=== PATIENT | female | born 1945 | race Caucasian/White ===

== ENCOUNTER 2017-08-20 12:06 | Emergency (ER) | payer OTHER ==
--- NOTE | 2017-08-20 14:10 | RAD REPORT ---
EXAM DESCRIPTION: CT - C Spine Wo Con - 08/20/2017 1:45 pm CLINICAL HISTORY: Right neck pain x3 days. Radiculopathy COMPARISON: None. TECHNIQUE: Computed axial tomography of the cervical spine were obtained with sagittal and coronal r econstruction images generated and reviewed. All CT scans are performed using dose optimization technique as appropriate and may include automated exposure control or mA/KV adjustment according to patient size. FINDINGS: A cervical fracture is not seen. No dislocation is noted. 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 Small central disc herniation is suspected at C4-5 IMPRESSION: A cervical fracture is not seen. Small disc central disc herniation is suspected C4-5 If the patient continues have symptoms to suggest spinal cord/spinal canal pathology then MRI would b e recommended.
[2017-08-20] MEDS ORDERED: DIAZEPAM 10 MG/2 ML INJ SYRINGE ONE ×2 (14:39→17:58)
--- NOTE | 2017-08-20 17:27 | EDPHYS ---
Physician Documentation [facility] Name: Naz Garcia Age: 71 yrs Sex: Female : 1945 Arrival Date: 08/20/2017 Time: 12:08 Bed 14 Private MD: ED Physician Valentine Haskins HPI: 08/20 17:19 This 71 yrs old Female presents to ER via Ambulatory with complaints of Neck ma2 Problem. 17:22 The patient or guardian complains of decreased range of motion. ma2 17:22 The symptoms are located right neck . Onset: The symptoms/episode began/occurred ma2 gradually, 2 day(s) ago. Context: no trauma . Associated signs and symptoms: Pertinent positives: This patient does not have any pertinent positive signs or symptoms associated with neck pain. Pertinent negatives: chills, constipation, fever, headache, bladder incontinence, bowel incontinence, nausea, numbness, tingling, vomiting, weakness. The pain does not radiate. Severity of symptoms: At their worst the symptoms were moderate. - Immunization history:: Adult Immunizations up to date. - Social history:: Smoking status: Patient/guardian denies using tobacco. ROS: 17:22 Constitutional: Negative for fever, chills, and weight loss, Eyes: Negative for injury, ma2 pain, redness, and discharge, ENT: Negative for injury, pain, and discharge, Cardiovascular: Negative for chest pain, palpitations, and edema, Respiratory: Negative for shortness of breath, cough, wheezing, and pleuritic chest pain, Abdomen/GI: Negative for abdominal pain, nausea, diarrhea, and constipation, Back: Negative for injury and pain, MS/Extremity: Negative for injury and deformity, Skin: Negative for injury, rash, and discoloration, Neuro: Negative for headache, weakness, numbness, tingling, and seizure, Allergy/Immunology: Negative for hives, rash, and allergies, Hematologic/Lymphatic: Negative for swollen nodes, abnormal bleeding, and unusual bruising. Exam: 17:22 Constitutional: This is a well developed, well nourished patient who is awake, alert, ma2 and in no acute distress. ENT: Nares patent. No nasal discharge, no septal abnormalities noted. Tympanic membranes are normal and external auditory canals are clear. Oropharynx with no redness, swelling, or masses, exudates, or evidence of obstruction, uvula midline. Mucous membranes moist. Chest/axilla: Normal chest wall appearance and motion. Nontender with no deformity. No lesions are appreciated. Cardiovascular: Regular rate and rhythm with a normal S1 and S2. No gallops, murmurs, or rubs. Normal PMI, no JVD. No pulse deficits. MS/ Extremity: Pulses equal, no cyanosis. Neurovascular intact. Full, normal range of motion. Neuro: Awake and alert, GCS 15, oriented to person, place, time, and situation. Cranial nerves II-XII grossly intact. Motor strength 5/5 in all extremities. Sensory grossly intact. Cerebellar exam normal. Normal gait. Psych: Awake, alert, with orientation to person, place and time. Behavior, mood, and affect are within normal limits. 17:22 Neck: ROM/movement: pain, that is moderate, limited range of motion, that is moderate, when rotating to the right, Meningeal signs: are not present, nuchal rigidity, is not appreciated, tense SCM muscle and trapezius . Vital Signs: 12:15 BP 149 / 66; Pulse 74; Resp 16; Temp 98.0; Pulse Ox 99% on R/A; Weight 70.31 kg; Height ss 5 ft. 2 in. (157.48 cm); Pain 10/10; 14:33 BP 138 / 64; Pulse 78; Resp 20; Pulse Ox 100% on R/A; Pain 10/10; jtb 15:30 BP 139 / 61; Pulse 76; Resp 18; Pulse Ox 100% ; mh5 16:48 BP 149 / 61; Pulse 85; Resp 18; Pulse Ox 100% on R/A; mh5 12:15 Body Mass Index 28.35 (70.31 kg, 157.48 cm) ss MDM: 13:11 Patient medically screened. ma2 17:22 Differential diagnosis: arthritis, C-Spine Fracture cervical strain, Muscle sprain. ma2 Data reviewed: vital signs, nurses notes, radiologic studies. Test interpretation: by ED physician or midlevel provider: ECG, plain radiologic studies. Counseling: I had a detailed discussion with the patient and/or guardian regarding: the historical points, exam findings, and any diagnostic results supporting the discharge/admit diagnosis, the presence of at least one elevated blood pressure reading (>120/80) during this emergency department visit, the need for outpatient follow up. Response to treatment: the patient's symptoms have markedly improved after treatment. ED course: CTspine wnl . 08/20 13:23 Order name: CT C Spine ma2 08/20 14:11 Order name: CT; Complete Time: 16:50 EDMS Administered Medications: 14:29 Drug: Valium 10 mg Route: IM; Site: left gluteus; jl7 16:30 Follow up: Response: No adverse reaction; No change in condition jl7 17:55 Drug: Valium 10 mg Route: IM; Site: left gluteus; jl7 18:06 Follow up: Response: Medication administered at discharge. jl7 17:55 Drug: soft colar 1 application {Note: Soft collar applied to pt's neck.} Route: jl7 Topical; Site: chin; 18:06 Follow up: Response: Medication administered at discharge. 7 Disposition: 08/20/17 17:26 Discharged to Home. Impression: Muscle spasm. - Condition is Stable. - Prescriptions for Valium 10 mg Oral Tablet - take 1 tablet by ORAL route every 8 hours As needed; 20 tablet. Cyclobenzaprine 10 mg Oral Tablet - take 1 tablet by ORAL route every 8 hours As needed; 30 tablet. - Medication Reconciliation Form, Thank You Letter, Antibiotic Education, Prescription Opioid Use form. - Follow up: Private Physician; When: Tomorrow; Reason: Continuance of care. - Problem is new. - Symptoms have improved. Signatures: Dispatcher [employer] EDMS America Vaughan RN RN ss Leal, Jahala, RN RN jl7 Valentine Haskins MD MD ma2
--- NOTE | 2017-08-20 17:27 | ER ---
Nurse's Notes [facility] Name: Naz Garcia Age: 71 yrs Sex: Female : 1945 Arrival Date: 08/20/2017 Time: 12:08 Bed 14 Private MD: Diagnosis: Muscle spasm Presentation: 08/20 12:15 Presenting complaint: Patient states: R sided neck pain x 3 days. Worse when moving ss head. Denies injury. Transition of care: patient was not received from another setting of care. Onset of symptoms was August 17, 2017. Care prior to arrival: None. 12:15 Method Of Arrival: Ambulatory ss 12:15 Acuity: ELIUD 3 ss - Immunization history:: Adult Immunizations up to date. - Social history:: Smoking status: Patient/guardian denies using tobacco. Screenin:33 Abuse screen: Denies threats or abuse. Denies injuries from another. Nutritional jtb screening: No deficits noted. Tuberculosis screening: No symptoms or risk factors identified. Fall Risk None identified. Assessment: 13:30 General: Appears in no apparent distress. uncomfortable, Behavior is calm, cooperative, jtb appropriate for age. Pain: Complains of pain in Back of the neck. Pain does not radiate. Pain currently is 10 out of 10 on a pain scale. at worst was 10 out of 10 on a pain scale. Quality of pain is described as aching, stabbing, throbbing, Pain began 1 day ago. Is continuous. Neuro: Level of Consciousness is awake, alert, obeys commands, Oriented to person, place, time, situation. Cardiovascular: Patient's skin is warm and dry. Respiratory: Airway is patent Respiratory effort is even, unlabored, Respiratory pattern is regular, symmetrical. GI: No signs and/or symptoms were reported involving the gastrointestinal system. : No signs and/or symptoms were reported regarding the genitourinary system. EENT: No signs and/or symptoms were reported regarding the EENT system. Derm: Skin is intact, Skin is pink, warm \T\ dry. Musculoskeletal: No signs and/or symptoms reported regarding the musculoskeletal system. 14:30 Reassessment: Patient appears in no apparent distress at this time. No changes from jtb previously documented assessment. Patient and/or family updated on plan of care and expected duration. Pain level reassessed. Patient is alert, oriented x 3, equal unlabored respirations, skin warm/dry/pink. Family at the bedside, Medications administered. 15:40 Reassessment: Patient appears in no apparent distress at this time. No changes from jtb previously documented assessment. Patient and/or family updated on plan of care and expected duration. Pain level reassessed. Patient is alert, oriented x 3, equal unlabored respirations, skin warm/dry/pink. Family at the bedside. Reports that the Valium did not help with the pain. 16:49 Reassessment: Patient appears in no apparent distress at this time. No changes from jtb previously documented assessment. Patient and/or family updated on plan of care and expected duration. Pain level reassessed. Patient is alert, oriented x 3, equal unlabored respirations, skin warm/dry/pink. 17:30 Reassessment: Pt c/o continued discomfort at the neck, see [facility] for orders. jl7 Vital Signs: 12:15 BP 149 / 66; Pulse 74; Resp 16; Temp 98.0; Pulse Ox 99% on R/A; Weight 70.31 kg; Height ss 5 ft. 2 in. (157.48 cm); Pain 10/10; 14:33 BP 138 / 64; Pulse 78; Resp 20; Pulse Ox 100% on R/A; Pain 10/10; jtb 15:30 BP 139 / 61; Pulse 76; Resp 18; Pulse Ox 100% ; mh5 16:48 BP 149 / 61; Pulse 85; Resp 18; Pulse Ox 100% on R/A; mh5 12:15 Body Mass Index 28.35 (70.31 kg, 157.48 cm) ED Course: 12:08 Patient arrived in ED. mr 12:15 Arm band placed on right wrist. ss 12:16 Triage completed. ss 13:08 Alfredo Olsen, TOM is Primary Nurse. jl7 13:11 Valentine Haskins MD is Attending Physician. ma2 13:45 CT completed. Patient tolerated procedure well. Patient moved back from CT. bq 14:33 Patient has correct armband on for positive identification. Bed in low position. Call jtb light in reach. Side rails up X 1. Pulse ox on. NIBP on. 18:08 No provider procedures requiring assistance completed. Patient did not have IV access jl7 during this emergency room visit. Administered Medications: 14:29 Drug: Valium 10 mg Route: IM; Site: left gluteus; jl7 16:30 Follow up: Response: No adverse reaction; No change in condition jl7 17:55 Drug: Valium 10 mg Route: IM; Site: left gluteus; jl7 18:06 Follow up: Response: Medication administered at discharge. jl7 17:55 Drug: soft colar 1 application {Note: Soft collar applied to pt's neck.} Route: jl7 Topical; Site: chin; 18:06 Follow up: Response: Medication administered at discharge. jl7 Outcome: 17:26 Discharge ordered by . rock 18:08 Attestation : I agree with everything documented by Nima Johnson, Student Nurse. 7 18:08 Discharged to home ambulatory, with family. 18:08 Condition: stable 18:08 Discharge instructions given to patient, family, Instructed on discharge instructions, follow up and referral plans. medication usage, Demonstrated understanding of instructions, follow-up care, medications, Prescriptions given X 2. 18:09 Patient left the ED. [facility] Signatures: Fide Vargas mr ElidabarryMacey Shelby, TOM RN Fide Clark Alfredo Verma RN RN jl7 Valentine Haskins MD MD ma2 Bryson, James j Corrections: (The following items were deleted from the chart) 12:19 12:15 Acuity: ELIUD 4 ss ss 14:32 14:29 General: Appears in no apparent distress. uncomfortable, Behavior is calm, jtb cooperative, appropriate for age, jtb 14:32 14:29 Pain: Complains of pain in Back of the neck. Pain does not radiate. Pain jtb currently is 10 out of 10 on a pain scale. at worst was 10 out of 10 on a pain scale. Quality of pain is described as aching, stabbing, throbbing, Pain began 1 day ago. Is continuous, jtb 14:32 14:29 Neuro: Level of Consciousness is awake, alert, obeys commands, Oriented to jtb person, place, time, situation, jtb 14:32 14:29 Cardiovascular: Patient's skin is warm and dry. jtb jtb 14:32 14:29 Respiratory: Airway is patent Respiratory effort is even, unlabored, Respiratory jtb pattern is regular, symmetrical, jtb 14: GI: No signs and/or symptoms were reported involving the gastrointestinal system. jtb jtb : : No signs and/or symptoms were reported regarding the genitourinary system. jtbjtb 14: EENT: No signs and/or symptoms were reported regarding the EENT system. jtb jtb 14: Derm: Skin is intact, Skin is pink, warm \T\ dry. jtb jtb 14: Musculoskeletal: No signs and/or symptoms reported regarding the musculoskeletal jtb system. jtb
== END 2017-08-20 18:09 | disposition home or self-care (01) ==
LOC: ER 12:06
DX: M62.838 Other muscle spasm (principal)
CPT/HCPCS: 72125; 96372; 99284; J3360 ×2

== ENCOUNTER 2022-03-20 13:04 | Emergency (ER) | payer OTHER ==
--- OUTSIDE RECORDS SUMMARY | 2022-03-20 13:08 | XMS REPORT | Continuity of Care Document ---
:1945 Author Organization [facility] t Address [address] [place] [address] Care Team Providers Name Role Phone Sarah Mcclain MD Primary Care Physician Noam Perez Attending Clinician Unavailable GC_TNC_Lovitt_S Attending Clinician Unavailable Sarah Mcclain MD Attending Clinician Mario LANDIN, Jeanine Jones Attending Clinician [phone] Miguel LANDIN, Alex Butcher Attending Clinician [phone] Gulshan LANDIN, Luciana Schmidt Attending Clinician MD JULIAN PAREDES Attending Clinician Unavailable JULIAN PAREDES Attending Clinician Unavailable LEVI ALVAREZ Attending Clinician Unavailable Sarah Mcclain Attending Clinician Unavailable Noam Perez Admitting Clinician Unavailable GC_TNC_Lovitt_S Admitting Clinician Unavailable SARAH MCCLAIN Admitting Clinician Unavailable MD JULIAN PAREDES Admitting Clinician Unavailable Sarah Mcclain Admitting Clinician Unavailable Payers Payer Name Policy Type Policy Number Effective Date Expiration Date S jama MEDICARE [place]: [id number] 2011 [facility] Com 00:00:00 [employer] [id number] INSURANCE COMPANY (MEDICARE SUPPLEMENT) Problems Condition Condition Condition Status Onset Resolution Last Treating Co mments Source Name Details Category Date Date Treatment Clinician Date 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 rivia neuralgia Neuralgia 0-11 Medi ilsa 00:00: 00 Chest Chest Disease Active Methodi pain, pain, 6-11 st unspecifie unspecifie 00:00: Ho spita d type d type 00 l Chest pain Chest pain Disease Active M ethodi 6-10 st 00:00: Hospita 00 l Essential Essential Disease Active Met hodi hypertensi hypertensi 09-03 st on on 00:00: Hospita 00 l Hyperthyro Hyperthyro Disease Active M ethodi idism idism 09-03 st 00:00: Hospita 00 l Mixed Mixed Disease Active Methodi hyperlipid hyperlipid 09-03 st emia emia 00:00: Hospita 00 l Pain of Pain of Disease Active Methodi upper upper 09-03 st abdomen abdomen 00:00: Hospita 00 l Allergies, Adverse Reactions, Alerts Allergy Allergy Status Severity Reaction(s) Onset Inactive Treating Comm ents Source Name Type Date Date Clinician Colchici Propensi Active Hives Method i ne ty to 6-10 st adverse 00:00: Hospita reaction 00 l s to drug Tramadol Propensi Active Hallucinatio Methodi ty to ns 6-10 st adverse 00:00: Hospita reaction 00 l s to drug Iodine Propensi Active Other (See Tremors-w M ethodi And ty to Comments) 3-[address] Iodide adverse 00:00: observed Hospita Containi reaction 00 but l ng s to resolved Products drug without treatment oxybutyn DA Active [place] 2019- [facility] [place] 00:00: Orthope 00 dic Hospita l oxybutyn DA Active UT NAUSEA 2019- [facility] 007 [place] 00:00: Orthope 00 dic Hospita l Sulfa DA Active SV [facility] (Sulfona 02-25 Clear mide 00:00: Luo Antibiot 00 [facility] allopuri DA Active SV HCA nol 02-25 Clear 00:00: Luo 00 [facility] colchici DA Active SV [facility] ne 02-25 Clear 00:00: Luo 00 [facility] amoxicil DA Active MO 2020-0 [facility] emilie 9- Clear 00:00: Luo 00 [facility] meloxica DA Active SV 2019-0 H[facility] m 9-22 Clear 00:00: Luo 00 [facility] meloxica DA Active SV DIARRHEA, 2019-0 HCA m NAUSEA, 02-25 Clear WEAK, SHAKY, 00:00: Luo SOB 00 [facility] Sulfa DA Active SV NAUSEA, SOB, 0 HCA (Sulfona DIARRHEA, 02-25 Clear mide WEAK, SHAKY 00:00: Luo Antibiot 00 [facility] allopuri DA Active SV NAUSEA, 0 HCA nol DIARRHEA, 02-25 Clear WEAK, SHAKY, 00:00: Luo SOB [facility] colchici DA Active SV NAUSEA, 0 HCA ne DIARRHEA, 02-25 Clear SHAKY, WEAK, 00:00: Luo SOB [facility] amoxicil DA Active MO DIARRHEA, 0 HCA emilie NAUSEA, 02-25 Clear WEAK, SHAKY, 00:00: Luo SOB [facility] Fexofena Propensi Active Other (See 2018-06 Per Ia thodi dine ty to Comments) 06-10 patient - st adverse 00:00: "nausea/v Hospit a reaction 00 omiting, l s to hypervent drug ilation, weakness, shakiness " Allopuri Propensi Active Other (See 2018-06 Per Ia thodi nol ty to Comments) 06-10 patient - st adverse 00:00: "nausea/v Hospit a reaction 00 omiting, l s to hypervent drug ilation, weakness, shakiness " Amoxicil Propensi Active Other (See 2018-06 Per Ia thodi emilie-Pot ty to Comments) 06-10 patient - st Clavulan adverse 00:00: "nausea/v Hosp handy ate reaction 00 omiting, l s to hypervent drug ilation, weakness, shakiness " Moxiflox Propensi Active Other (See 2018-06 Per Ia thodi acin ty to Comments) 06-10 patient - st adverse 00:00: "nausea/v Hospit a reaction 00 omiting, l s to hypervent drug ilation, weakness, shakiness " Sulfamet Propensi Active Other (See 2018-06 Per Ia thodi hoxazole ty to Comments) 06-10 patient - st -Trimeth adverse 00:00: "nausea/v Hosp handy oprim reaction 00 omiting, l s to hypervent drug ilation, weakness, shakiness " Clindamy Propensi Active Unknown 2018-06 Per Metho di shailesh ty to Reaction 06-10 patient - st adverse 00:00: "nausea/v Hospit a reaction 00 omiting, l s to hypervent drug ilation, weakness, shakiness " Dexlanso Propensi Active Other (See 2018-06 Per Ia renay prazole ty to Comments) 06-10 patient - st adverse 00:00: "nausea/v Hospit a reaction 00 omiting, l s to hypervent drug ilation, weakness, shakiness " Meloxica Propensi Active Other (See 2018-06 Per Ia renay m ty to Comments) 06-10 patient - st adverse 00:00: "nausea/v Hospit a reaction 00 omiting, l s to hypervent drug ilation, weakness, shakiness " Sulfa Propensi Active Other (See 2018-06 Per Meth amanda (Sulfona ty to Comments) 06-10 patient - st mide adverse 00:00: "nausea/v Hospit a Antibiot reaction 00 omiting, l ics) s to hypervent drug ilation, weakness, shakiness " Tetracyc Propensi Active GI 2018-06 Per Method i lines ty to Intolerance 06-10 patient - st adverse 00:00: "nausea/v Hospit a reaction 00 omiting, l s to hypervent drug ilation, weakness, shakiness " Zolpidem Propensi Active GI 2018-06 Per Method i ty to Intolerance 06-10 patient - st adverse 00:00: "nausea/v Hospit a reaction 00 omiting, l s to hypervent drug ilation, weakness, shakiness " Tetracyc DA Active SV 2016-0 [facility] lines 2-21 Clear 00:00: Luo 00 [facility] clindamy DA Active SV [facility]CA shailesh 2-21 Clear 00:00: Luo 00 [facility] sulfamet DA Active SV HCA hoxazole 2-21 Clear 00:00: Luo 00 [facility] trimetho DA Active SV HCA prim 2-21 Clear 00:00: Luo [facility] zolpidem DA Active SV HCA 2- Clear 00:00: Luo [facility] fexofena DA Active SV HCA dine 07-27 Clear 00:00: Luo [facility] moxiflox DA Active SV HCA acin 07-27 Clear 00:00: Luo [facility] dexlanso DA Active SV HCA prazole 07-27 Clear 00:00: Luo [facility] zolpidem DA Active SV NAUSEAATED HCA 2 Clear 00:00: Luo [facility] fexofena DA Active SV NAUSEATED,SH HC A dine AKEY,DIARRHE 07-27 Dulce r A,SOB 00:00: Luo [facility] moxiflox DA Active SV NAUSEA,SHAKE HC A acin Y,SOB 07-27 Clear 00:00: Luo [facility] dexlanso DA Active SV NAUSEATED,SH HC A prazole AKEY,SOB,JENNIFER 07-27 Fidel ar RRHEA 00:00: Luo [facility] Tetracyc DA Active SV NAUSEATED,SH HC A lines AKEY,SOB,ESME 07-27 Dulce r RRHEA 00:00: Luo [facility] clindamy DA Active SV NAUSEATED HCA shailesh 07-27 Clear 00:00: Luo [facility] sulfamet DA Active SV NAUSEATED,DI HC A hoxazole ARRHEA,SHAKE 07-27 Cl ear Y,SOB 00:00: Luo [facility] trimetho DA Active SV NAUSEATED,DI HC A prim [facility] Dulce r Y,SOB 00:00: Luo [facility] NARCOTIC DA Active UT SENSITIVE TO HC A S PAIN 7- Clear MEDICATION 00:00: Luo [facility] Benzonat Allergy Active [facility] ate to Medical substanc e Clindamy Allergy Active [facility] shailesh to Medical substanc e Codeine Allergy Active [facility] to Medical substanc e Colchici Allergy Active [facility] ne to Medical substanc e DARVOCET Allergy Active [facility] -N to Medical substanc e Duloxeti Allergy Active [facility] ne to Medical substanc e Iodine Allergy Active [facility] to Medical substanc e KAPIDEX Allergy Active [facility] to Medical substanc e Meloxica Allergy Active [facility] m to Medical substanc e Morphine Allergy Active [facility] to Medical substanc e Oxybutyn Allergy Active [facility] in to Medical substanc e STATINS- Allergy Active [facility] to Medical REDUCTAS substanc E e INHIBITO RS TETRACYC Allergy Active [facility] LINES to Medical substanc e Tramadol Allergy Active [facility] to Medical substanc e Vicodin Allergy Active [facility] to Medical substanc e Radha Allergy Active [facility] to Medical substanc e Allopuri Allergy Active [facility] nol to Medical substanc e Ambien Allergy Active [facility] to Medical substanc e Avelox Allergy Active [facility] to Medical substanc e Bactrim Allergy Active [facility] to Medical substanc e Social History Social Habit Start Date Stop Date Quantity Comments Source History [facility] Drinks History [facility] Alcohol intake 2021-11-19 2021-11-19 Lifetime [facility] 00:00:00 00:00:00 non-drinker Hospital (finding) Tobacco use and 2020-09-02 2020-09-02 Smokeless tobacco Me [facility]odist exposure 00:00:00 00:00:00 non-user Hospital History [facility] 2020-09-02 2020-09-02 1 [facility] Frequency 00:00:00 00:00:00 Hospita l Sex Ass[birth year] At [birth year] F [facility] 00:[facility] 00:[facility]:00 Hospital Smoking Status Start Date Stop Date Source Never smoked tobacco [facility] Medications Ordered Filled Start Stop Current Ordering Indication Dosage Frequency Signature Comments Components Source Medication Medication Date Date Medication? Clinician (SIG) Name Name calcium Yes 1{tbl} QD Chew 1 Method i carbonate 6-[address] 400 mg 13:09: daily. Hospita calcium 04 l (1,000 mg) tablet,chew able MAGNESIUM Yes 1{tbl} QD Take 1 Meth amanda ORAL 6-[address] 13:09: mouth Hospita 04 daily. l multivitami Yes 1{tbl} QD Take 1 Me thodi n tablet 6-[address] 13:09: mouth Hospita 04 daily. l zinc 2021- No 1{tbl} QD Take 1 Methodi sulfate 15 -[address] (ZINC-15 13:09: 00:00 mouth Hospita ORAL) 04 :00 daily. l evolocumab 2021- No 140mg Q14D Metho di (REPATHA) 11-17 10-04 st injection 15:45: 13:59 Hospita 140 mg 00 :00 l triamterene 2021- No 1{capsu QD Take 1 Methodi -hydrochlor 11-17-14 le} capsule by s t othiazid 13:09: 00:00 mouth Hospita (DYAZIDE) 45 :00 daily. l 37.5-25 mg per capsule cholecalcif Yes 1000U Take 1,000 Methodi kaya, 6-[address] vitamin D3, 13:09: mouth. Hosp handy (VITAMIN 42 l D3) 1,000 unit capsule evolocumab Yes 140mg Q14D Inject 1 Me thodi (Repatha 6-14 mL ([address] Sure[facility]) 00:00: total) Hospi ta 140 mg/mL 00 under the l pen skin every injector 14 injection (fourteen) days. aspirin No 81mg QD Take 1 Methodi (ECOTRIN) 11-1715 tablet (81 st 81 MG 00:00: 04:59 mg total) Hospit a enteric 00 :00 by mouth l coated daily for tablet 30 days. simvastatin No 20mg QD Take 20 mg Methodi (ZOCOR) 20 6- 06-[address] mg tablet 18:07: 00:00 nightly. Hos ramiro 22 :00 l pantoprozol 2021- No 8mg/h Infuse 8 Methodi e 6-10 06-10 mg/hr into st (PROTONIX) 18:07: 00:00 a venous Ho spita infusion 19 :00 catheter l continuous ly. aspirin-ilsa 2021- No Take by Me thodi cium 6-10 06-[address] carbonate 18:05: 00:00 Hospita 81 mg-300 42 :00 l mg calcium(777 mg) tablet azelaic 2021- No Apply Methodi acid 11-[address] (FINACEA) 18:05: 00:00 Hospita 15 % foam 42 :00 l predniSONE 2021- No 5mg QD Take 5 mg M ethodi (DELTASONE) 11-[address] 5 mg tablet 18:05: 00:00 daily. Hos ramiro 33 :00 l ascorbic 2021- No Vitamin C Met hodi acid, 11-13 1,[address] vitamin C, 18:05: 00:00 tablet Hosp handy (VITAMIN C) 27 :00 l 1000 MG tablet levothyroxi 2018-06 Yes 75ug QD Take 75 Met hodi ne 0-[address] (SYNTHROID) 00:00: mouth Hospi ta 75 mcg 00 daily. l tablet metoprolol Yes 50mg QD Take 50 mg M ethodi tartrate 8-[address] (LOPRESSOR) 00:00: daily. Hosp handy 50 mg 00 l tablet cefdinir cefdinir No cefdinir Tri via 300 mg 300 mg 300 mg Medical capsule capsule capsule TAKE 1 TAKE 1 TAKE 1 CAPSULE BY CAPSULE BY CAPSULE BY MOUTH TWICE MOUTH TWICE MOUTH DAILY DAILY TWICE DAILY duloxetine duloxetine No duloxetine [facility] 30 mg 30 mg 30 mg Medical capsule,del capsule,del capsule,de ayed ayed layed release release release TAKE 1 TAKE 1 TAKE 1 CAPSULE BY CAPSULE BY CAPSULE BY MOUTH ONCE MOUTH ONCE MOUTH ONCE DAILY DAILY DAILY Euthyrox 75 Euthyrox 75 No Euthyrox [facility] mcg tablet mcg tablet 75 mcg M edical TAKE 1 TAKE 1 tablet TABLET BY TABLET BY TAKE 1 MOUTH ONCE MOUTH ONCE TABLET BY DAILY DAILY MOUTH ONCE DAILY metoprolol metoprolol No metoprolol [facility] tartrate 50 tartrate 50 tartrate Medical mg tablet mg tablet 50 mg TAKE 1 TAKE 1 tablet TABLET BY TABLET BY TAKE 1 MOUTH ONCE MOUTH ONCE TABLET BY DAILY DAILY MOUTH ONCE DAILY ondansetron ondansetron No ondansetro [facility] 8 mg 8 mg n 8 mg Medical disintegrat disintegrat disintegra ing tablet ing tablet ting tablet prednisone prednisone No prednisone [facility] 20 mg 20 mg 20 mg Medical tablet TAKE tablet TAKE tablet 2 TABLETS 2 TABLETS TAKE 2 BY MOUTH BY MOUTH TABLETS BY ONCE DAILY ONCE DAILY MOUTH ONCE FOR 3 DAYS FOR 3 DAYS DAILY FOR , THEN TAKE , THEN TAKE 3 DAYS , 1 TABLET 1 TABLET THEN TAKE ONCE A DAY ONCE A DAY 1 TABLET FOR 3 DAYS FOR 3 DAYS ONCE A DAY FOR 3 DAYS Repatha Repatha No Repatha [facility] 140 mg/mL 140 mg/mL 140 mg/mL subcutaneou subcutaneou subcutaneo s pen s pen us pen injector injector injector triamterene triamterene No triamteren [facility] 37.5 37.5 e 37.5 Medical mg-hydrochl mg-hydrochl mg-hydroch orothiazide orothiazide lorothiazi 25 mg 25 mg de 25 mg capsule capsule capsule TAKE 1 TAKE 1 TAKE 1 CAPSULE BY CAPSULE BY CAPSULE BY MOUTH ONCE MOUTH ONCE MOUTH ONCE DAILY DAILY DAILY Vital Signs Vital Name Observation Time Observation Value Comments Source Height 2022-03-16 00:00:00 61 [in_i] [facility] edical BMI (Body Mass 2022-03-16 00:00:00 33.1 kg/m2 [facility] Medical Index) Body Weight 2022-03-16 00:00:00 2800 [oz_av] [facility] edical Systolic blood 2022-01-28 13:31:00 182 mm[Hg] [facility] pressure Diastolic blood 2022-01-28 13:31:00 75 mm[Hg] [facility] pressure Heart rate 2022-01-28 13:31:00 68 /min [facility] Respiratory rate 2022-01-28 13:31:00 17 /min [facility] Oxygen saturation in 2022-01-28 13:31:00 100 /min [facility] Arterial blood by Pulse oximetry Body weight 2022-01-28 12:34:00 77.565 kg [facility] BMI 2022-01-28 12:34:00 32.31 kg/m2 [facility] Body temperature 2021-11-17 16:53:49 36.56 Marina [facility] Body height 2021-11-13 16:58:00 154.9 cm [facility] Procedures Procedure Date / Time Performing Clinician Source Performed MRI BRAIN WO CONTRAST 2022-03-04 15:05:00 V[facility], [facility] CV MRA CHEST (THORACIC 2022-01-28 13:48:03 [facility] AORTA OR PULMONARY ARTERY) ESTIMATED GFR 2022-01-28 13:23:00 [facility] POC PANEL 2022-01-28 13:23:00 [facility] ESTIMATED GFR 2022-01-15 20:12:00 [facility] POC PANEL 2022-01-15 20:12:00 [facility] US BREAST COMPLETE 2022-01-15 16:50:07 [facility] BILATERAL MAMMO BREAST DIAGNOSTIC 2022-01-15 16:21:32 [facility] TOMOSYNTHESIS BILATERAL CT CHEST WO CONTRAST 2022-01-01 16:55:25 [facility] CV LEFT HEART CATH LV 2021-11-16 23:17:02 Kate Morrison [facility] GRAM WITH CORS MAGNESIUM LEVEL 2021-11-16 14:07:00 [facility] COMPREHENSIVE METABOLIC 2021-11-16 14:07:00 [facility] PANEL ESTIMATED GFR 2021-11-16 14:07:00 [facility] HC COMPLETE BLD COUNT 2021-11-16 14:07:00 [facility] W/AUTO DIFF COVID-19 ANTI-SPIKE IGG 2021-11-15 09:25:00 Kyle Islas [facility] ANTIBODY TITER Rob COVID-19 SEROLOGY PATIENT 2021-11-15 09:25:00 Kyle Islas [facility] SURVEILLANCE Rob CV SPECT CA SC TECH ONLY 2021-11-14 19:25:13 [facility] ORDER CV STRESS TEST NUCLEAR 2021-11-14 16:18:10 [facility] CARDIO NM MYOCARDIAL PERFUSION 2021-11-14 16:18:10 [facility] STRESS REST 1 DAY ECG 12-LEAD 2021-11-14 12:46:53 [facility], WO 2021-11-14 11:26:00 [facility], W DOPPLER ([id number]) BASIC METABOLIC PANEL 2021-11-14 09:59:00 [facility] ESTIMATED GFR 2021-11-14 09:59:00 [facility] LIPID PANEL 2021-11-14 09:59:00 [facility] TROPONIN T 2021-11-14 02:44:00 [facility] TROPONIN T 2021-11-13 22:34:00 Gregory[facility] ECG ED PRELIMINARY 2021-11-13 21:32:41 [facility] INTERPRETATION Alex Butcher COVID-19 QUALITATIVE 2021-11-13 19:31:00 [facility] RT-PCR Alex Butcher XR CHEST 1 VW PORTABLE 2021-11-13 18:11:17 [facility] Alex R. HC COMPLETE BLD COUNT 2021-11-13 17:50:00 Adal Gregory [facility] W/AUTO DIFF COMPREHENSIVE METABOLIC 2021-11-13 17:50:00 Adal Gregory [facility] PANEL TROPONIN T 2021-11-13 17:50:00 [facility] B NATRIURETIC PEPTIDE 2021-11-13 17:50:00 Adal Gregory [facility] ESTIMATED GFR 2021-11-13 17:50:00 Gregory, [facility] ECG 12-LEAD 2021-11-13 17:08:44 [facility] XR CHEST 2 VW 2021-10-05 18:03:00 [facility] [id number] 2020-03-12 00:00:00 STOGR [facility] Cataract Surgery [facility] Medical Ankle Arthroscopy/surgery [facility] Medical Total Knee Replacement [facility] dical Hysterectomy [facility] Plan of Care Planned Activity Planned Date Details Comments Source Future Scheduled 2022-03-11 HEPATITIS B VACCINES Met [facility] Test 10:45:45 (1 of 3 - 3-dose series) [code = HEPATITIS B VACCINES (1 of 3 - 3-dose series)] Future Scheduled 2022-03-11 Hepatitis C screening [facility] Test 10:45:45 (procedure) [code = 729357390] Future Scheduled 2022-03-11 COLONOSCOPY SCREENING [facility] Test 10:45:45 [code = COLONOSCOPY SCREENING] Future Scheduled 2022-03-11 SHINGLES VACCINES (1 Met [facility] Test 10:45:45 of 2) [code = SHINGLES VACCINES (1 of 2)] Future Scheduled 2022-03-11 COVID-19 VACCINE (2 - [facility] Test 10:45:45 Moderna series) [code = COVID-19 VACCINE (2 - Moderna series)] Future Scheduled 2022-03-11 INFLUENZA VACCINE Method [facility] Test 10:45:45 [code = INFLUENZA VACCINE] Future Scheduled 2022-03-11 [facility] 10:45:45 SCREENING [code = BREAST CANCER SCREENING] Encounters Start End Encounter Admission Attending Care Care Encounter Source Date/Time Date/Time Type Type Clinicians Facility Department ID 2020-03-12 Inpatient LEANNA Perez, [facility] [id number] [facility] 15:15:[address] Orthope dic Hospita l 2022-03-16 2022-03-16 Outpatient GC_TNC_Lovi PRIV PRIV [id number] [facility] 00:00:00 00:00:00 tt_S [id number] Medica l 2022-03-16 2022-03-[address] [facility] 011 [facility] 00:00:00 00:00:00 Sandrine Anand - Anirudh noble MD: [id number] GC_TNC_Kendra [facility], Office* [address], [place] [address] , Ph. 2022-03-15 2022-03-15 Outpatient GC_TNC_Lovi PRIV PRIV [id number] [facility] 00:00:00 00:00:00 tt_S [id number] Medica l 2022-03-08 2022-03-08 Outpatient GC_TNC_Lovi PRIV PRIV [id number] [facility] 00:00:00 00:00:00 tt_S [id number] Medica l 2022-03-04 2022-03-04 [facility], 1.2.840.1 [id number] Methodi 09:26:50 23:59:00 Encounter Sarah G. [id number] 3.430.2.7 Hospit a .3.954658 l .8 2022-03-04 2022-03-04 Travel 1.2.840.1 1.2.779.166 [id number] [facility] 00:00:00 00:00:[address] 3.430.2.7 0.2.7.3.698 Ho spita .3.480343 084.8 l .8 2022-03-04 2022-03-04 Outpatient [facility] [id number] 00:00:00 00:00:00 SARAH [address] 2022-02-22 2022-02-22 [facility], 1.2.840.1 [id number] Methodi 00:00:00 00:00:00 Only Sarah G. 88452.1.1 181 s t 3.430.2.7 Hospit a .3.723947 l .8 2022-01-28 2022-01-28 [facility], 1.2.840.1 [id number] Methodi 07:07:23 23:59:00 Encounter Sarah G. 51646.1.[address] 3.430.2.7 Hospit a .3.584464 l .8 2022-01-28 2022-01-28 Travel 1.2.840.1 1.2.867.633 [id number] [facility]i 00:00:00 00:00:[address] 3.430.2.7 0.2.7.3.698 Ho spita .3.083139 084.8 l .8 2022-01-28 2022-01-28 Outpatient SARAHI [facility] [id number] 00:00:00 00:00:00 SARAH [address] 2022-01-15 2022-01-15 [facility], 1.2.840.1 [id number] Methodi 13:24:40 23:59:00 Encounter Sarah G. 85880.1.[address] 3.430.2.7 Hospit a .3.287504 l .8 2022-01-15 2022-01-15 [facility], 1.2.840.1 [id number] Methodi 11:00:00 13:23:00 Encounter Sarah G. 62346.1.[address] 3.430.2.7 Hospit a .3.384462 l .8 2022-01-15 2022-01-15 [facility], 1.2.840.1 [id number] Methodi 10:14:16 10:59:00 Encounter Sarah G. 95757.1.[address] 3.430.2.7 Hospit a .3.461049 l .8 2022-01-15 2022-01-15 Travel 1.2.840.1 1.2.342.815 [id number] [facility]i 00:00:00 00:00:[address] 3.430.2.7 0.2.7.3.698 Ho spita .3.176833 084.8 l .8 2022-01-15 2022-01-15 [facility], 1.2.840.1 [id number] Methodi 00:00:00 00:00:00 Only Sarah G. 30392.1.1 797 s t 3.430.2.7 Hospit a .3.938063 l .8 2022-01-15 2022-01-15 Outpatient SARAHI [facility] [id number] 00:00:00 00:00:00 SARAH [address] 2022-01-15 2022-01-15 Outpatient SARAHI, [facility] [id number] 00:00:00 00:00:00 SARAH [address] 2022-01-15 2022-01-15 Outpatient SARAHI [facility] [id number] [place] 00:00:00 00:00:00 SARAH [address] 2022-01-01 2022-01-01 [facility], 1.2.840.1 [id number] Methodi 10:42:51 23:59:00 Encounter Sarah G. 80539.1.[address] 3.430.2.7 Hospit a .3.340212 l .8 2022-01-01 2022-01-01 Travel 1.2.840.1 1.2.438.794 [id number] Methodi 00:00:00 00:00:[address] 3.430.2.7 0.2.7.3.698 Ho spita .3.661380 084.8 l .8 2022-01-01 2022-01-01 [facility] [id number] [place] 00:00:00 00:00:00 SARAH [address] 2021-12-30 2021-12-30 Transcribe Chiu-Arrast 1.2.840.1 [id number] [facility]i 00:00:00 00:00:00 Orders ia, 24669.1.[address] [place]zano 3.430.2.7 Hos ramiro Robert .3.868679 l .8 2021-12-30 2021-12-30 [facility] 1.2.840.1 [id number] Methodi 00:00:00 00:00:00 Orders Sarah G. 28116.1.1 620 s t 3.430.2.7 Hospit a .3.052582 l .8 2021-12-30 2021-12-30 Orders Vicroy, 1.2.840.1 [id number] [facility] 00:00:00 00:00:00 Only Sarah G. 21824.1.1 657 s t 3.430.2.7 Hospit a .3.936270 l .8 2021-12-29 2021-12-29 Travel 1.2.840.1 1.2.393.766 6807 [id number] Methodi 00:00:00 00:00:[address] 3.430.2.7 0.2.7.3.698 Ho spita .3.494192 084.8 l .8 2021-12-29 2021-12-29 [facility], 1.2.840.1 [id number] Methodi 00:00:00 00:00:00 Only Sarah RaisaCrystal 71656.1.1 337 s t 3.430.2.7 Hospit a .3.522779 l .8 2021-11-13 2021-11-17 [facility] Alex Rivera 1.2.84 0.1 [id number] Methodi 12:02:00 13:09:00 Encounter Jacquesflorencio Sarah RaisaCrystal [address]65.1.[address] 3.430.2.7 Hospit a .3.866977 l .8 2021-11-13 2021-11-17 [facility] [id number] 70 [place] 00:00:00 00:00:00 SARAH [address] 2021-11-16 2021-11-16 Surgery Gulshan, 1.2.840.1 [id number] 2108 Methodi 15:25:00 16:20:00 Luciana Schmidt 08513.1.[address] 3.430.2.7 Hospit a .3.493572 l .8 2021-11-14 2021-11-14 [facility] Sarahi, 1.2.840.1 [id number] Methodi 11:17:30 23:59:00 Encounter Sarah KlineCrystal [address]40.1.[address] 3.430.2.7 Hospit a .3.427843 l .8 2021-11-14 2021-11-14 [facility] [id number] [place] 00:00:00 00:00:00 SARAH [address] 2021-11-13 2021-11-13 Travel 1.2.840.1 1.2.588.266 6238 [id number] Methodi 00:00:00 00:00:[address] 3.430.2.7 0.2.7.3.698 Ho spita .3.645865 084.8 l .8 2021-10-20 2021-10-20 Transcribe [facility], 1.2.840.1 [id number] Methodi 00:00:00 00:00:00 Orders Sarah G. 25084.1.1 124 s t 3.430.2.7 Hospit a .3.663413 l .8 2021-10-05 2021-10-05 [facility], 1.2.840.1 [id number] Methodi 12:45:00 23:59:00 Encounter Sarah G. 33324.1.[address] 3.430.2.7 Hospit a .3.689084 l .8 2021-10-05 2021-10-05 Travel 1.2.840.1 1.2.758.302 4121 [id number] Methodi 00:00:00 00:00:[address] 3.430.2.7 0.2.7.3.698 Ho spita .3.460243 084.8 l .8 2021-10-05 2021-10-05 Orders [facility], 1.2.840.1 [id number] 3897 Methodi 00:00:00 00:00:00 Only Sarah G. 45419.1.1 167 s t 3.430.2.7 Hospit a .3.667350 l .8 2021-10-05 2021-10-05 [facility] [id number] 267 [place] 00:00:00 00:00:00 SARAH [address] 2020-10-27 2020-10-27 [facility] [id number] 906 [place] 00:00:00 00:00:00 SARAH [address] 2020-10-27 2020-10-27 Outpatient SARAHI, [facility] [id number] 906 [place] 00:00:00 00:00:00 SARAH [address] 2020-09-04 2020-09-04 Outpatient REGGIE, [facility] [id number] [place] 00:00:00 00:00:00 PETER [address] 2020-09-02 2020-09-02 Outpatient ANTONIO, LEVI [facility] [id number] [place] 00:00:00 00:00:[address] 2020-08-14 2020-08-14 Outpatient SARAHI, [facility] [id number] 800 [place] 00:00:00 00:00:00 SARAH [address] 2020-03-07 2020-03-07 Outpatient Chris, HCATO RADI [id number] [facility] 10:30:00 10:30:00 Noam [facility] 2020-02-26 2020-02-26 Outpatient Chris, HCACL LABO [id number] [facility] 18:01:00 18:01:00 Noam 24 [facility] 2020-02-26 2020-02-26 [id number] [facility] 00:00:00 00:00:00 Sarah [facility] 2019-10-26 2019-10-26 Outpatient SARAHI [facility] [id number] 829 [place] 00:00:00 00:00:00 SARAH [address] 2019-10-26 2019-10-26 Outpatient SARAHI [facility] [id number] 829 [place] 00:00:00 00:00:00 SARAH [address] 2019-07-30 2019-07-30 Outpatient SARAHI [facility] [id number] [place] 00:00:00 00:00:00 SARAH [address] 2019-07-30 2019-07-30 Outpatient SARAHI [facility] [id number] 980 [place] 00:00:00 00:00:00 SARAH [address] 2019-05-08 2019-05-08 Outpatient ASRAHI [facility] [id number] 796 [place] 00:00:00 00:00:00 SARAH [address] 2019-05-08 2019-05-08 Outpatient SARAHI [facility] [id number] 796 [place] 00:00:00 00:00:00 SARAH [address] 2019-05-08 2019-05-08 Outpatient SARAHI [facility] [id number] 796 [place] 00:00:00 00:00:00 SARAH [address] 2019-03-22 2019-03-22 Outpatient SARAHI [facility] [id number] 855 [place] 00:00:00 00:00:00 SARAH [address] Results Test Description Test Time Test Comments Results Result Comments Source POC panel 2022-01-28 13:26:01 Test Item Value Reference Range Interpretation Comme nts POC creatinine (test code = 1.2 mg/dl 0.5-0.9 H Nuclear Control Room Operator Name: Michael [id number]) Hazelice ID: [id number] POC hematocrit (test code = 40 % 37-47 4544-3) Lab Interpretation (test code = Abnormal 66429-6) [facility] [id number] 13:26:00 Test Item Value Reference Range Interpretation Comments Estimated GFR (test mL/min/1.73 m2 Ryan Michela vale Units code = 26594-9) Interpretati onG1 >=90 Normal or highG 2 60-89 Mildly decrease dG3a 45-59 Mildly to moderately decr troxjS2p 30-44 Moderatel y to severely decrea sedG4 15-29 Severely decreasedG5 <15 Kidney failureThe eGFR was calculated mable g the Chronic Kidney Disease Epidemiology Collaboration ( CKD-EPI) equation. Interpretation is based on recommendati ons of the National Ki dney Foundation-Kidn ey Disease Outcome s Quality Initiat vicky (NKF-KDOQI) pub lished in 2013. Lab Interpretation Abnormal (test code = 62870-6) [facility] stress [id number] 10:15:50 Test Item Value Reference Range Interpretation Comments Resting HR (test code = 5327484292) Resting BP (test code 185&75 = 4624193005) Peak MET Achieved (test code = 6965725788) Protocol Name (test REGADENO code = 4984989319) Time in Exercise 00:01:00 Phase (test code = 1136161520) Max Systolic BP (test code = 2915020627) Max Diastolic BP (test code = 7487989701) Max Heart Rate (test code = 8701676943) Max Predicted Heart Rate (test code = 4643134401) Target HR Formula (220 - Age)*100% (test code = 5997437001) Test Indication (test chest pain code = 4821348434) Arrhy During Ex (test code = 4171632850) ECG Interp Before EX (test code = 7781534003) ECG Interp During Ex (test code = 6363766694) Ex Summary Comment (test code = 5300531024) Overall HR Response to Exercise (test code = 4228907827) Overall BP Response To Exercise (test code = 3641903656) Reason for Protocol Complete Termination (test code = 6453126995) Stress Test Waveform interpreted in Impression (test code report associated with = 8343471004) image study. No interpretation is provided as part of this Stress ECG report.-Electronically Signed By Mackenzie LANDIN, Praful Wallace ([id number]), telegraph editor Jenise Mathur ([id number]) on 11/16/2021 5:15:49 AM [facility] 12 [id number] 00:02:11 Test Item Value Reference Range Interpretation Comments Ventricular rate (test code = 253) Atrial rate (test code = 255) RI interval (test code = 266) QRSD interval (test code = 260) QT interval (test code = 264) QTC interval (test code = 265) P axis 1 (test code = 267) QRS axis 1 (test code = 268) T wave axis (test code = 270) EKG impression (test Normal sinus rhythm code = 273) with sinus arrhythmia-Nonspecific ST and T wave abnormality-Abnormal ECG-In automated comparison with ECG of 13-NOV-2021 12:08,-No significant change was found- [facility]YlwsqjqaXVPX-MrL-7 (COVID-19) RNA [Presence] in Respiratory specimen by JOSIAH with probe [id number] 18:39:02 Test Item Value Reference Range Interpretation Comments SARS-CoV-2 (COVID-19) RNA Not detected [Presence] in Respiratory specimen by JOSIAH with probe detection (test code = 16407-7) Whether patient is employed in a Unknown healthcare setting (test code = 97758-6) Whether the patient has symptoms Unknown related to condition of interest (test code = 36645-1) Whether the patient was Unknown hospitalized for condition of interest (test code = 44766-0) Whether the patient was admitted Unknown to intensive care unit (ICU) for condition of interest (test code = 12233-9) Whether patient resides in a Unknown congregate care setting (test code = 36366-1) status (test code = Unknown 80866-4) Date and time of symptom onset Unknown (test code = 89581-1) SARS-CoV-2 (COVID-19) RNA [Presence] in Respiratory specimen by JOSIAH with probe [id number] 22:43:12 Test Item Value Reference Range Interpretation Comments SARS-CoV-2 (COVID-19) RNA Not detected Not-Detected [Presence] in Respiratory specimen by JOSIAH with probe detection (test code = 96937-9) BASIC METABOLIC [id number] 06:43:00 Test Item Value Reference Range Interpretation Comments SODIUM (test code = 138 mmol/L 136-145 N NA) POTASSIUM (test code = 3.7 mmol/L 3.5-5.1 N K) CHLORIDE (test code = 103.0 mmol/L 98-107 N CL) CARBON DIOXIDE (test 26.7 mmol/L 21-32 N code = CO2) GLUCOSE (test code = 99 mg/dL 70-110 N GLU) BLOOD UREA NITROGEN 23 mg/dL 7-18 H (test code = BUN) GLOMERULAR FILTRATION 56.3 >60 Unit o f measure: RATE (test code = GFR) mL/mi n/1.73 d5Jfldbrddk Range:Healthy Adults >90 mL/min/1.73 m2 For Chronic Kidney Disease: Stage II Mild Decrease i n GFR 60-90 Stage III Moderate Decrea se in GFR 30-59 St age IV Severe Decre ase in GFR 15-29 St age V Kidney Failur e <15 CREATININE (test code 0.97 mg/dL 0.55-1.30 N = CREAT) CALCIUM (test code = 8.6 mg/dL 8.2-10.1 N CA) SPECIMEN COMMENT: POD #1HGB [id number] 05:52:00 Test Item Value Reference Range Interpretation Comments HEMOGLOBIN (test code = HGB) 11.1 g/dL 12-16 L HEMATOCRIT (test code = HCT) 32.2 % 37-47 L SPECIMEN COMMENT: POD #1Novel Coronavirus 2019 [id number] 15:07:00 Test Item Value Reference Range Interpretation Comments Novel Coronavirus Negative Negative Positive r esults are 2019 Inhouse (test indicativ e of the presence code = COVNONPUI) ofSARS-CoV -2 RNA, clinical correlation wit h patient historyand othe r diagnostic info rmation is necessary to determinepatien t infection status. Positiv e results do not rule out bacterial infection or co -infection with other viru ses. Negative result s do not preclude SARS-C oV-2 infection andsh ould not be used as the shi e basis for patient managementdecis ions. Negative result s must be combined with otherclinical observations, p atient history, and epidemiological information . Detection of SARS-CoV-2 RNA may be affe cted bysample collec tion methods, storag e conditions, and /or stageof infection. Ester l RNA mutations, vacc inations, antiviraltherap eutics, antibiotics, chemotherapeuti c orimmunosuppres lexi drugs have not been e valuated for effectson d etection. Results are for the identification of SARS-CoV-2 RNA usingthe [employer] M2000 Sy stem under the FDA Emergen cy UseAuthorizatio n. The testing is perf ormed by personneltraine d in the procedures for the [employer] M2000 molecular diagnostic SARS-CoV-2 assa y in vitro. Novel Coronavirus 2018 [id number] 15:06:00 Test Item Value Reference Range Interpretation Comments Novel Coronavirus Negative Negative Positive r esults are 2019 Inhouse (test indicativ e of the presence code = COVNONPUI) ofSARS-CoV -2 RNA, clinical correlation wit h patient historyand othe r diagnostic info rmation is necessary to determinepatien t infection status. Positiv e results do not rule out bacterial infection or co -infection with other viru ses. Negative result s do not preclude SARS-C oV-2 infection andsh ould not be used as the shi e basis for patient managementdecis ions. Negative result s must be combined with otherclinical observations, p atient history, and epidemiological information . Detection of SARS-CoV-2 RNA may be affe cted bysample collec tion methods, storag e conditions, and /or stageof infection. Ester l RNA mutations, vacc inations, antiviraltherap eutics, antibiotics, chemotherapeuti c orimmunosuppres lexi drugs have not been e valuated for effectson d etection. Results are for the identification of SARS-CoV-2 RNA usingthe [employer] M2000 Sy stem under the FDA Emergen cy UseAuthorizatio n. The testing is perf ormed by compa bell in the procedures for the [employer] M2000 molecular diagnostic SARS-CoV-2 assa y in vitro. - USG NDL PLACEMENT (Bxg/Asp)2020-03-07 12:07:00 Patient Name: POLA EID Unit No: [id number] EXAMS: CPT CODE: [id number] USG NDL PLACEMENT (Bxg/Asp) 65906 INDICATION: Right knee pain. PROCEDURE: Ultrasound guided cryoanalgesia (Iovera) of the right anterior femoral cutaneous nerve, medial femoral cutaneous nerve, and the superior and inferior branches of the infrapatellar branch of the saphenous nerve. [facility] GENERAL MANAGER: Dr. Del Rio. MEDICATIONS: 1 % Lidocaine local anesthesia CONTRAST: None. COMPLICATION: None immediately evident. DESCRIPTION: After the procedure, including indication and potential complications had been discussed with the patient and questions answered, written informed consent was obtained. The patient was then taken to the ultrasound suite and placed on the table in supine position with their treatment leg fully extended. The skin of the right knee was evaluated sonographically. The skin over the anterior femoral cutaneous nerve, medial femoral cutaneous nerve, and the superior and inferior branches of the infrapatellar branch of the saphenous nerve was marked. The skin was then prepped and draped sterilely. A time out was performed. After achieving 1% Lidocaine local anesthesia, the 55mm Smart Tip Iovera cryoanalgesia probe was inserted into the skin at the sites where the nerves had been identified by ultrasound, and the treatment was initiated. The duration of each treatment cycle was 1 minute and 10 seconds. The patent's skin was cleaned and the wound was covered with a band-aid. The patient was instructed to stand and mobilize the knee joint. No immediate complication were observed. The patient tolerated the procedure well and was subsequently discharged in stable condition with instructions for follow up. Preprocedural pain level: 3/ 10 Postprocedural pain level: 6/ 10 IMPRESSION: Cryoanalgesia of the right anterior femoral cutaneous nerve, medial femoral cutaneous nerve, and the superior and inferior branches of the infrapatellar branch of the saphenous nerve as above. at 1207 Reported and signed by: Moi Del Rio MD [facility] NAME: POLA EID [id number] [facility] PHYS: Noam Mar MD : 1945 AGE: 74 SEX: F [place] [address] LOC: Y.RAD PHONE #: [phone] EXAM DATE: 03/07/2020 STATUS: REG CLI FAX #: [phone] RAD #: D/C DT PAGE 1 Signed Report (CONTINUED) Patient Name: POLA EID Unit No: [id number] EXAMS: CPT CODE: [id number] USG NDL PLACEMENT (Bxg/Asp) 57510 (Continued) CC: Noam Perez MD; Sarah Mcclain MD Technologist: JULIUS DOMINGUEZ RDMS, RVT Transcribed D/ (1207) AsterL [facility] NAME: POLA EID [address] [facility] PHYS: Noam Mar MD : 1945 AGE: 74 SEX:F [place] [address] LOC: Y.RAD PHONE #: [phone] EXAM DATE: 03/07/2020 STATUS: REG CLI FAX #: [phone] RAD #: D/C DT PAGE 2 Signed Report Patient Name: POLA EID Unit No: [id number] EXAMS: CPT CODE: [id number] USG NDL PLACEMENT (Bxg/Asp) 70078 (Continued) Orig Print D/T: S: 03/07/2020 (1210) [facility] NAME: POLA EID [address] [facility] PHYS: Noam Mar MD : 1945 AGE: 74 SEX: F [place], [place] [address] LOC: Y.RAD PHONE #: [phone] EXAM DATE: 03/07/2020 STATUS: REG CLI FAX #: [phone] RAD #: D/C DT PAGE 3 Signed ReportVITAMIN D 25-HYDROXY (TOTAL)2020-02-28 07:28:00 Test Item Value Reference Range Interpretation Comments VITAMIN D 45.8 ng/mL 30.0-100.0 Vitamin D defic iency has 25-HYDROXY (TOTAL) been defi jaswinder by the (test code = [place] ofMed icine and VITD25) an Endocrine So [facility] guidel ine as alevel of serum 25-OH vitamin D less than 20 ng/mL (1,2).The Endocrine Society went on to further define vitamin Dinsufficiency as a level between 21 and 29 ng/mL (2).1. IOM (Ins titute of Medicine). 2010 . Dietary reference intak es for calcium and D. [place]: [employer] .2. John MF, Mita NC, Samia russell OCONNELL, et al. Evaluation, treatment, and prevention of vitamin D de ficiency: an Endocrine So [facility] clinical practi ce guideline. JCEM . 2010; 96(7):1911-30.P erformed At: [facility] [address] [place], [place] [id number] Tommy Cherry MD Ph:[phone] COMPREHENSIVE METABOLIC [id number] 18:50:00 Test Item Value Reference Range Interpretation Comments SODIUM (test code = NA) 138 mmol/L 136-145 N POTASSIUM (test code = 3.8 mmol/L 3.5-5.1 N K) CHLORIDE (test code = 99.0 mmol/L 98-107 N CL) CARBON DIOXIDE (test 29.8 mmol/L 21-32 N code = CO2) GLUCOSE (test code = 78 mg/dL 70-110 N GLU) BLOOD UREA NITROGEN 31 mg/dL 7-18 H (test code = BUN) GLOMERULAR FILTRATION 42.0 >60 Unit o f measure: RATE (test code = GFR) mL/mi n/1.73 e1Guuawdflr Range:Healthy Adults >90 mL/min/1.73 m2 For Chronic Kidney Disease: Stage II Mild Decrease i n GFR 60-90 Stag e III Moderate Decrease in GFR 30-59 Stage IV Severe Decrease in GFR 15-29 Stage V Kidney Failure <15 CREATININE (test code = 1.25 mg/dL 0.55-1.30 N CREAT) TOTAL PROTEIN (test 7.9 g/dL 6.4-8.2 N code = PROT) ALBUMIN (test code = 3.9 g/dL 3.4-5.0 N ALB) GLOBULIN (test code = 4.0 g/dL 2.2-4.2 N GLOB) ALBUMIN/GLOBULIN RATIO 1.0 0.7-2.0 N (test code = A/G) CALCIUM (test code = 10.4 mg/dL 8.2-10.1 H CA) BILIRUBIN TOTAL (test 0.50 mg/dL 0.2-1.00 N code = BILT) SGOT/AST (test code = 26.0 U/L 15-37 N AST) SGPT/ALT (test code = 22.0 U/L 12-78 N Please note new ALT) normal range. ALKALINE PHOSPHATASE 68 U/L 46-116 N TOTAL (test code = ALKP) PROTHROMBIN [id number] 18:50:00 Test Item Value Reference Range Interpretation Comments PROTHROMBIN TIME 11.0 secs 10.1-12.5 N PATIENT (test code = PTP) INTERNATIONAL NORMAL 0.98 <2.0 RECOMME NDED THERAPEUTIC RATIO (test code = RANGE FOR ORAL INR) ANTICOAGULANTTR EATMENT: CONDITION INRPr ophylaxis of venous throm bosis in 2.0 - 3.0 high- risk medical or surg ical patientsTreatme nt of venous thrombos is 2.0 - 3.0Prevention o f embolism 2.0 - 3.0Prevention o f recurrent embol ism, or 3.0 - 4.5 patie nts with mechanical pros thetic intravascular v ly IS PATIENT ON ANTICOAGULANTS ? YLIST ANTICOAGULANT/ANTI PLT MEDICATION : AspirinHas Lab been notified if Patient is on Heparin Drip? NOTHROMBOPLASTIN TIME [id number] 18:50:00 Test Item Value Reference Range Interpretation Comments PTT ACTIVATED (test code = APTT) 36.1 secs 24.9-37.0 N IS PATIENT ON ANTICOAGULANTS ? YLIST ANTICOAGULANT/ANTI PLT MEDICATION : AspirinHas Lab been notified if Patient is on Heparin Drip? NOCBC W/AUTO DIFF 2020-02-26 18:49:00 Test Item Value Reference Range Interpretation Comments WHITE BLOOD CELL (test code = WBC) 7.6 K/mm3 5.8-11.0 N RED BLOOD CELL (test code = RBC) 4.58 M/mm3 4.2-5.4 N HEMOGLOBIN (test code = HGB) 13.9 g/dL 12-16 N HEMATOCRIT (test code = HCT) 41.0 % 37-47 N MEAN CELL VOLUME (test code = MCV) 90 fL 80-98 N MEAN CELL HGB (test code = MCH) 30.3 pg 27-34 N MEAN CELL HGB CONCENTRATION (test 33.9 g/dL 30.8-34.1 N code = MCHC) RED CELL DISTRIBUTION WIDTH (test 12.3 % 11-16 N code = RDW) PLT (test code = PLT) 335 K/mm3 130-400 N MEAN PLATELET VOLUME (test code = 10.6 fL 8.9-12.1 N MPV) NEUTROPHIL % (test code = NT%) 57.1 % 45-70 N LYMPHOCYTE % (test code = LY%) 30.3 % 20-40 N MONOCYTE % (test code = MO%) 9.0 % 3-10 N EOSINOPHIL % (test code = EO%) 2.5 % 1-5 N BASOPHIL % (test code = BA%) 0.8 % 0.0-1.1 N NEUTROPHIL # (test code = NT#) 4.32 K/mm3 2.00-7.50 N LYMPHOCYTE # (test code = LY#) 2.29 K/mm3 1.50-4.00 N MONOCYTE # (test code = MO#) 0.68 K/mm3 0.2-0.8 N EOSINOPHIL # (test code = EO#) 0.19 K/mm3 0.04-0.4 N BASOPHIL # (test code = BA#) 0.06 K/mm3 0.02-0.10 N MANUAL DIFF REQUIRED (test code = NO MANUAL DIFF MDIFF) NUCLEATED RED BLOOD CELL (test 0 % 0-0 N code = NRBC)
--- NOTE | 2022-03-20 14:45 | ER ---
Nurse's Notes [facility] Name: Naz Garcia Age: 76 yrs Sex: Female : 1945 Arrival Date: 03/20/2022 Time: 13:15 Bed IW10 Private MD: Diagnosis: Presentation: 03/20 13:20 Chief complaint: Left sided facial pain x 1 month. Seen by PCP 2 weeks ago, started on hb Epitol and pregabalin for trigeminal neuralgia, not able to take medication due to side effects. Coronavirus screen: At this time, the client does not indicate any symptoms associated with coronavirus-19. Ebola Screen: No symptoms or risks identified at this time. Initial Sepsis Screen: Does the patient meet any 2 criteria? No. Patient's initial sepsis screen is negative. Does the patient have a suspected source of infection? No. Patient's initial sepsis screen is negative. Risk Assessment: Do you want to hurt yourself or someone else? Patient reports no desire to harm self or others. Onset of symptoms was February 2022. 13:20 Method Of Arrival: Ambulatory hb 13:20 Acuity: ELIUD 3 hb Historical: - Allergies: 13:23 Clindamycin; hb 13:23 Avelox; hb 13:23 "all pain medications"; hb 13:23 darell; hb 13:23 Bactrim; hb 13:23 TETRACYCLINES; hb Vital Signs: 13:20 BP 158 / 93; Pulse 70; Resp 16; Temp 97.8; Pulse Ox 100% on R/A; Weight 75.3 kg; Height hb 5 ft. 1 in. (154.94 cm); Pain 10/10; 13:20 Body Mass Index 31.37 (75.30 kg, 154.94 cm) hb ED Course: 13:15 Patient arrived in ED. am2 13:23 Triage completed. hb 13:25 Arm band placed on. hb 14:04 Marvin Ruby MD is Attending Physician. kdr Administered Medications: No medications were administered Outcome: 14:45 Patient left the ED. eb Signatures: Marvin Ruby MD MD kdr Baxter, Heather RN RN Fernanda Lin am2 Jacqueline Sparrow Corrections: (The following items were deleted from the chart) 13:25 13:23 Allergies: kapixex; hb hb
[2022-03-20 15:07] VITALS: BP 158/93; TEMP 97.8; O2SAT 100
== END 2022-03-20 14:45 | disposition left against medical advice (07) ==
LOC: ER 13:04
DX: R51.9 Headache, unspecified (principal); Z88.2 Allergy status to sulfonamides; Z53.21 Procedure and treatment not carried out due to patient leaving prior to being seen by health care provider
CPT/HCPCS: 99281

== ENCOUNTER 2023-02-10 13:31 | Inpatient (IN) | payer OTHER ==
--- OUTSIDE RECORDS SUMMARY | 2023-02-10 13:41 | XMS REPORT | Continuity of Care Document ---
:1945 Author Organization [facility] t Address [address] [facility] [address] [place] [address] Care Team Providers Name Role Phone Sarah Mcclain MD Primary Care Physician Nuvia Perez Attending Clinician Unavailable Sarah Mcclain MD Attending Clinician Jeanfarb_D Attending Clinician Unavailable [email or web address]_S Attending Clinician Unavailable Adal Gregory DO Attending Clinician Reggie LANDIN, Julian Coon Attending Clinician Pipe Baron DO Attending Clinician [phone] Jeanine Martin MD Attending Clinician [phone] Miguel LANDIN, Alex Butcher Attending Clinician [phone] Luciana Gaffney MD Attending Clinician MD JULIAN LIPSCOMB Attending Clinician Unavailable LEVI ALVAREZ Attending Clinician Unavailable Sarah Mcclain Attending Clinician Unavailable Nuvia Perez Admitting Clinician Unavailable Goldfarb_D Admitting Clinician Unavailable [email or web address]_Lovitt_S Admitting Clinician Unavailable SARAH MCCLAIN Admitting Clinician Unavailable MD JULIAN LIPSCOMB Admitting Clinician Unavailable Sarah Mcclain Admitting Clinician Unavailable Payers Payer Name Policy Type Policy Number Effective Date Expiration Date Jerica yun MEDICARE B-[place]: [id number] 2011 [employer] 00:00:00 [facility] [employer] [id number] [employer] (MEDICARE SUPPLEMENT) Problems Condition Condition Condition Status Onset Resolution Last Treating Co mments Source Name Details Category Date Date Treatment Clinician Date Nausea, Nausea, Disease Active 2021-06 [facility] vomiting, vomiting, 0-17 st and and 00:00: Hospita diarrhea diarrhea 00 l 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 rivia neuralgia Neuralgia 011 Medi ilsa 00:00: 00 Chest Chest Disease Active [facility] pain, pain, 6 st unspecifie unspecifie 00:00: Ho spita d type d type 00 l Chest pain Chest pain Disease Active M ethodi 6 st 00:00: Hospita 00 l Essential Essential [...] Active Hives Method i ne ty to [address] [facility] adverse 00:00: Hospita reaction 00 l s to drug Tramadol Propensi Active Hallucinatio Methodi ty to ns 6-10 st adverse 00:00: Hospita reaction 00 l s to drug Iodine Propensi Active Other (See Tremors-w M ethodi And ty to Comments) [address] Iodide adverse 00:00: observed Hospita Containi reaction 00 but l ng s to resolved Products drug without treatment oxy[place]yn DA Active [place] 2019-06 [facility] in 0-07 [place] 00:00: Orthope 00 dic Hospita l oxy[place]yn [place] Active [place] NAUSEA 2019-06 [facility]-07 [place] 00:00: [facility] meloxica DA Active SV 2020-0 [facility] m 02-25 Clear 00:00: Luo 00 [facility] meloxica DA Active SV DIARRHEA, 2020-0 [facility] m NAUSEA, 02-25 Clear WEAK, SHAKY, 00:00: Luo SOB 00 [facility] Sulfa DA Active SV NAUSEA, SOB, 2020-0 [facility] (Sulfona DIARRHEA, 02-25 Clear mide WEAK, SHAKY 00:00: Luo Antibiot 00 [facility]) [facility] allopuri DA Active SV NAUSEA, 2020-0 [facility] nol DIARRHEA, 02-25 Clear WEAK, SHAKY, 00:00: Luo SOB 00 [facility] colchici DA Active SV NAUSEA, 2020-0 [facility] ne DIARRHEA, 02-25 Clear SHAKY, WEAK, 00:00: Luo SOB 00 [facility] amoxicil DA Active [place] DIARRHEA, 2020-0 [facility] emilie NAUSEA, 02-25 Clear WEAK, SHAKY, 00:00: Luo SOB 00 [facility] Sulfa DA Active SV 2020-0 [facility] (Sulfona 02-25 Clear mide 00:00: Luo Antibiot 00 [facility] ics) [facility] allopuri DA Active SV 2020-0 [facility] nol 02-25 Clear 00:00: Luo 00 [facility] colchici DA Active SV 2020-0 [facility] ne 02-25 Clear 00:00: Luo 00 [facility] amoxicil DA Active [place] 2020-0 [facility] emilie 02-25 Clear 00:00: Luo 00 [facility] Fexofena Propensi Active Other (See 2018-06 Per Md thamanda dine ty to Comments) 06-10 patient - st adverse 00:00: "nausea/v Hospit a reaction 00 omiting, l s to hypervent drug ilation, weakness, shakiness " Allopuri Propensi Active Other (See 2018-06 Per Me thodi nol ty to Comments) 06-10 patient - st adverse 00:00: "nausea/v Hospit a reaction 00 omiting, l s to hypervent drug ilation, weakness, shakiness " Amoxicil Propensi Active Other (See 2018-06 Per Md thodi emilie-Pot ty to Comments) 06-10 patient - st Clavulan adverse 00:00: "nausea/v Hosp handy ate reaction 00 omiting, l s to hypervent drug ilation, weakness, shakiness " Moxiflox Propensi Active Other (See 2018-06 Per Md thodi acin ty to Comments) 06-10 patient - st adverse 00:00: "nausea/v Hospit a reaction 00 omiting, l s to hypervent drug ilation, weakness, shakiness " Sulfamet Propensi Active Other (See 2018-06 Per Md thodi hoxazole ty to Comments) 06-10 patient [...] Dexlanso Propensi Active Other (See 2018-06 Per Md thodi prazole ty to Comments) 06-10 patient - st adverse 00:00: "nausea/v Hospit a reaction 00 omiting, l s to hypervent drug ilation, weakness, shakiness " Meloxica Propensi Active Other (See 2018-06 Per Md thodi m ty to Comments) 06-10 patient - [...] weakness, shakiness " Tetracyc DA Active SV [facility] lines 2-21 Clear 00:00: Luo 00 [facility] clindamy DA Active SV [facility] shailesh 2- Clear 00:00: Luo 00 [facility] sulfamet DA Active SV [facility] hoxazole 2- Clear 00:00: Luo [facility] trimetho DA Active SV [facility] prim 2- Clear 00:00: Luo [facility] zolpidem DA Active SV [facility] 2- Clear 00:00: Luo [facility] fexofena DA Active SV [facility] dine - Clear 00:00: Luo [facility] moxiflox DA Active SV [facility] acin 2- Clear 00:00: Luo [facility] dexlanso DA Active SV [facility] prazole - Clear 00:00: Luo [facility] zolpidem DA Active SV NAUSEAATED HCA 2- Clear 00:00: Luo [facility] fexofena DA Active SV NAUSEATED,SH 2017 HC A dine AKEY,DIARRHE 07-27 Dulce r A,SOB 00:00: Luo [facility] moxiflox DA Active SV NAUSEA,SHAKE HC A acin Y,SOB 07-27 Clear 00:00: Luo 00 [facility] dexlanso DA Active SV NAUSEATED,SH 2017 HC A prazole AKEY,SOB,JENNIFER 07-27 Fidel ar RRHEA 00:00: Luo 00 [facility] Tetracyc DA Active SV NAUSEATED,SH 2017- HC A lines AKEY,SOB,ESME 07-27 Dulce r RRHEA 00:00: Luo 00 [facility] clindamy DA Active SV NAUSEATED [facility] shailesh 2- Clear 00:00: Luo 00 [facility] sulfamet DA Active SV NAUSEATED,DI 2017 HC A hoxazole ARRHEA,SHAKE 07-27 Cl ear Y,SOB 00:00: Luo 00 [facility] trimetho DA Active SV NAUSEATED,DI 2017-0 HC A prim ARRHEA,SHAKE 2-21 Dulce r Y,SOB 00:00: Luo 00 [facility] NARCOTIC DA Active [place] SENSITIVE TO HC A S PAIN 7- Clear MEDICATION 00:00: Luo 00 [facility] Allopuri Allergy Active [facility] to Medical substanc e Ambien Allergy Active [facility] to Medical substanc e Avelox Allergy Active [facility] to Medical substanc e Bactrim Allergy Active [facility] to Medical substanc e Benzonat Allergy Active [facility] ate to Medical [...] Allergy Active [facility] to Medical substanc e VICODIN Allergy Active [facility] to Medical substanc e Radha Allergy Active [facility] to Medical substanc e Social History Social Habit Start Date Stop Date Quantity Comments Source Gender identity 2020-10-25 Identifies as Method ist 10:14:22 female gender Hospital (finding) History [facility] Alcohol Std Drinks Hospit al History [facility] Binge Hospital Sexual orientation [facility] Hospital History of Social 2022-03-26 2022-03-[address] function 00:00:00 00:00:00 Hospital Alcohol intake 2022-03-25 2022-03-25 Lifetime Anabaptism 00:00:00 00:00:00 non-drinker Hospital (finding) Tobacco use and 2020-09-02 2020-09-02 Smokeless tobacco [facility] exposure 00:00:00 00:00:00 non-user Hospital History SDOH 2020-09-02 2020-09-02 1 [facility] Alcohol Frequency 00:00:00 00:00:00 Hospita l Sex Assigned At [birth year] F [facility] 00:00:00 00:00:00 Hospital Smoking Status Start Date Stop Date Source Never smoked tobacco [facility] Medications Ordered Filled Start Stop Current Ordering Indication Dosage Frequency Signature Comments Components Source Medication Medication Date Date Medication? Clinician (SIG) Name Name cholecalcif 2021-06 No 1000U Take 1,000 [facility] kaya, 0-21 10-21 Units by vitamin D3, 09:34: 00:00 mouth. Hos ramiro (VITAMIN 56 :00 l D3) 1,000 unit capsule calcium 2021-06 No 1{tbl} QD Chew 1 Metho di carbonate 0-21 10-[address] 400 mg 09:34: 00:00 daily. Hospita calcium 56 :00 l (1,000 mg) tablet,chew able MAGNESIUM 2021-06 No 1{tbl} QD Take 1 Met hodi ORAL 0-21 10-[address] 09:34: 00:00 mouth Hospita 56 :00 daily. l multivitami 2021-06 No 1{tbl} QD Take 1 M ethodi n tablet 0-21 10-[address] 09:34: 00:00 mouth Hospita 56 :00 daily. l cholecalcif 2021-06 1000U Take 1,000 Methodi kaya, 0-21 10-21 Units by vitamin D3, 09:34: 00:00 mouth. Hos ramiro (VITAMIN 56 :00 l D3) 1,000 unit capsule calcium 2021-06 No 1{tbl} QD Chew 1 Metho di carbonate 0-21 10-[address] 400 mg 09:34: 00:00 daily. Hospita calcium 56 :00 l (1,000 mg) tablet,chew able MAGNESIUM 2021-06 No 1{tbl} QD Take 1 Met hodi ORAL 0-21 10-[address] 09:34: 00:00 mouth Hospita 56 :00 daily. l multivitami 2021-06 No 1{tbl} QD Take 1 M ethodi n tablet 0-21 10-[address] 09:34: 00:00 mouth Hospita 56 :00 daily. l topiramate 2022-1 2022- No 25mg Q.5D Take 1 Meth amanda (TOPAMAX) 0-21 11-21 tablet (25 st 25 MG 00:00: 05:59 mg total) Hospit a tablet 00 :00 by mouth 2 l (two) times a day for 30 days. metoclopram 2021-06- No 5mg Q.25D Take 1 Me thodi mauri 0-21 11-21 tablet (5 st (Reglan) 5 00:00: 05:59 mg total) H ospita MG tablet 00 :00 by mouth 4 l (four) times a day as needed (nausea) for up to 30 days. pantoprazol 2021-06- No 40mg Q.5D Take 1 Met hodi e 0-21 11-21 tablet (40 st (Protonix) 00:00: 05:59 mg total) H ospita 40 MG EC 00 :00 by mouth 2 l tablet (two) times a day for 30 days. topiramate 2021-06- No 25mg Q.5D Take 1 Meth amanda (TOPAMAX) 0-21 11-21 tablet (25 st 25 MG 00:00: 05:59 mg total) Hospit a tablet 00 :00 by mouth 2 l (two) times a day for 30 days. metoclopram 2021-06- No 5mg Q.25D Take 1 Me thodi mauri 0-21 11-21 tablet (5 st (Reglan) 5 00:00: 05:59 mg total) H ospita MG tablet 00 :00 by mouth 4 l (four) times a day as needed (nausea) for up to 30 days. pantoprazol 2021-06- No 40mg Q.5D Take 1 Met hodi e 0-21 11-21 tablet (40 st (Protonix) 00:00: 05:59 mg total) H ospita 40 MG EC 00 :00 by mouth 2 l tablet (two) times a day for 30 days. topiramate 2021-06- No 25mg Q.5D Take 1 Meth amanda (TOPAMAX) 0-21 10-21 tablet (25 st 25 MG 00:00: 00:00 mg total) Hospit a tablet 00 :00 by mouth 2 l (two) times a day for 30 days. pantoprazol 2021-06- No 40mg Q.5D Take 1 Met hodi e 0-21 10-21 tablet (40 st (Protonix) 00:00: 00:00 mg total) H ospita 40 MG EC 00 :00 by mouth 2 l tablet (two) times a day. metoclopram 2021-06- No 5mg Q.25D Take 1 Me thodi mauri 0-21 10-21 tablet (5 st (Reglan) 5 00:00: 00:00 mg total) H ospita MG tablet 00 :00 by mouth 4 l (four) times a day as needed (nausea). topiramate 2021-06- No 25mg Q.5D Take 1 Meth amanda (TOPAMAX) 0-21 10-21 tablet (25 st 25 MG 00:00: 00:00 mg total) Hospit a tablet 00 :00 by mouth 2 l (two) times a day for 30 days. pantoprazol 2021-06 No 40mg Q.5D Take 1 Met hodi e 0-21 10-21 tablet (40 st (Protonix) 00:00: 00:00 mg total) H ospita 40 MG EC 00 :00 by mouth 2 l tablet (two) times a day. metoclopram 2021-06 No 5mg Q.25D Take 1 Me thodi mauri 0-21 10-21 tablet (5 st (Reglan) 5 00:00: 00:00 mg total) H ospita MG tablet 00 :00 by mouth 4 l (four) times a day as needed (nausea). calcium Yes 1{tbl} QD Chew 1 Method i carbonate 6-[address] 400 mg 13:09: daily. Hospita calcium 04 l (1,000 mg) tablet,chew able MAGNESIUM Yes 1{tbl} QD Take 1 Meth amanda ORAL 6-[address] 13:09: mouth Hospita 04 daily. l multivitami 2021-0 Yes 1{tbl} QD Take 1 Me thodi n tablet 6-[address] 13:09: mouth Hospita 04 daily. l zinc 2021-2021- No 1{tbl} QD Take 1 Methodi sulfate 6-15 06-[address] (ZINC-15 13:09: 00:00 mouth Hospita ORAL) 04 :00 daily. l evolocumab 0 2021- No 140mg Q14D Metho di (REPATHA) 11-17 st injection 15:45: 13:59 Hospita 140 mg 00 :00 l evolocumab 2021-0 2021- No 140mg Q14D Metho di (REPATHA) 11-17 st injection 15:45: 13:59 Hospita 140 mg 00 :00 l evolocumab 0 2021- No 140mg Q14D Metho di (REPATHA) 11-17 st injection 15:45: 13:59 Hospita 140 mg 00 :00 l triamterene 2021- No 1{capsu QD Take 1 Methodi -hydrochlor 11-1714 le} capsule by s t othiazid 13:09: 00:00 mouth Hospita (DYAZIDE) 45 :00 daily. l 37.5-25 mg per capsule cholecalcif Yes 1000U Take 1,000 Methodi kaya, 6-14 Units by vitamin D3, 13:09: mouth. Hosp handy (VITAMIN 42 l D3) 1,000 unit capsule evolocumab Yes 140mg Q14D Inject 1 Me thodi (Repatha 6-14 mL ([address] SureClick) 00:00: total) Hospi ta 140 mg/mL 00 under the l pen skin every injector 14 injection (fourteen) days. evolocumab 0 Yes 140mg Q14D Inject 1 Me thodi (Repatha 6-14 mL ([address] SureClick) 00:00: total) Hospi ta 140 mg/mL 00 under the l pen skin every injector 14 injection (fourteen) days. evolocumab 0 Yes 140mg Q14D Inject 1 Me thodi [...] coated daily for tablet 30 days. simvastatin 2021- No 20mg QD Take 20 mg Methodi (ZOCOR) 20 11-[address] mg tablet 18:07: 00:00 nightly. Hos ramiro 22 :00 l pantoprozol 2021- No 8mg/h Infuse 8 Methodi e 6 06-10 mg/hr into st (PROTONIX) 18:07: 00:00 a venous Ho spita infusion 19 :00 catheter l continuous ly. aspirin-ilsa 2021- No Take by Me thodi cium 11-[address] carbonate 18:05: 00:00 Hospita 81 [...] ta 75 mcg 00 daily. l tablet levothyroxi 2018-06 Yes 75ug QD Take 75 Met hodi ne 0-[address] (SYNTHROID) 00:00: mouth Hospi ta 75 mcg 00 daily. l tablet levothyroxi 2018-06 Yes 75ug QD Take 75 Met hodi ne 0-[address] (SYNTHROID) 00:00: mouth Hospi ta 75 mcg 00 daily. l tablet metoprolol Yes 50mg QD Take 50 mg M ethodi tartrate [address] (LOPRESSOR) 00:00: daily. Hosp handy 50 mg 00 l tablet metoprolol Yes 50mg QD Take 50 mg M ethodi tartrate 01-[address] (LOPRESSOR) 00:00: daily. Hosp handy 50 mg 00 l tablet metoprolol 0 Yes 50mg QD Take 50 mg M ethodi tartrate 01-[address] (LOPRESSOR) 00:00: daily. Hosp handy 50 mg 00 l tablet Euthyrox 75 Euthyrox 75 No Euthyrox [facility] mcg tablet mcg tablet 75 mcg M edical TAKE 1 TAKE 1 tablet TABLET BY TABLET BY TAKE 1 MOUTH ONCE MOUTH ONCE TABLET BY DAILY DAILY MOUTH ONCE DAILY metoclopram metoclopram No metoclopra [facility] mauri 5 mg mauri 5 mg mide 5 mg Me dical tablet TAKE tablet TAKE tablet 1 TABLET BY 1 TABLET BY TAKE 1 MOUTH 4 MOUTH 4 TABLET BY TIMES DAILY TIMES DAILY MOUTH 4 NEEDED NEEDED TIMES FOR NAUSEA FOR NAUSEA DAILY FOR UP TO FOR UP TO NEEDED FOR 30 DAYS 30 DAYS NAUSEA FOR UP TO 30 DAYS metoprolol metoprolol No metoprolol [facility] tartrate 50 tartrate 50 tartrate Medical mg tablet mg tablet 50 mg TAKE 1 TAKE 1 tablet TABLET BY TABLET BY TAKE 1 MOUTH ONCE MOUTH ONCE TABLET BY DAILY DAILY MOUTH ONCE DAILY ondansetron ondansetron No ondansetro [facility] 8 mg 8 mg n 8 mg Medical disintegrat disintegrat disintegra ing tablet ing tablet ting tablet pantoprazol pantoprazol No pantoprazo [facility] e 40 mg e 40 mg le 40 mg Medic al tablet,дмитрий tablet,дмитрий tablet,del yed release yed release ayed TAKE 1 TAKE 1 release TABLET BY TABLET BY TAKE 1 MOUTH TWICE MOUTH TWICE TABLET BY DAILY DAILY MOUTH TWICE DAILY prednisone prednisone No prednisone [facility] 20 mg [...] s pen us pen injector injector injector Topamax 25 Topamax 25 No 2 TID Topamax 25 [facility] mg tablet mg tablet mg tablet Medical Take 2 Take 2 Take 2 tablets 3 tablets 3 tablets 3 times a day times a day times a by oral by oral day by route. route. oral route. triamterene triamterene No triamteren [facility] 37.5 37.5 e 37.5 Medical mg-hydrochl mg-hydrochl mg-hydroch orothiazide orothiazide lorothiazi 25 mg 25 mg de 25 mg capsule capsule capsule TAKE 1 TAKE 1 TAKE 1 CAPSULE BY CAPSULE BY CAPSULE BY MOUTH ONCE MOUTH ONCE MOUTH ONCE DAILY DAILY DAILY albuterol albuterol No albuterol [facility] sulfate HFA sulfate HFA sulfate Medical 90 90 HFA 90 mcg/actuati mcg/actuati mcg/actuat on aerosol on aerosol ion inhaler inhaler aerosol inhaler carbamazepi carbamazepi No 1 Q12H carbamazep [facility] ne 100 mg ne 100 mg ine 100 mg Medical chewable chewable chewable tablet Chew tablet Chew tablet 1 tablet 1 tablet Chew 1 every 12 every 12 tablet hours by hours by every 12 oral route. oral route. hours by oral route. carbamazepi carbamazepi No 1 Q12H carbamazep [facility] ne 200 mg ne 200 mg ine 200 mg Medical tablet Take tablet Take tablet 1 tablet 1 tablet Take 1 every 12 every 12 tablet hours by hours by every 12 oral route. oral route. hours by oral route. carbamazepi carbamazepi No carbamazep [facility] ne ER 100 ne ER 100 ine ER 100 Medical mg mg mg capsule,ext capsule,ext capsule,ex ended ended tended release release release [id number] TAKE 1 TAKE 1 TAKE 1 CAPSULE BY CAPSULE BY CAPSULE BY MOUTH EVERY MOUTH EVERY MOUTH 12 HOURS 12 HOURS EVERY 12 HOURS cefdinir cefdinir No cefdinir Tri via 300 mg 300 mg 300 mg Medical capsule capsule capsule TAKE ONE TAKE ONE TAKE ONE CAPSULE BY CAPSULE BY CAPSULE BY MOUTH [...] TABLET BY DAILY DAILY MOUTH ONCE DAILY metoclopram metoclopram No metoclopra [facility] mauri 5 mg mauri 5 mg mide 5 mg Me dical tablet TAKE tablet TAKE tablet 1 TABLET BY 1 TABLET BY TAKE 1 MOUTH 4 MOUTH 4 TABLET BY TIMES DAILY TIMES DAILY MOUTH 4 NEEDED NEEDED TIMES FOR NAUSEA FOR NAUSEA DAILY FOR UP TO FOR UP TO NEEDED FOR 30 DAYS 30 DAYS NAUSEA FOR UP TO 30 DAYS metoprolol metoprolol No metoprolol [facility] tartrate 50 tartrate 50 tartrate Medical mg tablet mg tablet 50 mg TAKE 1 TAKE 1 tablet TABLET BY TABLET BY TAKE 1 MOUTH ONCE MOUTH ONCE TABLET BY DAILY DAILY MOUTH ONCE DAILY ondansetron ondansetron No ondansetro [facility] 8 mg 8 mg n 8 mg Medical disintegrat disintegrat disintegra ing tablet ing tablet ting tablet pantoprazol pantoprazol No pantoprazo [facility] e 40 mg e 40 mg le 40 mg Medic al tablet,дмитрий tablet,дмитрий tablet,del yed release yed release ayed TAKE 1 TAKE 1 release TABLET BY TABLET BY TAKE 1 MOUTH TWICE MOUTH TWICE TABLET BY DAILY DAILY MOUTH TWICE DAILY prednisone prednisone No prednisone [facility] 20 mg [...] s pen us pen injector injector injector Topamax 25 Topamax 25 No 2 TID Topamax 25 [facility] mg tablet mg tablet mg tablet Medical Take 2 Take 2 Take 2 tablets 3 tablets 3 tablets 3 times a day times a day times a by oral by oral day by route. route. oral route. triamterene triamterene No triamteren [facility] 37.5 37.5 e 37.5 Medical mg-hydrochl mg-hydrochl mg-hydroch orothiazide orothiazide lorothiazi 25 mg 25 mg de 25 mg capsule capsule capsule TAKE 1 TAKE 1 TAKE 1 CAPSULE BY CAPSULE BY CAPSULE BY MOUTH ONCE MOUTH ONCE MOUTH ONCE DAILY DAILY DAILY albuterol albuterol No albuterol [facility] sulfate HFA sulfate HFA sulfate Medical 90 90 HFA 90 mcg/actuati mcg/actuati mcg/actuat on aerosol on aerosol ion inhaler inhaler aerosol inhaler azithromyci azithromyci No azithromyc [facility] n 250 mg n 250 mg in 250 mg Me dical tablet TAKE tablet TAKE tablet 2 TABLETS 2 TABLETS TAKE 2 BY MOUTH ON BY MOUTH ON TABLETS BY DAY 1, AND DAY 1, AND MOUTH ON THEN TAKE 1 THEN TAKE 1 DAY 1, AND TABLET BY TABLET BY THEN TAKE MOUTH ONCE MOUTH ONCE 1 TABLET A DAY ON A DAY ON BY MOUTH DAY 2 DAY 2 ONCE A DAY THROUGH DAY THROUGH DAY ON DAY 2 5 (TAKE 5 (TAKE THROUGH DIRECTED DIRECTED DAY 5 TILL GONE) TILL GONE) (TAKE DIRECTED TILL GONE) carbamazepi carbamazepi No carbamazep [facility] ne 200 mg ne 200 mg ine 200 mg Medical tablet 1 tablet 1 tablet 1 tab in the tab in the tab in the morning, morning, morning, 1/2 tab 1/2 tab 1/2 tab midday and midday and midday and 1 tablet in 1 tablet in 1 tablet the evening the evening in the evening cefdinir cefdinir No cefdinir Tri via 300 mg 300 mg 300 mg Medical capsule capsule capsule TAKE ONE TAKE ONE TAKE ONE CAPSULE BY CAPSULE BY CAPSULE BY MOUTH [...] TABLET BY DAILY DAILY MOUTH ONCE DAILY metoclopram metoclopram No metoclopra [facility] mauri 5 mg mauri 5 mg mide 5 mg Me dical tablet TAKE tablet TAKE tablet 1 TABLET BY 1 TABLET BY TAKE 1 MOUTH 4 MOUTH 4 TABLET BY TIMES DAILY TIMES DAILY MOUTH 4 NEEDED NEEDED TIMES FOR NAUSEA FOR NAUSEA DAILY FOR UP TO FOR UP TO NEEDED FOR 30 DAYS 30 DAYS NAUSEA FOR UP TO 30 DAYS metoprolol metoprolol No metoprolol [facility] tartrate 50 tartrate 50 tartrate Medical mg tablet mg tablet 50 mg TAKE 1 TAKE 1 tablet TABLET BY TABLET BY TAKE 1 MOUTH ONCE MOUTH ONCE TABLET BY DAILY DAILY MOUTH ONCE DAILY ondansetron ondansetron No ondansetro [facility] 8 mg 8 mg n 8 mg Medical disintegrat disintegrat disintegra ing tablet ing tablet ting tablet pantoprazol pantoprazol No pantoprazo [facility] e 40 mg e 40 mg le 40 mg Medic al tablet,дмитрий tablet,дмитрий tablet,del yed release yed release ayed TAKE 1 TAKE 1 release TABLET BY TABLET BY TAKE 1 MOUTH TWICE MOUTH TWICE TABLET BY DAILY DAILY MOUTH TWICE DAILY prednisone prednisone No prednisone [facility] 20 mg [...] s pen us pen injector injector injector Topamax 25 Topamax 25 No 2 TID Topamax 25 [facility] mg tablet mg tablet mg tablet Medical Take 2 Take 2 Take 2 tablets 3 tablets 3 tablets 3 times a day times a day times a by oral by oral day by route. route. oral route. triamterene triamterene No triamteren [facility] 37.5 37.5 e 37.5 Medical mg-hydrochl mg-hydrochl mg-hydroch orothiazide orothiazide lorothiazi 25 mg 25 mg de 25 mg capsule capsule capsule TAKE 1 TAKE 1 TAKE 1 CAPSULE BY CAPSULE BY CAPSULE BY MOUTH ONCE MOUTH ONCE MOUTH ONCE DAILY DAILY DAILY Zofran 4 mg Zofran 4 mg No Zofran 4 [facility] tablet one tablet one mg tablet Medical tab. by tab. by one tab. mouth twice mouth twice by mouth a day as a day as twice a necessary necessary day as nausea nausea necessary nausea albuterol albuterol No albuterol [facility] sulfate HFA sulfate HFA sulfate Medical 90 90 HFA 90 mcg/actuati mcg/actuati mcg/actuat on aerosol on aerosol ion inhaler inhaler aerosol inhaler azithromyci azithromyci No azithromyc [facility] n 250 mg n 250 mg in 250 mg Me dical tablet TAKE tablet TAKE tablet 2 TABLETS 2 TABLETS TAKE 2 BY MOUTH ON BY MOUTH ON TABLETS BY DAY 1, AND DAY 1, AND MOUTH ON THEN TAKE 1 THEN TAKE 1 DAY 1, AND TABLET BY TABLET BY THEN TAKE MOUTH ONCE MOUTH ONCE 1 TABLET A DAY ON A DAY ON BY MOUTH DAY 2 DAY 2 ONCE A DAY THROUGH DAY THROUGH DAY ON DAY 2 5 (TAKE 5 (TAKE THROUGH DIRECTED DIRECTED DAY 5 TILL GONE) TILL GONE) (TAKE DIRECTED TILL GONE) carbamazepi carbamazepi No carbamazep [facility] ne 200 mg ne 200 mg ine 200 mg Medical tablet 1 tablet 1 tablet 1 tab in the tab in the tab in the morning, morning, morning, 1/2 tab 1/2 tab 1/2 tab midday and midday and midday and 1 tablet in 1 tablet in 1 tablet the evening the evening in the evening cefdinir cefdinir No cefdinir Tri via 300 mg 300 mg 300 mg Medical capsule capsule capsule TAKE ONE TAKE ONE TAKE ONE CAPSULE BY CAPSULE BY CAPSULE BY MOUTH [...] TABLET BY DAILY DAILY MOUTH ONCE DAILY metoclopram metoclopram No metoclopra [facility] mauri 5 mg mauri 5 mg mide 5 mg Me dical tablet TAKE tablet TAKE tablet 1 TABLET BY 1 TABLET BY TAKE 1 MOUTH 4 MOUTH 4 TABLET BY TIMES DAILY TIMES DAILY MOUTH 4 NEEDED NEEDED TIMES FOR NAUSEA FOR NAUSEA DAILY FOR UP TO FOR UP TO NEEDED FOR 30 DAYS 30 DAYS NAUSEA FOR UP TO 30 DAYS metoprolol metoprolol No metoprolol [facility] tartrate 50 tartrate 50 tartrate Medical mg tablet mg tablet 50 mg TAKE 1 TAKE 1 tablet TABLET BY TABLET BY TAKE 1 MOUTH ONCE MOUTH ONCE TABLET BY DAILY DAILY MOUTH ONCE DAILY ondansetron ondansetron No ondansetro [facility] 8 mg 8 mg n 8 mg Medical disintegrat disintegrat disintegra ing tablet ing tablet ting tablet pantoprazol pantoprazol No pantoprazo [facility] e 40 mg e 40 mg le 40 mg Medic al tablet,дмитрий tablet,дмитрий tablet,del yed release yed release ayed TAKE 1 TAKE 1 release TABLET BY TABLET BY TAKE 1 MOUTH TWICE MOUTH TWICE TABLET BY DAILY DAILY MOUTH TWICE DAILY prednisone prednisone No prednisone [facility] 20 mg [...] s pen us pen injector injector injector Topamax 25 Topamax 25 No 2 TID Topamax 25 [facility] mg tablet mg tablet mg tablet Medical Take 2 Take 2 Take 2 tablets 3 tablets 3 tablets 3 times a day times a day times a by oral by oral day by route. route. oral route. triamterene triamterene No triamteren [facility] 37.5 37.5 e 37.5 Medical mg-hydrochl mg-hydrochl mg-hydroch orothiazide orothiazide lorothiazi 25 mg 25 mg de 25 mg capsule capsule capsule TAKE 1 TAKE 1 TAKE 1 CAPSULE BY CAPSULE BY CAPSULE BY MOUTH ONCE MOUTH ONCE MOUTH ONCE DAILY DAILY DAILY Zofran 4 mg Zofran 4 mg No Zofran 4 [facility] tablet one tablet one mg tablet Medical tab. by tab. by one tab. mouth twice mouth twice by mouth a day as a day as twice a necessary necessary day as nausea nausea necessary nausea cefdinir cefdinir No cefdinir Tri via 300 [...] MOUTH ONCE MOUTH ONCE DAILY DAILY DAILY cefdinir cefdinir No cefdinir Tri via 300 [...] TABLET BY DAILY DAILY MOUTH ONCE DAILY metoclopram metoclopram No metoclopra [facility] mauri 5 mg mauri 5 mg mide 5 mg Me dical tablet TAKE tablet TAKE tablet 1 TABLET BY 1 TABLET BY TAKE 1 MOUTH 4 MOUTH 4 TABLET BY TIMES DAILY TIMES DAILY MOUTH 4 NEEDED NEEDED TIMES FOR NAUSEA FOR NAUSEA DAILY FOR UP TO FOR UP TO NEEDED FOR 30 DAYS 30 DAYS NAUSEA FOR UP TO 30 DAYS metoprolol metoprolol No metoprolol [facility] tartrate 50 tartrate 50 tartrate Medical mg tablet mg tablet 50 mg TAKE 1 TAKE 1 tablet TABLET BY TABLET BY TAKE 1 MOUTH ONCE MOUTH ONCE TABLET BY DAILY DAILY MOUTH ONCE DAILY ondansetron ondansetron No ondansetro [facility] 8 mg 8 mg n 8 mg Medical disintegrat disintegrat disintegra ing tablet ing tablet ting tablet pantoprazol pantoprazol No pantoprazo [facility] e 40 mg e 40 mg le 40 mg Medic al tablet,дмитрий tablet,дмитрий tablet,del yed release yed release ayed TAKE 1 TAKE 1 release TABLET BY TABLET BY TAKE 1 MOUTH TWICE MOUTH TWICE TABLET BY DAILY DAILY MOUTH TWICE DAILY prednisone prednisone No prednisone [facility] 20 mg [...] s pen us pen injector injector injector Topamax 25 Topamax 25 No 2 TID Topamax 25 [facility] mg tablet mg tablet mg tablet Medical Take 2 Take 2 Take 2 tablets 3 tablets 3 tablets 3 times a day times a day times a by oral by oral day by route. route. oral route. triamterene triamterene No triamteren [facility] 37.5 37.5 e 37.5 Medical mg-hydrochl mg-hydrochl mg-hydroch orothiazide orothiazide lorothiazi 25 mg 25 mg de 25 mg capsule capsule capsule TAKE 1 TAKE 1 TAKE 1 CAPSULE BY CAPSULE BY CAPSULE BY MOUTH ONCE MOUTH ONCE MOUTH ONCE DAILY DAILY DAILY carbamazepi carbamazepi No 1capsul Q12H carbamazep [facility] ne ER 100 ne ER 100 e(s) ine ER 100 Medical mg mg mg capsule,ext capsule,ext capsule,ex ended ended tended release release release [id number] Take 1 Take 1 Take 1 capsule capsule capsule every 12 every 12 every 12 hours by hours by hours by oral route. oral route. oral route. cefdinir cefdinir No cefdinir Tri via 300 [...] TABLET BY DAILY DAILY MOUTH ONCE DAILY metoclopram metoclopram No metoclopra [facility] mauri 5 mg mauri 5 mg mide 5 mg Me dical tablet TAKE tablet TAKE tablet 1 TABLET BY 1 TABLET BY TAKE 1 MOUTH 4 MOUTH 4 TABLET BY TIMES DAILY TIMES DAILY MOUTH 4 NEEDED NEEDED TIMES FOR NAUSEA FOR NAUSEA DAILY FOR UP TO FOR UP TO NEEDED FOR 30 DAYS 30 DAYS NAUSEA FOR UP TO 30 DAYS metoprolol metoprolol No metoprolol [facility] tartrate 50 tartrate 50 tartrate Medical mg tablet mg tablet 50 mg TAKE 1 TAKE 1 tablet TABLET BY TABLET BY TAKE 1 MOUTH ONCE MOUTH ONCE TABLET BY DAILY DAILY MOUTH ONCE DAILY ondansetron ondansetron No ondansetro [facility] 8 mg 8 mg n 8 mg Medical disintegrat disintegrat disintegra ing tablet ing tablet ting tablet pantoprazol pantoprazol No pantoprazo [facility] e 40 mg e 40 mg le 40 mg Medic al tablet,дмитрий tablet,дмитрий tablet,del yed release yed release ayed TAKE 1 TAKE 1 release TABLET BY TABLET BY TAKE 1 MOUTH TWICE MOUTH TWICE TABLET BY DAILY DAILY MOUTH TWICE DAILY prednisone prednisone No prednisone [facility] 20 mg [...] s pen us pen injector injector injector Topamax 25 Topamax 25 No 2 TID Topamax 25 [facility] mg tablet mg tablet mg tablet Medical Take 2 Take 2 Take 2 tablets 3 tablets 3 tablets 3 times a day times a day times a by oral by oral day by route. route. oral route. triamterene triamterene No triamteren [facility] 37.5 37.5 e 37.5 Medical mg-hydrochl mg-hydrochl mg-hydroch orothiazide orothiazide lorothiazi 25 mg 25 mg de 25 mg capsule capsule capsule TAKE 1 TAKE 1 TAKE 1 CAPSULE BY CAPSULE BY CAPSULE BY MOUTH ONCE MOUTH ONCE MOUTH ONCE DAILY DAILY DAILY carbamazepi carbamazepi No 1 Q12H carbamazep [facility] ne 100 mg ne 100 mg ine 100 mg Medical chewable chewable chewable tablet Chew tablet Chew tablet 1 tablet 1 tablet Chew 1 every 12 every 12 tablet hours by hours by every 12 oral route. oral route. hours by oral route. cefdinir cefdinir No cefdinir Tri via 300 [...] Observation Time Observation Value Comments Source Height 2022-08-19 00:00:00 61 [in_i] Nafisa Jimenez edical BMI (Body Mass 2022-08-19 00:00:00 26.3 kg/m2 [facility] Index) Body Weight 2022-08-19 00:00:00 2224 [oz_av] [facility] Height 2022-08-05 00:00:00 61 [in_i] [facility] M ed[facility] BMI (Body Mass 2022-08-05 00:00:00 26.5 kg/m2 [facility] Index) Body Weight 2022-08-05 00:00:00 2240 [oz_av] Nafisa Jimenez edical Height 2022-06-14 00:00:00 61 [in_i] [facility] Height 2022-06-08 00:00:00 61 [in_i] [facility] BMI (Body Mass 2022-06-08 00:00:00 27.4 kg/m2 [facility] Index) Body Weight 2022-06-08 00:00:00 2320 [oz_av] Nafisa Jimenez edical Height 2022-03-16 00:00:00 61 [in_i] [facility] BMI (Body Mass 2022-03-16 00:00:00 33.1 [facility] Weight 2022-03-16 00:00:00 2800 [oz_av] Nafisa Jimenez edical Systolic blood 2022-03-26 12:40:09 134 mm[Hg] Method t Hospital pressure Diastolic blood 2022-03-26 12:40:09 60 mm[Hg] [facility] pressure Heart rate 2022-03-26 12:40:09 68 /min [facility] Body temperature 2022-03-26 12:40:09 36.11 [facility] Respiratory rate 2022-03-26 12:40:09 18 /min [facility] Oxygen saturation in 2022-03-26 12:40:09 98 /min [facility] Arterial blood by Pulse oximetry Body weight 2022-03-25 10:06:36 75.524 kg [facility] BMI 2022-03-25 10:06:36 31.46 kg/m2 [facility] Systolic blood 2022-01-28 13:31:00 182 mm[Hg] Method [facility] pressure Diastolic blood 2022-01-28 13:31:00 75 mm[Hg] [facility] pressure Heart rate 2022-01-28 13:31:00 68 /min [facility] Respiratory rate 2022-01-28 13:31:00 17 /min [facility] Oxygen saturation in 2022-01-28 13:31:00 100 /min [facility] Arterial blood by Pulse oximetry Body weight 2022-01-28 12:34:00 77.565 kg [facility] BMI 2022-01-28 12:34:00 32.31 kg/m2 [facility] Body temperature 2021-11-17 16:53:49 36.56 [facility] Body height 2021-11-13 16:58:00 154.9 cm [facility] Procedures Procedure Date / Time Performing Source Performed Clinician XR CHEST 2 VW 2023-01-12 Sarah Mcclain 16:56:[address] G[facility] CT HEAD WO CONTRAST 2022-08-11 Sarah Mcclain 17:08:43 [facility] BASIC METABOLIC PANEL 2022-03-24 Sarah Mcclain 11:16:00 G. Hospital ESTIMATED GFR 2022-03-24 Sarah Mcclain 11:16:00 G. Hospital ESOPHAGOGASTRODUODENOSCOPY (EGD) 2022-03-23 Julian Lipscomb 20:22:00 Hospital MRI BRAIN WO CONTRAST 2022-03-23 Sarah Mcclain 16:01:00 G. Hospital SURGICAL PATHOLOGY REQUEST 2022-03-23 Sarah Mcclain dist 13:48:00 G. Hospital ECG 12-LEAD 2022-03-23 Sarah Mcclain 13:40:26 [facility]. [facility] TROPONIN T 2022-03-23 Keturah Johnson 01:19:00 [facility] TROPONIN T 2022-03-22 Keturah Johnson 22:02:00 [facility] AMYLASE LEVEL 2022-03-22 Sarah Mcclain 22:02:00 G. Hospital LIPASE LEVEL 2022-03-22 Sarah Mcclain 22:02:00 G. Hospital SEDIMENTATION RATE 2022-03-22 Sarah Mcclain 22:02:00 G. Hospital C-REACTIVE PROTEIN 2022-03-22 Sarah Mcclain 22:02:00 G. Hospital URINE CULTURE 2022-03-22 Keturah Johnson 18:34:[address] [facility] [address] ABDOMEN PELVIS WO CONTRAST 2022-03-22 Keturah Johnson thodist 17:53:37 [facility] ECG ED PRELIMINARY INTERPRETATION 2022-03-22 Mayito Johnson i 17:25:40 [facility] ECG 12-LEAD 2022-03-22 Keturah Johnson 17:20:19 [facility] URINALYSIS SCREEN AND MICROSCOPY, 2022-03-22 Mayito Johnson i WITH REFLEX TO CULTURE 17:09:00 [facility] COVID-19 QUALITATIVE RT-PCR 2022-03-22 Keturah Johnson Meth odist 16:58:00 [facility] CBC WITH PLATELET AND DIFFERENTIAL 2022-03-22 George Johnson 16:58:00 [facility] COMPREHENSIVE METABOLIC PANEL 2022-03-22 Keturah Johnson thodist 16:58:00 [facility] MAGNESIUM LEVEL 2022-03-22 Keturah Johnson 16:58:00 [facility] PHOSPHORUS LEVEL 2022-03-22 Keturah Johnson 16:58:00 [facility] B NATRIURETIC PEPTIDE 2022-03-22 Keturah Johnson 16:58:00 [facility] ESTIMATED GFR 2022-03-22 Keturah Johnson 16:58:00 [facility] TROPONIN T 2022-03-22 Keturah Johnson 16:58:00 [facility] XR CHEST 1 VW PORTABLE 2022-03-22 Keturah Johnson 16:34:21 [facility] MRI BRAIN WO CONTRAST 2022-03-04 Sarah Mcclain 15:05:00 . Hospital CV MRA CHEST (THORACIC AORTA OR 2022-01-28 Sarah Mcclain PULMONARY ARTERY) 13:48:03 G. Hospital ESTIMATED GFR 2022-01-28 Sarah Mcclain 13:23:00 G. Hospital POC PANEL 2022-01-28 Sarah Mcclain 13:23:00 G. Hospital ESTIMATED GFR 2022-01-15 Sarah Mcclain 20:12:00 G. Hospital POC PANEL 2022-01-15 Sarah Mcclain 20:12:00 G. Hospital US BREAST COMPLETE BILATERAL 2022-01-15 Sarah Mcclain Met hodist 16:50:07 G. Hospital MAMMO BREAST DIAGNOSTIC 2022-01-15 Sarah Mcclain TOMOSYNTHESIS BILATERAL 16:21:[address] CHEST WO CONTRAST 2022-01-01 Sarah Mcclain [facility] 16:55:25 G. Hospital CV LEFT HEART CATH LV GRAM WITH 2021-11-16 Luigi Morirson CORS 23:17:02 [facility] MAGNESIUM LEVEL 2021-11-16 Trina Platt 14:07:00 Hospital COMPREHENSIVE METABOLIC PANEL 2021-11-16 Trina Platt 14:07:00 Hospital ESTIMATED GFR 2021-11-16 Trina Platt 14:07:00 [facility] HC COMPLETE BLD COUNT W/AUTO DIFF 2021-11-16 Trina Platt 14:07:00 [facility] COVID-19 ANTI-SPIKE IGG ANTIBODY 2021-11-15 Kyle Islas TITER 09:25:00 [facility] COVID-19 SEROLOGY PATIENT 2021-11-15 Kyle Islas ist SURVEILLANCE 09:25:00 [facility] CV SPECT CA SC TECH ONLY ORDER 2021-11-14 Sarah Mcclain ethodist 19:25:13 G. Hospital CV STRESS TEST NUCLEAR CARDIO 2021-11-14 Sarah Mcclain Me thodist 16:18:10 G. Hospital NM MYOCARDIAL PERFUSION STRESS 2021-11-14 Sarah Mcclain ethodist REST 1 DAY 16:18:10 G. Hospital ECG 12-LEAD 2021-11-14 Sarah Mcclain 12:46:53 G. Hospital TTE COMPLETE, WO CONTRAST, W 2021-11-14 Sarah Mcclain Met hodist DOPPLER ([id number]) 11:26:00 G. Hospital BASIC METABOLIC PANEL 2021-11-14 Sarah Mcclain 09:59:00 G. Hospital ESTIMATED GFR 2021-11-14 Sarah Mcclain 09:59:00 G. Hospital LIPID PANEL 2021-11-14 Sarah Mcclain 09:59:00 G. Hospital TROPONIN T 2021-11-14 Adal Gregory 02:44:00 B. Hospital TROPONIN T 2021-11-13 Adal Gregory 22:34:00 B. Hospital ECG ED PRELIMINARY INTERPRETATION 2021-11-13 Luigi Rivera 21:32:41 [facility] COVID-19 QUALITATIVE RT-PCR 2021-11-13 Cher Rivera 19:31:00 [facility] XR CHEST 1 VW PORTABLE 2021-11-13 Luigi Rivera 18:11:17 [facility] HC COMPLETE BLD COUNT W/AUTO DIFF 2021-11-13 Torrey Gregory 17:50:00 B. [facility] COMPREHENSIVE METABOLIC PANEL 2021-11-13 Adal Gregory odist 17:50:00 B. Hospital TROPONIN T 2021-11-13 Adal Gregory 17:50:00 B. Hospital B NATRIURETIC PEPTIDE 2021-11-13 Adal Gregory 17:50:00 B. Hospital ESTIMATED GFR 2021-11-13 Adal Gregory 17:50:00 B. Hospital ECG 12-LEAD 2021-11-13 Adal Gregory 17:08:44 B. Hospital XR CHEST 2 VW 2021-10-05 Sarah Mcclain 18:03:00 [facility] [id number] 2020-03-12 [facility] Ankle Arthroscopy/surgery [facility] Total Knee Replacement [facility] dical Hysterectomy [facility] Plan of Care Planned Activity Planned Date Details Comments Source Future Scheduled 2023-02-06 Hepatitis C screening [facility] Test 05:17:08 (procedure) [code = 203914179] Future Scheduled 2023-02-06 SHINGLES VACCINES (1 Met [facility] Test 05:17:08 of 2) [code = SHINGLES VACCINES (1 of 2)] Future Scheduled 2023-02-06 COVID-19 VACCINE (2 - [facility] Test 05:17:08 Moderna series) [code = COVID-19 VACCINE (2 - Moderna series)] Future Scheduled 2023-02-06 INFLUENZA VACCINE [facility] Test 05:17:08 (#1) [code = INFLUENZA VACCINE (#1)] Future Scheduled 2023-02-02 Hepatitis C screening [facility] Test 09:39:13 (procedure) [code = 393921304] Future Scheduled 2023-02-02 SHINGLES VACCINES (1 Met [facility] Test 09:39:13 of 2) [code = SHINGLES VACCINES (1 of 2)] Future Scheduled 2023-02-02 COVID-19 VACCINE (2 - [facility] Test 09:39:13 Moderna series) [code = COVID-19 VACCINE (2 - Moderna series)] Future Scheduled 2023-02-02 INFLUENZA VACCINE Method [facility] Test 09:39:13 (#1) [code = INFLUENZA VACCINE (#1)] Diagnostic Test 2022-08-05 carbamazepine, free, [facility] Pending 00:00:00 serum [code = carbamazepine, free, serum] Diagnostic Test 2022-08-05 carbamazepine, serum [facility] Pending 00:00:00 or plasma [code = carbamazepine, serum or plasma] Diagnostic Test 2022-08-05 CMP, serum or plasma [facility] Pending 00:00:00 [code = CMP, serum or plasma] Diagnostic Test 2022-08-05 CBC [code = CBC] [facility] Pending 00:00:00 Future Scheduled 2022-03-11 HEPATITIS B VACCINES Met [facility] Test 10:45:45 (1 of 3 - 3-dose series) [code = HEPATITIS B VACCINES (1 of 3 - 3-dose series)] Future Scheduled 2022-03-11 Hepatitis C screening [facility] Test 10:45:45 (procedure) [code = 672054758] Future Scheduled 2022-03-11 COLONOSCOPY SCREENING [facility] Test 10:45:45 [code = COLONOSCOPY SCREENING] Future Scheduled 2022-03-11 SHINGLES VACCINES (1 Met [facility] Test 10:45:45 of 2) [code = SHINGLES VACCINES (1 of 2)] Future Scheduled 2022-03-11 COVID-19 VACCINE (2 - [facility] Test 10:45:45 Moderna series) [code = COVID-19 VACCINE (2 - Moderna series)] Future Scheduled 2022-03-11 INFLUENZA VACCINE [facility] Test 10:45:45 [code = INFLUENZA VACCINE] Future Scheduled 2022-03-11 BREAST CANCER [facility] Test 10:45:45 SCREENING [code = BREAST CANCER SCREENING] Encounters Start End Encounter Admission Attending Care Care Encounter Source Date/Time Date/Time Type Type Clinicians Facility Department ID 2020-03-12 Inpatient LEANNA Perez [facility] [id number] [facility] 15:15:[address] 2023-01-12 2023[facility]01-12 [facility] 1.2.840[facility]1 [id number] Methodi 11:44:59 23:59:00 Encounter Sarah G. 15661.1.[address] 3.430.2.7 Hospit a .3.424300 l .8 2023-01-12 2023[facility]01-12 [facility]1 [id number] Methodi 11:44:59 23:59:00 Encounter Sarah G. [address]6526.1.[address] 3.430.2.7 Hospit a .3.210313 l .8 2023-01-12 2023-01-12 Orders Jfy, 1.2.840.1 [id number] Methodi 00:00:00 00:00:00 Only Sarah G. 94612.1.1 460 s t 3.430.2.7 Hospit a .3.493285 l .8 2023-01-12 2023-01-12 Orders Sarahi, 1.2.840.1 [id number] Methodi 00:00:00 00:00:00 Only Sarah G. 22544.1.1 460 s t 3.430.2.7 Hospit a .3.206683 l .8 2023-01-04 2023-01-04 Transcribe Sarahi, 1.2.840.1 [id number] [facility] 00:00:00 00:00:00 Orders Sarah G. 14372.1.1 822 s t 3.430.2.7 Hospit a .3.124514 l .8 2023-01-04 2023-01-04 Transcribe Sarahi, 1.2.840.1 [id number] Method[facility] 00:00:00 00:00:00 Orders Sarah G. 19996.1.1 822 s t 3.430.2.7 Hospit a .3.942726 l .8 2022-10-27 2022-10-27 Outpatient Goldfarb_D [facility] [id number] [place] 00:00:00 00:00:00 [id number] [facility] 2022-10-26 2022-10-26 Outpatient GC_TNC_Lovi PRIV PRIV 700 [id number] [facility] 00:00:00 00:00:00 tt_S [id number] Medica l 2022-08-19 2022-08-19 Outpatient GC_TNC_Lovi PRIV PRIV 700 [id number] [facility] 00:00:00 00:00:00 tt_S [id number] Medica l 2022-08-19 2022-08-19 Tiffany PRIV [place] [facility] [id number] [facility] 00:00:00 00:00:00 Juan [facility] Medic ca CASINO HOST: 6655 [facility], Office* [address], [place] [address] , Ph. 2022-08-17 2022-08-17 Outpatient GC_TNC_Lovi PRIV PRIV 700 [id number] [facility] 00:00:00 00:00:00 tt_S [id number] Medica l 2022-08-15 2022-08-15 Outpatient GC_TNC_Lovi PRIV PRIV 700 [id number] [facility] 00:00:00 00:00:00 tt_S [id number] Medica l 2022-08-11 2022-08-11 Outpatient JFMary, [facility] [id number] [place] 00:00:00 00:00:00 SARAH [address] 2022-08-10 2022-08-10 Orders Sarahi, 1.2.840.1 [id number] Methodi 00:00:00 00:00:00 Only Sarah G. 81049.1.1 126 s t 3.430.2.7 Hospit a .3.211882 l .8 2022-08-10 2022-08-10 Carolina Mcclain, 1.2.840.1 [id number] Methodi 00:00:00 00:00:00 Only Sarah Red 48208.1.1 126 s t 3.430.2.7 Hospit a .3.926394 l .8 2022-08-05 2022-08-05 Outpatient GC_TNC_Lovi PRIV PRIV 700 [id number] [facility] 00:00:00 00:00:00 tt_S [id number] Medica l 2022-08-05 2022-08-05 Tiffany [facility] [id number] [facility] 00:00:00 00:00:00 Juan [facility] - Medic al CASINO HOST: [id number] [facility], Office* [address] [place], [place] [address] , Ph. 2022-08-04 2022-08-04 Outpatient GC_TNC_Lovi PRIV PRIV 700 [id number] [facility] 00:00:00 00:00:00 tt_S [id number] Medica l 2022-07-20 2022-07-20 Outpatient Goldfarb_D [facility] [id number] [place] 00:00:00 00:00:00 [id number] [facility] 2022-07-16 2022-07-16 Outpatient GC_TNC_Lovi PRIV PRIV 700 [id number] [facility] 00:00:00 00:00:00 tt_S [id number] Medica l 2022-07-16 2022-07-16 Avelino M [facility] [id number] [facility] 00:00:00 00:00:00 [facility] ica MD: [address] [facility], Office[facility] [address], [place] [address] , Ph. 2022-07-13 2022-07-13 Outpatient GC_TNC_Lovi PRIV PRIV 700 [id number] [facility] 00:00:00 00:00:00 tt_S [id number] Medica l 2022-06-14 2022-06-14 Outpatient GC_TNC_Lovi PRIV PRIV 700 [id number] [facility] 00:00:00 00:00:00 tt_S [id number] Medica l 2022-06-14 2022-06-14 Tiffany [facility] 109 [facility] 00:00:00 00:00:00 Juan [facility] Medic al CASINO HOST: 6655 [facility], Office* [address] [place] [address] , Ph. 2022-06-08 2022-06-08 Outpatient GC_TNC_Lovi PRIV PRIV 700 [id number] [facility] 00:00:00 00:00:00 tt_S [id number] Medica l 2022-06-08 2022-06-08 Tiffany [facility] 103 [facility] 00:00:00 00:00:00 Enon [facility] Medic ca CASINO HOST: 6655 [facility] Office* [address] [place] [address] , Ph. 2022-05-26 2022-05-26 Outpatient GC_TNC_Lovi PRIV PRIV 700 [id number] [facility] 00:00:00 00:00:00 tt_S [id number] Medica l 2022-05-26 2022-05-26 Outpatient GC_TNC_Lovi PRIV PRIV 700 [id number] [facility] 00:00:00 00:00:00 tt_S [id number] Medica l 2022-05-26 2022-05-26 Avelino Tony [facility] [id number] [facility] 00:00:00 00:00:00 [facility] MD: 6655 [facility] Office* [address] [place] [address] , Ph. 2022-05-19 2022-05-19 Outpatient GC_TNC_Lovi PRIV PRIV 700 [id number] [facility] 00:00:00 00:00:00 tt_S [id number] Medica l 2022-05-11 2022-05-11 Outpatient GC_TNC_Lovi PRIV PRIV 700 [id number] [facility] 00:00:00 00:00:00 tt_S [id number] Medica l 2022-03-22 2022-03-26 [facility] 1.2.840.1 [id number] Methodi 10:53:00 09:34:00 Encounter Sarah McclainCrystal 85062.1.[address] 3.430.2.7 Hospit a .3.625750 l .8 2022-03-22 2022-03-26 [facility] 1.2.840.1 0 [id number] Methodi 10:53:00 09:34:00 Encounter Sarahi Sarah Red 46064.1.[address] 3.430.2.7 Hospit a .3.894840 l .8 2022-03-23 2022-03-23 Surgery Reggie, 1.2.840.1 [id number] [facility] 15:32:00 16:02:00 Julian Coon 78732.1.[address] 3.430.2.7 Hospit a .3.885026 l .8 2022-03-23 2022-03-23 Surgery Reggie, 1.2.840.1 [id number] [facility] 15:32:00 16:02:00 Julian Coon 56630.1.[address] 3.430.2.7 Hospit a .3.517961 l .8 2022-03-23 2022-03-23 Anesthesia Tod 1.2.840.1 [id number] Method[facility] 15:21:00 15:44:00 Event , [place] [address] 3.430.2.7 Hospit a .3.541863 l .8 2022-03-23 2022-03-23 Anesthesia Tod 1.2.840.1 [id number] Method[facility] 15:21:00 15:44:00 Event , [place] [address] 3.430.2.7 Hospit a .3.474654 l .8 2022-03-16 2022-03-16 Outpatient GC_TNC_Lovi PRIV PRIV 700 [id number] [facility] 00:00:00 00:00:00 tt_S [id number] Medica l 2022-03-16 2022-03-16 Lane Jimenez [facility] - [facility] 011 [facility] 00:00:00 00:00:00 Sandrine Anand MD: [address]655 [facility], Office* [address], [place] [address] , Ph. 2022-03-15 2022-03-15 Outpatient GC_TNC_Lovi PRIV PRIV 700 [id number] [facility] 00:00:00 00:00:00 tt_S [id number] Medica l 2022-03-08 2022-03-08 Outpatient GC_TNC_Lovi PRIV PRIV 700 [id number] [facility] 00:00:00 00:00:00 tt_S [id number] Medica l 2022-03-04 2022-03-04 [facility], 1.2.840.1 [id number] Methodi 09:26:50 23:59:00 Encounter Sarah G. 56101.1.[address] 3.430.2.7 Hospit a .3.420380 l .8 2022-03-04 2022-03-04 [facility] 1.2.840.1 [id number] Methodi 09:26:50 23:59:00 Encounter Sarah G. 98917.1.[address] 3.430.2.7 Hospit a .3.742762 l .8 2022-03-04 2022-03-04 Travel 1.2.840.1 1.2.051.117 [id number] Methodi 00:00:00 00:00:[address] 3.430.2.7 0.2.7.3.698 Ho spita .3.309503 084.8 l .8 2022-03-04 2022-03-04 Travel 1.2.840.1 1.2.803.703 [id number] Methodi 00:00:00 00:00:[address] 3.430.2.7 0.2.7.3.698 Ho spita .3.666142 084.8 l .8 2022-02-22 2022-02-22 Orders [facility], 1.2.840.1 [id number] Methodi 00:00:00 00:00:00 Only Sarah G. 72568.1.1 181 s t 3.430.2.7 Hospit a .3.004607 l .8 2022-02-22 2022-02-22 [facility]1 [id number] 9769 Methodi 00:00:00 00:00:00 Only Sarah G. 99698.1.1 181 s t 3.430.2.7 Hospit a .3.164225 l .8 2022-01-28 2022-01-28 [facility], 1.2.840.1 [id number] 77225 98836 [place] 00:00:00 00:00:00 Encounter SARAH 48906.1.1 [address] .3.616557 .8 2022-01-28 2022-01-28 Travel 1.2.840.1 1.2.077.909 9723 710379 Methodi 00:00:00 00:00:[address] 3.430.2.7 0.2.7.3.698 Ho spita .3.813552 084.8 l .8 2022-01-15 2022-01-15 [facility], 1.2.840.1 [id number] Methodi 13:24:40 23:59:00 Encounter Sarah G. 98554.1.[address] 3.430.2.7 Hospit a .3.969098 l .8 2022-01-15 2022-01-15 [facility], 1.2.840.1 [id number] 11909 41666 Methodi 11:00:00 13:23:00 Encounter Sarah G. [address]373.1.[address] 3.430.2.7 Hospit a .3.662416 l .8 2022-01-15 2022-01-15 [facility], 1.2.840.1 [id number] 72721 36671 Methodi 10:14:16 10:59:00 Encounter Sarah G. 62376.1.[address] 3.430.2.7 Hospit a .3.704589 l .8 2022-01-15 2022-01-15 Travel 1.2.840.1 1.2.760.793 6435 [id number] Methodi 00:00:00 00:00:[address] 3.430.2.7 0.2.7.3.698 Ho spita .3.472834 084.8 l .8 2022-01-15 2022-01-15 Orders [facility], 1.2.840.1 [id number] 9839 Methodi 00:00:00 00:00:00 Only Sarah G. 97009.1.1 797 s t 3.430.2.7 Hospit a .3.464857 l .8 2022-01-01 2022-01-01 [facility], 1.2.840.1 [id number] 79594 Methodi 10:42:51 23:59:00 Encounter Sarah G. 99590.1.[address] 3.430.2.7 Hospit a .3.398594 l .8 2022-01-01 2022-01-01 Travel 1.2.840.1 1.2.671.530 6326 [id number] Methodi 00:00:00 00:00:[address] 3.430.2.7 0.2.7.3.698 Ho spita .3.568270 084.8 l .8 2021-12-30 2021-12-30 Transcribe Chiu-Arrast 1.2.840.1 [id number] Methodi 00:00:00 00:00:00 Orders ia, 81684.1.[address] [place] 3.430.2.7 Hos ramiro Jones .3.500486 l .8 2021-12-30 2021-12-30 Community Sarahi, 1.2.840.1 [id number] [id number] Methodi 00:00:00 00:00:00 Orders Sarah G. 79327.1.1 620 s t 3.430.2.7 Hospit a .3.549532 l .8 2021-12-30 2021-12-30 Orders Sarahi, 1.2.840.1 [id number] 8956 Methodi 00:00:00 00:00:00 Only Sarah G. 74082.1.1 657 s t 3.430.2.7 Hospit a .3.233920 l .8 2021-12-29 2021-12-29 Travel 1.2.840.1 1.2.564.816 6904 130003 Methodi 00:00:00 00:00:[address] 3.430.2.7 0.2.7.3.698 Ho spita .3.408613 084.8 l .8 2021-12-29 2021-12-29 Orders Sarahi, 1.2.840.1 [id number] 5404 Methodi 00:00:00 00:00:00 Only Sarah G. 33228.1.1 337 s t 3.430.2.7 Hospit a .3.585764 l .8 2021-11-13 2021-11-17 [facility] Alex Rivera 1.2.84 0.1 [id number] Methodi 12:02:00 13:09:00 Adelfo Mcclain Sarah G. 76717.1.[address] 3.430.2.7 Hospit a .3.567662 l .8 2021-11-16 2021-11-16 [facility], 1.2.840.1 [id number] 3249 Methodi 15:25:00 16:20:00 Luciana Schmidt 34434.1.[address] 3.430.2.7 Hospit a .3.821878 l .8 2021-11-14 2021-11-14 [facility], 1.2.840.1 [id number] Methodi 11:17:30 23:59:00 Encounter Sarah G. 03371.1.[address] 3.430.2.7 Hospit a .3.698851 l .8 2021-11-13 2021-11-13 Travel 1.2.840.1 1.2.733.833 4394 079195 Methodi 00:00:00 00:00:[address] 3.430.2.7 0.2.7.3.698 Ho spita .3.843654 084.8 l .8 2021-10-20 2021-10-20 Transcribe [facility], 1.2.840.1 [id number] [id number] Methodi 00:00:00 00:00:00 Orders Sarah G. 94113.1.1 124 s t 3.430.2.7 Hospit a .3.977167 l .8 2021-10-05 2021-10-05 [facility], 1.2.840.1 [id number] 06649 Methodi 12:45:00 23:59:00 Encounter Sarah G. 47392.1.[address] 3.430.2.7 Hospit a .3.565102 l .8 2021-10-05 2021-10-05 Travel 1.2.840.1 1.2.529.038 9306 [id number] Methodi 00:00:00 00:00:[address] 3.430.2.7 0.2.7.3.698 Ho spita .3.748834 084.8 l .8 2021-10-05 2021-10-05 Orders [facility], 1.2.840.1 [id number] 9994 Methodi 00:00:00 00:00:00 Only Sarah G. 41705.1.1 167 s t 3.430.2.7 Hospit a .3.339111 l .8 2020-10-27 2020-10-27 Outpatient SARAHI, [facility] [id number] [address] [place] 00:00:00 00:00:00 SARAH [address] 2020-10-27 2020-10-27 Outpatient SARAHI, [facility] [id number] 906 [place] 00:00:00 00:00:00 SARAH [address] 2020-09-04 2020-09-04 Outpatient REGGIE, [facility] [id number] [place] 00:00:00 00:00:00 PETER [address] 2020-09-02 2020-09-02 Outpatient ANTONIO, LEVI [facility] [id number] [place] 00:00:00 00:00:[address] 2020-08-14 2020-08-14 Outpatient SARAHI, [facility] [id number] [place] 00:00:00 00:00:00 SARAH [address] 2020-03-07 2020-03-07 Outpatient Chris, HCATO RADI [id number] [facility] 10:30:00 10:30:00 Nuvia [facility] 2020-02-26 2020-02-26 Outpatient Chris, HCACL LABO [id number] [facility] 18:01:00 18:01:00 Nuvia 24 [facility] 2020-02-26 2020-02-26 Outpatient LEANNA Mcclain, HCATO 3DAY [id number] [facility] 00:00:00 00:00:00 Sarah [facility] 2019-10-26 2019-10-26 Outpatient SARAHI, [facility] [id number] 829 [place] 00:00:00 00:00:00 SRAAH [address] 2019-10-26 2019-10-26 Outpatient SARAHI, [facility] [id number] 829 [place] 00:00:00 00:00:00 SARAH [address] 2019-07-30 2019-07-30 Outpatient SARAHI, [facility] [id number] 983 [place] 00:00:00 00:00:00 SARAH [address] 2019-07-30 2019-07-30 Outpatient SARAHI, [facility] [id number] 980 [place] 00:00:00 00:00:00 SARAH [address] 2019-05-08 2019-05-08 Outpatient SARAHI [facility] [id number] 796 [place] 00:00:00 00:00:00 SARAH [address] 2019-05-08 2019-05-08 Outpatient SARAHI [facility] [id number] 796 [place] 00:00:00 00:00:00 SARAH [address] 2019-05-08 2019-05-08 Outpatient SARAHI [facility] [id number] 796 [place] 00:00:00 00:00:00 SARAH [address] 2019-03-22 2019-03-22 Outpatient SARAHI [facility] [id number] 855 [place] 00:00:00 00:00:00 SARAH [address] Results Test Description Test Time Test Comments Results Result Comments Source Comprehensive metabolic 2000 panel - Serum or Plasma 2022-08 00:00:00 Test Item Value Reference Range Interpretation Comme nts Glucose [Mass/volume] in Serum 88 mg/dL 65-139 or Plasma (test code = 2345-7) Urea nitrogen [Mass/volume] in 15 mg/dL 7-25 Serum or Plasma (test code = 3094-0) Creatinine [Mass/volume] in 1.07 mg/dL 0.60-1.00 H Serum or Plasma (test code = 2160-0) Glomerular filtration 54 mL/min/1.73m2 See_Comment L [ Automated message] The rate/1.73 sq M.predicted sys tem which generated [Volume Rate/Area] in Serum, this result transmitted Plasma or Blood by reference range: > or = Creatinine-based formula 60. The reference range (CKD-EPI 2020) (test code = was not used to 76366-7) interpret this result as normal/abnormal . Urea nitrogen/Creatinine [Mass 14 (calc) 6-22 Ratio] in Serum or Plasma (test code = 3097-3) Sodium [Moles/volume] in Serum 137 mmol/L 135-146 or Plasma (test code = 2951-2) Potassium [Moles/volume] in 4.5 mmol/L 3.5-5.3 Serum or Plasma (test code = 2823-3) Chloride [Moles/volume] in 102 mmol/L 98-110 Serum or Plasma (test code = 2074-0) Carbon dioxide, total 28 mmol/L 20-32 [Moles/volume] in Serum or Plasma (test code = 2027-) Calcium [Mass/volume] in Serum 9.5 mg/dL 8.6-10.4 or Plasma (test code = 89056-3) Protein [Mass/volume] in Serum 6.9 g/dL 6.1-8.1 or Plasma (test code = 2885-2) Albumin [Mass/volume] in Serum 3.9 g/dL 3.6-5.1 or Plasma (test code = 175-7) Globulin [Mass/volume] in 3.0 g/dL (calc) 1.9-3.7 Serum by calculation (test code = 58408-5) Albumin/Globulin [Mass Ratio] 1.3 (calc) 1.0-2.5 in Serum or Plasma (test code = 1759-0) Bilirubin.total [Mass/volume] 0.4 mg/dL 0.2-1.2 in Serum or Plasma (test code = 1974-07) Alkaline phosphatase 58 U/L 37-153 [Enzymatic activity/volume] in Serum or Plasma (test code = 6768-6) Aspartate aminotransferase 21 U/L 10-35 [Enzymatic activity/volume] in Serum or Plasma (test code = 1920-8) Alanine aminotransferase 11 U/L 6-29 [Enzymatic activity/volume] in Serum or Plasma (test code = 1742-6) [facility] MedicalcarBAMazepine free [Mass/volume] in Serum or [id number] 00:00:00 Test Item Value Reference Range Interpretation Comments carBAMazepine free [Mass/volume] 1.4 mcg/mL 1.0-3.0 in Serum or Plasma (test code = 3433-0) [facility] MedicalC panel - Blood by Automated [id number] 00:00:00 Test Item Value Reference Range Interpretation Comments Leukocytes [#/volume] in 5.2 thousand/uL 3.8-10.8 Blood by Automated count (test code = 6690-2) Erythrocytes [#/volume] in 3.82 million/uL 3.80-5.10 Blood by Automated count (test code = 789-8) Hemoglobin [Mass/volume] in 12.1 g/dL 11.7-15.5 Blood (test code = 718-7) Hematocrit [Volume Fraction] 36.4 % 35.0-45.0 of Blood by Automated count (test code = 4544-3) Erythrocyte mean corpuscular 95.3 fL 80.0-100.0 volume [Entitic volume] by Automated count (test code = 787-2) Erythrocyte mean corpuscular 31.7 pg 27.0-33.0 hemoglobin [Entitic mass] by Automated count (test code = 785-6) Erythrocyte mean corpuscular 33.2 g/dL 32.0-36.0 hemoglobin concentration [Mass/volume] by Automated count (test code = 786-4) Erythrocyte distribution 13.1 % 11.0-15.0 width [Ratio] by Automated count (test code = 788-0) Platelets [#/volume] in Blood 288 thousand/uL 140-400 by Automated count (test code = 777-3) Platelet mean volume [Entitic 10.3 fL 7.5-12.5 volume] in Blood by Luiz-Paramjit (test code = 776-5) [facility]BAM[facility]epine [Mass/volume] in Serum or [id number] 00:00:00 Test Item Value Reference Range Interpretation Comments carBAMazepine [Mass/volume] in 10.8 mg/L 4.0-12.0 Serum or Plasma (test code = 3432-2) [facility] Medical[facility]urgical pathology [id number] 20:46:01 Test Item Value Reference Range Interpretation Comments Case number (test [id number] code = 1380401) Surgical pathology See link below for PDF report (test code = Lab Report 2255) Result status (test This is Supplemental code = 1692740) Report [facility] [id number] [facility] [id number] 20:46:01 Test Item Value Reference Range Interpretation Comments Case number (test [id number] code = 2507951) Surgical pathology See link below for PDF report (test code = Lab Report 2255) Result status (test This is Supplemental code = 1667178) Report for [id number] [facility] [id number] 19:12:00 Test Item Value Reference Interpretation Comments Range Urine culture Streptococcus group A Specime n isolate (test B10-4 InformationSpe [facility] code = 26989-5) cfu/ml~identificati Sourc e: UrineSpecimen on to followThe Site: Clean catch performance characteristics of this assay on this isolatewere validated by the Microbiology Laboratory at [facility]. This source has not been approved by the U.S. Food and Drug Administration. The results are not intended to be used as the sole means for clinical diagnosis or patient management. The Microbiology Laboratory is authorized under the clinical Laboratory Improvement Amendments of 1988 (CLIA-88) to perform high complexity testing. Lab Abnormal Interpretation (test code = 82251-1) [facility] [id number] 19:12:00 Test Item Value Reference Interpretation Comments Range Urine culture Streptococcus group A Specime n isolate (test B10-4 InformationSpe [facility] code = 40878-2) cfu/ml~identificati Sourc e: UrineSpecimen on to followThe Site: Clean catch performance characteristics of this assay on this isolatewere validated by the Microbiology Laboratory at [facility]. This source has not been approved by the U.S. Food and Drug Administration. The results are not intended to be used as the sole means for clinical diagnosis or patient management. The Microbiology Laboratory is authorized under the clinical Laboratory Improvement Amendments of 1988 (CLIA-88) to perform high complexity testing. Lab Abnormal Interpretation (test code = 30645-2) [place] [address] [id number] 19:46:46 Test Item Value Reference Range Interpretation Comments Ventricular rate (test 63 code = 253) Atrial rate (test code 63 = 255) CT interval (test code 152 = 266) QRSD interval (test 72 code = 260) QT interval (test code 402 = 264) QTC interval (test code 411 = 265) P axis 1 (test code = 63 267) QRS axis 1 (test code = 9 268) T wave axis (test code 35 = 270) EKG impression (test Normal sinus code = 273) rhythm-Low voltage QRS-Nonspecific ST and T wave abnormality-Abnormal ECG-In automated comparison with ECG of 22-MAR-2022 12:20,-No significant change was found- [facility] 12 [id number] 19:46:46 Test Item Value Reference Range Interpretation Comments Ventricular rate (test 63 code = 253) Atrial rate (test code 63 = 255) CT interval (test code 152 = 266) QRSD interval (test 72 code = 260) QT interval (test code 402 = 264) QTC interval (test code 411 = 265) P axis 1 (test code = 63 267) QRS axis 1 (test code = 9 268) T wave axis (test code 35 = 270) EKG impression (test Normal sinus code = 273) rhythm-Low voltage QRS-Nonspecific ST and T wave abnormality-Abnormal ECG-In automated comparison with ECG of 22-MAR-2022 12:20,-No significant change was found- [facility] ED Preliminary Interpretation - Not an [id number] 17:25:40 Test Item Value Reference Range Interpretation Comments CARROL (test code = CARROL) Adal Gregory DO 03/22/2022 6:22 [facility] Preliminary Interpretation - Not an OrderPerformed by: Keturah Johnson NPAuthorized by: Adal Gregory DO ECG reviewed by ED Physician in the absence of a barrel header: yes Previous ECG: Previous ECG: UnavailableInterpretat ion: Interpretation: abnormal Rate: ECG rate: 79 ECG rate assessment: normal Rhythm: Rhythm: sinus rhythm Ectopy: Ectopy: none QRS: QRS axis: NormalConduction: Conduction: normal ST segments: ST segments: Non-specificT waves: T waves: normal Lab Interpretation Abnormal (test code = 91254-1) [facility] ED Preliminary Interpretation - Not an [id number] 17:25:40 Test Item Value Reference Range Interpretation Comments CARROL (test code = CARROL) Adal Gregory DO 03/22/2022 6:22 [facility] Preliminary Interpretation - Not an OrderPerformed by: Keturah Johnson NPAuthorized by: Adal Gregory DO ECG reviewed by ED Physician in the absence of a barrel header: yes Previous ECG: Previous ECG: UnavailableInterpretat ion: Interpretation: abnormal Rate: ECG rate: 79 ECG rate assessment: normal Rhythm: Rhythm: sinus rhythm Ectopy: Ectopy: none QRS: QRS axis: NormalConduction: Conduction: normal ST segments: ST segments: Non-specificT waves: T waves: normal Lab Interpretation Abnormal (test code = 33969-6) [facility] RNA [Presence] in Respiratory specimen by JOSIAH with probe [id number] 16:00:11 Test Item Value Reference Range Interpretation Comments SARS-CoV-2 (COVID-19) RNA Not detected [Presence] in Respiratory specimen by JOSIAH with probe detection (test code = 65561-8) Whether patient is employed in a Unknown healthcare setting (test code = 74540-2) Whether the patient has symptoms Unknown related to condition of interest (test code = 78132-5) Whether the patient was Unknown hospitalized for condition of interest (test code = 23187-8) Whether the patient was admitted Unknown to intensive care unit (ICU) for condition of interest (test code = 90107-9) Whether patient resides in a Unknown congregate care setting (test code = 79786-7) status (test code = Unknown 40553-5) Date and time of symptom onset Unknown (test code = 13712-5) [facility] [id number] 13:26:01 Test Item Value Reference Range Interpretation Comments POC creatinine (test 1.2 mg/dl 0.5-0.9 H Operato r Name: code = 82350-2) Michael Thornton ID: [id number] POC hematocrit (test 40 % 37-47 code = 4544-3) Lab Interpretation (test Abnormal code = 62444-5) [facility] Center[facility] [id number] 13:26:00 Test Item Value Reference Range Interpretation Comments Estimated GFR (test mL/min/1.73 m2 [facility] Units code = 96257-4) Interpretati onG1 >=90 Normal or highG 2 60-89 Mildly decrease dG3a 45-59 Mildly to moderately decr vkvbfN5l 30-44 Moderatel y to severely decrea sedG4 15-29 Severely decreasedG5 <15 Kidney failureThe eGFR was calculated mable patten the Chronic Kidney Disease Epidemiology Collaboration ( CKD-EPI) equation. Interpretation is based on recommendati ons of the National [facility]-Kidn ey Disease Outcome s Quality Initiat vicky (NKF-KDOQI) pub lished in 2013. Lab Interpretation Abnormal (test code = 93005-6) Luigi ChristinaCv stress [id number] 10:15:50 Test Item Value Reference Range Interpretation Comments Resting HR (test code = 2443572983) Resting BP (test code 185&75 = 3201893709) Peak MET Achieved (test code = 5375823873) Protocol Name (test REGADENO code = 6865381265) Time in Exercise 00:01:00 Phase (test code = 1004310342) Max Systolic BP (test code = 0526303215) Max Diastolic BP (test code = 6788832485) Max Heart Rate (test code = 0408985281) Max Predicted Heart Rate (test code = 0279639367) Target HR Formula (220 - Age)*100% (test code = 6932046405) Test Indication (test chest pain code = 6343062692) Arrhy During Ex (test code = 8205335665) ECG Interp Before EX (test code = 2886612631) ECG Interp During Ex (test code = 1808255694) Ex Summary Comment (test code = 2688151334) Overall HR Response to Exercise (test code = 3181643332) Overall BP Response To Exercise (test code = 4131197768) Reason for Protocol Complete Termination (test code = 5179980855) Stress Test Waveform interpreted in Impression (test code report associated with = 1835671077) image study. No interpretation is provided as part of this Stress ECG report.-Electronically Signed By Mackenzie LANDIN, Praful Wallace ([id number]), editor trade journal Jenise Mathur ([id number]) on 11/16/2021 5:15:49 AM [facility] [id number] 00:02:11 Test Item Value Reference Range Interpretation Comments Ventricular rate (test code = 253) Atrial rate (test code = 255) CT interval (test code = 266) QRSD interval [...] of 13-NOV-2021 12:08,-No significant change was found- Luigi Harvey-CoV-2 (COVID-19) RNA [Presence] in Respiratory specimen by JOSIAH with probe [id number] 18:39:02 Test Item Value Reference Range Interpretation Comments SARS-CoV-2 (COVID-19) RNA Not detected [Presence] in Respiratory specimen by JOSIAH with probe detection (test code = 85747-8) Whether patient is employed in a Unknown healthcare setting (test code = 26239-3) Whether the patient has symptoms Unknown related to condition of interest (test code = 82564-3) Whether the patient was Unknown hospitalized for condition of interest (test code = 02525-0) Whether the patient was admitted Unknown to intensive care unit (ICU) for condition of interest (test code = 05369-8) Whether patient resides in a Unknown congregate care setting (test code = 68848-4) status (test code = Unknown 77818-3) Date and time of symptom onset Unknown (test code = 64311-8) MORGAN CARDENASSARS-CoV-2 (COVID-19) RNA [Presence] in Respiratory specimen by JOSIAH with probe [id number] 22:43:12 Test Item Value Reference Range Interpretation Comments SARS-CoV-2 (COVID-19) RNA Not detected Not-Detected [Presence] in Respiratory specimen by JOSIAH with probe detection (test code = 74360-9) [facility] [id number] 06:43:00 Test Item Value Reference Range Interpretation [...] RATE (test code = GFR) mL/mi n/1.73 s6Ibqzakmfe Range:Healthy Adults >90 mL/min/1.73 m2 For Chronic Kidney Disease: Stage II Mild Decrease i n GFR 60-90 Stage III Moderate Decrea se in GFR 30-59 St age IV Severe Decre ase in GFR 15-29 St age V Kidney Failur e <15 CREATININE (test code 0.97 mg/dL 0.55-1.30 N = CREAT) CALCIUM (test code = 8.6 mg/dL 8.2-10.1 N CA) SPECIMEN COMMENT: POD #1HGB [id number] 05:52:00 Test Item Value Reference Range Interpretation Comments HEMOGLOBIN (test code = HGB) 11.1 g/dL 12-16 L HEMATOCRIT (test code = HCT) 32.2 % 37-47 L SPECIMEN COMMENT: POD #1Novel Coronavirus 2019 [id number] 15:07:00 Test Item Value Reference Range Interpretation [...] for the identification of SARS-CoV-2 RNA usingthe Alorum M2000 Sy stem under the FDA Emergen cy UseAuthorizatio n. The testing is perf ormed by personneltraine d in the procedures for the Diane M2000 molecular diagnostic SARS-CoV-2 assa y in vitro. Novel Coronavirus 2018 [id number] 15:06:00 Test Item Value Reference Range Interpretation [...] 12:07:00 Patient Name: POLA EID Unit No: [id number] EXAMS: CPT CODE: [id number] USG NDL PLACEMENT (Bxg/Asp) 77815 INDICATION: Right knee pain. PROCEDURE: Ultrasound guided cryoanalgesia (Iovera) of the right anterior femoral cutaneous nerve, medial femoral cutaneous nerve, and the superior and inferior branches of the infrapatellar branch of the saphenous nerve. MANAGER LAN: Dr. Del Rio. MEDICATIONS: 1 % Lidocaine [...] was then prepped and draped sterilely. A timeout was performed. After achieving 1% Lidocaine local [...] covered with a band-aid. The patient was instructedto stand and mobilize the knee joint. No immediate complication were observed. The patient toleratedthe procedure well and was subsequently discharged in stable condition with instructions for follow up. Preprocedural pain level: 3/ 10 Postprocedural pain level: 6/ 10 IMPRESSION: Cryoanalgesia of the right anterior femoral cutaneous nerve, medial femoral cutaneous nerve, and the superior and inferior branches of the infrapatellar branch of the saphenous nerve as above. at 1207 Reported and signed by: Moi Del Rio MD [facility] NAME: POLA EID [address] [facility] PHYS: Nuvia Mar MDDOB: 1945 AGE: 74 SEX: F [place] [address] LOC: Y.RAD PHONE #: [phone] EXAM DATE: 03/07/2020 STATUS: REG CLI FAX #: [phone] RAD #: D/C DT PAGE 1 Signed Report (CONTINUED) Patient Name: POLA EID Unit No: [id number] EXAMS: CPT CODE: [id number] USGNDL PLACEMENT (Bxg/Asp) 48272 (Continued) CC: Nuvia Perez MD; Sarah Mcclain MD Technologist:JULIUS DOMINGUEZ RDMS, RVT Transcribed D/ (1207) Billy [facility] NAME: POLA EID [address] [facility] PHYS: Nuvia Mar MD : 1945 AGE: 74 SEX: F [place] [address] LOC: Y.RAD PHONE #: [phone] EXAM DATE: 03/07/2020 STATUS: REG CLI FAX #: [phone] RAD #: D/C DT PAGE 2 Signed Report Patient Name: POLA EID Unit No: [id number] EXAMS: CPT CODE: [id number] USG NDL PLACEMENT (Bxg/Asp) 43095 (Continued) Orig Print D/T: S: 03/07/2020 (1210) [facility] NAME: POLA EID [address] [facility] PHYS: Nuvia Mar MD : 1945 AGE: 74 SEX: F [place] [address] LOC: Y.RAD PHONE #: [phone] EXAM DATE: 03/07/2020 STATUS: REG CLI FAX #: RAD #: D/C DT PAGE 3 Signed ReportVITAMIN D 25-HYDROXY (TOTAL) 2020-02-28 07:28:00 Test Item Value Reference Range Interpretation Comments VITAMIN D 45.8 ng/mL 30.0-100.0 Vitamin D defic iency has 25-HYDROXY (TOTAL) been defi jaswinder by the (test code = [place] ofMed icine and VITD25) an Endocrine [facility] practice guidel ine as alevel of serum 25-OH vitamin D less than 20 ng/mL (1,2).The Endocrine Society went on to further define vitamin Dinsufficiency as a level between 21 and 29 ng/mL (2).1. IOM (Ins titute of Medicine). 2010 . Dietary reference intak es for calcium and D. [place]: The Nation al Academies Press .2. John ROSE, Mita CRENSHAW, Samia russell LEMUS, et al. Evaluation, treatment, and prevention of vitamin D de ficiency: an Endocrine [facility] clinical practi ce guideline. JCEM . 2010; 96(7):1911-30.P erformed At: [facility] [address] [place], [place] [id number] Tommy Cherry MD Ph:[phone] COMPREHENSIVE METABOLIC [id number] 18:50:00 Test Item Value Reference Range Interpretation [...] RATE (test code = GFR) mL/mi n/1.73 g7Hbmuxoxbq Range:Healthy Adults >90 mL/min/1.73 m2 For Chronic Kidney Disease: Stage II Mild Decrease i n GFR 60-90 Stage III Moderate Decrea se in GFR 30-59 St age IV Severe Decre ase in GFR 15-29 St age V Kidney Failu re <15 CREATININE (test code = 1.25 mg/dL [...] N TOTAL (test code = ALKP) PROTHROMBIN [id number] 18:50:00 Test Item Value Reference Range Interpretation [...] Patient is on Heparin Drip? NOTHROMBOPLASTIN TIME [id number] 18:50:00 Test Item Value Reference Range Interpretation [...] 0 % 0-0 N code = NRBC) Notes Date/Time Note Provider Source 2020-04-08 07:41:00-00:00 [id number] [place] [address] PATIENT NAME: POLA EID ADMIT MORENITA E: 03/12/20 ACCOUNT NO: [id number] ROOM NO: Y.512 AGE: 74 REPORT TYPE: DISCHARGE SUMMARY REPORT SEX: F ADMITTING PHYSICIAN:Nuvia Perez MD ATTENDING PHYSICIAN:Nuvia Perez MD ADMISSION DATE: 03/12/2020 DISCHARGE DATE: 03/15/2020 ADMITTING DIAGNOSIS: Degenerative joint disease, right knee. DISCHARGE DIAGNOSIS: Status post right total kne e arthroplasty. OPERATIONS AND PROCEDURES: 03/12/2020, right tot al knee arthroplasty by Dr. Nuvia Perez. HOSPITAL COURSE: Above-listed procedure under ge neral anesthesia with 100 mL blood loss, no complications . mobilized with physical therapy, weightbearing as tolerated. Hemoglobin 11.1 on the first postoper ative day. DISCHARGE INSTRUCTIONS: Activity is weightbearin g as tolerated. DISCHARGE MEDICATIONS: Aspirin 81 mg twice daily for 30 days for DVT prophylaxis. DIET: Usual. FOLLOWUP PLANS: With Dr. Nuvia Perez in 10 da ys. CONDITION: Stable. DISPOSITION: Discharged to home. Dictated By: Nuvia Perez MD WT: DS:EUGENIE/ROSALBA/MALISSA Conf#: [id number]#: [id number] Authenticated by Nuvia Perez MD On 09:15:52 AM at 0916 PATIENT NAME: POLA EID 2020-03-15 10:10:00-00:00 [facility] ([facility]) Clinical Note REPORT#:[id number] REPORT STATUS: Signed DATE:03/15/20 TIME: 1010 PATIENT: POLA EID UNIT #: [id number] [facility]GE: 74 SEX: F ATTEND: Keshav Perez MD ADM AUTHOR: Apurva Ritchie * ALL edits or amendments must be made on the iRule/computer document * Clinical Note Note: She is doing well. She did some PT yesterday in the room. Her pain increased with PT but she has only been using tylenol for pain management. Last Documented: Result Date Time Pulse Ox 98 03/15 726 B/P 107/71 03/15 726 B/P Mean 82.7 03/15 726 Temp 98.8 03/15 726 Pulse 73 03/15 726 Resp 12 03/15 726 O2 Delivery Room air 03/14 1530 O2 Flow Rate 3 03/14 0730 FiO2 32 03/14 0502 03/15 0700 03/14 2300 03/14 1500 Intake Total Output Total Balance Number Voids 2 2 1 Physical Exam A/A/O, in no acute distress bandages dry and intact Assessment/Plan s/p Rt TKA, POD 3 continue PT/OT, ambulate in solares today dvt prophylaxis- pt can use 81 ASA bid i nstead of xarelto once discharged, due to cost of med plan for dc to home today if meets criteria with PT Electronically Signed by Apurva Ritchie on 03/15 at 1013 RPT #:[id number] END OF REPORT 2020-03-15 10:10:00-00:00 [facility] ([facility]) Clinical Note REPORT#:[id number] REPORT STATUS: Signed DATE:03/15/20 TIME: 1010 PATIENT: POLA EID UNIT #: [id number] ROOM/BED: Y.512-A : 46 AGE: 74 SEX: F ATTEND: Keshav Perez MD ADM AUTHOR: Apurva Ritchie * ALL edits or amendments must be made on the iRule/computer document * Clinical Note Note: She is doing well. She did some PT yesterday in the room. Her pain increased with PT but she has only been using tylenol for pain management. Last Documented: Result Date Time Pulse Ox 98 03/15 726 B/P 107/71 03/15 726 B/P Mean 82.7 03/15 726 Temp 98.8 03/15 726 Pulse 73 03/15 726 Resp 12 03/15 726 O2 Delivery Room air 03/14 1530 O2 Flow Rate 3 03/14 0730 FiO2 32 03/14 0502 03/15 0700 03/14 2300 03/14 1500 Intake Total Output Total Balance Number Voids 2 2 1 Physical Exam A/A/O, in no acute distress bandages dry and intact Assessment/Plan s/p Rt TKA, POD 3 continue PT/OT, ambulate in solares today dvt prophylaxis- pt can use 81 ASA bid i nstead of xarelto once discharged, due to cost of med plan for dc to home today if meets criteria with PT Electronically Signed by Apurva Ritchie on 03/15 at 1013 at 1542 RPT #:[id number] END OF REPORT 2020-03-14 10:35:00-00:00 [facility] ([facility]) Clinical Note REPORT#:[id number] REPORT STATUS: Signed DATE:03/14/20 TIME: 103 PATIENT: POLA EID UNIT #: [id number] ROOM/BED: Y.315-A : 46 AGE: 74 SEX: F ATTEND: Selena Perez MD ADM AUTHOR: Apurva Ritchie * ALL edits or amendments must be made on the [employer] document * Clinical Note Note: She has made slow progress w ith PT. She has not worked with PT this morning but yesterday she was able to walk more in her room. She has not ambulated in the hallway yet. Her pain has been well controlled w ith tramadol and tylenol. Last Documented: Result Date Time O2 Delivery Nasal cannula 03/14 730 O2 Flow Rate 3 03/14 730 Pulse Ox 98 03/14 722 B/P 121/72 03/14 722 B/P Mean 88.3 03/14 722 Temp 99.0 03/14 722 Pulse 76 03/14 722 Resp 17 03/14 722 FiO2 32 03/14 0502 03/14 0700 03/13 2300 03/13 1500 Intake Total 240.00 90.00 300.00 Output Total 400 400 Balance -160.00 -310.00 300.00 Intake, IV 240.00 90.00 300.00 Number Voids 2 Output, Urine 400 400 Patient 155 lb Weight Physical Exam A/A/O, in no acute distress, dressings dry and intact compartments soft sensation intact Assessment/Plan s/p Rt TKA, POD 2 will benefit with continued PT/OT re-eval tomorrow for possible dc Electronically Signed by Apurva Ritchie on 03/14 at 1037 RPT #:[id number] END OF REPORT 2020-03-14 10:35:00-00:00 [facility] ([facility]) Clinical Note REPORT#:[id number] REPORT STATUS: Signed DATE:03/14/20 TIME: 1035 PATIENT: POLA EID UNIT #: [id number] [facility] AGE: 74 SEX: F ATTEND: Keshav Perez MD ADM AUTHOR: Apurva Ritchie * ALL edits or amendments must be made on the [employer] document * Clinical Note Note: She has made slow progress w ith PT. She has not worked with PT this morning but yesterday she was able to walk more in her room. She has not ambulated in the hallway yet. Her pain has been well controlled w ith tramadol and tylenol. Last Documented: Result Date Time O2 Delivery Nasal cannula 03/14 730 O2 Flow Rate 3 03/14 730 Pulse Ox 98 03/14 722 B/P 121/72 03/14 722 B/P Mean 88.3 03/14 722 Temp 99.0 03/14 722 Pulse 76 03/14 722 Resp 17 03/14 722 FiO2 32 03/14 0502 03/14 2300 03/13 1500 Intake Total 240.00 90.00 300.00 Output Total 400 400 Balance -160.00 -310.00 300.00 Intake, IV 240.00 90.00 300.00 Number Voids 2 Output, Urine 400 400 Patient 155 lb Weight Physical Exam A/A/O, in no acute distress, dressings dry and intact compartments soft sensation intact Assessment/Plan s/p Rt TKA, POD 2 will benefit with continued PT/OT re-eval tomorrow for possible dc Electronically Signed by Apurva Ritchie on 03/14 at 1037 at 1542 RPT #:[id number] END OF REPORT 2020-03-13 12:51:00-00:00 [facility] ([facility]) Clinical Note REPORT#:[id number] REPORT STATUS: Signed DATE:03/13/20 TIME: 1251 PATIENT: POLA EID UNIT #: [id number] ROOM/BED: Y.315-A : 46 AGE: 74 SEX: F ATTEND: Keshav Perez MD ADM AUTHOR: Apurva Ritchie * ALL edits or amendments must be made on the el [employer]/computer document * Clinical Note Note: ambulated around the room on ly. She has had N/V this morning. Lunch is her first meal eaten since surgery. Last Documented: Result Date Time Pulse Ox 98 03/13 1115 B/P 111/66 03/13 1115 B/P Mean 80.6 03/13 1115 Temp 98.1 03/13 1115 Pulse 71 03/13 1115 Resp 12 03/13 1115 O2 Delivery Nasal cannula 03/13 724 O2 Flow Rate 3 03/13 724 FiO2 32 03/13 0533 03/13 0703/12 2300 03/12 1500 Intake Total 500.00 500.00 100.00 Output Total Balance 500.00 500.00 100.00 Intake, IV 250.00 250.00 100.00 Intake, Oral 250 250 Number Voids 2 Patient 156 lb Weight Weight Stated/Reported Measurement Method Laboratory Tests: 03/13 400 Chemistry Sodium (136 - 145 mmol/L) 138 Potassium (3.5 - 5.1 mmol/L) 3.7 Chloride (98 - 107 mmol/L) 103.0 Carbon Dioxide (21 - 32 mmol/L) 26.7 BUN (7 - 18 mg/dL) 23 H Creatinine (0.55 - 1.30 mg/dL) 0.97 Glomerular Filtr Rate (>60) 56.3 Glucose (70 - 110 mg/dL) 99 Calcium (8.2 - 10.1 mg/dL) 8.6 Hematology Hgb (12 - 16 g/dL) 11.1 L Hct (37 - 47 %) 32.2 L Physical Exam A/A/O, in no acute distress, in bed dressings dry and intact Assessment/Plan s/p Rt TKA, POD 1 continue PT/OT efforts, would benefit from more PT due to poor progress will re-eval tomorrow pt will be discharged with HH/PT when appropriat e Electronically Signed by Apurva Ritchie on 03/13 at 1253 RPT #:[id number] END OF REPORT 2020-03-13 12:51:00-00:00 [facility] ([facility]) Clinical Note REPORT#:[id number] REPORT STATUS: Signed DATE:03/13/20 TIME: 1251 PATIENT: POLA EID UNIT #: [id number] ROOM/BED: 315-A : 46 AGE: 74 SEX: F ATTEND: Keshav Perez MD ADM AUTHOR: Apurva Ritchie * ALL edits or amendments must be made on the el [employer]/computer document * Clinical Note Note: ambulated around the room on ly. She has had N/V this morning. Lunch is her first meal eaten since surgery. Last Documented: Result Date Time Pulse Ox 98 03/13 1115 B/P 111/66 03/13 1115 B/P Mean 80.6 03/13 1115 Temp 98.1 03/13 1115 Pulse 71 03/13 1115 Resp 12 03/13 1115 O2 Delivery Nasal cannula 03/13 724 O2 Flow Rate 3 03/13 724 FiO2 32 03/13 0533 03/13 0703/12 2300 03/12 1500 Intake Total 500.00 500.00 100.00 Output Total Balance 500.00 500.00 100.00 Intake, IV 250.00 250.00 100.00 Intake, Oral 250 250 Number Voids 2 Patient 156 lb Weight Weight Stated/Reported Measurement Method Laboratory Tests: 03/13 400 Chemistry Sodium (136 - 145 mmol/L) 138 Potassium (3.5 - 5.1 mmol/L) 3.7 Chloride (98 - 107 mmol/L) 103.0 Carbon Dioxide (21 - 32 mmol/L) 26.7 BUN (7 - 18 mg/dL) 23 H Creatinine (0.55 - 1.30 mg/dL) 0.97 Glomerular Filtr Rate (>60) 56.3 Glucose (70 - 110 mg/dL) 99 Calcium (8.2 - 10.1 mg/dL) 8.6 Hematology Hgb (12 - 16 g/dL) 11.1 L Hct (37 - 47 %) 32.2 L Physical Exam A/A/O, in no acute distress, in bed dressings dry and intact Assessment/Plan s/p Rt TKA, POD 1 continue PT/OT efforts, would benefit from more PT due to poor progress will re-eval tomorrow pt will be discharged with HH/PT when appropriat e Electronically Signed by Apurva Ritchie on 03/13 at 1253 at 1434 RPT #:[id number] END OF REPORT 2020-03-12 17:52:00-00:00 [facility] ([facility]) Clinical Note REPORT#:[id number] REPORT STATUS: Signed DATE:03/12/20 TIME: 1752 PATIENT: POLA EID UNIT #: [id number] ROOM/BED: Y315-A : 46 AGE: 74 SEX: F ATTEND: Keshav Perez MD ADM AUTHOR: Angel Jefferson MD * ALL edits or amendments must be made on the el [employer]/computer document * Clinical Note Note: Consult Note Dictated [id number] Electronically Signed by Angel Jefferson MD o n 03/12/20 at 1755 RPT #:[id number] END OF REPORT 2020-03-12 17:45:00-00:00 [id number] [place] [address] PATIENT NAME: POLA EID ADMIT DATE : 03/12/20 ACCOUNT NO: [id number] ROOM NO: Y512 AGE: 74 REPORT TYPE: CONSULTATION REPORT SEX: F ADMITTING PHYSICIAN:Nuvia Perez MD ATTENDING PHYSICIAN:Nuvia Perez MD CONSULTATION DATE: 03/12/2020 CONSULTING PHYSICIAN: Angel Jefferson MD NEUROLOGY CONSULTATION HISTORY OF PRESENT ILLNESS: The patient is a 74- year-old woman, , right handed, right footed. The patient is being seen po stoperatively at the request of Nuvia Perez MD, for neurological evaluation of pain symptoms and medication management. The patient was admitted to [facility] earlier today, March 12. The patient states that she had been having righ t knee pain for the past 6 years. The pain has been more pronounced in the last 6 months. The patient has had pain in the knee. She has lemus d cramping and spasm in the muscles above the knee, below the knee. She has felt some weakness. She has low back pain. Occasional incontinence to urine. Occasional numbness in the feet. PAST MEDICAL HISTORY: 1. Hypertension. 2. Hypothyroidism. 3. Gastroesophageal reflux disease. 4. History of gout. PAST SURGICAL HISTORY: 1. Tonsillectomy in 1953. 2. Exploratory laparotomy, cyst on ovary, acute appendicitis - 1962. 3. Ankle surgery in 1980. 4. Foot surgery, Thakkar's neuroma in 1986. 5. Hysterectomy in 1984. 6. Cholecystectomy in 1988. 7. in 1976, 1978. 8. Left knee meniscus repair in 2010. 9. Right and left eye keratotomy in 1980. 10. Mohs procedure in December 2011 for basal cell c arcinoma. PATIENT NAME: POLA EID 11. D and C in 1970. REVIEW OF SYSTEMS: EYES: The patient has had radial keratotomy perf ormed as noted above. ENT: The patient does have vertigo and dizziness . PULMONARY: No chest pain, coughing, or hemoptysi s. CARDIOVASCULAR: There is a history of hypertensi on. GASTROINTESTINAL: The patient does have epigastr ic pain. GENITOURINARY: The patient has had a history of prolapsed bladder and urinary incontinence. MUSCULOSKELETAL: As above. NEUROLOGICAL: As above. PSYCHIATRIC: The patient states the pain in the last 2 months has made her energy level be less. Pain does interfere with h er getting sleep and staying asleep. DRUG ALLERGIES: 1. CODEINE - NAUSEA AND VOMITING, SEVERE. NO VALDO H, NO ITCHING. 2. HYDROCODONE - NAUSEA AND VOMITING, SEVERE. NO RASH, NO ITCHING. 3. TETRACYCLINE. 4. SULFA DRUGS. 5. ALLOPURINOL. 6. COLCHICINE. 7. CLINDAMYCIN. 8. BACTRIM DS. 9. AMOXICILLIN. 10. ZOLPIDEM OR AMBIEN. 11. OXYBUTYNIN. 12. FEXOFENADINE OR RADHA. 13. MELOXICAM. 14. DEXLANSOPRAZOLE. SOCIAL HISTORY: The patient does not smoke cigar ettes. The patient does not drink alcohol. No history of street drugs. The patient is . She does live with her in a 1-level [facility]. The patient's , [place], is present dimplesd earline today's exam and history. The patient did have surgery today. The patient diagnosed as having right knee degen erative joint disease. The patient did undergo a right-sided total knee arthroplasty. Postoperatively, the patient had been placed on Robaxin 500 mg q. 6 hours and tramadol 50 mg q. 6 hours. Hydrocodone and Nucynta are available on a p.r.n . basis. PATIENT NAME: POLA EID PHYSICAL EXAMINATION: EYES: Right pupil 2 mm, left pupil 3 mm, reactiv e to light. NEUROLOGIC: Mental Status: The patient is alert. She is oriented to place, to year. The patient could subtract serial 7s x2 to 86. The patient could reverse presidents x2 to Obama . Short-term memory intact to 3/3 objects. The patient can reverse presidents x3 to Sheriff. The patient states the pain in the right knee is a 1 on a scale of 0 to 10. The patient is , she does live with her h [place] jo, in a 1-level house. Cranial nerves: II, III, IV, , as above; V, in tact to light touch; VII, no facial asymmetry; VIII through XII, intact. Motor: Good strength in the arms and legs. Sensory: Intact to light touch. Reflexes: 0 at the biceps; 0 at the wrist. Not tested, right knee; not tested, right ankle. 0, left knee; 0, left ankle. CLINICAL DIAGNOSES: 1. Degenerative joint disease of right knee. 2. Right total knee arthroplasty [facility] today, 03/12/2020. 3. Musculoskeletal spasm of low back, right hip, right leg. 4. Hypertension. 5. Hypothyroidism. 6. Gastroesophageal reflux disease. 7. History of low back pain. 8. History of gout. 9. Multiple drug allergies, but pain medicines h ave more side effects with severe onset of nausea and vomiting as opposed t o rashes and itching. PLAN: We will continue tramadol for pain. We will discontinue hydrocodone and codeine. We will also discontinue Steven axin given the patient's age and she has substitute for baclofen 5 mg q. 6 hours p.r.n. muscle spasm . Dictated By: Angel Jeffesron MD WT: [id number]:[email or web address]/MOL/NTS PATIENT NAME: POLA EID Conf#: [id number]#: [id number] cc: Nuvia Perez MD Authenticated by Angel Jefferson MD On 03/31 02:24:26 PM at 1424 PATIENT NAME: POLA EID 2020-03-12 15:08:00-00:00 [id number] [facility] [address] [place] [address] PATIENT NAME: POLA EID ADMIT DATE : 03/12/20 ACCOUNT NO: [id number] ROOM NO: [facility] AGE: 74 REPORT TYPE: OPERATIVE REPORT SEX: F ADMITTING PHYSICIAN:Nuvia Perez MD ATTENDING PHYSICIAN:Nuvia Perez MD OPERATION DATE: 03/12/2020 PREOPERATIVE DIAGNOSIS: Degenerative joint disea se, right knee. POSTOPERATIVE DIAGNOSIS: Degenerative joint dise ase, right knee. PROCEDURE: Right total knee arthroplasty. SURGEON: Nuvia Perez MD DRY CHAIN WORKER: Apurva Ritchie PA-C ANESTHESIA: General anesthesia. ESTIMATED BLOOD LOSS: 100 mL. DRAINS: None. SPECIMENS: None. COMPLICATIONS: None. IMPLANTS: Zarina all-titanium Persona size right posterior-stabilized femoral component, narrow size D tib ial component, an 11 mm posterior-stabilized tibial polyethylene insert, and 32-mm round patella. Th e implant did not contain any nickel. FINDINGS: Severe arthritis with valgus deformity with eburnated bone in the lateral compartment with small marginal osteophy david. INDICATIONS FOR SURGERY: Right knee pain and art hritis. Treatment options were discussed with the marva ent who voiced understanding of the options and the planned procedure. The patient voiced understand ing of the risk of infection, damage to nerves or blood vessels with l oss of function, mechanical failure or loosening with need for revision surgery, blood clots possibly going to the lungs, possibly resulting in . These issues were discussed with the patient in the office prior to surgery. No warra nty or guarantee as to the outcome of the surgery was made. PROCEDURE IN DETAIL: The patient was identified in the preoperative holding area. All questions were answered. The patient's surgical site was appropriately marked under the patient's directi on and with the patient's PATIENT NAME: POLA EID consent. The patient was taken to the operating room where a timeout was performed prior to induction of anesthesia, ensu ring that the patient was properly identified as the proper patient. After establishment of anesthesia, the right leg was prepped and draped sterilely. A surgical timeout was then initiated by the surgeon and performed under the direction of the circulating nurse. It was confirmed that the marking of the surgical site was visible after prepping and draping of the extremity, that it w as the proper patient, that x-rays with the patients name on it were display ed, that all necessary instruments were available a nd open and all potentially necessary implants were available. It was also confirmed that the instru ments had been properly sterilized. Each member of the surgical team int roduced themselves and described their role in the surgical pro cedure. After the surgical timeout was completed, surgery was begun. With the knee in a flexed position an an terior longitudinal incision extending from approximately 6 cm proximal to the proximal pole of the patella, slightly medial to the midline, was e xtended distally for a length of approximately 15 to 20 cm to the region of the medial aspect of the tibial tubercle. The incision was carried through the skin and subcutaneous ti ssues and hemostasis was then obtained using electrocautery. A sterile tourniq uet was available, but the surgery was initially performed without a tourni quet. The tourniquet was only to be placed if there was excessive bleeding. A mid vastus approach was then performed by dividing the fibers of the vastus m edialis oblique one fingerbreadth proximal to the proximal pole of t he patella for a distance of approximately 6 cm. The incision was then bill d along the medial capsule along the medial border of t he patella leaving an adequate cuff of tissue on the patella for later closure. The incision continued down along the medial border of the patellar tendon along the tibial tubercle . Hemostasis was again obtained. The anterior portion of the medial men iscus was excised using scalpel. The knee was then e xtended and release of the deep MCL of the proximal medial tibia was performed using electrocautery under direct visualization as appropriate based on the patient's deformity. He mostasis was again obtained with the knee in extension. Synovium was then excised from the anterior distal femur to allow referencing of the anterior tibia l cortex for sizing of the femoral implant. The knee was then flexed and re tractors were placed beneath the medial and lateral collateral ligament. A small portion of the fat pad was excised allow ing better exposure of the anterolateral portion of the tibia. The anterior portion of the lateral meniscus was then excised to allow placement of the femoral sizing guide beneath the femur. The femoral canal was then entered at the superomedial border of the intercondylar notch above the PCL. The femoral c anal was then suctioned, removing marrow fat to reduce the risk for fat e mbolization and the intramedullary cutting guide was placed and pinned for a 10-mm resection. With flexion contracture of greater than 10 degrees i n a knee without valgus deformity, an additional 2-mm resection was performed. Distal femur was cut in 3 degrees of valgus. The distal femur was carefu lly cut using an oscillating saw under direct visualization. The femo ral sizing guide was then used to size the distal femur and the appropriate size 4-in-1 cutting block was chosen. After the 4-in-1 cutting block was pinned into p lace, the anterior femoral condyle was removed with careful protection of t he anterior femur and surrounding soft tissues. The anterior chamfer c ut was also made. It was verified that Hohmann retractors were ad equately protecting the MCL and LCL as the posterior femoral condyl es were cut and the posterior chamfer cut was made. PATIENT NAME: POLA EID The 4-in-1 femoral cutting block was the n removed. Marginal osteophytes on the femur were then removed. Attention was turned to the proximal tibia where the remaining portion of the medial meniscus was excised using electrocautery as was the remaining portion of the lateral meniscus. The anterior cruciate liga ment was cut with electrocautery. Hohmann retractors were placed m edial and lateral and the tibial cutting guide was edith franklin to perform a 10-mm resection from the less-worn tibial plateau. The tibial cutting guide was pin jaswinder in place with 2 smooth pins. A third retractor was placed protecting the LCL as the proximal tibia was resected. Care was taken to resect up to , but not through the posterior tibial cortex to protect the posterior neurovascular st ructures. The tibial cutting guide was then removed and the wafer of bone res ected from the proximal tibia was removed using electrocautery and a r ongeur. Any remaining bone was removed using a three quarter-inch osteotome. Posterior femoral osteophytes were also removed using a three quarte r-inch osteotome followed by rongeur. Spacer blocks were then used to confirm th at the flexion and extension gaps were minimum of 8 to 10 mm in thickness and were well balanced. At tention was then turned to preparing the distal femur for the posterior-sta bilized implant. The Mullen retractor was placed protect ing the proximal tibia and the femoral trial without the notch was placed on the distal femur and was centered appropriately in the notch that was marked to allow the notch cutting guide to be appropriately positioned in the medial and lateral width. The cutting guide was then pinned and the notch resection was performed using an t hin saw blade under direct visualization taking care not to undercut the fe moral condyles. The cutting guide was removed as was the block of bar ne that was cut from the intercondylar notch. Attention was then turned to the tibia and the proximal tibia was exposed using 2 Hohmann retractors. The baseplate for the tibia of the appropriate size that obtained the greatest amount of cortical contact without overhang was positioned with appropriate rotational alignment, g enerally aligned with the medial third of the tibial tubercle. Afte r the tibial baseplate guide was pinned into place, the round S-ROM punch was used to remove bone fr om the area where the tibial stem would be implanted and the plug of bone removed from the proximal tibia was immediately impacted into the femoral ca nal to plug the distal femur to reduce intraoperative and postoperative blood loss. The tibia was then prepared for the stem and keel of the tibial implant. The femoral trial was then placed and a trial reduction was performed. It was confirme d that the flexion and extension gaps were well balanced. If th ey were not, the femoral component was downsized or additional bone was removed from the distal femur as appropriate to achieve excellent balance. T he rotational alignment of the tibial component was again confirmed to be appropriate or was adjuste d as needed. The lugs for the pegs on the femoral implant were drilled and the knee was brought into extension for preparation of the patella. The patella was everted and ____ were used to hold the patella in an everted manner. Synovium was then removed from the distal quadriceps tendon ins ertion to the proximal pole of patella to lessen the risk for postoperative patellar clunk syndrome. The appropriate thickness was then resected from the undersurface of the benoit la, ranging from 8 to 11.5 mm based on the diameter of the patellar component. The 3 peg holes were then drilled and a trial patellar implant was placed to ensure satisfactory tracking of the patella and to protec t the patella during cementation of the femoral and tibial implants. PATIENT NAME: POLA EID The knee was then brought into flexion a nd the patella was retracted laterally without eversion. A small step drill was used to drill any sclerotic bone to facilitate cement interdigitation. The distal fe mur and proximal tibia were prepared for cementation using pulsatile lavage to remove blood and fatty tissues to facilitate cement interdigitation. Ulrich ction was placed in the proximal tibia, which was packed with la parotomy sponge while 2 batches of CMW cement were mixed along with 1 gm of vancomycin. When the cement was slightly doughy, the preheated tibial implant was completely dried and cement was placed on the undersurface of the tibia and around the tibial stem and was also finger-packed into the proximal tibia. Care was taken to pack the cement into the trabecular bone of the proximal tibia to min imize lipid extrusion during cementation. The tibial implant was then impacted into place and excess cement was removed. The Mullen retractor was placed to h old the tibial implant flush with the tibia while the femoral implant was rachel ented. The distal femur was again cleaned with a laparotomy sponge and cemen t was placed on the distal surface of the femur and the undersurface of the femoral component and the femoral implant was impacted into place. Excess cement was removed. The trial tibial insert was then placed. The knee was then brought into full extension an d once again it was verified that flexion and extension gaps were well balanc ed. If necessary, additional cement was removed from the margins of t he femoral component and the posterior aspect of the femur. The knee was maintained in extension as the patellar implant was cemented. The kn ee was then taken through a range of motion and the thickness of the final tibia l insert was then chosen and the tibial polyethylene implant was opened. The periarticular injection was then performed using 0.5% ropivacaine with epinephrine. Toradol was added to the injection if the patient's GFR was greater than 60 and if not 10 mg of morphine sulfate was added. As the cement was hardening, the knee was soaked with dilute Betadine for 90 seconds or more. Once the cement had hard ened, the knee was thoroughly irrigated using pulsatile lavage with up to 3 li ters of normal saline. Once again, the posterior aspect of the knee was checked and any cement or debris was removed. The tibial polyethylene insert was then locked into place. The capsule was then repaired using #1 Vicryl and #2 Quill. Subcutaneous tissues were meticulously closed in layers using 0 and 2-0 Vicryl. The skin was closed using 3-0 nylon. A sterile compression bandage w as placed. The patient was awoken by the anesthesia team and taken to the p ost anesthesia care unit in stable condition. POSTOPERATIVE PLAN: Weightbearing and range of m otion as tolerated. The skilled assistance of Amadeo Reed was necessary during this surgical procedure. He assisted with every aspect of the operation including, but not limited to, proper and safe positioning of the p atient, obtaining adequate surgical exposure, manipulation of surgical inst ruments, the delicate task of the continual process of hem ostasis during the procedure. He is responsible for proper and safe manipulation of the surg ical leg to allow visualization for me during surgery. His meticulo us multilayer closure of the surgical wound closure is essential to proper wound healing and the red uction of postoperative infections and drainage. His assistance allowed me to perform the most sensitive and technical port ions of this operation using 2 hands, thus enhancing patient safety. This would not be possible witho ut the help of a skilled business banking sales assistant familiar with the procedure and capabl e of safely performing the aforementioned tasks. Our facility is not a [facility] and as such, no PATIENT NAME: POLA EID EDDA surgical residents or interns were available to assist. Dictated By: Nuvia Perez MD WT: OP:EUGENIE/ROSALBA/MALISSA Conf#: [id number]#: [id number] Authenticated by Nuvia Perez MD On 02:38:36 PM at 1438 PATIENT NAME: ERIC EIDUBALDO BAÑUELOS 2020-03-12 12:12:00-00:00 [facility] ([facility]) Brief Op Note REPORT#:[id number] REPORT STATUS: Signed DATE:03/12/20 TIME: 1212 PATIENT: POLA EID UNIT #: [id number] ROOM/BED: [place] [address] : 46 AGE: 74 SEX: F ATTEND: Keshav Perez MD ADM AUTHOR: Nuvia Perez MD * ALL edits or amendments must be made on the iRule/computer document * Op/Inv Proc Note - Brief Pre-procedure diagnosis: DJD RT KNEE Post-procedure diagnosis: same as pre procedure dx Procedures performed: RT TKA Primary Surgeon: NUVIA PEREZ MD Mill Controller(s): APURVA RITCHIE PA-C Anesthesia: general anesthesia Findings: DJD RT KNEE Complications: none Estimated blood loss in ml's: 100 Specimens removed/altered: none at 1213 RPT #:[id number] END OF REPORT
[2023-02-10 14:23] LABS: Absolute Lymphocytes (CBC) 0.7 K/uL (0.7-4.9); MCV 91.2 fL (80-100); Platelets 230 thou/uL (152-406); RBC Red Blood Cell Count 3.95 M/uL (3.86-4.86)
--- NOTE | 2023-02-10 14:32 | RAD REPORT ---
EXAM DESCRIPTION: RAD - Chest Single View - 02/10/2023 2:25 pm CLINICAL HISTORY: weakness Chest pain. COMPARISON: <Comparisons> FINDINGS: Portable technique limits examination quality. The lungs are grossly clear. The heart is normal in size. No displaced fractures. IMPRESSION: No acute intrathoracic process suspected.
[2023-02-10 14:34] LABS: Protime INR 0.94
--- NOTE | 2023-02-10 14:36 | RAD REPORT ---
EXAM DESCRIPTION: CT - Head Brain Wo Cont - 02/10/2023 2:29 pm CLINICAL HISTORY: CONFUSED Fever, headache, drowsiness COMPARISON: Head Brain Wo Cont dated 02/05/2023 TECHNIQUE: All CT scans are performed using dose optimization technique as appropriate and may inclu de automated exposure control or mA/KV adjustment according to patient size. FINDINGS: No intracranial hemorrhage, hydrocephalus or extra-axial fluid collection.Mild generalized brain atrophy is present with mild periventricular and deep white matter chronic microvascular ische valentin changes.No areas of brain edema or evidence of midline shift. The paranasal sinuses and mastoids are clear. The calvarium is intact. IMPRESSION: No acute intracranial abnormality.
[2023-02-10 14:45] LABS: Bilirubin Total 0.4 mg/dL (0.2-1.0); Potassium 3.8 mEq/L (3.5-5.1)
--- NOTE | 2023-02-10 15:02 | EDPHYS ---
Physician Documentation [facility] Name: Naz Garcia Age: 77 yrs Sex: Female : 1945 Arrival Date: 02/10/2023 Time: 13:31 Bed 8 Private MD: ED Physician Chelsea Nieto HPI: 02/10 14:21 This 77 yrs old Female presents to ER via EMS with complaints of General Weakness, sp3 Altered Mental Status. 14:21 77-year-old female with a history of hypothyroidism, gout, degenerative disc disease sp3 who was recently seen last week for altered mental status and viral syndrome was positive for COVID-19 now returns via EMS for altered mental status and decreased responsiveness and generalized weakness. Vital signs have been normal and stable for EMS. Here patient is nonverbal and sleepy with borderline somnolence. Patient awakes with loud verbal interaction and with pain. Review of systems, history and physical severely limited secondary to current patient mental status and clinical state.. Historical: - Allergies: 13:39 Radha; aa5 13:39 Avelox; aa5 13:39 Bactrim; aa5 13:39 Clindamycin; aa5 13:39 TETRACYCLINES; aa5 13:39 tramadol (hallucinations); aa5 13:39 all pain medications (will vomit 24hrs with single dose); aa5 13:39 Zolpidem; aa5 13:39 Sulfa (Sulfonamide Antibiotics); aa5 13:39 Allopurinol; aa5 13:39 Augmentin; aa5 13:39 meloxicam (avoid due to beginning of renal failure); aa5 13:39 Colchicine; aa5 13:39 iodine IV contrast (dizziness, severe shaking); aa5 - Home Meds: 13:50 metoprolol tartrate 50 mg Oral tablet once [Active]; levothyroxine 37.5 mcg capsule 0.5 aa5 cap once [Active]; topiramate 25 mg oral tablet once [Active]; pantoprazole 40mg tab oral tablet, delayed release (enteric coated) 2 times per day [Active]; tylenol [Active]; Carbamazepine Oral [Active]; - PMHx: 13:39 thyroid problem; Gout; scoliosis; IBS; Degenerative disc disease; dry eye; trigeminal aa5 neuralgia; - PSHx: 13:50 tonsils; ankles; foot; hysterectomy; section; Cholecystectomy; knee; eyes; aa5 D\T\C; Right knee replacement; cataract surgery; - Immunization history:: Adult Immunizations unknown. - Social history:: Smoking status: unknown. ROS: 14:23 Unable to obtain ROS due to baseline dementia, patient's inability to understand sp3 questions, patient being uncooperative. Exam: 14:23 Constitutional: This is a well developed, well nourished patient who is awake, alert, sp3 and in no acute distress. Head/Face: Normocephalic, atraumatic. Eyes: Pupils equal round and reactive to light, extra-ocular motions intact. Lids and lashes normal. Conjunctiva and sclera are non-icteric and not injected. Cornea within normal limits. Periorbital areas with no swelling, redness, or edema. ENT: Nares patent. No nasal discharge, no septal abnormalities noted. External auditory canals are clear. Oropharynx with no redness, swelling, or masses, exudates, or evidence of obstruction, uvula midline. Mucous membranes moist. Neck: Trachea midline, no thyromegaly or masses palpated, and no cervical lymphadenopathy. Supple, full range of motion without nuchal rigidity, or vertebral point tenderness. No Meningismus. Chest/axilla: Normal chest wall appearance and motion. Nontender with no deformity. No lesions are appreciated. Cardiovascular: Regular rate and rhythm with a normal S1 and S2. No gallops, murmurs, or rubs. Normal PMI, no JVD. No pulse deficits. Respiratory: Lungs have equal breath sounds bilaterally, clear to auscultation and percussion. No rales, rhonchi or wheezes noted. No increased work of breathing, no retractions or nasal flaring. Abdomen/GI: Soft, non-tender, with normal bowel sounds. No distension or tympany. No guarding or rebound. No evidence of tenderness throughout. Back: No spinal tenderness. No costovertebral tenderness. Full range of motion. Skin: Warm, dry with normal turgor. Normal color with no rashes, no lesions, and no evidence of cellulitis. MS/ Extremity: Pulses equal, no cyanosis. Neurovascular intact. Full, normal range of motion. 14:23 ECG was reviewed by the Attending Physician. EKG demonstrates normal sinus rhythm 73 bpm normal intervals, normal QRS, normal axis, nonspecific diffuse ST/T-segment without evidence of acute ischemia. EKG is limited by artifact. Vital Signs: 13:39 BP 148 / 77; Pulse 82; Resp 20 S; Temp 99.2(O); Pulse Ox 100% on R/A; Weight 58.97 kg aa5 (M); 14:28 BP 160 / 77; Pulse 65; Resp 17 S; Pulse Ox 99% on R/A; aa5 15:30 BP 170 / 77; Pulse 59; Resp 16 S; Temp 98.4(O); Pulse Ox 98% on R/A; aa5 16:30 BP 150 / 75; Pulse 57; Resp 16 S; Pulse Ox 95% on R/A; aa5 17:30 BP 148 / 63; Pulse 68; Resp 16 S; Pulse Ox 99% on R/A; aa5 18:00 BP 158 / 109; Pulse 64; Resp 18 S; Temp 98.4(A); Pulse Ox 98% on R/A; aa5 MDM: 13:56 Patient medically screened. sp3 14:24 Data reviewed: vital signs, nurses notes, EMS record, old medical records, lab test sp3 result(s), EKG, radiologic studies. ED course: 77-year-old female COVID-positive who is now further altered. We will obtain full sepsis work-up and CT scan of the head. Disposition likely admission pending work-up and patient course.. 14:49 ED course: I reviewed chest x-ray and CT scan and they demonstrate no significant sp3 abnormality on my read. Laboratory values are within normal limits with exception of sodium being critically low at 128 which could represent her mental status changes. We will slowly rehydrate her and admit to inpatient service for further work-up and treatment.. 02/10 13:57 Order name: Blood Culture Adult (2) sp3 02/10 13:57 Order name: CBC with Diff; Complete Time: 14:48 sp3 02/10 13:57 Order name: CMP; Complete Time: 14:48 sp3 02/10 13:57 Order name: Lactate w/ 2H reflex if indic. sp3 02/10 13:57 Order name: Protime (+inr); Complete Time: 14:48 sp3 02/10 13:57 Order name: Ptt, Activated; Complete Time: 14:48 sp3 02/10 13:57 Order name: Urinalysis w/ reflexes sp3 02/10 15:00 Order name: Urine Sodium Random sp3 02/10 15:00 Order name: Osmolality, Serum sp3 02/10 15:00 Order name: Urine Osmolality sp3 02/11 05:13 Order name: CBC with Automated Diff EDMS 02/11 05:25 Order name: Comprehensive Metabolic Panel EDMS 02/11 05:25 Order name: Uric Acid EDMS 02/11 05:25 Order name: Phosphorus EDMS 02/11 05:25 Order name: Magnesium EDMS 02/11 05:45 Order name: Osmolality, Serum EDMS 02/10 13:57 Order name: Chest Single View XRAY; Complete Time: 14:48 sp3 02/10 13:57 Order name: CT Head Brain wo Cont; Complete Time: 14:48 sp3 02/10 13:57 Order name: EKG; Complete Time: 13:58 sp3 02/10 16:24 Order name: CONS Physician Consult EDMS 02/10 13:57 Order name: Cardiac monitoring; Complete Time: 14:23 sp3 02/10 13:57 Order name: EKG - Nurse/Tech; Complete Time: 14:23 sp3 02/10 13:57 Order name: IV Saline Lock - Large Bore; Complete Time: 14:23 sp3 02/10 13:57 Order name: Labs collected and sent; Complete Time: 14:23 sp3 02/10 13:57 Order name: O2 Per Protocol; Complete Time: 14:23 sp3 02/10 13:57 Order name: O2 Sat Monitoring; Complete Time: 14:23 sp3 02/10 13:57 Order name: Vital Signs; Complete Time: 14:23 sp3 Administered Medications: 15:30 Drug: NS 0.9% IV 1000 ml Route: IV; Rate: 50 ml/hr; Site: left upper arm; aa5 Disposition Summary: 02/10/23 15:01 Hospitalization Ordered Hospitalization Status: Inpatient Admission sp3 Provider: Valentine Jacobsen sp3 Condition: Stable sp3 Problem: an acute exacerbation sp3 Symptoms: have worsened sp3 Bed/Room Type: Standard sp3 Location: Telemetry/MedSurg (Inpatient)(02/11/23 06:05) Room Assignment: 229(02/11/23 06:05) mw Diagnosis - Altered mental status, hyponatremia, COVID-19 sp3 Forms: - Medication Reconciliation Form sp3 - SBAR form sp3 - Leadership Thank You Letter sp3 Signatures: Dispatcher [employer] Leticia Perez RN RN mw Nikki Conrad RN RN aa5 Chelsea Nieto MD MD sp3 Jimenze Martinez RN RN rs5 Corrections: (The following items were deleted from the chart) 20:42 15:01 Telemetry/MedSurg (Inpatient) sp3 20:42 15:01 sp3 02/11 06:05 02/10 20:42 [facility] ER HOLD [facility] 02/11 06:05 02/10 20:42 ERHOLD- [facility]
--- NOTE | 2023-02-10 15:02 | ER ---
Nurse's Notes [facility] Name: Naz Garcia Age: 77 yrs Sex: Female : 1945 Arrival Date: 02/10/2023 Time: 13:31 Bed 8 Private MD: Diagnosis: Altered mental status, hyponatremia, COVID-19 Presentation: 02/10 13:39 Chief complaint: EMS states: family reports pt was seen in the ER on Tuesday and aa5 diagnosed with COVID, was admitted to the hospital and d/c'd home on Tuesday, since then pt has been weak,having fever, confused, and not eating much. 13:39 Coronavirus screen: Client reports previous positive COVID test result. Ebola Screen: aa5 Patient denies travel to an Ebola-affected area in the 21 days before illness onset. Initial Sepsis Screen: Does the patient meet any 2 criteria? No. Patient's initial sepsis screen is negative. Does the patient have a suspected source of infection? Yes:. Risk Assessment: Do you want to hurt yourself or someone else? Unable to obtain. Onset of symptoms was February 2023. 13:39 Acuity: ELIUD 2 aa5 13:39 Method Of Arrival: EMS: [facility] aa5 Historical: - Allergies: 13:39 Radha; aa5 13:39 Avelox; aa5 13:39 Bactrim; aa5 13:39 Clindamycin; aa5 13:39 TETRACYCLINES; aa5 13:39 tramadol (hallucinations); aa5 13:39 all pain medications (will vomit 24hrs with single dose); aa5 13:39 Zolpidem; aa5 13:39 Sulfa (Sulfonamide Antibiotics); aa5 13:39 Allopurinol; aa5 13:39 Augmentin; aa5 13:39 meloxicam (avoid due to beginning of renal failure); aa5 13:39 Colchicine; aa5 13:39 iodine IV contrast (dizziness, severe shaking); aa5 - Home Meds: 13:50 metoprolol tartrate 50 mg Oral tablet once [Active]; levothyroxine 37.5 mcg capsule 0.5 aa5 cap once [Active]; topiramate 25 mg oral tablet once [Active]; pantoprazole 40mg tab oral tablet, delayed release (enteric coated) 2 times per day [Active]; tylenol [Active]; Carbamazepine Oral [Active]; - PMHx: 13:39 thyroid problem; Gout; scoliosis; IBS; Degenerative disc disease; dry eye; trigeminal aa5 neuralgia; - PSHx: 13:50 tonsils; ankles; foot; hysterectomy; section; Cholecystectomy; knee; eyes; aa5 D\T\C; Right knee replacement; cataract surgery; - Immunization history:: Adult Immunizations unknown. - Social history:: Smoking status: unknown. Screenin:40 Abuse screen: No signs of abuse noted. aa5 13:40 [facility] ED Fall Risk Assessment (Adult) Confusion or Disorientation Yes (5 pts) aa5 Score/Fall Risk Level 3 or more points = High Risk Oriented to surroundings, Maintained a safe environment, Hourly rounding (assess needs \T\ fall precautionary measures) done. Nutritional screening: decreased appetite. Tuberculosis screening: No symptoms or risk factors identified. Assessment: 13:40 General: Appears comfortable, Behavior is drowsy. Pain: Unable to use pain scale. Does aa5 not appear to understand pain scale. FLACC scale score is 0 out of 10. Neuro: Level of Consciousness is confused, drowsy . Oriented to person, Pt with eyes closed, awakens to tactile stimuli. Pt able to follow some commands.. Mandrel Maker are weak bilaterally . Moves all extremities. Speech is normal. Cardiovascular: Heart tones S1 S2 present Rhythm is regular. Respiratory: Airway is patent Respiratory effort is even, unlabored, Respiratory pattern is regular, symmetrical. GI: Abdomen is non-distended, Bowel sounds present X 4 quads. Abd is soft X 4 quads. : Brief noted. EENT: No signs and/or symptoms were reported regarding the EENT system. Derm: Skin is pink, warm \T\ dry. Musculoskeletal: Range of motion: intact in all extremities. 14:27 Reassessment: X-ray completed. Pt now to CT via stretcher. . aa5 15:00 Reassessment: Pt's family at bedside. . aa5 15:00 Neuro: Level of Consciousness is confused, drowsy. Awakens to verbal and tactile aa5 stimuli . Cardiovascular: Heart tones S1 S2 present Rhythm is regular. Respiratory: Airway is patent Respiratory effort is even, unlabored, Respiratory pattern is regular, symmetrical. Derm: Skin is pink, warm \T\ dry. 15:30 Reassessment: Hospitalist at bedside, pt's family notified of long wait time for room aa5 assignment. . 16:30 Reassessment: Pt with eyes closed, respirations even and unlabored, skin is aa5 pin/warm/dry.. 17:30 Reassessment: Pt with eyes closed, pt opens eyes to tactile stimuli, pt is A\T\O x 0, aa5 equal and unlabored respirations, skin is pink/warm/dry. . 18:00 Reassessment: Pt opens eyes to verbal stimuli. . Neuro: Level of Consciousness is aa5 confused, Oriented to person. Respiratory: Airway is patent Respiratory effort is even, unlabored, Respiratory pattern is regular, symmetrical. Derm: Skin is pink, warm \T\ dry. Vital Signs: 13:39 BP 148 / 77; Pulse 82; Resp 20 S; Temp 99.2(O); Pulse Ox 100% on R/A; Weight 58.97 kg aa5 (M); 14:28 BP 160 / 77; Pulse 65; Resp 17 S; Pulse Ox 99% on R/A; aa5 15:30 BP 170 / 77; Pulse 59; Resp 16 S; Temp 98.4(O); Pulse Ox 98% on R/A; aa5 16:30 BP 150 / 75; Pulse 57; Resp 16 S; Pulse Ox 95% on R/A; aa5 17:30 BP 148 / 63; Pulse 68; Resp 16 S; Pulse Ox 99% on R/A; aa5 18:00 BP 158 / 109; Pulse 64; Resp 18 S; Temp 98.4(A); Pulse Ox 98% on R/A; aa5 ED Course: 13:39 Patient arrived in ED. aa5 13:39 Arm band placed on. aa5 13:39 Patient has correct armband on for positive identification. Bed in low position. Call aa5 light in reach. Side rails up X2. Client placed on continuous cardiac and pulse oximetry monitoring. NIBP monitoring applied. 13:41 Chelsea Nieto MD is Attending Physician. sp3 13:45 Inserted saline lock: 20 gauge in right antecubital area, using aseptic technique. rs5 13:47 Nikki Conrad, RN is Primary Nurse. aa5 13:48 Triage completed. aa5 14:05 First set of blood cultures drawn by me. aa5 14:10 Missed attempt(s): 20 gauge in left forearm. Bleeding controlled, band aid applied, aa5 catheter tip intact. 14:20 Inserted saline lock: 22 gauge in left upper arm, using aseptic technique. aa5 14:22 Second set of blood cultures drawn by me. aa5 14:26 Chest Single View XRAY In Process Unspecified. EDMS 14:31 CT Head Brain wo Cont In Process Unspecified. EDMS 15:00 Valentine Jacobsen MD is Hospitalizing Provider. sp3 15:10 Straight cath inserted, using sterile technique, 16 Fr. Specimen obtained. Returned aa5 clear yellow urine. Patient tolerated well. 18:20 intact, bleeding controlled, No redness/swelling at site. Pressure dressing applied, aa5 20G to R AC dc'd, due to unable to flush. 18:25 Inserted saline lock: 22 gauge in right hand, using aseptic technique. aa5 19:04 Report given to TOM Jaime and TOM Mendieta. aa5 Administered Medications: 15:30 Drug: NS 0.9% IV 1000 ml Route: IV; Rate: 50 ml/hr; Site: left upper arm; aa5 Medication: 15:30 VIS not applicable for this client. aa5 Outcome: 15:01 Decision to Hospitalize by Provider. sp3 02/11 08:30 Patient left the ED. aa5 Signatures: Dispatcher [employer] EDMS Nikki Conrad RN RN aa5 Chelsea Nieto MD MD sp3 Jimenez Martinez RN RN rs5 Corrections: (The following items were deleted from the chart) 02/10 13:49 13:39 Chief complaint: EMS states: family reports pt was seen in the ER on Tuesday and aa5 diagnosed with COVID, was admitted to the hospital and d/c'd home on Tuesday, since then pt has been weak, confused, and not eating much. aa5 18:27 15:50 NS 0.9% IV 1000 ml IV at 50 ml/hr in left antecubital rs5 aa5 18:28 15:50 NS 0.9% IV 1000 ml IV at 50 ml/hr in left upper arm aa5 aa5 02/11 08:57 08:49 Patient left the ED. aa5 aa5
[2023-02-10 15:29] LABS: Specific Gravity 1.013 (1.005-1.030); Urine Bacteria None Seen /HPF (<20); Urine Bilirubin NEGATIVE (Negative); Urine Blood Negative (Negative); Urine Clarity Clear (Clear); Urine Color Light-Yellow (Yellow); Urine Glucose NEGATIVE (Negative); Urine Mucus Slight /HPF (None Seen); Urine Protein TRACE (Negative); Urine RBC <5 /HPF (None Seen); Urine Urobilinogen Normal (Normal)
[2023-02-10] MEDS ORDERED: NA CHLORIDE 0.9% 1,000 ML ONE (15:49)
--- NOTE | 2023-02-10 19:15 | P.HP ---
Certification for Inpatient Patient admitted to: Inpatient With expected LOS: >2 Midnights Practitioner: I am a practitioner with admitting privileges, knowledge of patient current condition, hospital course, and medical plan of care. Services: Services provided to patient in accordance with Admission requirements found in Title 42 Section 412.3 of the Code of Federal Regulations Patient History Date of Service: 02/10/23 Reason for admission: Altered mental status History of Present Illness: 73-year-old woman with a history of trigeminal neuralgia and hypertension, recently hospitalized for altered mental status secondary to COVID-19 infection and subsequently discharged after her mental status improved was brought back to the emergency department due to recurrence of confusion. Family by her bedside reported patient was initially doing well over a couple of days after discharge but then later had poor oral intake, became weak, needed to present to assist with transfers. Family reported patient developed a fever and became very confused. She was then brought to the emergency department for evaluation. Blood work in the ED shows hyponatremia. UA is negative for UTI. Patient is hospitalized for further management. Allergies Iodinated Contrast Media Allergy (Verified 02/05/23 22:32) Itching/Hives/Rash sulfamethoxazole [From Bactrim] Adverse Reaction (Verified 02/05/23 22:56) shaky, hallucinations tramadol Adverse Reaction (Verified 02/05/23 22:56) shaky, hallucinations trimethoprim [From Bactrim] Adverse Reaction (Verified 02/05/23 22:56) shaky, hallucinations Home Medications: Carbamazepine [Tegretol] 100 mg PO 1300 02/07/23 Carbamazepine [Tegretol] 200 mg PO BID 02/07/23 Levothyroxine Sodium [Tirosint] 37.5 mcg PO [id number] 02/07/23 Metoprolol Tartrate 50 mg PO DAILY 02/07/23 Topiramate 2 tab PO BID 02/07/23 Ascorbic Acid [Vitamin C] 1,000 mg PO BID #14 tab 02/08/23 Molnupiravir [Molnupiravir (Eua)] 800 mg PO BID #40 cap 02/08/23 dexAMETHasone [Dexamethasone] 2 mg PO BID #14 tab 02/08/23 - Past Medical/Surgical History Diabetic: No -: Hypertension -: Hyperlipidemia -: Trigeminal neuralgia -: Cholecystectomy -: Hysterectomy -: right knee replacment -: tonsilectomy Psychosocial/ Personal History: Patient lives at home with her - Family History Father -: Cancer Notes: rectal cancer grandmother -: Cancer Notes: uterine cancer - Social History Alcohol use: No CD- Drugs: No Caffeine use: No Review of Systems Other: No reported nausea vomiting or diarrhea. I am unable to obtain full review of systems due to altered mental status. Physical Examination - Physical Exam General: Mild distress, Confused HEENT: PERRLA, Mucous membr. moist/pink, EOMI, Sclerae nonicteric Neck: Supple, JVD not distended Respiratory: Clear to auscultation bilaterally, Normal air movement Cardiovascular: No edema, Regular rate/rhythm, Normal S1 S2, No murmurs Capillary refill: <2 Seconds Gastrointestinal: Normal bowel sounds, Soft and benign, Non-distended, No tenderness Musculoskeletal: No swelling, No tenderness Integumentary: No rashes, No cyanosis Neurological: Other (Confused, no focal motor deficit) Lymphatics: No axilla or inguinal lymphadenopathy - Studies Laboratory Data (last 24 hrs) 02/10/23 02/10/23 02/10/23 14:10 14:10 14:10 WBC 6.50 Hgb 12.5 Hct 36.0 Plt Count 230 PT 10.3 INR 0.94 APTT 26.5 Sodium 128 L Potassium 3.8 BUN 22 H Creatinine 0.79 Glucose 84 Total Bilirubin 0.4 AST 46 H ALT 32 Alkaline Phosphatase 57 Assessment and Plan - Problems (Diagnosis) (1) Acute metabolic encephalopathy Current Visit: Yes Status: Acute (2) Hyponatremia Current Visit: Yes Status: Acute (3) Coronavirus infection Current Visit: No Status: Acute (4) Trigeminal neuralgia Current Visit: Yes Status: Acute - Plan Admit patient to the medical floor. Supportive measures with IV normal saline. Monitor and replete electrolytes. 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 Monitor sodium level to follow hyponatremia Correct hyponatremia with IV normal saline Start IV dexamethasone for COVID encephalopathy Patient completed 4 days of Lagevrio. Hold psychotropic medications for now
[2023-02-10] MEDS: NS KCL 20MEQ 20 MEQ/1,000 ML BAG IV SCH (20:00)
[2023-02-10] MEDS: dexAMETHasone 10 MG/ML VIAL IV SCH (21:00)
[2023-02-10] MEDS ORDERED: NA CHLORIDE 0.9% 1,000 ML IV SCH (22:00)
[2023-02-10] MEDS ORDERED: dexAMETHasone 4 MG/ML VIAL ONE (22:25)
[2023-02-10] MEDS ORDERED: NA CHLORIDE 0.9% 0 ML ONE (22:25)
[2023-02-11] MEDS ORDERED: MELATONIN 5 MG TABLET PO ONE (01:18)
[2023-02-11] MEDS: MELATONIN 5 MG TABLET PO PRN ×2 (01:19→23:40)
[2023-02-11 05:06] LABS: MCV 89.8 fL (80-100); RBC Red Blood Cell Count 3.57 M/uL (3.86-4.86)
[2023-02-11 05:07] LABS: Absolute Lymphocytes (CBC) 0.7 K/uL (0.7-4.9); Lymphocytes % 8.3 % (15.3-44.8); MPV 7.7 fL (7.6-11.3); Platelets 244 thou/uL (152-406)
[2023-02-11 05:25] LABS: Albumin 2.8 g/dL (3.4-5.0); Bilirubin Total 0.4 mg/dL (0.2-1.0); Magnesium 1.5 mg/dL (1.6-2.4); Potassium 3.7 mEq/L (3.5-5.1); Protein, Total 6.3 g/dL (6.4-8.2); Uric Acid 2.7 mg/dL (2.6-6.0)
[2023-02-11] MEDS: NS KCL 20MEQ 20 MEQ/1,000 ML BAG IV SCH ×2 (09:20→20:33)
[2023-02-11] MEDS: dexAMETHasone 10 MG/ML VIAL IV SCH (09:55)
[2023-02-11] MEDS ORDERED: NA CHLORIDE 0.9% 100 ML ONE (09:57)
--- NOTE | 2023-02-11 14:06 | P.CNS ---
Date of Consult: 02/11/23 Reason for Consult: Hyponatremia Requesting Physician: christopher campbell Chief Complaint: Altered mental status History of Present Illness: 73-year-old woman with a history of trigeminal neuralgia and hypertension, recently hospitalized for altered mental status secondary to COVID-19 infection and subsequently discharged after her mental status improved was brought back to the emergency department due to recurrence of confusion. Family by her bedside reported patient was initially doing well over a couple of days after discharge but then later had poor oral intake, became weak, needed to present to assist with transfers. Family reported patient developed a fever and became very confused. She was then brought to the emergency department for evaluation. Blood work in the ED shows hyponatremia. UA is negative for UTI. Patient is hospitalized for further management. 14:21 This 77 yrs old Female presents to ER via EMS with complaints of General Weakness, sp3 Altered Mental Status. 14:21 77-year-old female with a history of hypothyroidism, gout, degenerative disc disease sp3 who was recently seen last week for altered mental status and viral syndrome was positive for COVID-19 now returns via EMS for altered mental status and decreased responsiveness and generalized weakness. Vital signs have been normal and stable for EMS. Here patient is nonverbal and sleepy with borderline somnolence. Patient awakes with loud verbal interaction and with pain. Review of systems, history and physical severely limited secondary to current patient mental status and clinical state. Case reviewed with the and daughter at the bedside. Allergies Iodinated Contrast Media Allergy (Verified 02/05/23 22:32) Itching/Hives/Rash sulfamethoxazole [From Bactrim] Adverse Reaction (Verified 02/05/23 22:56) shaky, hallucinations tramadol Adverse Reaction (Verified 02/05/23 22:56) shaky, hallucinations trimethoprim [From Bactrim] Adverse Reaction (Verified 02/05/23 22:56) shaky, hallucinations Home medications list reviewed: Yes Home Medications: Carbamazepine [Tegretol] 200 mg PO BID 02/07/23 Levothyroxine Sodium [Tirosint] 37.5 mcg PO [id number] 02/07/23 Metoprolol Tartrate 50 mg PO DAILY 02/07/23 Ezetimibe [Zetia*] 1 tab PO DAILY 02/11/23 Pantoprazole [Protonix Tab*] 1 tab PO BID 02/11/23 Topiramate 1 tab PO DAILY 02/11/23 Topiramate 100 mg PO BID 02/11/23 - Past Medical/Surgical History Diabetic: No -: Hypertension -: Hyperlipidemia -: Trigeminal neuralgia -: Cholecystectomy -: Hysterectomy -: right knee replacment -: tonsilectomy Psychosocial/ Personal History: Patient lives at home with her - Family History Father Medical History: Cancer Notes: rectal cancer grandmother Medical History: Cancer Notes: uterine cancer - Social History Smoking Status: Unknown if ever smoked Alcohol use: No CD- Drugs: No Caffeine use: No Review of Systems is unable to be obtained General: Weakness, Malaise Neurological: Confusion Physical Examination Temp Pulse Resp BP Pulse Ox 98.6 F 74 16 159/72 H 99 02/11/23 12:00 02/11/23 12:00 02/11/23 12:00 02/11/23 12:00 02/11/23 12:00 General: In no apparent distress, Delirious HEENT: Atraumatic Neck: Supple Respiratory: Normal air movement Cardiovascular: Regular rate/rhythm Gastrointestinal: Soft and benign, Non-distended, No guarding Musculoskeletal: No clubbing, No contractures Integumentary: No rashes, No cyanosis Neurological: Abnormal speech (Absent) Laboratory Data (last 24 hrs) 02/10/23 02/10/23 02/10/23 14:10 14:10 14:10 WBC 6.50 Hgb 12.5 Hct 36.0 Plt Count 230 PT 10.3 INR 0.94 APTT 26.5 Sodium 128 L Potassium 3.8 BUN 22 H Creatinine 0.79 Glucose 84 Total Bilirubin 0.4 AST 46 H ALT 32 Alkaline Phosphatase 57 Imagings Data: EXAM DESCRIPTION: RAD - Chest Single View - 02/10/2023 2:25 pm CLINICAL HISTORY: weakness Chest pain. COMPARISON: <Comparisons> FINDINGS: Portable technique limits examination quality. The lungs are grossly clear. The heart is normal in size. No displaced fractures. IMPRESSION: No acute intrathoracic process suspected. EXAM DESCRIPTION: CT - Head Brain Wo Cont - 02/10/2023 2:29 pm CLINICAL HISTORY: CONFUSED Fever, headache, drowsiness COMPARISON: Head Brain Wo Cont dated 02/05/2023 TECHNIQUE: All CT scans are performed using dose optimization technique as appropriate and may include automated exposure control or mA/KV adjustment according to patient size. FINDINGS: No intracranial hemorrhage, hydrocephalus or extra-axial fluid collection.Mild generalized brain atrophy is present with mild periventricular and deep white matter chronic microvascular ischemic changes.No areas of brain edema or evidence of midline shift. The paranasal sinuses and mastoids are clear. The calvarium is intact. IMPRESSION: No acute intracranial abnormality. Conclusions/Impression: Hyponatremia my be due to Carbamazepine complicated by poor oral intake -Continue IVF with NS -Encourage nutrition -Consider stopping Carbamazepine -Repeat BMP today -Consider Ure-Na Hypomagenemia -Replete prn Hypophosphatemia -Replete as ordered Anemia in chronic illness -Monitor H&H Trigeminal Neuralgia -Treated with carbamazepine COVID Infection COVID Encephalopathy -Continue Dexamethasone Hospitalist and ER notes reviewed Thank you kindly for the consultation
[2023-02-11] MEDS ORDERED: SODIUM PHOSPHATE 20 MM in NA CHLORIDE 0.9% 250 ML IV ONE (16:00)
--- NOTE | 2023-02-11 16:49 | P.PN ---
Subjective Date of Service: 02/11/23 Chief Complaint: Altered mental status Patient remained confused but seems to be less agitated compared to yesterday. She has been afebrile. Physical Examination - Vital Signs Temperature: 98.6 F Blood Pressure: 159/72 Pulse: 74 Respirations: 16 Pulse Ox (%): 99 - Studies Microbiology Data (last 24 hrs): 02/10/23 14:22 Blood - Blood Anaerobic Blood Culture - Final Assessment And Plan - Current Problems (Diagnosis) (1) Acute metabolic encephalopathy Current Visit: Yes Status: Acute (2) Hyponatremia Current Visit: Yes Status: Acute (3) Coronavirus infection Current Visit: No Status: Acute (4) Trigeminal neuralgia Current Visit: Yes Status: Acute - Plan Physical Exam General: Confused, NAD HEENT: Sclerae nonicteric Neck: Supple, JVD not distended Respiratory: Clear to auscultation bilaterally, Normal air movement Cardiovascular: No edema, Regular rate/rhythm, Normal S1 S2, No murmurs Gastrointestinal: Normal bowel sounds, Soft and benign, Non-distended, No tenderness Musculoskeletal: No swelling, No tenderness Integumentary: No rashes, No cyanosis Neurological: Confused, no focal motor deficit. Lymphatics: No axilla or inguinal lymphadenopathy Plan: Continue supportive measures with IV normal saline. Monitor and replete electrolytes. 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 No change in sodium level with IV normal saline. Fluid restriction. Continue IV dexamethasone for COVID encephalopathy Patient completed 5 days of Lagevrio. Hold psychotropic medications for now. Diet as tolerated. Holding carbamazepine due to possible SIADH.
--- NOTE | 2023-02-11 17:01 | EKG ---
Test Date: 2023-02-10 Test Time: 14:03:13 [employer] K[employer]: MARGA MEASUREMENT RESULTS: Intervals: Rate: 73 OH: 114 QRSD: 70 QT: 402 QTc: 442 Brutus: P: 103 OH: 114 QRS: 37 T: 91 INTERPRETIVE STATEMENTS: Normal sinus rhythm Cannot rule out Anterior infarct, age undetermined Abnormal ECG Electronically Signed On 02-11-23 16:58:33 CDT by Curtis Deng
[2023-02-11] MEDS: HYDRALAZINE HCL 20 MG/ML VIAL IV PRN (17:23)
[2023-02-11 20:03] LABS: Potassium 3.7 mEq/L (3.5-5.1)
[2023-02-11] MEDS: dexAMETHasone 4 MG/ML VIAL IV SCH (20:34)
[2023-02-11] MEDS: ACETAMINOPHEN 500 MG TAB PO PRN (23:40)
[2023-02-12 03:35] LABS: Absolute Lymphocytes (CBC) 0.5 K/uL (0.7-4.9); Hematocrit 32.1 % (36.0-45.0); Lymphocytes % 5.8 % (15.3-44.8); MCV 89.7 fL (80-100); MPV 7.3 fL (7.6-11.3); Platelets 291 thou/uL (152-406); RBC Red Blood Cell Count 3.58 M/uL (3.86-4.86)
[2023-02-12 04:13] LABS: Albumin 2.7 g/dL (3.4-5.0); Bilirubin Total 0.4 mg/dL (0.2-1.0); Potassium 3.7 mEq/L (3.5-5.1); Protein, Total 6.1 g/dL (6.4-8.2); Thyroid Stimulating Hormone 0.996 uIU/mL (0.358-3.740); Uric Acid 2.7 mg/dL (2.6-6.0)
[2023-02-12 05:37] LABS: Magnesium 1.6 mg/dL (1.6-2.4); Phosphorus 2.4 mg/dL (2.5-4.9)
[2023-02-12] MEDS ORDERED: MAGNESIUM SULFATE 1 gm IVPB 1 GM/100 ML BAG IV ONE (05:40)
[2023-02-12] MEDS ORDERED: POTASSIUM PHOS IN 0.9 % NACL 15 MMOL/250 ML BAG IV ONE (09:00)
[2023-02-12] MEDS: dexAMETHasone 4 MG/ML VIAL IV SCH ×2 (10:29→21:17)
[2023-02-12] MEDS: NS KCL 20MEQ 20 MEQ/1,000 ML BAG IV SCH (12:11)
--- NOTE | 2023-02-12 14:49 | P.PN ---
Subjective Date of Service: 02/12/23 Chief Complaint: Altered mental status Patient is more awake and interactive today. She denies any complain. She has been afebrile. Physical Examination - Vital Signs Temperature: 97.2 F Blood Pressure: 146/71 Pulse: 81 Respirations: 18 Pulse Ox (%): 100 - Studies Microbiology Data (last 24 hrs): 02/10/23 14:22 Blood - Blood Anaerobic Blood Culture - Final Assessment And Plan - Current Problems (Diagnosis) (1) Acute metabolic encephalopathy Current Visit: Yes Status: Acute (2) Hyponatremia Current Visit: Yes Status: Acute (3) Coronavirus infection Current Visit: No Status: Acute (4) Trigeminal neuralgia Current Visit: Yes Status: Acute (5) Essential hypertension Current Visit: Yes Status: Acute - Plan Physical Exam General: Oriented x2, NAD HEENT: Sclerae nonicteric Respiratory: Clear to auscultation bilaterally, Normal air movement Cardiovascular: No edema, Regular rate/rhythm, Normal S1 S2, No murmurs Gastrointestinal: Normal bowel sounds, Soft and benign, Non-distended, No tenderness Musculoskeletal: No swelling, No tenderness Integumentary: No rashes, No cyanosis Neurological: no focal motor deficit. Plan: Continue supportive measures with IV normal saline. Serum sodium level has improved. 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 Fluid restriction. Continue IV dexamethasone for COVID encephalopathy Patient completed 5 days of Lagevrio. Hold carbamazepine, continue Topamax Resume antihypertensives. Diet as tolerated. PT evaluation.
[2023-02-12] MEDS: METOPROLOL TAR 50 MG TAB PO SCH (15:08)
[2023-02-12] MEDS: EZETIMIBE 10 MG TAB PO SCH (15:08)
[2023-02-12] MEDS: PANTOPRAZOLE 40MG TABLET PO SCH ×2 (15:08→21:15)
[2023-02-12] MEDS: TOPIRAMATE 25 MG TAB PO SCH (15:30)
[2023-02-12] MEDS: HYDRALAZINE HCL 20 MG/ML VIAL IV PRN (16:48)
--- NOTE | 2023-02-12 20:34 | P.PN ---
Date of Service: 02/12/23 Vital Signs Temp Pulse Resp BP Pulse Ox 98.7 F 74 20 183/76 H 99 02/12/23 16:00 02/12/23 16:00 02/12/23 16:00 02/12/23 16:00 02/12/23 16:00 Medications Acetaminophen (Acetaminophen 500 Mg Tab) 500 mg PO Q6H PRN PRN Reason: TEMP > 100' F Last Admin: 02/11/23 23:40 Dose: 500 mg Dexamethasone (Dexamethasone 4 Mg/Ml Vial) 4 mg IV BID [facility] Last Admin: 02/12/23 10:29 Dose: 4 mg Ezetimibe (Ezetimibe 10 Mg Tab) 10 mg PO DAILY [facility] Last Admin: 02/12/23 15:08 Dose: 10 mg Hydralazine HCl (Hydralazine Hcl 20 Mg/Ml Vial) 10 mg IV Q6HP PRN PRN Reason: Goal to achieve SBP in comment Last Admin: 02/12/23 16:48 Dose: 10 mg Potassium Chloride/Sodium Chloride (Kcl 20meq/Ns 1000 Ml Iv) 20 meq in 1,000 mls @ 75 mls/hr IV .[id number] [facility] Last Admin: 02/12/23 12:11 Dose: 1,000 mls Levothyroxine Sodium (Levothyroxine Sod 0.075 Mg Tab) 0.0375 mg PO [id number] [facility] Melatonin (Melatonin 5 Mg Tablet) 10 mg PO BEDTIME PRN PRN PRN Reason: INSOMNIA Last Admin: 02/11/23 23:40 Dose: 10 mg Metoprolol Tartrate (Metoprolol Tar 50 Mg Tab) 50 mg PO DAILY [facility] Last Admin: 02/12/23 15:08 Dose: 50 mg Pantoprazole Sodium (Pantoprazole 40mg Tablet) 40 mg PO BID [facility]; Protocol Last Admin: 02/12/23 15:08 Dose: 40 mg Sodium Chloride (Flush Normal Saline 10 Ml) 10 ml IV BID [facility] Last Admin: 02/12/23 09:00 Dose: 10 ml Topiramate (Topiramate 25 Mg Tab) 25 mg PO 1400 [facility] Last Admin: 02/12/23 15:30 Dose: Not Given Topiramate (Topiramate 100 Mg Tab) 100 mg PO BID [facility] Microbiology Results 02/10/23 14:22 Blood - Blood Aerobic Blood Culture - Preliminary No growth in 24 hours. 02/10/23 14:22 Blood - Blood Anaerobic Blood Culture - Final 02/10/23 14:05 Blood - Blood Aerobic Blood Culture - Preliminary No growth in 24 hours. 02/10/23 14:05 Blood - Blood Anaerobic Blood Culture - Preliminary No growth in 24 hours. Assessment/ Plan: Nephrology No dyspnea No chest pain Mental status much improved today No acute events overnight Vitals, medications, blood work and imaging reviewed in the chart. General: In no apparent distress, Delirious HEENT: Atraumatic Neck: Supple Respiratory: Normal air movement Cardiovascular: Regular rate/rhythm Gastrointestinal: Soft and benign, Non-distended, No guarding Musculoskeletal: No clubbing, No contractures Integumentary: No rashes, No cyanosis Neurological: Abnormal speech (Absent) Laboratory Data (last 24 hrs) 02/10/23 02/10/23 02/10/23 14:10 14:10 14:10 WBC 6.50 Hgb 12.5 Hct 36.0 Plt Count 230 PT 10.3 INR 0.94 APTT 26.5 Sodium 128 L Potassium 3.8 BUN 22 H Creatinine 0.79 Glucose 84 Total Bilirubin 0.4 AST 46 H ALT 32 Alkaline Phosphatase 57 Imagings Data: EXAM DESCRIPTION: RAD - Chest Single View - 02/10/2023 2:25 pm CLINICAL HISTORY: weakness Chest pain. COMPARISON: <Comparisons> FINDINGS: Portable technique limits examination quality. The lungs are grossly clear. The heart is normal in size. No displaced fractures. IMPRESSION: No acute intrathoracic process suspected. EXAM DESCRIPTION: CT - Head Brain Wo Cont - 02/10/2023 2:29 pm CLINICAL HISTORY: CONFUSED Fever, headache, drowsiness COMPARISON: Head Brain Wo Cont dated 02/05/2023 TECHNIQUE: All CT scans are performed using dose optimization technique as appropriate and may include automated exposure control or mA/KV adjustment according to patient size. FINDINGS: No intracranial hemorrhage, hydrocephalus or extra-axial fluid collection.Mild generalized brain atrophy is present with mild periventricular and deep white matter chronic microvascular ischemic changes.No areas of brain edema or evidence of midline shift. The paranasal sinuses and mastoids are clear. The calvarium is intact. IMPRESSION: No acute intracranial abnormality. Conclusions/Impression: Hyponatremia may be due to Carbamazepine complicated by poor oral intake -Continue IVF with NS -Encourage nutrition -Hold Carbamazepine Hypokalemia -Replete as ordered Hypomagenemia -Replete as ordered Hypophosphatemia -Replete as ordered -Encourage nutrition HTN -Continue Metoprolol Anemia in chronic illness -Monitor H&H Trigeminal Neuralgia -Continue Topiramate COVID Infection COVID Encephalopathy, improved -Continue Dexamethasone Hospitalist note reviewed
[2023-02-12] MEDS ORDERED: HOME MED 1 EA UNK (Topiramate [Topiramate] 50 MG Tablet) PO SCH (21:00)
[2023-02-12] MEDS: MELATONIN 5 MG TABLET PO PRN (21:15)
[2023-02-12] MEDS: TOPIRAMATE 100 MG TAB PO SCH (21:31)
[2023-02-13] MEDS: NS KCL 20MEQ 20 MEQ/1,000 ML BAG IV SCH ×2 (00:22→14:33)
[2023-02-13 03:34] LABS: Magnesium 1.8 mg/dL (1.6-2.4); Phosphorus 2.4 mg/dL (2.5-4.9); Potassium 4.4 mEq/L (3.5-5.1)
[2023-02-13] MEDS ORDERED: HOME MED 1 EA UNK (Levothyroxine Sodium [Tirosint] 37.5 MCG Capsule) PO SCH (06:00)
[2023-02-13] MEDS: LEVOTHYROXINE SOD 0.075 MG TAB PO SCH (06:31)
[2023-02-13 07:53] LABS: Specific Gravity 1.018 (1.005-1.030); Urine Bacteria <20 /HPF (<20); Urine Bilirubin NEGATIVE (Negative); Urine Blood Negative (Negative); Urine Clarity Extremely Turbid (Clear); Urine Color Light-Yellow (Yellow); Urine Glucose NEGATIVE (Negative); Urine Mucus Slight /HPF (None Seen); Urine Protein TRACE (Negative); Urine RBC <5 /HPF (None Seen); Urine Urobilinogen Normal (Normal); Urine pH 7.5 (5.0-7.0)
[2023-02-13] MEDS: METOPROLOL TAR 50 MG TAB PO SCH (08:53)
[2023-02-13] MEDS: dexAMETHasone 4 MG/ML VIAL IV SCH ×2 (08:53→21:22)
[2023-02-13] MEDS: EZETIMIBE 10 MG TAB PO SCH (08:54)
[2023-02-13] MEDS: PANTOPRAZOLE 40MG TABLET PO SCH ×2 (08:54→21:23)
[2023-02-13] MEDS: TOPIRAMATE 100 MG TAB PO SCH ×2 (09:11→21:23)
[2023-02-13] MEDS: TOPIRAMATE 25 MG TAB PO SCH (14:32)
--- NOTE | 2023-02-13 15:20 | P.PN ---
Subjective Date of Service: 02/13/23 Chief Complaint: Altered mental status No major changes from yesterday. Patient complaining of generalized body pains, otherwise she is awake and interactive. She has been afebrile. Physical Examination - Vital Signs Temperature: 97.5 F Blood Pressure: 150/65 Pulse: 73 Respirations: 16 Pulse Ox (%): 95 Assessment And Plan - Current Problems (Diagnosis) (1) Acute metabolic encephalopathy Current Visit: Yes Status: Acute (2) Hyponatremia Current Visit: Yes Status: Acute (3) Coronavirus infection Current Visit: No Status: Acute (4) Trigeminal neuralgia Current Visit: Yes Status: Acute (5) Essential hypertension Current Visit: Yes Status: Acute - Plan Physical Exam General: Oriented x2, NAD HEENT: Sclerae nonicteric Respiratory: Clear to auscultation bilaterally, Normal air movement Cardiovascular: No edema, Regular rate/rhythm, Normal S1 S2, No murmurs Gastrointestinal: Normal bowel sounds, Soft and benign, Non-distended, No tenderness Musculoskeletal: No swelling, No tenderness Integumentary: No rashes, No cyanosis Neurological: no focal motor deficit. Plan: Continue supportive measures with IV normal saline. Serum sodium level has improved. 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 Fluid restriction. Continue IV dexamethasone for COVID encephalopathy Patient completed 5 days of Lagevrio. Hold carbamazepine, continue Topamax Continue home antihypertensives. Diet as tolerated. PT evaluation. Social service consulted for disposition.
--- NOTE | 2023-02-13 19:55 | P.PN ---
Date of Service: 02/13/23 Vital Signs Temp Pulse Resp BP Pulse Ox 97.3 F 71 16 164/80 H 97 02/13/23 15:33 02/13/23 15:33 02/13/23 15:33 02/13/23 15:33 02/13/23 15:33 Medications Acetaminophen (Acetaminophen 500 Mg Tab) 500 mg PO Q6H PRN PRN Reason: TEMP > 100' F Last Admin: 02/11/23 23:40 Dose: 500 mg Dexamethasone (Dexamethasone 4 Mg/Ml Vial) 4 mg IV BID [facility] Last Admin: 02/13/23 08:53 Dose: 4 mg Ezetimibe (Ezetimibe 10 Mg Tab) 10 mg PO DAILY [facility] Last Admin: 02/13/23 08:54 Dose: 10 mg Hydralazine HCl (Hydralazine Hcl 20 Mg/Ml Vial) 10 mg IV Q6HP PRN PRN Reason: Goal to achieve SBP in comment Last Admin: 02/12/23 16:48 Dose: 10 mg Potassium Chloride/Sodium Chloride (Kcl 20meq/Ns 1000 Ml Iv) 20 meq in 1,000 mls @ 75 mls/hr IV .[id number] [facility] Last Admin: 02/13/23 14:33 Dose: 1,000 mls Levothyroxine Sodium (Levothyroxine Sod 0.075 Mg Tab) 0.0375 mg PO [id number] [facility] Last Admin: 02/13/23 06:31 Dose: 0.0375 mg Melatonin (Melatonin 5 Mg Tablet) 10 mg PO BEDTIME PRN PRN PRN Reason: INSOMNIA Last Admin: 02/12/23 21:15 Dose: 10 mg Metoprolol Tartrate (Metoprolol Tar 50 Mg Tab) 50 mg PO DAILY [facility] Last Admin: 02/13/23 08:53 Dose: 50 mg Pantoprazole Sodium (Pantoprazole 40mg Tablet) 40 mg PO BID [facility]; Protocol Last Admin: 02/13/23 08:54 Dose: 40 mg Sodium Chloride (Flush Normal Saline 10 Ml) 10 ml IV BID [facility] Last Admin: 02/13/23 08:53 Dose: 10 ml Topiramate (Topiramate 25 Mg Tab) 25 mg PO 1400 [facility] Last Admin: 02/13/23 14:32 Dose: 25 mg Topiramate (Topiramate 100 Mg Tab) 100 mg PO BID [facility] Last Admin: 02/13/23 09:11 Dose: 100 mg Microbiology Results 02/10/23 14:22 Blood - Blood Aerobic Blood Culture - Preliminary No growth in 24 hours. 02/10/23 14:22 Blood - Blood Anaerobic Blood Culture - Final 02/10/23 14:05 Blood - Blood Aerobic Blood Culture - Preliminary No growth in 24 hours. 02/10/23 14:05 Blood - Blood Anaerobic Blood Culture - Preliminary No growth in 24 hours. Assessment/ Plan: Nephrology No dyspnea No chest pain Fatigue and weakness No acute events overnight Vitals, medications, blood work and imaging reviewed in the chart. General: In no apparent distress, Delirious HEENT: Atraumatic Neck: Supple Respiratory: Normal air movement Cardiovascular: Regular rate/rhythm Gastrointestinal: Soft and benign, Non-distended, No guarding Musculoskeletal: No clubbing, No contractures Integumentary: No rashes, No cyanosis Neurological: Abnormal speech (Absent) Laboratory Data (last 24 hrs) 02/10/23 02/10/23 02/10/23 14:10 14:10 14:10 WBC 6.50 Hgb 12.5 Hct 36.0 Plt Count 230 PT 10.3 INR 0.94 APTT 26.5 Sodium 128 L Potassium 3.8 BUN 22 H Creatinine 0.79 Glucose 84 Total Bilirubin 0.4 AST 46 H ALT 32 Alkaline Phosphatase 57 Imagings Data: EXAM DESCRIPTION: RAD - Chest Single View - 02/10/2023 2:25 pm CLINICAL HISTORY: weakness Chest pain. COMPARISON: <Comparisons> FINDINGS: Portable technique limits examination quality. The lungs are grossly clear. The heart is normal in size. No displaced fractures. IMPRESSION: No acute intrathoracic process suspected. EXAM DESCRIPTION: CT - Head Brain Wo Cont - 02/10/2023 2:29 pm CLINICAL HISTORY: CONFUSED Fever, headache, drowsiness COMPARISON: Head Brain Wo Cont dated 02/05/2023 TECHNIQUE: All CT scans are performed using dose optimization technique as appropriate and may include automated exposure control or mA/KV adjustment according to patient size. FINDINGS: No intracranial hemorrhage, hydrocephalus or extra-axial fluid collection.Mild generalized brain atrophy is present with mild periventricular and deep white matter chronic microvascular ischemic changes.No areas of brain edema or evidence of midline shift. The paranasal sinuses and mastoids are clear. The calvarium is intact. IMPRESSION: No acute intracranial abnormality. Conclusions/Impression: Hyponatremia may be due to Carbamazepine complicated by poor oral intake -Continue IVF with NS -Encourage nutrition -Hold Carbamazepine Hypokalemia -Replete prn Hypomagenemia -Replete prn Hypophosphatemia -Replete prn -Encourage nutrition HTN -Continue Metoprolol Anemia in chronic illness -Monitor H&H Trigeminal Neuralgia -Continue Topiramate COVID Infection COVID Encephalopathy, improved -Continue Dexamethasone Hospitalist note reviewed Case reviewed with Dr. Jaimes
[2023-02-13] MEDS: MELATONIN 5 MG TABLET PO PRN (21:23)
[2023-02-14 03:39] LABS: Hematocrit 35.1 % (36.0-45.0); MCV 90.7 fL (80-100); MPV 7.2 fL (7.6-11.3); Platelets 330 thou/uL (152-406); RBC Red Blood Cell Count 3.87 M/uL (3.86-4.86)
[2023-02-14] MEDS: NS KCL 20MEQ 20 MEQ/1,000 ML BAG IV SCH (03:45)
[2023-02-14 04:06] LABS: Potassium 4.7 mEq/L (3.5-5.1)
[2023-02-14] MEDS: LEVOTHYROXINE SOD 0.075 MG TAB PO SCH (06:07)
[2023-02-14 06:39] LABS: Phosphorus 2.2 mg/dL (2.5-4.9)
[2023-02-14] MEDS ORDERED: MAGNESIUM SULFATE 1 gm IVPB 1 GM/100 ML BAG IV ONE (09:00)
[2023-02-14] MEDS: EZETIMIBE 10 MG TAB PO SCH (09:06)
[2023-02-14] MEDS: TOPIRAMATE 100 MG TAB PO SCH ×2 (09:06→22:07)
[2023-02-14] MEDS: PANTOPRAZOLE 40MG TABLET PO SCH ×2 (09:06→22:07)
[2023-02-14] MEDS: METOPROLOL TAR 50 MG TAB PO SCH (09:07)
[2023-02-14] MEDS: dexAMETHasone 4 MG/ML VIAL IV SCH ×2 (09:07→22:07)
[2023-02-14] MEDS ORDERED: FLUDROCORTISONE 0.1 MG TAB PO ONE (11:00)
[2023-02-14] MEDS: NACHLORIDE 0.45% 1,000 ML with NA BICARB 8.4% 100 MEQ IV SCH ×2 (12:05)
[2023-02-14] MEDS: SODIUM CHLORIDE 1 GM TAB PO SCH ×2 (12:05→17:11)
[2023-02-14] MEDS: TOPIRAMATE 25 MG TAB PO SCH (14:54)
--- NOTE | 2023-02-14 15:04 | P.PN ---
Subjective Date of Service: 02/14/23 Chief Complaint: Altered mental status Patient has no new complaint Patient remains awake and interactive. Physical Examination - Vital Signs Temperature: 97.5 F Blood Pressure: 147/63 Pulse: 79 Respirations: 16 Pulse Ox (%): 98 Assessment And Plan - Current Problems (Diagnosis) (1) Acute metabolic encephalopathy Current Visit: Yes Status: Acute (2) Hyponatremia Current Visit: Yes Status: Acute (3) Coronavirus infection Current Visit: No Status: Acute (4) Trigeminal neuralgia Current Visit: Yes Status: Acute (5) Essential hypertension Current Visit: Yes Status: Acute - Plan Physical Exam General: Oriented x2, NAD HEENT: Sclerae nonicteric Respiratory: Clear to auscultation bilaterally, Normal air movement Cardiovascular: No edema, Regular rate/rhythm, Normal S1 S2, No murmurs Gastrointestinal: Normal bowel sounds, Soft and benign, Non-distended, No tenderness Musculoskeletal: No swelling, No tenderness Integumentary: No rashes, No cyanosis Neurological: no focal motor deficit. Plan: Hyponatremia Serum sodium level has improved. 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 Fluid restriction. Carbamazepine is on hold. Topamax resumed. Acute metabolic encephalopathy Due to hyponatremia and COVID-19 AMS improved along with sodium level improved. COVID-19 infection Stable Change IV dexamethasone to oral dexamethasone. Patient completed 5 days of Lagevrio. Essential hypertension Continue home antihypertensives. Trigeminal neuralgia Carbamazepine is on hold. Continue Topamax. Generalized weakness Diet as tolerated. Patient tolerated on a soft diet due to trigeminal neuralgia PT evaluation. Social service consulted for disposition. DVT prophylaxis: Lovenox.
[2023-02-14] MEDS: ENOXAPARIN 40 MG/0.4 ML SQ SCH (17:11)
--- NOTE | 2023-02-14 21:08 | P.PN ---
Date of Service: 02/14/23 Vital Signs Temp Pulse Resp BP Pulse Ox 97.5 F 77 16 142/60 H 98 02/14/23 16:00 02/14/23 16:00 02/14/23 16:00 02/14/23 16:00 02/14/23 16:00 Medications Acetaminophen (Acetaminophen 500 Mg Tab) 500 mg PO Q6H PRN PRN Reason: TEMP > 100' F Last Admin: 02/11/23 23:40 Dose: 500 mg Dexamethasone (Dexamethasone 4 Mg/Ml Vial) 4 mg IV BID [facility] Last Admin: 02/14/23 09:07 Dose: 4 mg Ezetimibe (Ezetimibe 10 Mg Tab) 10 mg PO DAILY [facility] Last Admin: 02/14/23 09:06 Dose: 10 mg Enoxaparin Sodium (Enoxaparin 40 Mg/0.4 Ml) 40 mg SQ DAILY 5 PM [facility] Last Admin: 02/14/23 17:11 Dose: 40 mg Hydralazine HCl (Hydralazine Hcl 20 Mg/Ml Vial) 10 mg IV Q6HP PRN PRN Reason: Goal to achieve SBP in comment Last Admin: 02/12/23 16:48 Dose: 10 mg Sodium Bicarbonate 100 meq/ (Sodium Chloride) 1,100 mls @ 75 mls/hr IV .[id number] [facility] Last Admin: 02/14/23 12:05 Dose: 1,100 mls Levothyroxine Sodium (Levothyroxine Sod 0.075 Mg Tab) 0.0375 mg PO [id number] [facility] Last Admin: 02/14/23 06:07 Dose: 0.0375 mg Melatonin (Melatonin 5 Mg Tablet) 10 mg PO BEDTIME PRN PRN PRN Reason: INSOMNIA Last Admin: 02/13/23 21:23 Dose: 10 mg Metoprolol Tartrate (Metoprolol Tar 50 Mg Tab) 50 mg PO DAILY [facility] Last Admin: 02/14/23 09:07 Dose: 50 mg Pantoprazole Sodium (Pantoprazole 40mg Tablet) 40 mg PO BID [facility]; Protocol Last Admin: 02/14/23 09:06 Dose: 40 mg Sodium Chloride (Flush Normal Saline 10 Ml) 10 ml IV BID [facility] Last Admin: 02/14/23 09:07 Dose: 10 ml Sodium Chloride (Sodium Chloride 1 Gm Tab) 1 gm PO TIDWM [facility] Last Admin: 02/14/23 17:11 Dose: 1 gm Topiramate (Topiramate 25 Mg Tab) 25 mg PO 1400 [facility] Last Admin: 02/14/23 14:54 Dose: 25 mg Topiramate (Topiramate 100 Mg Tab) 100 mg PO BID [facility] Last Admin: 02/14/23 09:06 Dose: 100 mg Microbiology Results 02/10/23 14:22 Blood - Blood Aerobic Blood Culture - Preliminary No growth in 24 hours. 02/10/23 14:22 Blood - Blood Anaerobic Blood Culture - Final 02/10/23 14:05 Blood - Blood Aerobic Blood Culture - Preliminary No growth in 24 hours. 02/10/23 14:05 Blood - Blood Anaerobic Blood Culture - Preliminary No growth in 24 hours. Assessment/ Plan: Nephrology No dyspnea No chest pain Fatigue and weakness No acute events overnight Vitals, medications, blood work and imaging reviewed in the chart. General: In no apparent distress, Delirious HEENT: Atraumatic Neck: Supple Respiratory: Normal air movement Cardiovascular: Regular rate/rhythm Gastrointestinal: Soft and benign, Non-distended, No guarding Musculoskeletal: No clubbing, No contractures Integumentary: No rashes, No cyanosis Neurological: Abnormal speech (Absent) Laboratory Data (last 24 hrs) 02/10/23 02/10/23 02/10/23 14:10 14:10 14:10 WBC 6.50 Hgb 12.5 Hct 36.0 Plt Count 230 PT 10.3 INR 0.94 APTT 26.5 Sodium 128 L Potassium 3.8 BUN 22 H Creatinine 0.79 Glucose 84 Total Bilirubin 0.4 AST 46 H ALT 32 Alkaline Phosphatase 57 Imagings Data: EXAM DESCRIPTION: RAD - Chest Single View - 02/10/2023 2:25 pm CLINICAL HISTORY: weakness Chest pain. COMPARISON: <Comparisons> FINDINGS: Portable technique limits examination quality. The lungs are grossly clear. The heart is normal in size. No displaced fractures. IMPRESSION: No acute intrathoracic process suspected. EXAM DESCRIPTION: CT - Head Brain Wo Cont - 02/10/2023 2:29 pm CLINICAL HISTORY: CONFUSED Fever, headache, drowsiness COMPARISON: Head Brain Wo Cont dated 02/05/2023 TECHNIQUE: All CT scans are performed using dose optimization technique as appropriate and may include automated exposure control or mA/KV adjustment according to patient size. FINDINGS: No intracranial hemorrhage, hydrocephalus or extra-axial fluid collection.Mild generalized brain atrophy is present with mild periventricular and deep white matter chronic microvascular ischemic changes.No areas of brain edema or evidence of midline shift. The paranasal sinuses and mastoids are clear. The calvarium is intact. IMPRESSION: No acute intracranial abnormality. Conclusions/Impression: Hyponatremia may be due to Carbamazepine complicated by poor oral intake Topiramate may also be contributing to hyponatremia -IVF adjusted -Encourage nutrition -Hold Carbamazepine -Start oral sodium Hypokalemia -Replete prn Hypomagenemia -Replete prn Hypophosphatemia -Replete prn -Encourage nutrition HTN -Continue Metoprolol Anemia in chronic illness -Monitor H&H Trigeminal Neuralgia -Continue Topiramate COVID Infection COVID Encephalopathy, improved -Continue Dexamethasone Hospitalist note reviewed Case reviewed with Dr. Jaimes
[2023-02-15] MEDS: NACHLORIDE 0.45% 1,000 ML with NA BICARB 8.4% 100 MEQ IV SCH ×4 (03:26→17:17)
[2023-02-15 04:06] LABS: Albumin 2.4 g/dL (3.4-5.0); Phosphorus 2.7 mg/dL (2.5-4.9); Potassium 3.7 mEq/L (3.5-5.1); Uric Acid 2.7 mg/dL (2.6-6.0)
[2023-02-15] MEDS: LEVOTHYROXINE SOD 0.075 MG TAB PO SCH (06:15)
--- NOTE | 2023-02-15 06:58 | P.PN ---
Date of Service: 02/15/23 Subjective: Doing okay, feels weak/tired but feels slightly better family report still about the same, difficulty finishing sentences - gets stuck on last work no acute events overnight afebrile ROS: 10 point ROS as noted above, otherwise negative Physical Exam: GEN: Alert, oriented x2, fatigued appearing HEENT: Normal conjunctiva, sclera anicteric CV: Regular rate and rhythm, no edema Pulm: Nonlabored respirations on room air, diminished at bases bilaterally ABD: Soft, mild suprapubic/epigastric tenderness Neuro: moves all extremities, slow speech but appropriate, somewhat word-finding difficulty on final word of most sentences vitals reviewed Problem List Acute metabolic encephalopathy secondary to Covid-19/Hyponatremia Hyponatremia COVID-19 infection Hypertension Trigeminal neuralgia Generalized weakness Acute metabolic encephalopathy secondary to Covid-19/Hyponatremia Due to hyponatremia and COVID-19 AMS resolved mostly; family state still getting stuck on last word of sentences; then repeats sentence a few times before finds the final work of the sentence otherwise, answers appropriately no other obvious source check PVR Hyponatremia 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 Nephrology consulted Carbamazepine is on hold. Topamax resumed. improving COVID-19 infection Stable Patient completed 5 days of Lagevrio Continue dexamethasone PRN tylenol for fever Hypertension Continue home antihypertensives. Trigeminal neuralgia Carbamazepine is on hold. Continue Topamax. Generalized weakness Diet as tolerated. Pureed PT consult VTE: Lovenox Code: Full Dispo: SNF - pending choice and approval ; and clinical improvement ss/cm consulted
[2023-02-15] MEDS: SODIUM CHLORIDE 1 GM TAB PO SCH ×3 (09:35→17:17)
[2023-02-15] MEDS: EZETIMIBE 10 MG TAB PO SCH (09:35)
[2023-02-15] MEDS: PANTOPRAZOLE 40MG TABLET PO SCH ×2 (09:35→20:51)
[2023-02-15] MEDS: dexAMETHasone 4 MG/ML VIAL IV SCH ×2 (09:36→20:51)
[2023-02-15] MEDS: TOPIRAMATE 100 MG TAB PO SCH ×2 (09:36→20:51)
[2023-02-15] MEDS: METOPROLOL TAR 50 MG TAB PO SCH (09:36)
[2023-02-15] MEDS: TOPIRAMATE 25 MG TAB PO SCH (13:18)
[2023-02-15] MEDS: ENOXAPARIN 40 MG/0.4 ML SQ SCH (17:17)
--- NOTE | 2023-02-15 18:36 | P.PN ---
Date of Service: 02/15/23 Vital Signs Temp Pulse Resp BP Pulse Ox 99.4 F 93 H 16 157/65 H 96 02/15/23 16:00 02/15/23 16:00 02/15/23 16:00 02/15/23 16:00 02/15/23 16:00 Medications Acetaminophen (Acetaminophen 500 Mg Tab) 500 mg PO Q6H PRN PRN Reason: TEMP > 100' F Last Admin: 02/11/23 23:40 Dose: 500 mg Dexamethasone (Dexamethasone 4 Mg/Ml Vial) 4 mg IV BID [facility] Last Admin: 02/15/23 09:36 Dose: 4 mg Ezetimibe (Ezetimibe 10 Mg Tab) 10 mg PO DAILY [facility] Last Admin: 02/15/23 09:35 Dose: 10 mg Enoxaparin Sodium (Enoxaparin 40 Mg/0.4 Ml) 40 mg SQ DAILY 5 PM [facility] Last Admin: 02/15/23 17:17 Dose: 40 mg Hydralazine HCl (Hydralazine Hcl 20 Mg/Ml Vial) 10 mg IV Q6HP PRN PRN Reason: Goal to achieve SBP in comment Last Admin: 02/12/23 16:48 Dose: 10 mg Sodium Bicarbonate 100 meq/ (Sodium Chloride) 1,100 mls @ 75 mls/hr IV .[id number] [facility] Last Admin: 02/15/23 17:17 Dose: 1,100 mls Levothyroxine Sodium (Levothyroxine Sod 0.075 Mg Tab) 0.0375 mg PO [id number] [facility] Last Admin: 02/15/23 06:15 Dose: 0.0375 mg Melatonin (Melatonin 5 Mg Tablet) 10 mg PO BEDTIME PRN PRN PRN Reason: INSOMNIA Last Admin: 02/13/23 21:23 Dose: 10 mg Metoprolol Tartrate (Metoprolol Tar 50 Mg Tab) 50 mg PO DAILY [facility] Last Admin: 02/15/23 09:36 Dose: 50 mg Pantoprazole Sodium (Pantoprazole 40mg Tablet) 40 mg PO BID [facility]; Protocol Last Admin: 02/15/23 09:35 Dose: 40 mg Sodium Chloride (Flush Normal Saline 10 Ml) 10 ml IV BID [facility] Last Admin: 02/15/23 09:37 Dose: 10 ml Sodium Chloride (Sodium Chloride 1 Gm Tab) 1 gm PO TIDWM [facility] Last Admin: 02/15/23 17:17 Dose: 1 gm Topiramate (Topiramate 25 Mg Tab) 25 mg PO 1400 [facility] Last Admin: 02/15/23 13:18 Dose: 25 mg Topiramate (Topiramate 100 Mg Tab) 100 mg PO BID [facility] Last Admin: 02/15/23 09:36 Dose: 100 mg Microbiology Results 02/10/23 14:22 Blood - Blood Aerobic Blood Culture - Final No growth in 5 days. 02/10/23 14:22 Blood - Blood Anaerobic Blood Culture - Final 02/10/23 14:05 Blood - Blood Aerobic Blood Culture - Final No growth in 5 days. 02/10/23 14:05 Blood - Blood Anaerobic Blood Culture - Final No growth in 5 days. Assessment/ Plan: Nephrology No dyspnea No chest pain Fatigue and weakness but slowly improving No acute events overnight Vitals, medications, blood work and imaging reviewed in the chart. General: In no apparent distress, Delirious HEENT: Atraumatic Neck: Supple Respiratory: Normal air movement Cardiovascular: Regular rate/rhythm Gastrointestinal: Soft and benign, Non-distended, No guarding Musculoskeletal: No clubbing, No contractures Integumentary: No rashes, No cyanosis Neurological: Abnormal speech (Absent) Laboratory Data (last 24 hrs) 02/10/23 02/10/23 02/10/23 14:10 14:10 14:10 WBC 6.50 Hgb 12.5 Hct 36.0 Plt Count 230 PT 10.3 INR 0.94 APTT 26.5 Sodium 128 L Potassium 3.8 BUN 22 H Creatinine 0.79 Glucose 84 Total Bilirubin 0.4 AST 46 H ALT 32 Alkaline Phosphatase 57 Imagings Data: EXAM DESCRIPTION: RAD - Chest Single View - 02/10/2023 2:25 pm CLINICAL HISTORY: weakness Chest pain. COMPARISON: <Comparisons> FINDINGS: Portable technique limits examination quality. The lungs are grossly clear. The heart is normal in size. No displaced fractures. IMPRESSION: No acute intrathoracic process suspected. EXAM DESCRIPTION: CT - Head Brain Wo Cont - 02/10/2023 2:29 pm CLINICAL HISTORY: CONFUSED Fever, headache, drowsiness COMPARISON: Head Brain Wo Cont dated 02/05/2023 TECHNIQUE: All CT scans are performed using dose optimization technique as appropriate and may include automated exposure control or mA/KV adjustment according to patient size. FINDINGS: No intracranial hemorrhage, hydrocephalus or extra-axial fluid collection.Mild generalized brain atrophy is present with mild periventricular and deep white matter chronic microvascular ischemic changes.No areas of brain edema or evidence of midline shift. The paranasal sinuses and mastoids are clear. The calvarium is intact. IMPRESSION: No acute intracranial abnormality. Conclusions/Impression: Hyponatremia may be due to Carbamazepine complicated by poor oral intake Topiramate may also be contributing to hyponatremia -Continue IVF -Encourage nutrition -Hold Carbamazepine -Start oral sodium Hypokalemia -Replete prn Hypomagenemia -Replete prn Hypophosphatemia -Replete prn -Encourage nutrition HTN -Continue Metoprolol Anemia in chronic illness -Monitor H&H Trigeminal Neuralgia -Continue Topiramate COVID Infection COVID Encephalopathy, improved -Continue Dexamethasone Hospitalist note reviewed
[2023-02-16] MEDS: ACETAMINOPHEN 500 MG TAB PO PRN (02:13)
[2023-02-16 03:00] LABS: Absolute Lymphocytes (CBC) 0.8 K/uL (0.7-4.9); Lymphocytes % 11.2 % (15.3-44.8); MCV 90.1 fL (80-100); MPV 6.8 fL (7.6-11.3); Platelets 347 thou/uL (152-406); RBC Red Blood Cell Count 3.44 M/uL (3.86-4.86)
[2023-02-16 03:28] LABS: Albumin 2.3 g/dL (3.4-5.0); Bilirubin Total 0.6 mg/dL (0.2-1.0); Magnesium 1.9 mg/dL (1.6-2.4); Potassium 3.4 mEq/L (3.5-5.1); Protein, Total 5.6 g/dL (6.4-8.2)
[2023-02-16] MEDS: LEVOTHYROXINE SOD 0.075 MG TAB PO SCH (06:00)
--- NOTE | 2023-02-16 07:10 | P.PN ---
Date of Service: 02/16/23 Subjective: feeling slightly better but continues with abd pain and diarrhea - family state stool incontinence and multiple BMs over last few days speech / word finding difficulty improved ROS: 10 point ROS as noted above, otherwise negative Physical Exam: GEN: Alert, oriented x2, fatigued appearing HEENT: Normal conjunctiva, sclera anicteric CV: Regular rate and rhythm, no edema Pulm: Nonlabored respirations on room air, diminished at bases bilaterally ABD: Soft, mild suprapubic/LLQ tenderness Neuro: moves all extremities, slow speech but appropriate, normal speech vitals reviewed Problem List Acute metabolic encephalopathy secondary to Covid-19/Hyponatremia Hyponatremia COVID-19 infection Hypertension Trigeminal neuralgia Generalized weakness Acute metabolic encephalopathy secondary to Covid-19/Hyponatremia Due to hyponatremia and COVID-19 AMS resolved mostly; family state still getting stuck on last word of sentences; then repeats sentence a few times before finds the final work of the sentence otherwise, answers appropriately no other obvious source check PVR - 20ml 02/15 abd pain + diarrhea; check CT Hyponatremia 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 Nephrology consulted Carbamazepine is on hold. Topamax resumed. improving COVID-19 infection Stable Patient completed 5 days of Lagevrio Continue dexamethasone PRN tylenol for fever Hypertension Continue home antihypertensives. Trigeminal neuralgia Carbamazepine is on hold. Continue Topamax. Generalized weakness Diet as tolerated. Pureed PT consult VTE: Lovenox Code: Full Dispo: SNF - pending choice and approval ; and clinical improvement ss/cm consulted
[2023-02-16] MEDS: NACHLORIDE 0.45% 1,000 ML with NA BICARB 8.4% 100 MEQ IV SCH ×4 (09:49→22:40)
[2023-02-16] MEDS: METOPROLOL TAR 50 MG TAB PO SCH (09:50)
[2023-02-16] MEDS: PANTOPRAZOLE 40MG TABLET PO SCH ×2 (09:50→22:37)
[2023-02-16] MEDS: dexAMETHasone 4 MG/ML VIAL IV SCH ×2 (09:50→22:37)
[2023-02-16] MEDS: SODIUM CHLORIDE 1 GM TAB PO SCH ×3 (09:50→17:04)
[2023-02-16] MEDS: TOPIRAMATE 100 MG TAB PO SCH ×2 (09:50→22:37)
[2023-02-16] MEDS: EZETIMIBE 10 MG TAB PO SCH (09:50)
[2023-02-16] MEDS: TOPIRAMATE 25 MG TAB PO SCH (15:07)
[2023-02-16 15:40] LABS: SARS-CoV-2 Antigen Rapid Res Positive (Negative)
[2023-02-16] MEDS: ENOXAPARIN 40 MG/0.4 ML SQ SCH (17:04)
[2023-02-16] MEDS: ENSURE ENLIVE 237 ML CAN PO SCH (21:00)
--- NOTE | 2023-02-16 21:34 | P.PN ---
Date of Service: 02/16/23 Vital Signs Temp Pulse Resp BP Pulse Ox 98.1 F 63 18 121/59 L 98 02/16/23 16:00 02/16/23 16:00 02/16/23 16:00 02/16/23 16:00 02/16/23 16:00 Medications Acetaminophen (Acetaminophen 500 Mg Tab) 500 mg PO Q6H PRN PRN Reason: TEMP > 100' F Last Admin: 02/16/23 02:13 Dose: 500 mg Dexamethasone (Dexamethasone 4 Mg/Ml Vial) 4 mg IV BID [facility] Last Admin: 02/16/23 09:50 Dose: 4 mg Ezetimibe (Ezetimibe 10 Mg Tab) 10 mg PO DAILY [facility] Last Admin: 02/16/23 09:50 Dose: 10 mg Enoxaparin Sodium (Enoxaparin 40 Mg/0.4 Ml) 40 mg SQ DAILY 5 PM [facility] Last Admin: 02/16/23 17:04 Dose: 40 mg Hydralazine HCl (Hydralazine Hcl 20 Mg/Ml Vial) 10 mg IV Q6HP PRN PRN Reason: Goal to achieve SBP in comment Last Admin: 02/12/23 16:48 Dose: 10 mg Sodium Bicarbonate 100 meq/ (Sodium Chloride) 1,100 mls @ 75 mls/hr IV .[id number] [facility] Last Admin: 02/16/23 09:49 Dose: 1,100 mls Levothyroxine Sodium (Levothyroxine Sod 0.075 Mg Tab) 0.0375 mg PO [id number] [facility] Last Admin: 02/16/23 06:00 Dose: 0.0375 mg Melatonin (Melatonin 5 Mg Tablet) 10 mg PO BEDTIME PRN PRN PRN Reason: INSOMNIA Last Admin: 02/13/23 21:23 Dose: 10 mg Metoprolol Tartrate (Metoprolol Tar 50 Mg Tab) 50 mg PO DAILY [facility] Last Admin: 02/16/23 09:50 Dose: 50 mg Nutritional Formula (Ensure Enlive 237 Ml Can) 237 ml PO BID [facility] Pantoprazole Sodium (Pantoprazole 40mg Tablet) 40 mg PO BID [facility]; Protocol Last Admin: 02/16/23 09:50 Dose: 40 mg Sodium Chloride (Flush Normal Saline 10 Ml) 10 ml IV BID [facility] Last Admin: 02/16/23 09:51 Dose: 10 ml Sodium Chloride (Sodium Chloride 1 Gm Tab) 1 gm PO TIDWM [facility] Last Admin: 02/16/23 17:04 Dose: 1 gm Topiramate (Topiramate 25 Mg Tab) 25 mg PO 1400 [facility] Last Admin: 02/16/23 15:07 Dose: 25 mg Topiramate (Topiramate 100 Mg Tab) 100 mg PO BID [facility] Last Admin: 02/16/23 09:50 Dose: 100 mg Microbiology Results 02/10/23 14:22 Blood - Blood Aerobic Blood Culture - Final No growth in 5 days. 02/10/23 14:22 Blood - Blood Anaerobic Blood Culture - Final 02/10/23 14:05 Blood - Blood Aerobic Blood Culture - Final No growth in 5 days. 02/10/23 14:05 Blood - Blood Anaerobic Blood Culture - Final No growth in 5 days. Assessment/ Plan: Nephrology No dyspnea No chest pain Fatigue and weakness but slowly improving No acute events overnight Vitals, medications, blood work and imaging reviewed in the chart. General: In no apparent distress, Delirious HEENT: Atraumatic Neck: Supple Respiratory: Normal air movement Cardiovascular: Regular rate/rhythm Gastrointestinal: Soft and benign, Non-distended, No guarding Musculoskeletal: No clubbing, No contractures Integumentary: No rashes, No cyanosis Neurological: Abnormal speech (Absent) Laboratory Data (last 24 hrs) 02/10/23 02/10/23 02/10/23 14:10 14:10 14:10 WBC 6.50 Hgb 12.5 Hct 36.0 Plt Count 230 PT 10.3 INR 0.94 APTT 26.5 Sodium 128 L Potassium 3.8 BUN 22 H Creatinine 0.79 Glucose 84 Total Bilirubin 0.4 AST 46 H ALT 32 Alkaline Phosphatase 57 Imagings Data: EXAM DESCRIPTION: RAD - Chest Single View - 02/10/2023 2:25 pm CLINICAL HISTORY: weakness Chest pain. COMPARISON: <Comparisons> FINDINGS: Portable technique limits examination quality. The lungs are grossly clear. The heart is normal in size. No displaced fractures. IMPRESSION: No acute intrathoracic process suspected. EXAM DESCRIPTION: CT - Head Brain Wo Cont - 02/10/2023 2:29 pm CLINICAL HISTORY: CONFUSED Fever, headache, drowsiness COMPARISON: Head Brain Wo Cont dated 02/05/2023 TECHNIQUE: All CT scans are performed using dose optimization technique as appropriate and may include automated exposure control or mA/KV adjustment according to patient size. FINDINGS: No intracranial hemorrhage, hydrocephalus or extra-axial fluid collection.Mild generalized brain atrophy is present with mild periventricular and deep white matter chronic microvascular ischemic changes.No areas of brain edema or evidence of midline shift. The paranasal sinuses and mastoids are clear. The calvarium is intact. IMPRESSION: No acute intracranial abnormality. Conclusions/Impression: Hyponatremia may be due to Carbamazepine complicated by poor oral intake Topiramate may also be contributing to hyponatremia -Continue IVF -Encourage nutrition -Hold Carbamazepine -Continue oral sodium Hypokalemia -Replete prn Hypomagenemia -Replete prn Hypophosphatemia -Replete prn -Encourage nutrition HTN -Continue Metoprolol Anemia in chronic illness -Monitor H&H Trigeminal Neuralgia -Continue Topiramate COVID Infection COVID Encephalopathy, improved -Continue Dexamethasone Hospitalist note reviewed Case reviewed with Dr. Ferguson
--- NOTE | 2023-02-16 22:25 | RAD REPORT ---
EXAM DESCRIPTION: CT - Chest Abd Pelvis Wo Con - 02/16/2023 5:16 pm CLINICAL HISTORY: abd pain, diarrhea, fever, covid+ COMPARISON: Head Brain Wo Cont dated 02/10/2023 TECHNIQUE: Thin axial CT images of the chest, abdomen, and pelvis, performed without IV contrast. Mu ltiplanar reformats were generated and reviewed. All CT scans are performed using dose optimization technique as appropriate and may include automated exposure control or mA/KV adjustment according to patient size. FINDINGS: Small right layering pleural effusion with underlying minimal subsegmental atelectasis. No focal consolidation. No pneumothorax.No intrathoracic adenopathy. The liver, spleen, pancreas, adrenal glands and kidneys are within normal limits. Gallbladder was beau gically removed. No bowel obstruction, free air, free fluid or abscess. Normal appendix. No pathologic lymphadenopath y in the abdomen or pelvis. Markedly distended urinary bladder. Nonspecific presacral edema. Moderate to advanced atherosclerotic calcifications of the abdominal aorta. No worrisome osseous finding. IMPRESSION: Small right pleural effusion. No acute lung parenchymal consolidation, or suspicious intra-abdominal process. Markedly distended urinary bladder, a nonspecific finding.
[2023-02-17 03:26] LABS: Absolute Lymphocytes (CBC) 0.8 K/uL (0.7-4.9); Hematocrit 30.2 % (36.0-45.0); Lymphocytes % 12.7 % (15.3-44.8); MCV 90.6 fL (80-100); Platelets 369 thou/uL (152-406); RBC Red Blood Cell Count 3.34 M/uL (3.86-4.86)
[2023-02-17 03:40] LABS: Albumin 2.3 g/dL (3.4-5.0); Bilirubin Total 0.5 mg/dL (0.2-1.0); C-Reactive Protein 17.5 mg/L (<3.00); Magnesium 1.9 mg/dL (1.6-2.4); Phosphorus 2.6 mg/dL (2.5-4.9); Potassium 3.6 mEq/L (3.5-5.1); Protein, Total 5.4 g/dL (6.4-8.2); Uric Acid 3.6 mg/dL (2.6-6.0)
[2023-02-17] MEDS: NACHLORIDE 0.45% 1,000 ML with NA BICARB 8.4% 100 MEQ IV SCH ×2 (04:18)
[2023-02-17 05:17] VITALS: BMI 21.0
[2023-02-17] MEDS: LEVOTHYROXINE SOD 0.075 MG TAB PO SCH (06:37)
[2023-02-17] MEDS: ACETAMINOPHEN 500 MG TAB PO PRN (06:37)
--- NOTE | 2023-02-17 07:18 | P.PN ---
Date of Service: 02/17/23 Subjective: Doing okay, slowly improving; speech is improving - talking more clearly able to move from bed to chair with assistance yesterday per PT note; fatigued easily family concerned about patients nutrition and care during hospitalization - would like to be transferred to another hospital appetite last few days: ~1 boost and only a few bites of food a day no new / worsening problems ROS: 10 point ROS as noted above, otherwise negative Physical Exam: GEN: Alert, oriented x2, fatigued appearing HEENT: Normal conjunctiva, sclera anicteric CV: Regular rate and rhythm, no edema Pulm: Nonlabored respirations on room air, diminished at bases bilaterally ABD: Soft, mild suprapubic/LLQ tenderness Neuro: moves all extremities, slow speech but appropriate vitals reviewed Problem List Acute metabolic encephalopathy secondary to Covid-19/Hyponatremia Hyponatremia Hypertension Trigeminal neuralgia Generalized weakness Acute metabolic encephalopathy secondary to Covid-19/Hyponatremia CT chest/abdomen (02/16): Small right pleural effusion. 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 Nephrology consulted Carbamazepine is on hold. Topamax resumed. improving Hypertension Continue home antihypertensives. Trigeminal neuralgia Carbamazepine is on hold. Continue Topamax. Generalized weakness Diet as tolerated. Pureed PT consult VTE: Lovenox Code: Full Dispo: SNF - pending choice and approval; and clinical improvement ss/cm consulted 02/17 - Family would like to initiate transfer to another hospital - [facility] as her PCP (Dr. Sarah Mcclain) has privileges there transfer initiated
[2023-02-17] MEDS ORDERED: DRISDOL (VITAMIN D=ERGOCALCIFEROL) 50000 UNIT CAP PO SCH (09:00)
[2023-02-17] MEDS ORDERED: POTASSIUM CL SA 10 MEQ TAB PO ONE (09:00)
[2023-02-17] MEDS: ENSURE ENLIVE 237 ML CAN PO SCH ×2 (09:00→21:00)
[2023-02-17] MEDS: LACTOBACILLUS/ACIDOPHILUS TAB PO SCH (09:00)
[2023-02-17] MEDS: dexAMETHasone 4 MG/ML VIAL IV SCH ×2 (09:43→23:22)
[2023-02-17] MEDS: EZETIMIBE 10 MG TAB PO SCH (09:44)
[2023-02-17] MEDS: SODIUM CHLORIDE 1 GM TAB PO SCH ×3 (09:44→17:35)
[2023-02-17] MEDS: METOPROLOL TAR 50 MG TAB PO SCH (09:44)
[2023-02-17] MEDS: TOPIRAMATE 100 MG TAB PO SCH ×2 (09:45→23:22)
[2023-02-17] MEDS: PANTOPRAZOLE 40MG TABLET PO SCH ×2 (09:45→23:22)
[2023-02-17] MEDS: POTASSIUM 25 MEQ EFFERV TAB PO SCH ×2 (11:44→17:35)
[2023-02-17] MEDS: TOPIRAMATE 25 MG TAB PO SCH (14:19)
[2023-02-17] MEDS: ENOXAPARIN 40 MG/0.4 ML SQ SCH (17:35)
--- NOTE | 2023-02-17 20:19 | P.PN ---
Date of Service: 02/17/23 Vital Signs Temp Pulse Resp BP Pulse Ox 97.2 F 65 16 126/59 L 98 02/17/23 16:00 02/17/23 16:00 02/17/23 16:00 02/17/23 16:00 02/17/23 16:00 Medications Acetaminophen (Acetaminophen 500 Mg Tab) 500 mg PO Q6H PRN PRN Reason: TEMP > 100' F Last Admin: 02/17/23 06:37 Dose: 500 mg Dexamethasone (Dexamethasone 4 Mg/Ml Vial) 4 mg IV BID [facility] Last Admin: 02/17/23 09:43 Dose: 4 mg Ezetimibe (Ezetimibe 10 Mg Tab) 10 mg PO DAILY [facility] Last Admin: 02/17/23 09:44 Dose: 10 mg Enoxaparin Sodium (Enoxaparin 40 Mg/0.4 Ml) 40 mg SQ DAILY 5 PM [facility] Last Admin: 02/17/23 17:35 Dose: 40 mg Ergocalciferol (Drisdol (Vitamin D=Ergocalciferol) 48875 Unit Cap) 50,000 unit PO Q7D [facility] Last Admin: 02/17/23 09:45 Dose: 50,000 unit Hydralazine HCl (Hydralazine Hcl 20 Mg/Ml Vial) 10 mg IV Q6HP PRN PRN Reason: Goal to achieve SBP in comment Last Admin: 02/12/23 16:48 Dose: 10 mg Lactobacillus Acidoph/Bulgaricus (Lactobacillus/Acidophilus Tab) 1 tab PO DAILY [facility] Last Admin: 02/17/23 09:00 Dose: 1 tab Levothyroxine Sodium (Levothyroxine Sod 0.075 Mg Tab) 0.0375 mg PO [id number] [facility] Last Admin: 02/17/23 06:37 Dose: 0.0375 mg Melatonin (Melatonin 5 Mg Tablet) 10 mg PO BEDTIME PRN PRN PRN Reason: INSOMNIA Last Admin: 02/13/23 21:23 Dose: 10 mg Metoprolol Tartrate (Metoprolol Tar 50 Mg Tab) 50 mg PO DAILY [facility] Last Admin: 02/17/23 09:44 Dose: 50 mg Nutritional Formula (Ensure Enlive 237 Ml Can) 237 ml PO BID [facility] Last Admin: 02/17/23 09:00 Dose: Not Given Pantoprazole Sodium (Pantoprazole 40mg Tablet) 40 mg PO BID [facility]; Protocol Last Admin: 02/17/23 09:45 Dose: 40 mg Sodium Chloride (Flush Normal Saline 10 Ml) 10 ml IV BID [facility] Last Admin: 02/17/23 09:00 Dose: Not Given Sodium Chloride (Sodium Chloride 1 Gm Tab) 1 gm PO TIDWM [facility] Last Admin: 02/17/23 17:35 Dose: 1 gm Topiramate (Topiramate 25 Mg Tab) 25 mg PO 1400 [facility] Last Admin: 02/17/23 14:19 Dose: 25 mg Topiramate (Topiramate 100 Mg Tab) 100 mg PO BID [facility] Last Admin: 02/17/23 09:45 Dose: 100 mg Microbiology Results 02/10/23 14:22 Blood - Blood Aerobic Blood Culture - Final No growth in 5 days. 02/10/23 14:22 Blood - Blood Anaerobic Blood Culture - Final 02/10/23 14:05 Blood - Blood Aerobic Blood Culture - Final No growth in 5 days. 02/10/23 14:05 Blood - Blood Anaerobic Blood Culture - Final No growth in 5 days. Assessment/ Plan: Nephrology No dyspnea No chest pain Fatigue and weakness but slowly improving Daughter upset about the lack of breakfast this morning No acute events overnight Vitals, medications, blood work and imaging reviewed in the chart. General: In no apparent distress, Delirious HEENT: Atraumatic Neck: Supple Respiratory: Normal air movement Cardiovascular: Regular rate/rhythm Gastrointestinal: Soft and benign, Non-distended, No guarding Musculoskeletal: No clubbing, No contractures Integumentary: No rashes, No cyanosis Neurological: Abnormal speech (Absent) Laboratory Data (last 24 hrs) 02/10/23 02/10/23 02/10/23 14:10 14:10 14:10 WBC 6.50 Hgb 12.5 Hct 36.0 Plt Count 230 PT 10.3 INR 0.94 APTT 26.5 Sodium 128 L Potassium 3.8 BUN 22 H Creatinine 0.79 Glucose 84 Total Bilirubin 0.4 AST 46 H ALT 32 Alkaline Phosphatase 57 Imagings Data: EXAM DESCRIPTION: RAD - Chest Single View - 02/10/2023 2:25 pm CLINICAL HISTORY: weakness Chest pain. COMPARISON: <Comparisons> FINDINGS: Portable technique limits examination quality. The lungs are grossly clear. The heart is normal in size. No displaced fractures. IMPRESSION: No acute intrathoracic process suspected. EXAM DESCRIPTION: CT - Head Brain Wo Cont - 02/10/2023 2:29 pm CLINICAL HISTORY: CONFUSED Fever, headache, drowsiness COMPARISON: Head Brain Wo Cont dated 02/05/2023 TECHNIQUE: All CT scans are performed using dose optimization technique as appropriate and may include automated exposure control or mA/KV adjustment according to patient size. FINDINGS: No intracranial hemorrhage, hydrocephalus or extra-axial fluid collection.Mild generalized brain atrophy is present with mild periventricular and deep white matter chronic microvascular ischemic changes.No areas of brain edema or evidence of midline shift. The paranasal sinuses and mastoids are clear. The calvarium is intact. IMPRESSION: No acute intracranial abnormality. Conclusions/Impression: Hyponatremia may be due to Carbamazepine complicated by poor oral intake Topiramate may also be contributing to hyponatremia -Discontinue IVF -Encourage nutrition -Hold Carbamazepine -Continue oral sodium Hypokalemia -Replete as ordered Hypomagenemia -Replete prn Hypophosphatemia -Replete prn -Encourage nutrition HTN -Continue Metoprolol Anemia in chronic illness -Monitor H&H Trigeminal Neuralgia -Continue Topiramate COVID Infection COVID Encephalopathy, improved -Continue Dexamethasone Hospitalist note reviewed Case reviewed with Dr. Ferguson
[2023-02-18 05:02] LABS: Albumin 2.5 g/dL (3.4-5.0); Bilirubin Total 0.4 mg/dL (0.2-1.0); C-Reactive Protein 12.1 mg/L (<3.00); Magnesium 1.8 mg/dL (1.6-2.4); Phosphorus 2.8 mg/dL (2.5-4.9); Potassium 4.9 mEq/L (3.5-5.1); Protein, Total 5.8 g/dL (6.4-8.2)
[2023-02-18] MEDS: ACETAMINOPHEN 500 MG TAB PO PRN ×3 (05:06→23:32)
[2023-02-18] MEDS: LEVOTHYROXINE SOD 0.075 MG TAB PO SCH (05:07)
--- NOTE | 2023-02-18 06:58 | P.PN ---
Date of Service: 02/18/23 Subjective: Feels/looks a little better today - PO intake slightly improved per family; more alert, speech improving working with PT in bed; couldn't tolerate standing activities yesterday d/t dizziness/exhaustion per PT note pending [facility] no acute events overnight afebrile ROS: 10 point ROS as noted above, otherwise negative Physical Exam: GEN: Alert, oriented, NAD HEENT: Normal conjunctiva, sclera anicteric CV: Regular rate and rhythm, no edema Pulm: Nonlabored respirations on room air, diminished at bases bilaterally ABD: Soft, mild suprapubic/LLQ tenderness Neuro: moves all extremities, speech appropriate , generalized weakness vitals reviewed Problem List Acute metabolic encephalopathy secondary to Covid-19/Hyponatremia ; improving Hyponatremia Hypertension Trigeminal neuralgia Generalized weakness Acute metabolic encephalopathy secondary to Covid-19/Hyponatremia CT chest/abdomen (02/16): Small right pleural effusion. 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 Nephrology consulted Carbamazepine is on hold. Topamax resumed. improving Hypertension Continue home antihypertensives. Trigeminal neuralgia Carbamazepine is on hold. Continue Topamax. Generalized weakness Diet as tolerated. Pureed Continue PT VTE: Lovenox Code: Full Dispo: IPR ss/cm consulted 02/17 - Family would like to initiate transfer to another hospital - [facility] as her PCP (Dr. Sarah Mcclain) has privileges there transfer initiated - on wailist
[2023-02-18] MEDS: SODIUM CHLORIDE 1 GM TAB PO SCH ×3 (11:22→16:01)
[2023-02-18] MEDS: TOPIRAMATE 25 MG TAB PO SCH (13:31)
[2023-02-18] MEDS: PANTOPRAZOLE 40MG TABLET PO SCH ×2 (13:49→19:33)
[2023-02-18] MEDS: LACTOBACILLUS/ACIDOPHILUS TAB PO SCH (13:49)
[2023-02-18] MEDS: EZETIMIBE 10 MG TAB PO SCH (13:50)
[2023-02-18] MEDS: METOPROLOL TAR 50 MG TAB PO SCH (13:50)
[2023-02-18] MEDS: ENSURE ENLIVE 237 ML CAN PO SCH ×2 (13:51→19:57)
[2023-02-18] MEDS: TOPIRAMATE 100 MG TAB PO SCH ×2 (13:52→19:33)
[2023-02-18] MEDS: ENOXAPARIN 40 MG/0.4 ML SQ SCH (16:02)
--- NOTE | 2023-02-18 16:34 | EKG ---
Test Date: 2023-02-17 Test Time: 16:01:17 [employer] Technician: REGULO MEASUREMENT RESULTS: Intervals: Rate: 74 HI: 142 QRSD: 68 QT: 360 QTc: 399 [place]: P: 66 HI: 142 QRS: 31 T: 27 INTERPRETIVE STATEMENTS: Normal sinus rhythm T wave abnormality, consider anterior ischemia Abnormal ECG Compared to ECG 02/10/2023 14:03:13 T-wave abnormality now present Possible ischemia now present Myocardial infarct finding no longer present Electronically Signed On 02-18-23 16:31:54 CDT by Curtis Deng
[2023-02-19 05:30] VITALS: O2SAT 95
[2023-02-19] MEDS: LEVOTHYROXINE SOD 0.075 MG TAB PO SCH (05:50)
[2023-02-19] MEDS: ACETAMINOPHEN 500 MG TAB PO PRN ×3 (05:51→20:29)
--- NOTE | 2023-02-19 07:10 | P.PN ---
Date of Service: 02/19/23 Subjective: working with PT in bed; no walking/standing exercises yesterday per PT d/t fatigue abdominal tenderness continues ~same BMs improved; urinating throughout day yesterday, unsure if emptying bladder completely Breathing okay on room air afebrile ROS: 10 point ROS as noted above, otherwise negative Physical Exam: GEN: Alert, oriented, NAD; slow to respond HEENT: Normal conjunctiva, sclera anicteric CV: Regular rate and rhythm, no edema Pulm: Nonlabored respirations on room air, diminished at bases bilaterally ABD: Soft, mild suprapubic/LLQ tenderness on superficial palpation Neuro: moves all extremities, speech appropriate but slow , generalized weakness vitals reviewed Problem List Acute metabolic encephalopathy secondary to Covid-19/Hyponatremia; improving Hyponatremia,resolved Hypertension Trigeminal neuralgia Generalized weakness Acute metabolic encephalopathy secondary to Covid-19/Hyponatremia; improving CT chest/abdomen (02/16): Small right pleural effusion. 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 Nephrology consulted Carbamazepine is on hold. Topamax resumed. improved Hypertension Continue home antihypertensives. Generalized weakness / Debility Diet as tolerated. Pureed Continue PT VTE: switched DVT prophylaxis - Lovenox to eliquis given tender abdomen Code: Full Dispo: IPR - pending approval ss/cm consulted 02/17 - Family would like to initiate transfer to another hospital - [facility] as her PCP (Dr. Sarah Mcclain) has privileges there transfer initiated - on wait list
[2023-02-19] MEDS: ENSURE ENLIVE 237 ML CAN PO SCH ×4 (08:52→20:29)
[2023-02-19] MEDS: PANTOPRAZOLE 40MG TABLET PO SCH ×2 (08:52→20:16)
[2023-02-19] MEDS: TOPIRAMATE 100 MG TAB PO SCH ×2 (08:52→20:17)
[2023-02-19] MEDS: EZETIMIBE 10 MG TAB PO SCH (08:52)
[2023-02-19] MEDS: LACTOBACILLUS/ACIDOPHILUS TAB PO SCH (08:52)
[2023-02-19] MEDS: SODIUM CHLORIDE 1 GM TAB PO SCH ×3 (08:52→16:28)
[2023-02-19] MEDS: METOPROLOL TAR 50 MG TAB PO SCH (08:53)
[2023-02-19] MEDS: APIXABAN 2.5 MG TABLET PO SCH ×2 (11:58→20:17)
[2023-02-19] MEDS: TOPIRAMATE 25 MG TAB PO SCH (14:00)
[2023-02-20] MEDS: ACETAMINOPHEN 500 MG TAB PO PRN ×2 (03:39→11:24)
[2023-02-20 04:12] LABS: Absolute Lymphocytes (CBC) 1.5 K/uL (0.7-4.9); Hematocrit 31.5 % (36.0-45.0); Lymphocytes % 19.7 % (15.3-44.8); MCV 92.4 fL (80-100); MPV 7.1 fL (7.6-11.3); Platelets 399 thou/uL (152-406); RBC Red Blood Cell Count 3.41 M/uL (3.86-4.86)
[2023-02-20 04:43] LABS: Albumin 2.6 g/dL (3.4-5.0); Bilirubin Total 0.5 mg/dL (0.2-1.0); C-Reactive Protein 18.6 mg/L (<3.00); Magnesium 1.9 mg/dL (1.6-2.4); Phosphorus 3.2 mg/dL (2.5-4.9); Potassium 3.7 mEq/L (3.5-5.1)
[2023-02-20] MEDS: LEVOTHYROXINE SOD 0.075 MG TAB PO SCH (06:05)
[2023-02-20] MEDS: SODIUM CHLORIDE 1 GM TAB PO SCH ×2 (08:00→11:24)
[2023-02-20] MEDS: ENSURE ENLIVE 237 ML CAN PO SCH (08:01)
--- NOTE | 2023-02-20 08:55 | P.PN ---
Date of Service: 02/20/23 Subjective: speech slowly improving each day no acute events overnight Clinically improving afebrile ROS: 10 point ROS as noted above, otherwise negative Physical Exam: GEN: Alert, oriented, NAD; slow to respond HEENT: Normal conjunctiva, sclera anicteric CV: Regular rate and rhythm, no edema Pulm: Nonlabored respirations on room air, diminished at bases bilaterally ABD: Soft, mild suprapubic/LLQ tenderness on superficial palpation Neuro: moves all extremities, speech appropriate but slow , generalized weakness vitals reviewed Problem List Acute metabolic encephalopathy secondary to Covid-19/Hyponatremia; improving Hyponatremia,resolved Hypertension Trigeminal neuralgia Generalized weakness Acute metabolic encephalopathy secondary to Covid-19/Hyponatremia; improving CT chest/abdomen (02/16): Small right pleural effusion. 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 Nephrology consulted Carbamazepine is on hold. Topamax resumed. improved Hypertension Continue home antihypertensives. Generalized weakness / Debility Diet as tolerated. Pureed Continue PT VTE: continue eliquis Code: Full Dispo: IPR - pending approval ss/cm consulted 02/17 - Family would like to initiate transfer to another hospital - [facility] as her PCP (Dr. Sarah Mcclain) has privileges there transfer initiated - on wait list
[2023-02-20] MEDS: METOPROLOL TAR 50 MG TAB PO SCH (09:01)
[2023-02-20] MEDS: EZETIMIBE 10 MG TAB PO SCH (09:01)
[2023-02-20] MEDS: TOPIRAMATE 100 MG TAB PO SCH (09:01)
[2023-02-20 09:02] VITALS: BP 131/63
[2023-02-20] MEDS: APIXABAN 2.5 MG TABLET PO SCH (09:02)
[2023-02-20] MEDS: LACTOBACILLUS/ACIDOPHILUS TAB PO SCH (09:02)
[2023-02-20] MEDS: PANTOPRAZOLE 40MG TABLET PO SCH (09:02)
[2023-02-20 09:13] VITALS: TEMP 97.5
--- NOTE | 2023-02-20 11:10 | P.DS ---
Admission Date: 02/10/23 Discharge Date: 02/20/23 Reason for Admission: Altered mental status Consultations: Nephrology - Dr. Farias Brief History of Present Illness: 73yo F, PMH: trigeminal neuralgia and hypertension, Patient who was recently hospitalized for altered mental status secondary to COVID-19 infection and subsequently discharged after her mental status improved was brought back to the emergency department due to recurrence of confusion. F christofer by her bedside reported patient was initially doing well over a couple of days after discharge but then later had poor oral intake, became weak, needed to present to assist with transfers. Family reported patient developed a fever and became very confused. She was then brought to the emergency department for evaluation. Blood work in the ED shows hyponatremia. UA is negative for UTI. Hospital Course: Problem List Acute metabolic encephalopathy secondary to Covid-19/Hyponatremia; improving Hyponatremia,resolved Hypertension Trigeminal neuralgia Generalized weakness Patient presented with confusion, fever. Workup was negative for any acute findings/process with exception of Covid 19 and hyponatremia. Her clinical symptoms and progress were in line with expectation of COVID encephalopathy and hyponatremia. She had gradual improvement throughout her hospitalization. On her initial (prior) hospitalization she was started and completed a 5 day course of Lagevrio. Nephrology was consulted for management of hyponatremia. Her Carbamazepine was held, restarted on topamax, given salt tabs and had improvement of her hyponatremia. 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 Her carbamazepine was held throughout hospitalization and patient should stop taking on discharge. Sodium was stable on salt tabs and will be continued on discharge. Recommend follow up with Nephrology in 1-2 weeks. Patients hospitalization was prolonged d/t generalized weakness / debility. Patient remained afebrile for > 48 hours, confusion improved, and was deemed stable for discharge to inpatient rehab upstairs where she can continue to work with PT/OT/ST to improve her strength/endurance prior to returning home. During her hospitalzation she reported some suprapubic / LLQ abdominal pain. This was in the area of her lovenox injections which is likely the cause. Her pain was further investigated with urinalysis, CT Abd/pelvis, and pre and post void residual checks. All were normal and without evidence of infection of abnormalities with the exception of a distended bladder on CT, which was nonspecific. Multiple post void residuals were checked after CT and were within normal limits. No evidence of urinary retention. Suspect CT was done just prior to her voiding. Medications: New: Oral Salt tabs Stop: Stop taking Carbamazepine Follow up: PCP 3-5 days Nephrology 1-2 weeks Physical Exam: GEN: Alert, oriented, NAD; slow to respond HEENT: Normal conjunctiva, sclera anicteric CV: Regular rate and rhythm, no edema Pulm: Nonlabored respirations on room air, diminished at bases bilaterally ABD: Soft, minimal suprapubic/LLQ tenderness on superficial palpation Neuro: moves all extremities, speech appropriate but slow, generalized weakness Vital Signs/Physical Exam: Temp Pulse Resp BP Pulse Ox 97.5 F 84 16 131/63 99 02/20/23 08:00 02/20/23 09:01 02/20/23 08:00 02/20/23 09:01 02/20/23 08:00 Laboratory Data at Discharge: WBC 7.70 thou/uL (4.3-10.9) 02/20/23 03:34 Hgb 11.2 g/dL (12.0-15.0) L 02/20/23 03:34 Hct 31.5 % (36.0-45.0) L 02/20/23 03:34 Plt Count 399 thou/uL (152-406) 02/20/23 03:34 PT 10.3 SECONDS (9.5-12.5) 02/10/23 14:10 INR 0.94 02/10/23 14:10 APTT 26.5 SECONDS (24.3-36.9) 02/10/23 14:10 Sodium 137 mEq/L (136-145) 02/20/23 03:34 Potassium 3.7 mEq/L (3.5-5.1) 02/20/23 03:34 BUN 32 mg/dL (7-18) H 02/20/23 03:34 Creatinine 0.90 mg/dL (0.55-1.02) 02/20/23 03:34 Glucose 103 mg/dL (74-106) 02/20/23 03:34 Uric Acid 3.6 mg/dL (2.6-6.0) 02/17/23 02:30 Phosphorus 3.2 mg/dL (2.5-4.9) 02/20/23 03:34 Magnesium 1.9 mg/dL (1.6-2.4) 02/20/23 03:34 Total Bilirubin 0.5 mg/dL (0.2-1.0) 02/20/23 03:34 AST 20 U/L (15-37) 02/20/23 03:34 ALT 46 U/L (13-56) 02/20/23 03:34 Alkaline Phosphatase 61 U/L (45-117) 02/20/23 03:34 Home Medications: Levothyroxine Sodium [Tirosint] 37.5 mcg PO [id number] 02/07/23 Metoprolol Tartrate 50 mg PO DAILY 02/07/23 Ezetimibe [Zetia*] 1 tab PO DAILY 02/11/23 Pantoprazole [Protonix Tab*] 1 tab PO BID 02/11/23 Topiramate 1 tab PO DAILY 02/11/23 Topiramate 100 mg PO BID 02/11/23 Sodium Chloride Tab [Sodium Chloride*] 1 gm PO TIDWM tab 02/20/23 Physician Discharge Instructions: Patient presented with confusion, fever. Workup was negative for any acute findings/process with exception of Covid 19 and hyponatremia. Her clinical symptoms and progress were in line with expectation of COVID encephalopathy and hyponatremia. She had gradual improvement throughout her hospitalization. On her initial (prior) hospitalization she was started and completed a 5 day course of Lagevrio. Nephrology was consulted for management of hyponatremia. Her Carbamazepine was held, restarted on topamax, given salt tabs and had improvement of her hyponatremia. 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 Her carbamazepine was held throughout hospitalization and patient should stop taking on discharge. Sodium was stable on salt tabs and will be continued on discharge. Recommend follow up with Nephrology in 1-2 weeks. Patients hospitalization was prolonged d/t generalized weakness / debility. Patient remained afebrile for > 48 hours, confusion improved, and was deemed stable for discharge to inpatient rehab upstairs where she can continue to work with PT/OT/ST to improve her strength/endurance prior to returning home. During her hospitalzation she reported some suprapubic / LLQ abdominal pain. This was in the area of her lovenox injections which is likely the cause. Her pain was further investigated with urinalysis, CT Abd/pelvis, and pre and post void residual checks. All were normal and without evidence of infection of abnormalities with the exception of a distended bladder on CT, which was nonspecific. Multiple post void residuals were checked after CT and were within normal limits. No evidence of urinary retention. Suspect CT was done just prior to her voiding. Medications: New: Oral Salt tabs Stop: Stop taking Carbamazepine Follow up: PCP 3-5 days Nephrology 1-2 weeks Followup: JOSHUA JONAS [Primary Care Provider] -
== END 2023-02-20 11:57 | DRG 177 ==
LOC: ER 13:31 → ERHOLD 16:20 → 2ND 02-11 08:06
PROVIDERS: ADMIT Hospitalist; ATTEND Hospitalist
DX: U07.1 COVID-19 (principal); G93.41 Metabolic encephalopathy; E22.2 Syndrome of inappropriate secretion of antidiuretic hormone; E03.9 Hypothyroidism, unspecified; G50.0 Trigeminal neuralgia; D63.8 Anemia in other chronic diseases classified elsewhere; E87.6 Hypokalemia; E83.39 Other disorders of phosphorus metabolism; E83.42 Hypomagnesemia; M10.9 Gout, unspecified; I10 Essential (primary) hypertension; F03.90 Unspecified dementia, unspecified severity, without behavioral disturbance, psychotic disturbance, mood disturbance, and anxiety; T42.1X5A Adverse effect of iminostilbenes, initial encounter; Z88.1 Allergy status to other antibiotic agents; Z88.5 Allergy status to narcotic agent; Z88.8 Allergy status to other drugs, medicaments and biological substances; Z88.2 Allergy status to sulfonamides; Z90.49 Acquired absence of other specified parts of digestive tract; Z91.041 Radiographic dye allergy status; Z79.890 Hormone replacement therapy; Z79.899 Other long term (current) drug therapy; Z96.651 Presence of right artificial knee joint; Z90.710 Acquired absence of both cervix and uterus
CPT/HCPCS: 36415; 51702; 70450; 71045; 71250; 74176; 80048; 80053; 80069; 81001; 82435; 82570; 83605; 83735; 83930; 83935; 84100; 84132; 84145; 84300; 84443; 84484; 84550; 85025; 85610; 85730; 86140; 87040; 87811; 93005; 97110; 97161; 97530; 99285; J0360; J1100; J1650; J3475; J3480; J7030; J7050

== ENCOUNTER 2023-02-20 08:27 | Inpatient (IN) | payer OTHER ==
--- OUTSIDE RECORDS SUMMARY | 2023-02-20 12:02 | XMS REPORT | Continuity of Care Document ---
:1945 Author Organization [facility] t Address [address] [facility] [address] [place] [address] Care Team Providers Name Role Phone Sarah Mcclain MD Primary Care Physician Nuvia Perez Attending Clinician Unavailable Sarah Mcclain MD Attending Clinician Goldfarb_D Attending Clinician Unavailable GC_TNC_Lovitt_S Attending Clinician Unavailable Adal Gregoyr DO Attending Clinician Reggie LANDIN, Julian Coon Attending Clinician Pipe Baron DO Attending Clinician [phone] Jeanine Martin MD Attending Clinician [phone] Miguel LANDIN, Alex Butcher Attending Clinician [phone] Luciana Gaffney MD Attending Clinician MD JULIAN LIPSCOMB Attending Clinician Unavailable LEVI ALVAREZ Attending Clinician Unavailable Sarah Mcclain Attending Clinician Unavailable Nuvia Perez Admitting Clinician Unavailable Goldfarb_D Admitting Clinician Unavailable GC_TNC_Lovitt_S Admitting Clinician Unavailable SARAH MCCLAIN Admitting Clinician Unavailable MD JULIAN LIPSCOMB Admitting Clinician Unavailable Vicroy, Sarah G Admitting Clinician Unavailable Payers Payer Name Policy Type Policy Number Effective Date Expiration Date Jerica yun MEDICARE B-[place]: [id number] 2011 [facility] 00:00:00 FORMERLY [facility] [employer] [id number] INSURANCE COMPANY (MEDICARE SUPPLEMENT) Problems Condition Condition Condition Status Onset Resolution Last Treating Co mments Source Name Details Category Date Date Treatment Clinician Date Nausea, Nausea, Disease Active 2021-06 Methodi vomiting, vomiting, 0-17 st and and 00:00: Hospita diarrhea diarrhea 00 l 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 rivia neuralgia Neuralgia 0-11 Medi ilsa 00:00: 00 Chest Chest Disease Active Methodi pain, pain, 11-14 st unspecifie unspecifie 00:00: Ho spita d [...] Propensi Active Hallucinatio Methodi ty to ns [address] adverse 00:00: Hospita reaction 00 l s to drug Iodine Propensi Active Other (See Tremors-w M ethodi And ty to Comments) [address] Iodide adverse 00:00: observed Hospita Containi reaction 00 but l ng s to resolved Products drug without treatment oxybutyn DA Active LA 2019-06 [facility] [place] 00:00: Orthope 00 dic Hospita l oxybutyn DA Active LA NAUSEA 2020-1 [facility] [place] 00:00: Orthope 00 dic Hospita l meloxica DA Active SV 2020-0 [facility] m 02-25 Clear 00:00: Luo 00 [facility] meloxica DA Active SV DIARRHEA, 2020-0 [facility] m NAUSEA, 02-25 Clear WEAK, SHAKY, 00:00: Luo SOB 00 [facility] Sulfa DA Active SV NAUSEA, SOB, 2020-0 [facility] (Sulfona DIARRHEA, 02-25 Clear mide WEAK, SHAKY 00:00: Luo Antibiot 00 [facility] ics) [facility] allopuri DA Active SV NAUSEA, 2020-0 [facility] nol DIARRHEA, 02-25 Clear WEAK, SHAKY, 00:00: Luo SOB 00 [facility] colchici DA Active SV NAUSEA, 2020-0 [facility] ne DIARRHEA, 02-25 Clear SHAKY, WEAK, 00:00: Luo SOB 00 [facility] amoxicil DA Active MO DIARRHEA, 2020-0 [facility] emilie NAUSEA, 02-25 Clear WEAK, SHAKY, 00:00: Luo SOB 00 [facility] Sulfa DA Active SV 2020-0 [facility] (Sulfona 02-25 Clear mide 00:00: Luo Antibiot 00 [facility] ics) [facility] allopuri DA Active SV 2020-0 [facility] nol 02-25 Clear 00:00: Luo 00 [facility] colchici DA Active SV 2020-0 [facility] ne 02-25 Clear 00:00: Luo 00 [facility] amoxicil DA Active MO 2020-0 [facility] emilie 02-25 Clear 00:00: Luo 00 [facility] Fexofena Propensi Active Other (See 2018-06 Per Vt renay dine ty to Comments) 06-10 patient - [...] Amoxicil Propensi Active Other (See 2018-06 Per Vt thodi emilie-Pot ty to Comments) 06-10 patient - st Clavulan adverse 00:00: "nausea/v Hosp handy ate reaction 00 omiting, l s to hypervent drug ilation, weakness, shakiness " Moxiflox Propensi Active Other (See 2018-06 Per Vt thodi acin ty to Comments) 06-10 patient - st adverse 00:00: "nausea/v Hospit a reaction 00 omiting, l s to hypervent drug ilation, weakness, shakiness " Sulfamet Propensi Active Other (See 2018-06 Per Vt thodi hoxazole ty to Comments) 06-10 patient [...] Dexlanso Propensi Active Other (See 2018-06 Per Vt thodi prazole ty to Comments) 06-10 patient - st adverse 00:00: "nausea/v Hospit a reaction 00 omiting, l s to hypervent drug ilation, weakness, shakiness " Meloxica Propensi Active Other (See 2018-06 Per Vt thodi m ty to Comments) 06-10 patient [...] HCA lines 2-21 Clear 00:00: Luo 00 [facility] clindamy DA Active SV [facility] shailesh 2- Clear 00:00: Luo [facility] sulfamet DA Active SV HCA hoxazole 2- Clear 00:00: Luo [facility] trimetho DA Active SV [facility] prim - Clear 00:00: Luo [facility] zolpidem DA Active SV HCA 2- Clear 00:00: Luo [facility] fexofena DA Active SV HCA dine - Clear 00:00: Luo [facility] moxiflox DA Active SV HCA acin 2- Clear 00:00: Luo [facility] dexlanso DA Active SV HCA prazole - Clear 00:00: Luo [facility] zolpidem DA Active SV NAUSEAATED HCA 2- Clear 00:00: Luo [facility] fexofena DA Active SV NAUSEATED,SH HC A dine AKEY,DIARRHE 07-27 Dulce r A,SOB 00:00: Luo [facility] moxiflox DA Active SV NAUSEA,SHAKE HC A acin Y,SOB 07-27 Clear 00:00: Luo [facility] dexlanso DA Active SV NAUSEATED,SH 2017 HC A prazole AKEY,SOB,JENNIFER 07-27 Fidel ar RRHEA 00:00: Luo 00 [facility] Tetracyc DA Active SV NAUSEATED,SH 2017 HC A lines AKEY,SOB,ESME 07-27 Dulce r RRHEA 00:00: Luo 00 [facility] clindamy DA Active SV NAUSEATED HCA shailesh 2- Clear 00:00: Luo 00 [facility] sulfamet DA Active SV NAUSEATED,DI 2017 HC A hoxazole ARRHEA,SHAKE 07-27 Cl ear Y,SOB 00:00: Luo [facility] trimetho DA Active SV NAUSEATED,DI HC A prim ARRHEA,SHAKE 2-21 Dulce r Y,SOB 00:00: Luo 00 [facility] NARCOTIC DA Active LA SENSITIVE TO 0 HC A S PAIN 7- Clear MEDICATION 00:00: Luo 00 [facility] Allopuri Allergy Active [facility] n[facility] to Medical [...] ist 10:14:22 female gender Hospital (finding) History SDNV Sabianist Alcohol Std Drinks Hospit al History [facility] Sabianist Alcohol Binge Hospital Sexual orientation Method ist Hospital History of Social 2022-03-26 2022-03-[address] function 00:00:00 00:00:00 Hospital Alcohol intake 2022-03-25 2022-03-25 Lifetime Sabianist 00:00:00 00:00:00 non-drinker Hospital (finding) Tobacco use and 2020-09-02 2020-09-02 Smokeless tobacco Me thodist exposure 00:00:00 00:00:00 non-user Hospital History SDOH 2020-09-02 2020-09-02 1 Sabianist Alcohol Frequency 00:00:00 00:00:00 Hospita l Sex Assigned At [birth year] F Sabianist 00:00:00 00:00:00 Hospital Smoking Status Start Date Stop Date Source Never smoked tobacco [facility]ist H ospital Medications Ordered Filled Start Stop [...] Hospita 56 :00 daily. l cholecalcif 2021-06 No 1000U Take 1,000 Methodi [...] mouth Hospita 56 :00 daily. l cholecalcif 2022-1 2022- No 1000U Take 1,000 Methodi kaya, 0-21 10-[address] vitamin D3, 09:34: 00:00 mouth. Hos ramiro (VITAMIN 56 :00 l D3) 1,000 unit capsule calcium 2021-06- No 1{tbl} QD Chew 1 Metho di [...] mouth Hospita 56 :00 daily. l topiramate 2021-06 No 25mg Q.5D Take 1 Meth amanda (TOPAMAX) 0-21 -21 tablet (25 st 25 MG 00:00: 05:59 mg total) Hospit a tablet 00 :00 by mouth 2 l (two) times a day for 30 days. metoclopram 2021-06 No 5mg Q.25D Take 1 Me thodi mauri 0-21 -21 tablet (5 st (Reglan) 5 00:00: 05:59 mg total) H ospita MG tablet 00 :00 by mouth 4 l (four) times a day as needed (nausea) for up to 30 days. pantoprazol 2021-06 No 40mg Q.5D Take 1 Met hodi e 0-21 11-21 tablet (40 st (Protonix) 00:00: 05:59 mg total) H ospita 40 MG EC 00 :00 by mouth 2 l tablet (two) times a day for 30 days. topiramate 2021-06 No 25mg Q.5D Take 1 Meth amanda [...] times a day as needed (nausea). calcium 2021- Yes 1{tbl} QD Chew 1 Method i [...] 1{tbl} QD Take 1 Methodi sulfate 6-15 -14 tablet by (ZINC-15 13:09: 00:00 mouth Hospita ORAL) 04 :00 daily. l evolocumab 2021- No 140mg Q14D Metho di (REPATHA) 11-17 st injection 15:45: 13:59 Hospita 140 mg 00 :00 l evolocumab 2021- No 140mg Q14D Metho di (REPATHA) 11-17 st injection 15:45: 13:59 Hospita 140 mg 00 :00 l evolocumab 2021- No 140mg Q14D Metho di (REPATHA) 11-17 st injection 15:45: 13:59 Hospita 140 mg 00 :00 l evolocumab 2021- No 140mg Q14D Metho di (REPATHA) 11-17 st injection 15:45: 13:59 Hospita 140 mg 00 :00 l triamterene 2021- No 1{capsu QD Take 1 Methodi -hydrochlor 11-17 le} capsule by s t othiazid 13:09: [...] every injector 14 injection (fourteen) days. evolocumab Yes 140mg Q14D Inject 1 Me thodi (Repatha 6-14 mL ([address] SureClick) 00:00: total) Hospi ta 140 mg/mL 00 under the l pen skin every injector 14 injection (fourteen) days. evolocumab Yes 140mg Q14D Inject 1 Me thodi (Repatha 6-14 mL ([address] SureClick) 00:00: total) Hospi ta 140 mg/mL 00 under the l pen skin every injector 14 injection (fourteen) days. evolocumab Yes 140mg Q14D Inject 1 Me thodi (Repatha 6-14 mL ([address] SureClick) 00:00: total) Hospi ta 140 mg/mL 00 under the l pen skin every injector 14 injection (fourteen) days. aspirin 2021- No 81mg QD Take 1 Methodi (ECOTRIN) 11-17-15 tablet (81 st 81 MG 00:00: 04:59 mg total) Hospit a enteric 00 :00 by mouth l coated daily for tablet 30 days. simvastatin 2021- No 20mg QD Take 20 mg Methodi (ZOCOR) 20 11-13-[address] mg tablet 18:07: 00:00 nightly. Hos ramiro 22 :00 l pantoprozol 2021- No 8mg/h Infuse 8 Methodi e 6-10 06-10 mg/hr into st (PROTONIX) 18:07: 00:00 a venous Ho spita infusion 19 :00 catheter l continuous ly. aspirin-ilsa 2021- No Take by Me thodi cium 6 06-[address] carbonate 18:05: 00:00 Hospita 81 mg-300 42 :00 l mg calcium(777 mg) tablet azelaic 2021- No Apply Methodi acid 11-13-[address] (FINACEA) 18:05: 00:00 Hospita 15 % foam 42 :00 l predniSONE 2021- No 5mg QD Take 5 mg M ethodi (DELTASONE) 6-10 06-[address] 5 mg tablet 18:05: 00:00 daily. Hos ramiro 33 :00 l ascorbic 2021-0 2021- No Vitamin C Met hodi acid, 6- 06-10 1,[address] vitamin C, 18:05: 00:00 [...] capsule,ex ended ended tended release release release [id number] TAKE 1 TAKE 1 TAKE 1 CAPSULE [...] the tab in the morning, morning, morning, /2 tab 1/2 tab 1/2 tab midday and [...] capsule,ex ended ended tended release release release [id number] Take 1 Take 1 Take 1 capsule [...] BMI (Body Mass 2022-08-19 00:00:00 26.3 kg/m2 [facility] Medical Index) Body Weight 2022-08-19 00:00:00 2224 [oz_av] Nafisa Jimenez edical Height 2022-08-05 00:00:00 61 [in_i] Nafisa Jimenez edical BMI (Body Mass 2022-08-05 00:00:00 26.5 kg/m2 [facility] Medical Index) Body Weight 2022-08-05 00:00:00 2240 [oz_av] Nafisa Jimenez edical Height 2022-06-14 00:00:00 61 [in_i] Nafisa Jimenez edical Height 2022-06-08 00:00:00 61 [in_i] Nafisa Jimenez edical BMI (Body Mass 2022-06-08 00:00:00 27.4 kg/m2 [facility] Medical Index) Body Weight 2022-06-08 00:00:00 2320 [oz_av] Nafisa Jimenez edical Height 2022-03-16 00:00:00 61 [in_i] Nafisa Jimenez edical BMI (Body Mass 2022-03-16 00:00:00 33.1 kg/m2 [facility] Medical Index) Body Weight 2022-03-16 00:00:00 2800 [oz_av] Nafisa Jimenez edical Systolic blood 2022-03-26 12:40:09 134 mm[Hg] Method ist Hospital pressure Diastolic blood 2022-03-26 12:40:09 60 mm[Hg] [facility] Hospital pressure Heart rate 2022-03-26 12:40:09 68 /min [facility] Body temperature 2022-03-26 12:40:09 36.11 [facility] Respiratory rate 2022-03-26 12:40:09 18 /min [facility] Oxygen saturation in 2022-03-26 12:40:09 98 /min [facility] Arterial blood by Pulse oximetry Body weight 2022-03-25 10:06:36 75.524 kg [facility] BMI 2022-03-25 10:06:36 31.46 kg/m2 [facility] Systolic blood 2022-01-28 13:31:00 182 mm[Hg] Method [facility] Hospital pressure Diastolic blood 2022-01-28 13:31:00 75 mm[Hg] [facility] pressure Heart rate 2022-01-28 13:31:00 68 /min [facility] Respiratory rate 2022-01-28 13:31:00 17 /min [facility] Oxygen saturation in 2022-01-28 13:31:00 100 /min [facility] Arterial blood by Pulse oximetry Body weight 2022-01-28 12:34:00 77.565 kg [facility] BMI 2022-01-28 12:34:00 32.31 kg/m2 [facility] Body temperature 2021-11-17 16:53:49 36.56 [facility] Body height 2021-11-13 16:58:00 154.9 cm [facility] Procedures Procedure Date / Time Performing Source Performed Clinician XR CHEST 2 VW 2023-01-12 Sarah Mcclain 16:56:00 [facility] CT HEAD WO CONTRAST 2022-08-11 Sarah Mcclain 17:08:43 G. Hospital BASIC METABOLIC PANEL 2022-03-24 Sarah Mcclain 11:16:00 G. Hospital ESTIMATED GFR 2022-03-24 Sarah Mcclain 11:16:00 G. Hospital ESOPHAGOGASTRODUODENOSCOPY (EGD) 2022-03-23 Julian Lipscomb 20:22:00 Hospital MRI BRAIN WO CONTRAST 2022-03-23 Sarah Mcclain 16:01:00 G. Hospital SURGICAL PATHOLOGY REQUEST 2022-03-23 Sarah Mcclaino dist 13:48:00 G. Hospital ECG 12-LEAD 2022-03-23 Sarah Mcclainist 13:40:26 G. Hospital TROPONIN T 2022-03-23 Keturah Johnson 01:19:00 [facility] TROPONIN T 2022-03-22 Keturah Johnson 22:02:00 [facility] AMYLASE LEVEL 2022-03-22 Sarah Mcclain 22:02:00 G. Hospital LIPASE LEVEL 2022-03-22 Sarah Mcclain 22:02:00 G. Hospital SEDIMENTATION RATE 2022-03-22 Sarah Mcclain 22:02:00 G. Hospital C-REACTIVE PROTEIN 2022-03-22 Sarah Mcclain 22:02:00 G. Hospital URINE CULTURE 2022-03-22 Keturah Johnson 18:34:00 [facility] CT ABDOMEN PELVIS WO CONTRAST 2022-03-22 Keturah Johnson thodist 17:53:37 [facility] ECG ED PRELIMINARY INTERPRETATION 2022-03-22 Mayito Johnson i 17:25:40 [facility] ECG 12-LEAD 2022-03-22 Keturah Johnson 17:20:19 [facility] URINALYSIS SCREEN AND MICROSCOPY, 2022-03-22 Mayito Johnson i WITH REFLEX TO CULTURE 17:09:00 [facility] COVID-19 QUALITATIVE RT-PCR 2022-03-22 Keturah Johnson odist 16:58:00 [facility] CBC WITH PLATELET AND DIFFERENTIAL 2022-03-22 George Johnson 16:58:00 [facility] COMPREHENSIVE METABOLIC PANEL 2022-03-22 Keturah Johnson thodist 16:58:00 [facility] MAGNESIUM LEVEL 2022-03-22 Keturah Johnson 16:58:00 [facility] PHOSPHORUS LEVEL 2022-03-22 Keturah Johnson 16:58:00 [facility] B NATRIURETIC PEPTIDE 2022-03-22 Keturah Johnson 16:58:00 [facility] ESTIMATED GFR 2022-03-22 Keturah Johnson 16:58:00 [facility] TROPONIN T 2022-03-22 Keturah Johnson 16:58:00 [facility] XR CHEST 1 VW PORTABLE 2022-03-22 Keturah Johnson 16:34:21 [facility] MRI BRAIN WO CONTRAST 2022-03-04 Sarah Mcclain 15:05:00 G. Hospital CV MRA CHEST (THORACIC AORTA OR 2022-01-28 Sarah Mcclain PULMONARY ARTERY) 13:48:03 G. Hospital ESTIMATED GFR 2022-01-28 Sarah Mcclain 13:23:00 G. Hospital POC PANEL 2022-01-28 Sarah Mcclain 13:23:00 G. Hospital ESTIMATED GFR 2022-01-15 Sarah Mcclain 20:12:00 G. Hospital POC PANEL 2022-01-15 Sarah Mcclain 20:12:00 G. Hospital US BREAST COMPLETE BILATERAL 2022-01-15 Sarah Mcclainist 16:50:07 G. Hospital MAMMO BREAST DIAGNOSTIC 2022-01-15 Sarah Mcclain t TOMOSYNTHESIS BILATERAL 16:21:[address] CHEST WO CONTRAST 2022-01-01 Sarah Mcclain 16:55:25 G. Hospital CV LEFT HEART CATH LV GRAM WITH 2021-11-16 Luigi Morrison CORS 23:17:02 [facility] MAGNESIUM LEVEL 2021-11-16 Trina Platt 14:07:00 [facility] COMPREHENSIVE METABOLIC PANEL 2021-11-16 Trina Platt 14:07:00 Hospital ESTIMATED GFR 2021-11-16 Trina Platt 14:07:00 Hospital HC COMPLETE BLD COUNT W/AUTO DIFF 2021-11-16 Trina Platt 14:07:00 [facility] COVID-19 ANTI-SPIKE IGG ANTIBODY 2021-11-15 Kyle Islas TITER 09:25:00 [facility] COVID-19 SEROLOGY PATIENT 2021-11-15 Kyle Islas Method ist SURVEILLANCE 09:25:00 [facility] CV SPECT CA SC TECH ONLY ORDER 2021-11-14 Sarah Mcclain ethodist 19:25:13 G. [facility] CV STRESS TEST NUCLEAR CARDIO 2021-11-14 Sarah Mcclain thodist 16:18:10 G. Hospital NM MYOCARDIAL PERFUSION STRESS 2021-11-14 Sarah Mcclain ethodist REST 1 DAY 16:18:10 G. Hospital ECG 12-LEAD 2021-11-14 Sarah Mcclainist 12:46:53 G. Hospital TTE COMPLETE, WO CONTRAST, W 2021-11-14 Sarah Mcclain Met hodist DOPPLER ([id number]) 11:26:00 G. Hospital BASIC METABOLIC PANEL 2021-11-14 Sarah Mcclain Sabianist 09:59:00 G. Hospital ESTIMATED GFR 2021-11-14 Sarah Mcclainist 09:59:00 G. Hospital LIPID PANEL 2021-11-14 Sarah Mcclainist 09:59:00 G. Hospital TROPONIN T 2021-11-14 Adal Gregory 02:44:00 B. Hospital TROPONIN T 2021-11-13 Adal Gregory 22:34:00 B. Hospital ECG ED PRELIMINARY INTERPRETATION 2021-11-13 Luigi Rivera 21:32:41 [facility] COVID-19 QUALITATIVE RT-PCR 2021-11-13 Cher Rivera 19:31:00 [facility] XR CHEST 1 VW PORTABLE 2021-11-13 Luigi Rivera 18:11:17 [facility] HC COMPLETE BLD COUNT W/AUTO DIFF 2021-11-13 Torrey Gregory 17:50:00 B. Hospital COMPREHENSIVE METABOLIC PANEL 2021-11-13 Adal Gregory Vt thodist 17:50:00 B. Hospital TROPONIN T 2021-11-13 Adal Gregory 17:50:00 B. Hospital B NATRIURETIC PEPTIDE 2021-11-13 Adal Gregory 17:50:00 B. Hospital ESTIMATED GFR 2021-11-13 Adal Gregory 17:50:00 B. Hospital ECG 12-LEAD 2021-11-13 Adal Gregory 17:08:44 B. Hospital XR CHEST 2 VW 2021-10-05 Sarah Mcclain 18:03:00 G. Hospital [id number] 2020-03-12 [facility] Catar[facility] Ankle Arthroscopy/surgery [facility] Total Knee Replacement [facility] dical Hysterectomy [facility] Medical Plan of Care Planned Activity Planned Date Details Comments Source Future Scheduled 2023-02-20 Hepatitis C screening [facility] Test 08:17:34 (procedure) [code = 164095439] Future Scheduled 2023-02-20 SHINGLES VACCINES (1 Met [facility] Test 08:17:34 of 2) [code = SHINGLES VACCINES (1 of 2)] Future Scheduled 2023-02-20 COVID-19 VACCINE (2 - [facility] Test 08:17:34 Moderna series) [code = COVID-19 VACCINE (2 - Moderna series)] Future Scheduled 2023-02-20 INFLUENZA VACCINE Method [facility] Hospital Test 08:17:34 (#1) [code = INFLUENZA VACCINE (#1)] Future Scheduled 2023-02-06 Hepatitis C screening [facility] Test 05:17:08 (procedure) [code = 079399052] Future Scheduled 2023-02-06 SHINGLES VACCINES (1 Met [facility] Test 05:17:08 of 2) [code = SHINGLES VACCINES (1 of 2)] Future Scheduled 2023-02-06 COVID-19 VACCINE (2 - [facility] Test 05:17:08 Moderna series) [code = COVID-19 VACCINE (2 - Moderna series)] Future Scheduled 2023-02-06 INFLUENZA VACCINE Method [facility] Test 05:17:08 (#1) [code = INFLUENZA VACCINE (#1)] Future Scheduled 2023-02-02 Hepatitis C screening [facility] Test 09:39:13 (procedure) [code = 296150462] Future Scheduled 2023-02-02 SHINGLES VACCINES (1 Met [facility] Test 09:39:13 of 2) [code = SHINGLES VACCINES (1 of 2)] Future Scheduled 2023-02-02 COVID-19 VACCINE (2 - [facility] Hospital Test 09:39:13 Moderna series) [code = COVID-19 VACCINE (2 - Moderna series)] Future Scheduled 2023-02-02 INFLUENZA VACCINE Method [facility] Hospital Test 09:39:13 (#1) [code = INFLUENZA [...] Future Scheduled 2022-03-11 HEPATITIS B VACCINES Met [facility] Test 10:45:45 (1 of 3 - 3-dose series) [code = HEPATITIS B VACCINES (1 of 3 - 3-dose series)] Future Scheduled 2022-03-11 Hepatitis C screening [facility] Test 10:45:45 (procedure) [code = 651195742] Future Scheduled 2022-03-11 COLONOSCOPY SCREENING [facility] Test 10:45:45 [code = COLONOSCOPY SCREENING] Future Scheduled 2022-03-11 SHINGLES VACCINES (1 Met [facility] Test 10:45:45 of 2) [code = SHINGLES VACCINES (1 of 2)] Future Scheduled 2022-03-11 COVID-19 VACCINE (2 - [facility] Test 10:45:45 Moderna series) [code = COVID-19 VACCINE (2 - Moderna series)] Future Scheduled 2022-03-11 INFLUENZA VACCINE Method [facility] Test 10:45:45 [code = INFLUENZA VACCINE] Future Scheduled 2022-03-[address] [facility] Test 10:45:45 SCREENING [code = BREAST CANCER SCREENING] Encounters Start End Encounter Admission Attending Care Care Encounter Source Date/Time Date/Time Type Type Clinicians Facility Department ID 2023-02-17 [facility] [id number] Methodi 00:00:[id number] 3.430.2.7 Hospit a .3.103106 l .8 2020-03-12 Inpatient Chris, HCATO SURG [id number] [facility] 15:15:[address] [place] [address] [facility] 2023-01-12 2023-01-12 [facility], 1.2.840.1 [id number] Methodi 11:44:59 23:59:00 Encounter Sarah G. [id number] 3.430.2.7 Hospit a .3.938715 l .8 2023-01-12 2023-01-12 [facility], 1.2.840.1 [id number] Methodi 11:44:59 23:59:00 Encounter Sarah G. [id number] 3.430.2.7 Hospit a .3.939241 l .8 2023-01-12 2023-01-12 Orders [facility], 1.2.840.1 [id number] Methodi 00:00:00 00:00:00 Only Sarah G. [id number] s t 3.430.2.7 Hospit a .3.574270 l .8 2023-01-12 2023-01-12 Orders [facility], 1.2.840.1 [id number] Methodi 00:00:00 00:00:00 Only Sarah G. [id number] 460 s t 3.430.2.7 Hospit a .3.283678 l .8 2023-01-04 2023-01-04 Transcribe [facility], 1.2.840.1 [id number] Methodi 00:00:00 00:00:00 Orders Sarah G. [id number] 822 s t 3.430.2.7 Hospit a .3.907777 l .8 2023-01-04 2023-01-04 Transcrieduin Mcclain 1.2.840.1 [id number] Methodi 00:00:00 00:00:00 Orders Sarah G. [id number] s t 3.430.2.7 Hospit a .3.391435 l .8 2022-10-27 2022-10-27 Outpatient Goldfarb_D [facility] [id number] 00:00:00 00:00:00 [id number] [facility] 2022-10-26 2022-10-26 Outpatient GC_TNC_Lovi PRIV PRIV [id number] [facility] 00:00:00 00:00:00 tt_S [id number] Medica l 2022-08-19 2022-08-19 Outpatient GC_TNC_Lovi PRIV PRIV [id number] [facility] 00:00:00 00:00:00 tt_S [id number] Medica l 2022-08-19 2022-08-19 Tiffany [facility] [id number] [facility] 00:00:00 00:00:00 Juan [facility] Medic al SENIOR INTEGRATION ARCHITECT: [id number] GC_TNC_Sout [facility], Office* [address], [place] [address] , Ph. 2022-08-17 2022-08-17 Outpatient GC_TNC_Lovi PRIV PRIV [id number] [facility] 00:00:00 00:00:00 tt_S [id number] Medica l 2022-08-15 2022-08-15 Outpatient GC_TNC_Lovi PRIV PRIV [id number] [facility] 00:00:00 00:00:00 tt_S [id number] Medica l 2022-08-11 2022-08-11 Outpatient SARAHI [facility] [id number] 00:00:00 00:00:00 SARAH [address] 2022-08-10 2022-08-10 Orders Sarahi, 1.2.840.1 [id number] Methodi 00:00:00 00:00:00 Only Sarah G. 21717.1.1 126 s t 3.430.2.7 Hospit a .3.197791 l .8 2022-08-10 2022-08-10 Carolina Mcclain, 1.2.840.1 [id number] 0496 Methodi 00:00:00 00:00:00 Only Sarah G. 12341.1.1 126 s t 3.430.2.7 Hospit a .3.114950 l .8 2022-08-05 2022-08-05 Outpatient GC_TNC_Lovi PRIV PRIV 700 8599-20 [facility] 00:00:00 00:00:00 tt_S [id number] Medica l 2022-08-05 2022-08-05 Tiffany [facility] [id number] [facility] 00:00:00 00:00:00 Juan [facility] Medic al SENIOR INTEGRATION ARCHITECT: 6655 GC_TNC_Sout [facility], Office* [address] [place], [place] [address] , Ph. 2022-08-04 2022-08-04 Outpatient GC_TNC_Lovi PRIV PRIV 700 8599-20 [facility] 00:00:00 00:00:00 tt_S [id number] Medica l 2022-07-20 2022-07-20 Outpatient Goldfarb_D [facility] [address] [place] 00:00:00 00:00:00 [facility] 2022-07-16 2022-07-16 Outpatient GC_TNC_Lovi PRIV PRIV 700 8599-20 [facility] 00:00:00 00:00:00 tt_S [id number] Medica l 2022-07-16 2022-07-16 Avelino M [facility] [id number] [facility] 00:00:00 00:00:00 Shamika [facility] mela MD: 6655 GC_TNC_Sout [facility], Office* [address] [place] [address] , Ph. 2022-07-13 2022-07-13 Outpatient GC_TNC_Lovi PRIV PRIV 700 8599-20 [facility] 00:00:00 00:00:00 tt_S [id number] Medica l 2022-06-14 2022-06-14 Outpatient GC_TNC_Lovi PRIV PRIV 700 8599-20 [facility] 00:00:00 00:00:00 tt_S 209827 Medica l 2022-06-14 2022-06-14 Tiffany [facility] 109 [facility] 00:00:00 00:00:00 Juan [facility] Medic al SENIOR INTEGRATION ARCHITECT: [address] [facility] Office* [address] [place], [place] [address] , Ph. 2022-06-08 2022-06-08 Outpatient GC_TNC_Lovi PRIV PRIV 700 8599-20 [facility] 00:00:00 00:00:00 tt_S [id number] Medica l 2022-06-08 2022-06-08 Tiffany [facility] 103 [facility] 00:00:00 00:00:00 Juan [facility] Medic real SENIOR INTEGRATION ARCHITECT: [address] [facility] Office* [address] [place], [place] [address] , Ph. 2022-05-26 2022-05-26 Outpatient GC_TNC_Lovi PRIV PRIV 700 8599-20 [facility] 00:00:00 00:00:00 tt_S [id number] Medica l 2022-05-26 2022-05-26 Outpatient GC_TNC_Lovi PRIV PRIV 700 8599-20 [facility] 00:00:00 00:00:00 tt_S [id number] Medica l 2022-05-26 2022-05-26 Avelino Tony [facility] [id number] [facility] 00:00:00 00:00:00 Shamika [facility] MD: 6655 GC_TNC_Sout [facility], Office* [address] [place] [address] , Ph. 2022-05-19 2022-05-19 Outpatient GC_TNC_Lovi PRIV PRIV 700 8599-20 [facility] 00:00:00 00:00:00 tt_S [id number] Medica l 2022-05-11 2022-05-11 Outpatient GC_TNC_Lovi PRIV PRIV 700 8599-20 [facility] 00:00:00 00:00:00 tt_S [id number] Medica l 2022-03-22 [facility]22[id number] Methodi 10:53:00 09:34:00 Encounter Sarah Mcclain 64133.1.[address] 3.430.2.7 Hospit a .3.724864 l .8 2022-03-22 2022-03-26 [facility] 0 [id number] Methodi 10:53:00 09:34:00 Encounter Sarah Mcclain 02584.1.[address] 3.430.2.7 Hospit a .3.394342 l .8 2022-03-23 2022-03-23 Surgery [facility], 1.2.840.1 [id number] [facility]i 15:32:00 16:02:00 Julian Coon 57530.1.[address] 3.430.2.7 Hospit a .3.895963 l .8 2022-03-23 2022-03-23 Surgery Reggie, 1.2.840.1 [id number] 69409 [facility]i 15:32:00 16:02:00 Julian Coon 87835.1.[address] 3.430.2.7 Hospit a .3.194174 l .8 2022-03-23 2022-03-23 Anesthesia Tod 1.2.840.1 [id number] [facility]i 15:21:00 15:44:00 Event Pipe 43805.1.[address] 3.430.2.7 Hospit a .3.305663 l .8 2022-03-23 2022-03-23 Anesthesia Tod 1.2.840.1 [id number] Methodi 15:21:00 15:44:00 Event , Pipe R [address]76.1.[address] 3.430.2.7 Hospit a .3.427381 l .8 2022-03-16 2022-03-16 Outpatient GC_TNC_Lovi PRIV PRIV 700 8599-20 [facility] 00:00:00 00:00:00 tt_S [id number] Medica l 2022-03-16 [facility]03-[facility] [id number] [facility] 00:00:00 00:00:00 Kika [facility] Anirudh wi : 6655 GC_TNC_Sout [facility], Office* [address], [place] [address] , Ph. 2022-03-15 2022-03-15 Outpatient GC_TNC_Lovi PRIV PRIV 700 8599-20 [facility] 00:00:00 00:00:00 tt_S [id number] Medica l 2022-03-08 2022-03-08 Outpatient GC_TNC_Lovi PRIV PRIV 700 8599-20 [facility] 00:00:00 00:00:00 tt_S 373801 Medica l 2022-03-04 2022-03-04 [facility], 1.2.840.1 [id number] [id number] Methodi 09:26:50 23:59:00 Encounter Sarah G. 67060.1.[address] 3.430.2.7 Hospit a .3.867818 l .8 2022-03-04 2022-03-04 [facility], 1.2.840.1 [id number] Methodi 09:26:50 23:59:00 Encounter Sarah G. 46730.1.[address] 3.430.2.7 Hospit a .3.649593 l .8 2022-03-04 2022-03-04 Travel 1.2.840.1 1.2.533.879 [id number] [id number] Methodi 00:00:00 00:00:[address] 3.430.2.7 0.2.7.3.698 Ho spita .3.986638 084.8 l .8 2022-03-04 2022-03-04 Travel 1.2.840.1 1.2.305.174 1161 [id number] [facility]i 00:00:00 00:00:[address] 3.430.2.7 0.2.7.3.698 Ho spita .3.634198 084.8 l .8 2022-02-22 2022-02-22 [facility], 1.2.840.1 [id number] 8540 Methodi 00:00:00 00:00:00 Only Sarah G. 77823.1.1 181 s t 3.430.2.7 Hospit a .3.537816 l .8 2022-02-22 2022-02-22 [facility], 1.2.840.1 [id number] 0111 Methodi 00:00:00 00:00:00 Only Sarah G. 95087.1.1 181 s t 3.430.2.7 Hospit a .3.616974 l .8 2022-01-28 2022-01-28 [facility], 1.2.840.1 [id number] [place] 00:00:00 00:00:00 Encounter SARAH 96922.1.[address] .3.836126 .8 2022-01-28 2022-01-28 Travel 1.2.840.1 1.2.947.306 5934 [id number] Methodi 00:00:00 00:00:[address] 3.430.2.7 0.2.7.3.698 Ho spita .3.466542 084.8 l .8 2022-01-15 2022-01-15 [facility], 1.2.840.1 [id number] Methodi 13:24:40 23:59:00 Encounter Sarah G. 87997.1.[address] 3.430.2.7 Hospit a .3.092002 l .8 2022-01-15 2022-01-15 [facility], 1.2.840.1 [id number] 33392 Methodi 11:00:00 13:23:00 Encounter Sarah G. 90242.1.[address] 3.430.2.7 Hospit a .3.650556 l .8 2022-01-15 2022-01-15 [facility], 1.2.840.1 [id number] 22353 Methodi 10:14:16 10:59:00 Encounter Sarah G. 23954.1.[address] 3.430.2.7 Hospit a .3.047304 l .8 2022-01-15 2022-01-15 Travel 1.2.840.1 1.2.160.761 8961 [id number] Methodi 00:00:00 00:00:[address] 3.430.2.7 0.2.7.3.698 Ho spita .3.229215 084.8 l .8 2022-01-15 2022-01-15 [facility], 1.2.840.1 [id number] 4287 Methodi 00:00:00 00:00:00 Only Sarah G. 42751.1.1 797 s t 3.430.2.7 Hospit a .3.243105 l .8 2022-01-01 2022-01-01 [facility], 1.2.840.1 [id number] 23267 Methodi 10:42:51 23:59:00 Encounter Sarah G. 16768.1.[address] 3.430.2.7 Hospit a .3.828999 l .8 2022-01-01 2022-01-01 Travel 1.2.840.1 1.2.375.565 6108 [id number] Methodi 00:00:00 00:00:[address] 3.430.2.7 0.2.7.3.698 Ho spita .3.593931 084.8 l .8 2021-12-30 2021-12-30 Transcribe Chiu-Arrast 1.2.840.1 [id number] Methodi 00:00:00 00:00:00 Orders ia, 90757.1.[address] [place] 3.430.2.7 Hos ramiro Robert .3.028785 l .8 2021-12-30 2021-12-30 [facility] Sarahi, 1.2.840.1 [id number] Methodi 00:00:00 00:00:00 Orders Sarah G. 02505.1.1 620 s t 3.430.2.7 Hospit a .3.937688 l .8 2021-12-30 2021-12-30 Orders Sarahi, 1.2.840.1 [id number] 1482 Methodi 00:00:00 00:00:00 Only Sarah G. 73948.1.1 657 s t 3.430.2.7 Hospit a .3.960137 l .8 2021-12-29 2021-12-29 Travel 1.2.840.1 1.2.329.677 6676 [id number] Methodi 00:00:00 00:00:[address] 3.430.2.7 0.2.7.3.698 Ho spita .3.322715 084.8 l .8 2021-12-29 2021-12-29 Orders Sarahi, 1.2.840.1 [id number] 0927 Methodi 00:00:00 00:00:00 Only Sarah G. 04639.1.1 337 s t 3.430.2.7 Hospit a .3.753823 l .8 2021-11-13 2021-11-17 [facility] Alex Rivera 1.2.84 0.1 [id number] Methodi 12:02:00 13:09:00 Encounter Sarah Mcclain G. 34426.1.[address] 3.430.2.7 Hospit a .3.486055 l .8 2021-11-16 2021-11-16 Surgery Gulshan, 1.2.840.1 [id number] 8663 Methodi 15:25:00 16:20:00 Luciana Schmidt 03047.1.[address] 3.430.2.7 Hospit a .3.749966 l .8 2021-11-14 2021-11-14 [facility], 1.2.840.1 [id number] 41777 Methodi 11:17:30 23:59:00 Encounter Sarah G. 52096.1.[address] 3.430.2.7 Hospit a .3.010111 l .8 2021-11-13 2021-11-13 Travel 1.2.840.1 1.2.992.177 4625 [id number] Methodi 00:00:00 00:00:[address] 3.430.2.7 0.2.7.3.698 Ho spita .3.630960 084.8 l .8 2021-10-20 2021-10-20 Transcribe [facility], 1.2.840.1 [id number] [id number] Methodi 00:00:00 00:00:00 Orders Sarah G. 95446.1.1 124 s t 3.430.2.7 Hospit a .3.526098 l .8 2021-10-05 2021-10-05 [facility], 1.2.840.1 [id number] 30404 Methodi 12:45:00 23:59:00 Encounter Sarah G. 34253.1.[address] 3.430.2.7 Hospit a .3.075211 l .8 2021-10-05 2021-10-05 Travel 1.2.840.1 1.2.213.741 2941 [id number] Methodi 00:00:00 00:00:[address] 3.430.2.7 0.2.7.3.698 Ho spita .3.961301 084.8 l .8 2021-10-05 2021-10-05 Orders [facility], 1.2.840.1 [id number] 3558 Methodi 00:00:00 00:00:00 Only Sarah G. 57641.1.1 167 s t 3.430.2.7 Hospit a .3.347453 l .8 2020-10-27 2020-10-27 Outpatient SARAHI, [facility] [id number] 00:00:00 00:00:00 SARAH [address] 2020-10-27 2020-10-27 Outpatient SARAHI, [facility] [id number] [address] 00:00:00 00:00:00 SARAH [address] 2020-09-04 2020-09-04 Outpatient REGGIE, [facility] [id number] [place] 00:00:00 00:00:00 PETER [address] 2020-09-02 2020-09-02 Outpatient ANTONIO, LEVI [facility] [id number] [place] 00:00:00 00:00:[address] 2020-08-14 2020-08-14 Outpatient SARAHI, [facility] [id number] [address] [place] 00:00:00 00:00:00 SARAH [address] 2020-03-07 2020-03-07 Outpatient Chris BALBIRTO RADI [id number] [facility] 10:30:00 10:30:00 Nuvia [facility] 2020-02-26 2020-02-26 Outpatient Chris BALBIRCL LABO [id number] [facility] 18:01:00 18:01:00 Nuvia 24 [facility] 2020-02-26 2020-02-26 Outpatient LEANNA JacquesflorencioBALBIRTO 3DAY [id number] [facility] 00:00:00 00:00:00 Sarah [facility] 2019-10-26 2019-10-26 Outpatient SARAHI [facility] [id number] [place] 00:00:00 00:00:00 SARAH [address] 2019-10-26 2019-10-26 Outpatient SARAHI [facility] [id number] [address] [place] 00:00:00 00:00:00 SARAH [address] 2019-07-30 2019-07-30 Outpatient SARAHI, [facility] [id number] [address] [place] 00:00:00 00:00:00 SARAH [address] 2019-07-30 2019-07-30 Outpatient SARAHI [facility] [id number] [address] [place] 00:00:00 00:00:00 SARAH [address] 2019-05-08 2019-05-08 Outpatient SARAHI [facility] [id number] [address] [place] 00:00:00 00:00:00 SARAH [address] 2019-05-08 2019-05-08 Outpatient SARAHI [facility] [id number] [address] [place] 00:00:00 00:00:00 SARAH [address] 2019-05-08 2019-05-08 Outpatient SARAHI [facility] [id number] [address] [place] 00:00:00 00:00:00 SARAH [address] 2019-03-22 2019-03-22 Outpatient SARAHI [facility] [id number] [address] [place] 00:00:00 00:00:00 SARAH [address] [...] (test code = [place] 96367-7) interpret this result as normal/abnormal . Urea nitrogen/Creatinine [Mass 14 (calc) 6-22 Ratio] in Serum or Plasma (test code = 3097-3) Sodium [Moles/volume] in Serum 137 mmol/L 135-146 or Plasma (test code = 2951-2) Potassium [Moles/volume] in 4.5 mmol/L 3.5-5.3 Serum or Plasma (test code = 2823-3) Chloride [Moles/volume] in 102 mmol/L 98-110 Serum or Plasma (test code = 2075-0) Carbon dioxide, total 28 mmol/L 20-32 [Moles/volume] in Serum or Plasma (test code = 2027-9) Calcium [Mass/volume] in Serum 9.5 mg/dL 8.6-10.4 or Plasma (test code = 70831-1) Protein [Mass/volume] in Serum 6.9 g/dL 6.1-8.1 or Plasma (test code = 2885-2) Albumin [Mass/volume] in Serum 3.9 g/dL 3.6-5.1 or Plasma (test code = 1751-7) Globulin [Mass/volume] in 3.0 g/dL (calc) 1.9-3.7 Serum by calculation (test code = 06285-1) Albumin/Globulin [Mass Ratio] 1.3 (calc) 1.0-2.5 in Serum or Plasma (test code = 175-0) Bilirubin.total [Mass/volume] 0.4 mg/dL 0.2-1.2 in Serum or Plasma (test code = 1974-) Alkaline phosphatase 58 U/L 37-153 [Enzymatic activity/volume] in Serum or Plasma (test code = 6768-6) Aspartate aminotransferase 21 U/L 10-35 [Enzymatic activity/volume] in Serum or Plasma (test code = 1920-8) Alanine aminotransferase 11 U/L 6-29 [Enzymatic activity/volume] in Serum or Plasma (test code = 1742-6) [facility] MedicalcarBAMazepine free [Mass/volume] in Serum or [id number] 00:00:00 Test Item Value Reference Range Interpretation Comments carBAMazepine free [Mass/volume] 1.4 mcg/mL 1.0-3.0 in Serum or Plasma (test code = 3433-0) [facility] panel - Blood by Automated [id number] 00:00:00 Test Item Value Reference Range Interpretation [...] 10.3 fL 7.5-12.5 volume] in Blood by Tirso (test code = 776-5) [facility] MedicalcarBAMazepine [Mass/volume] in Serum or [id number] 00:00:00 Test Item Value Reference Range Interpretation Comments carBAMazepine [Mass/volume] in 10.8 mg/L 4.0-12.0 Serum or Plasma (test code = 3432-2) [facility] MedicalSurgical pathology [id number] 20:46:01 Test Item Value Reference Range Interpretation Comments Case number (test [id number] code = 9333901) Surgical pathology See link below for PDF report (test code = Lab Report 2255) Result status (test This is Supplemental code = 3562292) Report [facility] [id number] [facility] [id number] 20:46:01 Test Item Value Reference Range Interpretation Comments Case number (test [id number] code = 1147526) Surgical pathology See link below for PDF report (test code = Lab Report 2255) Result status (test This is Supplemental code = 9940911) [facility] [id number] [facility] [id number] 20:46:01 Test Item Value Reference Range Interpretation Comments Case number (test [id number] code = 0893764) Surgical pathology See link below for PDF report (test code = Lab Report 2255) Result status (test This is Supplemental code = 7368470) Report for [id number] [facility] [id number] 19:12:00 Test Item Value Reference Interpretation Comments Range Urine culture Streptococcus group A Specime n isolate (test B10-4 InformationSpe cimen code = 66335-3) cfu/ml~identificati Sourc e: UrineSpecimen on to followThe Site: Clean catch performance characteristics of this assay on this isolatewere validated by the Microbiology Laboratory at [facility]. This source has not been approved by the U.S. Food and Drug Administration. The results are not intended to be used as the sole means for clinical diagnosis or patient management. The Microbiology Laboratory is authorized under the clinical Laboratory Improvement Amendments of 1988 (CLIA-88) to perform high complexity testing. Lab Abnormal Interpretation (test code = 07030-3) [facility]2022-10-19 19:12:00 Test Item Value Reference Interpretation Comments Range Urine culture Streptococcus group A Specime n isolate (test B10-4 InformationSpe cimen code = 54507-4) cfu/ml~identificati Sourc e: UrineSpecimen on to followThe Site: Clean catch performance characteristics of this assay on this isolatewere validated by the Microbiology Laboratory at [facility]. This source has not been approved by the U.S. Food and Drug Administration. The results are not intended to be used as the sole means for clinical diagnosis or patient management. The Microbiology Laboratory is authorized under the clinical Laboratory Improvement Amendments of 1988 (CLIA-88) to perform high complexity testing. Lab Abnormal Interpretation (test code = 16715-6) [facility]2022-10-19 19:12:00 Test Item Value Reference Interpretation Comments Range Urine culture Streptococcus group A Specime n isolate (test B10-4 InformationSpe cimen code = 65104-8) cfu/ml~identificati Sourc e: UrineSpecimen on to followThe Site: Clean catch performance characteristics of this assay on this isolatewere validated by the Microbiology Laboratory at [facility]. This source has not been approved by the U.S. Food and Drug Administration. The results are not intended to be used as the sole means for clinical diagnosis or patient management. The Microbiology Laboratory is authorized under the clinical Laboratory Improvement Amendments of 1988 (CLIA-88) to perform high complexity testing. Lab Abnormal Interpretation (test code = 74469-8) [address]2022-10-18 19:46:46 Test Item Value Reference Range Interpretation Comments Ventricular rate (test 63 code = 253) Atrial rate (test code 63 = 255) TN interval (test code 152 = 266) QRSD [...] of 22-MAR-2022 12:20,-No significant change was found- [address]2022-10-18 19:46:46 Test Item Value Reference Range Interpretation Comments Ventricular rate (test 63 code = 253) Atrial rate (test code 63 = 255) TN interval (test code 152 = 266) QRSD [...] of 22-MAR-2022 12:20,-No significant change was found- [address]2022-10-18 19:46:46 Test Item Value Reference Range Interpretation Comments Ventricular rate (test 63 code = 253) Atrial rate (test code 63 = 255) TN interval (test code 152 = 266) QRSD [...] of 22-MAR-2022 12:20,-No significant change was found- [facility] ED Preliminary Interpretation - Not an [id number] 17:25:40 Test Item Value Reference Range Interpretation Comments CARROL (test code = CARROL) Adal Gregory DO 03/22/2022 6:22 [facility] [place] Preliminary Interpretation - Not an OrderPerformed by: Keturah Johnson NPAuthorized by: Adal Gregory DO ECG reviewed by ED Physician in the absence of a caul puller: yes Previous ECG: Previous ECG: UnavailableInterpretat ion: Interpretation: abnormal Rate: ECG rate: 79 ECG rate assessment: normal Rhythm: Rhythm: sinus rhythm Ectopy: Ectopy: none QRS: QRS axis: NormalConduction: Conduction: normal ST segments: ST segments: Non-specificT waves: T waves: normal Lab Interpretation Abnormal (test code = 45211-2) [facility] ED Preliminary Interpretation - Not an [id number] 17:25:40 Test Item Value Reference Range Interpretation Comments CARROL (test code = CARROL) Adal Gregory DO 03/22/2022 6:22 [facility] Preliminary Interpretation - Not an OrderPerformed by: Keturah Johnson NPAuthorized by: Adal Gregory DO ECG reviewed by ED Physician in the absence of a caul puller: yes Previous ECG: Previous ECG: UnavailableInterpretat ion: Interpretation: abnormal Rate: ECG rate: 79 ECG rate assessment: normal Rhythm: Rhythm: sinus rhythm Ectopy: Ectopy: none QRS: QRS axis: NormalConduction: Conduction: normal ST segments: ST segments: Non-specificT waves: T waves: normal Lab Interpretation Abnormal (test code = 27528-1) [facility] ED Preliminary Interpretation - Not an [id number] 17:25:40 Test Item Value Reference Range Interpretation Comments CARROL (test code = CARROL) Adal Gregory DO 03/22/2022 6:22 [facility] Preliminary Interpretation - Not an OrderPerformed by: Keturah Johnson, NPAuthorized by: Adal Gregory DO ECG reviewed by ED Physician in the absence of a caul puller: yes Previous ECG: Previous ECG: UnavailableInterpretat ion: Interpretation: abnormal Rate: ECG rate: 79 ECG rate assessment: normal Rhythm: Rhythm: sinus rhythm Ectopy: Ectopy: none QRS: QRS axis: NormalConduction: Conduction: normal ST segments: ST segments: Non-specificT waves: T waves: normal Lab Interpretation Abnormal (test code = 09790-7) [facility] GgmbxjqfDLFS-BjD-3 (COVID-19) RNA [Presence] in Respiratory specimen by JOSIAH with probe [id number] 16:00:11 Test Item Value Reference Range Interpretation Comments SARS-CoV-2 (COVID-19) RNA Not detected [Presence] in Respiratory specimen by JOSIAH with probe detection (test code = 51371-6) Whether patient is employed in a Unknown healthcare setting (test code = 20559-3) Whether the patient has symptoms Unknown related to condition of interest (test code = 93538-3) Whether the patient was Unknown hospitalized for condition of interest (test code = 85273-6) Whether the patient was admitted Unknown to intensive care unit (ICU) for condition of interest (test code = 79891-3) Whether patient resides in a Unknown congregate care setting (test code = 39669-5) status (test code = Unknown 77392-8) Date and time of symptom onset Unknown (test code = 02372-8) [facility] [id number] 13:26:01 Test Item Value Reference Range Interpretation Comments POC creatinine (test 1.2 mg/dl 0.5-0.9 H Operato r Name: code = 39326-6) Michael Thornton ID: [id number] POC hematocrit (test 40 % 37-47 code = 4544-3) Lab Interpretation (test Abnormal code = 82792-2) [facility] [id number] 13:26:00 Test Item Value Reference Range Interpretation Comments Estimated GFR (test mL/min/1.73 m2 A Michela vale Units code = 08928-0) Interpretati onG1 >=90 Normal or highG 2 60-89 Mildly decrease dG3a 45-59 Mildly to moderately decr rjmbqV9b 30-44 Moderatel y to severely decrea sedG4 15-29 Severely decreasedG5 <15 Kidney failureThe eGFR was calculated ustravis g the Chronic Kidney Disease Epidemiology Collaboration ( CKD-EPI) equation. Interpretation is based on recommendati ons of the National [facility]-Kidn ey Disease Outcome s Quality Initiat vicky (NKF-KDOQI) pub lished in 2013. Lab Interpretation Abnormal (test code = 61594-7) [facility] HospitalCv stress [id number] 10:15:50 Test Item Value Reference Range Interpretation Comments Resting HR (test code = 8797755339) Resting BP (test code 185&75 = 0619301409) Peak MET Achieved (test code = 0494923973) Protocol Name (test REGADENO code = 9449201834) Time in Exercise 00:01:00 Phase (test code = 9193134293) Max Systolic BP (test code = 4323801607) Max Diastolic BP (test code = 0719475772) Max Heart Rate (test code = 3012815063) Max Predicted Heart Rate (test code = 6710159958) Target HR Formula (220 - Age)*100% (test code = 5600408174) Test Indication (test chest pain code = 5850245852) Arrhy During Ex (test code = 2234584307) ECG Interp Before EX (test code = 7014322586) ECG Interp During Ex (test code = 0484266798) Ex Summary Comment (test code = 2965652065) Overall HR Response to Exercise (test code = 1646160514) Overall BP Response To Exercise (test code = 0495800933) Reason for Protocol Complete Termination (test code = 2213115929) Stress Test Waveform interpreted in Impression (test code report associated with = 1139569509) image study. No interpretation is provided as part of this Stress ECG report.-Electronically Signed By Mackenzie LANDIN, Praful Wallace ([id number]), scientific publications editor Jenise Mathur ([id number]) on 11/16/2021 5:15:49 AM [facility] ChristinaECG 12 [id number] 00:02:11 Test Item Value Reference Range Interpretation Comments Ventricular rate (test code = 253) Atrial rate (test code = 255) TN interval (test code = 266) QRSD interval [...] of 13-NOV-2021 12:08,-No significant change was found- [facility]ist [id number]-UqV-2 (COVID-19) RNA [Presence] in Respiratory specimen by JOSIAH with probe [id number] 18:39:02 Test Item Value Reference Range Interpretation Comments SARS-CoV-2 (COVID-19) RNA Not detected [Presence] in Respiratory specimen by JOSIAH with probe detection (test code = 28654-9) Whether patient is employed in a Unknown healthcare setting (test code = 71008-3) Whether the patient has symptoms Unknown related to condition of interest (test code = 79237-6) Whether the patient was Unknown hospitalized for condition of interest (test code = 34440-4) Whether the patient was admitted Unknown to intensive care unit (ICU) for condition of interest (test code = 28457-6) Whether patient resides in a Unknown congregate care setting (test code = 00627-5) status (test code = Unknown 76731-6) Date and time of symptom onset Unknown (test code = 16812-9) MORGAN CARDENASSARS-CoV-2 (COVID-19) RNA [Presence] in Respiratory specimen by JOSIAH with probe [id number] 22:43:12 Test Item Value Reference Range Interpretation Comments SARS-CoV-2 (COVID-19) RNA Not detected Not-Detected [Presence] in Respiratory specimen by JOSIAH with probe detection (test code = 08834-2) MORGAN KELL[facility] METABOLIC [id number] 06:43:00 Test Item Value Reference Range Interpretation [...] RATE (test code = GFR) mL/mi n/1.73 n9Eijzgxosp Range:Healthy Adults >90 mL/min/1.73 m2 For Chronic Kidney Disease: Stage II Mild Decrease i n GFR 60-90 Stage III Moderate Decrea se in GFR 30-59 St age IV Severe Decre ase in GFR 15-29 St age V Kidney Failur e <15 CREATININE (test code 0.97 mg/dL 0.55-1.30 N = CREAT) CALCIUM (test code = 8.6 mg/dL 8.2-10.1 N CA) SPECIMEN COMMENT: POD #1HGB [id number] 05:52:00 Test Item Value Reference Range Interpretation Comments HEMOGLOBIN (test code = HGB) 11.1 g/dL 12-16 L HEMATOCRIT (test code = HCT) 32.2 % 37-47 L SPECIMEN COMMENT: POD #1Novel Coronavirus 2019 [id number] 15:07:00 Test Item Value Reference Range Interpretation [...] usingthe Diane M2000 Sy stem under the [facility] Emergen cy UseAuthorizatio n. The testing is perf ormed by personneltraine d in the procedures for the Diane M2000 molecular diagnostic SARS-CoV-2 assa y in vitro. Novel Coronavirus 2018 [id number] 15:06:00 Test Item Value Reference Range Interpretation [...] 12:07:00 Patient Name: POLA EID Unit No: [id number] EXAMS: CPT CODE: [id number] USG NDL PLACEMENT (Bxg/Asp) 24496 INDICATION: Right knee pain. PROCEDURE: Ultrasound guided cryoanalgesia (Iovera)of the right anterior femoral cutaneous nerve, medial femoral cutaneous nerve, and the superior and inferior branches of the infrapatellar branch of the saphenous nerve. CABINET PROFESSIONAL: Dr. Del Rio. MEDICATIONS: 1 % Lidocaine [...] Postprocedural pain level: 6/ 10 IMPRESSION: Cryoanalgesia ofthe right anterior femoral cutaneous nerve, medial femoral cutaneous nerve, and the superior and inferior branches of the infrapatellar branch of the saphenous nerve as above. at 1207 Reported and signed by: Moi Del Rio MD [facility] NAME: POLA EID [address] [facility] PHYS: Nuvia Mar : 1945 AGE: 74 SEX: F [place], [place] [address] LOC: Y.RAD PHONE #: [phone] EXAM DATE: 03/07/2020 STATUS: REG CLI FAX #: [phone] RAD #: D/C DT PAGE 1 Signed Repo rt (CONTINUED) Patient Name: POLA EID Unit No: [id number] EXAMS: CPT CODE: [id number] NDL PLACEMENT (Bxg/Asp) 40260 (Continued) CC: Nuvia Perez MD; Sarah Mcclain MD Technologist: JULIUS DOMINGUEZ RDMS, RVT Transcribed D/ (1207) AsterJCL [facility] NAME: POLA EID [address] [place] [address] PHYS: Nuvia Mar MD : 1945 AGE: 74 SEX: F [place] [address] LOC: Y.RAD PHONE #: [phone] EXAM DATE: 03/07/2020 STATUS: REG CLI FAX #: [phone] RAD #: D/C DT PAGE 2 Signed Report Patient Name: POLA EID Unit No: [id number] EXAMS: CPT CODE: [id number] USG NDL PLACEMENT (Bxg/Asp) 43565 (Continued) Orig Print D/T: S: 03/07/2020 (1210) [facility] NAME: POLA EID[address] [place] [address] PHYS: Nuvia Mar MD : 1945 AGE: 74 SEX: F [place] [address] LOC: Y.RAD PHONE #: [phone] EXAM DATE: 03/07/2020 STATUS: REG CLI FAX #: [phone] RAD #: D/C DT PAGE 3 Signed ReportVITAMIN D 25-HYDROXY (TOTAL) 2020-02-28 07:28:00 Test Item Value Reference Range Interpretation Comments VITAMIN D 45.8 ng/mL 30.0-100.0 Vitamin D defic iency has 25-HYDROXY (TOTAL) been defi jaswinder by the (test code = Norris ofMed icine and VITD25) an Endocrine So [facility] practice guidel ine as alevel of serum 25-OH vitamin D less than 20 ng/mL (1,2).The Endocrine Society went on to further define vitamin Dinsufficiency as a level between 21 and 29 ng/mL (2).1. IOM (Ins titute of Medicine). 2010 . Dietary reference intak es for calcium and D. [place]: The [facility] [employer] .2. John MF, Mita CRENSHAW, Samia russell LEMUS, et al. Evaluation, treatment, and prevention of vitamin D de ficiency: an Endocrine So [facility] clinical practi ce guideline. JCEM . 2010; 96(3):1911-30.P erformed At: [facility] [address] [place], [place] [id number] Tommy Cherry MD Ph:[phone] COMPREHENSIVE METABOLIC [id number] 18:50:00 Test Item Value Reference Range Interpretation [...] RATE (test code = GFR) mL/mi n/1.73 p2Bfbezpetc Range:Healthy Adults >90 mL/min/1.73 m2 For Chronic Kidney Disease: Stage II Mild Decrease i n GFR 60-90 Stage III Moderate Decrea se in GFR 30-59 St age IV Severe Decr ease in GFR 15-29 St age V Kidney Failur e <15 CREATININE (test code = 1.25 mg/dL [...] N TOTAL (test code = ALKP) PROTHROMBIN [id number] 18:50:00 Test Item Value Reference Range Interpretation Comments PROTHROMBIN TIME 11.0 secs 10.1-12.5 N PATIENT (test code = PTP) INTERNATIONAL NORMAL 0.98 <2.0 RECOMME NDED THERAPEUTIC RATIO (test code = RANGE FOR ORAL INR) ANTICOAGULANTTR EATMENT: CONDITION INRProphylaxis of venous thrombosis in 2 .0 - 3.0 high-risk medic al or surgical patientsTreatme nt of venous thrombos is 2.0 - 3.0Prevention o f embolism 2.0 - 3.0Prevention o f recurrent embol ism, or 3.0 - 4.5 patie nts with mechanical pros thetic intravascular v ly IS PATIENT ON ANTICOAGULANTS ? YLIST ANTICOAGULANT/ANTI PLT MEDICATION : AspirinHas Lab been notified if Patient is on Heparin Drip? NOTHROMBOPLASTIN TIME [id number] 18:50:00 Test Item Value Reference Range Interpretation [...] Notes Date/Time Note Provider Source 2020-04-08 07:41:00-00:00 [id number] [place] [address] PATIENT NAME: POLA EID ADMIT MORENITA E: 03/12/20 ACCOUNT NO: [id number] ROOM NO: Y.512 AGE: 74 REPORT TYPE: [...] home. Dictated By: Nuvia Perez MD WT: DS:EUGENIE/STONABILA/NTS Conf#: [id number]/DID#: [id number] Authenticated by Nuvia Perez MD On 09:15:52 AM at 0916 PATIENT NAME: POLA EID 2020-03-15 10:10:00-00:00 [facility] ([facility]) Clinical Note REPORT#:[id number] REPORT STATUS: Signed DATE:03/15/20 TIME: 1010 PATIENT: POLA EID UNIT #: [id number] ROOM/BED: [address] : 46 AGE: 74 SEX: F ATTEND: Keshav Perez MD ADM AUTHOR: Apurva Ritchie * ALL edits or amendments must be made on the App[employer]/computer document * Clinical Note Note: She is [...] 03/14 1530 O2 Flow Rate 3 03/14 730 FiO2 32 03/14 0502 03/15 1500 Intake Total Output Total Balance Number [...] Apurva Ritchie on 03/15 at 1013 RPT #:[id number] END OF REPORT 2020-03-15 10:10:00-00:00 [facility] ([facility]) Clinical Note REPORT#:[id number] REPORT STATUS: Signed DATE:03/15/20 TIME: 1010 PATIENT: POLA EID UNIT #: [id number] ROOM/BED: [address] : 46 AGE: 74 SEX: F ATTEND: Keshav Perez MD ADM AUTHOR: Apurva Ritchie * ALL edits or amendments must be made on the App[employer]/computer document * Clinical Note Note: She is [...] 03/14 1530 O2 Flow Rate 3 03/14 730 FiO2 32 03/14 0502 03/15 1500 Intake Total Output Total Balance Number [...] on 03/15 at 1013 at 1542 RPT #:[id number] END OF REPORT 2020-03-14 10:35:00-00:00 [facility] ([facility]) Clinical Note REPORT#:[id number] REPORT STATUS: Signed DATE:03/14/20 TIME: 1035 PATIENT: POLA EID UNIT #: [id number] ROOM/BED: [address] : 46 AGE: 74 SEX: F ATTEND: Keshav Perez MD ADM AUTHOR: Apurva Ritchie * ALL edits or amendments must be made on the App[employer]/computer document * Clinical Note Note: She has [...] Apurva Ritchie on 03/14 at 1037 RPT #:[id number] END OF REPORT 2020-03-14 10:35:00-00:00 [facility] ([facility]) Clinical Note REPORT#:[id number] REPORT STATUS: Signed DATE:03/14/20 TIME: 1035 PATIENT: POLA EID UNIT #: [id number] ROOM/BED: [address] : 46 AGE: 74 SEX: F ATTEND: Keshav Perez MD ADM AUTHOR: Apurva Ritchie * ALL edits or amendments must be made on the App[employer]/computer document * Clinical Note Note: She has [...] on 03/14 at 1037 at 1542 RPT #:[id number] END OF REPORT 2020-03-13 12:51:00-00:00 [facility] ([facility]) Clinical Note REPORT#:[id number] REPORT STATUS: Signed DATE:03/13/20 TIME: 1251 PATIENT: POLA EID UNIT #: [id number] ROOM/BED: 315-A : 46 AGE: 74 SEX: F ATTEND: Keshav Perez MD ADM AUTHOR: Apurva Ritchie * ALL edits or amendments must be made on the AppTap/computer document * Clinical Note Note: ambulated around the room on ly. She has had N/V this morning. Lunch is her first meal eaten since surgery. Last Documented: Result Date Time Pulse Ox 98 03/13 111 B/P 111/66 03/13 1115 B/P Mean 80.6 03/13 1115 Temp 98.1 03/13 1115 Pulse 71 03/13 1115 Resp 12 03/13 1115 O2 Delivery Nasal cannula 03/13 724 O2 Flow Rate 3 03/13 724 FiO2 32 03/13 0533 03/13 0700 03/12 2300 03/12 1500 Intake Total 500.00 500.00 100.00 Output Total Balance 500.00 500.00 100.00 Intake, IV 250.00 250.00 100.00 Intake, Oral 250 250 Number Voids 2 Patient 156 lb Weight Weight Stated/Reported Measurement Method Laboratory Tests: 03/13 0400 Chemistry Sodium (136 - 145 mmol/L) 138 [...] Apurva Ritchie on 03/13 at 1253 RPT #:[id number] END OF REPORT 2020-03-13 12:51:00-00:00 [facility] ([facility]) Clinical Note REPORT#:[id number] REPORT STATUS: Signed DATE:03/13/20 TIME: 1251 PATIENT: POLA EID UNIT #: [id number] [facility] AGE: 74 SEX: F ATTEND: Keshav Perez MD ADM AUTHOR: Apurva Ritchie * ALL edits or amendments must be made on the AppTap/computer document * Clinical Note Note: ambulated around the room on ly. She has had N/V this morning. Lunch is her first meal eaten since surgery. Last Documented: Result Date Time Pulse Ox 98 03/13 1115 B/P 111/66 03/13 111 B/P Mean 80.6 03/13 1115 Temp 98.1 03/13 1115 Pulse 71 03/13 111 Resp 12 03/13 1115 O2 Delivery Nasal cannula 03/13 724 O2 Flow Rate 3 03/13 724 FiO2 32 03/13 0533 03/13 0700 03/12 2300 03/12 1500 Intake Total 500.00 500.00 [...] Apurva Ritchie on 03/13 at 1253 at 1436 RPT #:[id number] END OF REPORT 2020-03-12 17:52:00-00:00 [facility] ([facility]) Clinical Note REPORT#:[id number] REPORT STATUS: Signed DATE:03/12/20 TIME: 175 PATIENT: POLA EDI UNIT #: [id number] [facility] AGE: 74 SEX: F ATTEND: Keshav Perez MD ADM AUTHOR: Angel Jefferson MD * ALL edits or amendments must be made on the el ectronic/computer document * Clinical Note Note: Consult Note Dictated [id number] Electronically Signed by Angel Jefferson MD o n 03/12/20 at 1755 RPT #:[id number] END OF REPORT 2020-03-12 17:45:00-00:00 [id number] [place] [address] PATIENT NAME: POLA EID ADMIT DATE : 03/12/20 ACCOUNT NO: [id number] ROOM NO: [facility] AGE: 74 REPORT TYPE: CONSULTATION REPORT SEX: [...] medication management. The patient was admitted to [facility] earlier today, March 12. The patient states [...] does live with her in a 1-level [facility]. The patient's , [place], [facility] and [facility]. The patient did [...] , she does live with her h usband, [place], in a 1-level house. Cranial nerves: II, [...] knee. 2. Right total knee arthroplasty performed [facility] today, 03/12/2020. 3. Musculoskeletal spasm of low [...] p.r.n. muscle spasm . Dictated By: Angel Jefferson MD WT: CON:Y.HIM/MOLST/NTS PATIENT NAME: POLA EID Conf#: [id number]/DID#: [id number] cc: Nvuia Perez MD Authenticated by Angel Jefferson MD On 03/31 02:24:26 PM at 1424 PATIENT NAME: POLA EID 2020-03-12 15:08:00-00:00 [id number] [facility] [place] [address] PATIENT NAME: POLA EID ADMIT DATE : 03/12/20 ACCOUNT NO: [id number] ROOM NO: Y.315 AGE: 74 REPORT TYPE: OPERATIVE REPORT SEX: F ADMITTING PHYSICIAN:Nuvia Perez MD ATTENDING PHYSICIAN:Nuvia Perez MD OPERATION DATE: 03/12/2020 PREOPERATIVE DIAGNOSIS: Degenerative joint disea se, right knee. POSTOPERATIVE DIAGNOSIS: Degenerative joint dise ase, right knee. PROCEDURE: Right total knee arthroplasty. SURGEON: Nuvia Perez MD CHEMICAL ENGINEERING TECHNICIAN: Apurva Ritchie PA-C ANESTHESIA: General anesthesia. ESTIMATED [...] witho ut the help of a skilled assistant to the president familiar with the procedure and capabl e of safely performing the aforementioned tasks. Our facility is not a [facility] and as such, no PATIENT NAME: POLA EID surgical residents or interns were available to assist. Dictated By: Nuvia Perez MD WT: OP:EUGENIE/ROSALBA/NTS Conf#: [id number]/DID#: [id number] Authenticated by Nuvia Perez MD On 02:38:36 PM at 1438 PATIENT NAME: POLA EID 2020-03-12 12:12:00-00:00 [facility] ([facility]) Brief Op Note REPORT#:[id number] REPORT STATUS: Signed DATE:03/12/20 TIME: 1212 PATIENT: POLA EID UNIT #: [id number] ROOM/BED: [place] [address] : 46 AGE: 74 SEX: F ATTEND: Keshav Perez MD ADM AUTHOR: Nuvia Perez MD * ALL edits or amendments must be made on the el [employer]/computer document * Op/Inv Proc Note - Brief Pre-procedure diagnosis: DJD RT KNEE Post-procedure diagnosis: same as pre procedure dx Procedures performed: RT TKA Primary Surgeon: NUVIA PEREZ MD Telecasting Engineer(s): APURVA RITCHIE PA-C Anesthesia: general anesthesia Findings: DJD RT KNEE Complications: none Estimated blood loss in ml's: 100 Specimens removed/altered: none at 1213 RPT #:[id number] END OF REPORT
[2023-02-20] MEDS: SODIUM CHLORIDE 1 GM TAB PO SCH ×2 (13:22→16:35)
[2023-02-20] MEDS: TOPIRAMATE 25 MG TAB PO SCH (13:22)
[2023-02-20] MEDS ORDERED: TOPIRAMATE 25 MG TAB PO SCH (14:00)
[2023-02-20 15:21] LABS: Specific Gravity 1.011 (1.005-1.030); Urine Bacteria 20-50 /HPF (<20); Urine Bilirubin NEGATIVE (Negative); Urine Blood 2+ (Negative); Urine Clarity Extremely Turbid (Clear); Urine Color Colorless (Yellow); Urine Glucose NEGATIVE (Negative); Urine Protein TRACE (Negative); Urine RBC 21-50 /HPF (None Seen); Urine Urobilinogen Normal (Normal)
[2023-02-20] MEDS: PANTOPRAZOLE 40MG TABLET PO SCH (16:35)
--- NOTE | 2023-02-20 17:38 | HP ---
Date of Admission: 02/20/2023 Time Of Service: 1 p.m. Chief Complaint: Through the patient and her daughter, became confused after COVID infection and "my sodium was low." History Of Present Illness: Ms. Garcia is a 77-year-old right-handed patient with hyper tension, dyslipidemia, trigeminal neuralgia, on chronic Tegretol therapy, who per her daughter was do ing well, dancing at a wedding and driving on the 04 of February, then became confused, disoriented and was brought to [facility]. She was diagnosed with COVID-19 encephalopathy along with m etabolic encephalopathy due to hyponatremia. Hyponatremia likely secondary to carbamazepine. She di d receive IV fluids and electrolyte correction along with Paxlovid for COVID-19. She also received I V dexamethasone for the COVID-19 and had the Tegretol discontinued. She has become significantly wea k as a result of her hospitalization. Today is the , and she has not been ambulating since the . As a result of her severe changes such as hyponatremia and COVID-19 toxicity and treatment for t he hyponatremia and COVID, she again is debilitated and requires maximum assistance for performing or dinary activities such as transfer, upper and lower body dressing, and ambulating and she was fully i ndependent previously and could drive without any restrictions. As a result, she is now determined t o be an appropriate candidate for acute inpatient rehabilitation and will have to have aggressive mon itoring of her hyponatremia and if need be IV replacements would be appropriate. Past Medical History: Hypertension, dyslipidemia, trigeminal neuralgia bilaterally. Past Surgical History: Cholecystectomy, hysterectomy, right knee replacement, tonsillectomy. Family History: Rectal cancer in father and uterine cancer in grandmother. Allergies: IODINE CONTRAST, SULFAMETHOXAZOLE, TRAMADOL, AND TRIMETHOPRIM. Medications: At home prior to coming to the hospital, she was on the carbamazepine 200 mg twice huy y, now that is discontinued. She is on topiramate 25 mg twice daily, levothyroxine 37.5 mcg daily, m etoprolol 50 mg daily, vitamin C 1000 mg twice daily, molnupiravir 800 mg twice daily, and dexamethas one 2 mg twice daily. Social History: No alcohol, tobacco, or IV drug use. Patient lives at home with family. Review of Systems: Per the patient and her daughter, she had some myalgias, arthralgias. No rash. No psychiatric issue s. No active gastrointestinal issues, although actually she does have some issue of loose stools sin ce being hospitalized and is having her any stool softeners held. Otherwise, negative on a 10 point systems review. Laboratory Studies: Most recently, sodium 137, at lowest it was 129, potassium 3.7, chloride 110, ca rbon dioxide 25, BUN 32, creatinine 0.90, glucose 103, ranging up to 126, calcium 8.5, uric acid 3.6, magnesium 1.9, phosphorus 3.2, ALT normalized at 46, on admission the highest was at 101, AST normal ized down to 20, highest was 53 on the , today is 17. C-reactive protein is chronically elevat ed now 18.6, on the it was 17.5, serum protein 6, procalcitonin less than 0.05. Urinalysis on was extremely turbid, trace of ketones and trace of protein, otherwise unremarkable. COVID-1 9 test was positive on the . X-ray Imaging: A chest CT scan on 02/16 showed a small right pleural effusion. Head CT scan on the showed mild generalized brain atrophy with mild periventricular and deep white matter chronic valentin rovascular ischemic changes. No areas of brain edema or evidence of midline shift. No infarction. Physical Examination: Vital Signs: Blood pressure 138/65, pulse 68, respiratory rate 16, temperature 97.5, oxygen saturati on 100% room air. General: Ms. Garcia is resting comfortably in bed. She is in no significant distress. HEENT: She is normocephalic, atraumatic. Sclerae anicteric. Oropharynx pink and moist. Neck: Supple. Chest: Clear. Heart: Regular. Extremities: Show no clubbing, cyanosis, or edema. Neurological: Alert, oriented to situation and place and person. She is able to follow two-step com mands without difficulty. Cranial nerves show no focal deficits on 2 through 12. On motor examinati on, diffuse weakness of 4 to 5 upper lower extremity, intact coordination. Decreased sensation in te renny of stocking-glove loss. Reflexes depressed in upper and lower extremities. In terms of gait, chel zamudio will be ambulated with gait belt with a physical therapist in the morning. Current Level Of Functioning: Currently, eating is at setup assistance as well as oral hygiene, mode rate assistance for toileting and showering, contact guard for upper body dressing, moderate assistan ce for lower body dressing and donning and doffing shoes. Tbs-wq-fqjsu and fen-hw-gqtks, moderate as sistance to maximum assistance. Maximum assistance from transferring bed to chair and to toilet. In terms of walking, 0 walking at this point. We will work hard on her beginning to walk again startin g tomorrow. Rehabilitation And Medical Assessment And Plan: [facility] impairment category 03 brain dysfunction, nontraumatic. Her impairment group code is 02.1, nontraumatic. Her etiologic diagnosis, metabolic encephalopathy. Comorbidities are recent CO VID-19 infection, hyponatremia has resolved, decreased mobility, decreased in physical functioning, h ypertension, pleural effusion, diffuse weakness, and trigeminal neuralgia. Plan: 1.She will have physical, occupational, and speech therapy for 3.5 hours, 5 of 7 days. 2.Tylenol 500 mg every 6 hours for pain. Eliquis 2.5 mg twice daily for DVT prophylaxis. 3.Vitamin D she is receiving 50,000 units weekly, Zetia 10 mg daily, Lactinex 1 tablet daily, Synthr oid 0.0375 mg daily, melatonin 10 mg at bedtime, Lopressor 50 mg daily, Protonix 40 mg daily, Senokot S 2 at bedtime will be held with constipation, sodium chloride 1 g 3 times daily with meals, topiram ate mg twice daily. Impact Of Comorbidities: 1.Given her recent COVID infection and COVID encephalopathy along with hyponatremia and metabolic en cephalopathy, she has a dual cause of encephalopathy that is toxic metabolic and will have to be watc hed closely for redevelopment of hyponatremia and worsening confusion. If need be, antipsychotics wi ll be used if she develops encephalopathy with psychotic features. Speech therapy will work with her to help regain functioning and she will use incentive spirometry to help keep her lung capacity good which it shows from her saturation, she is doing very well. 2.She is significantly debilitated, not ambulating in now 17 days when she was previously fully acti ve without restriction or use of an assistive device. She will be first working with an assistive de vice which will graduate to a Rollator, which actually she did use on occasion previously. Rehab Specific Plan: 1.Ms. Garcia will have 3.5 hours, 5 of 7 days for physical, occupational, and speech therapy to i mprove her ability to dress upper and lower body, transferring, toileting, showering, ambulate 250 fe et with modified independence up and down 10 steps with modified independence and perform all cogniti ve functioning with modified independence. 2.She will have detention on a daily multiple time a day basis to assess blood draws, to evalu ate the patient and determine if acute intervention is required to administer all medications, to add ress all pain needs and sleep issues and to address bowel related problems and urination issues. 3.She will have daily physician evaluation and management to manage her comorbid conditions. Make a djustments as appropriate including blood draws, imaging studies as necessary. 4.She will have Speech Therapy to work on her cognition and comprehension understanding safety aware ness and ability to make good sound decisions as well as continuing to protect the airway properly. 5.Ms. Garcia and her daughter who is in the room have good understanding of the purpose and reaso n for admission to the inpatient rehabilitation unit and she will receive physical, occupational, and speech therapy along with detention and physician evaluation and management. If need be, serv ices such as Nutrition Service, Respiratory Service will be consulted. Given her complex medical con dition and risk of further complications, rehabilitation cannot be safely or effectively provided at a lower level such as detention. Barriers To Discharge: Currently, recent COVID-19 infection. She is well out of the period for insp ecting anyone else, but will be evaluated appropriately with imaging, if need be, such as chest CT an d she also had hyponatremia with likely related to Tegretol and that has been discontinued, we will n ot restart that. Estimated Length Of Stay: 10 to 12 days. Disposition: Home with family. Prognosis: Good. Rehabilitation Goals: 1.Independent with upper and body dressing, transferring, toileting, showering. 2.Independent with ambulating 500 feet with a Rollator. 3.Independent with up and down steps with bilateral handrails. 4.Independently perform cognitive functioning. 5.Independently manage all of her meals including thin liquids, thickened foods and regular consiste ncies without aspiration. 6.Continue to have detention as appropriate and physician evaluation on a daily basis as appro priate. 7.The above goals were reviewed with Ms. Garcia and her daughter and they are in agreement. I acknowledge I personally performed a full physical examination on Ms. Garcia no later than 24 ho urs after admission to the inpatient rehabilitation facility and determined that she is able to todd ate the above course of treatment at an intensive level for a reasonable period of time. A detailed individualized plan of care for her will be completed by hospital day 4 based on the preadmission scr een, history and physical, and therapy evaluations. CHRISTIE Voice ID: [id number]
[2023-02-20] MEDS: TOPIRAMATE 100 MG TAB PO SCH (19:15)
[2023-02-20] MEDS: APIXABAN 2.5 MG TABLET PO SCH (19:15)
[2023-02-20] MEDS: MELATONIN 5 MG TABLET PO PRN (19:15)
[2023-02-20] MEDS ORDERED: carBAMazepine 200 MG TAB PO SCH (20:00)
[2023-02-20] MEDS: ACETAMINOPHEN 500 MG TAB PO PRN (23:36)
[2023-02-21 04:10] LABS: Absolute Lymphocytes (CBC) 1.3 K/uL (0.7-4.9); Hematocrit 30.8 % (36.0-45.0); Lymphocytes % 15.1 % (15.3-44.8); MCV 91.8 fL (80-100); Platelets 364 thou/uL (152-406); RBC Red Blood Cell Count 3.35 M/uL (3.86-4.86)
[2023-02-21 04:26] LABS: Albumin 2.5 g/dL (3.4-5.0); Magnesium 1.9 mg/dL (1.6-2.4); Potassium 3.9 mEq/L (3.5-5.1); Prealbumin 30.2 mg/dL (20-40)
[2023-02-21] MEDS: ACETAMINOPHEN 500 MG TAB PO PRN ×2 (04:53→13:16)
[2023-02-21] MEDS: LEVOTHYROXINE SOD 0.075 MG TAB PO SCH (05:00)
[2023-02-21] MEDS: PANTOPRAZOLE 40MG TABLET PO SCH ×2 (06:44→16:35)
[2023-02-21] MEDS: EZETIMIBE 10 MG TAB PO SCH (08:49)
[2023-02-21] MEDS: APIXABAN 2.5 MG TABLET PO SCH ×2 (08:49→19:50)
[2023-02-21] MEDS: METOPROLOL TAR 50 MG TAB PO SCH (08:49)
[2023-02-21] MEDS: LACTOBACILLUS/ACIDOPHILUS TAB PO SCH (08:49)
[2023-02-21] MEDS: SODIUM CHLORIDE 1 GM TAB PO SCH (08:49)
[2023-02-21] MEDS: CRANBERRY FRUIT EXTRACT 200 MG CAP PO SCH ×2 (08:50→19:50)
[2023-02-21] MEDS: TOPIRAMATE 100 MG TAB PO SCH ×2 (10:07→19:51)
[2023-02-21] MEDS: TOPIRAMATE 25 MG TAB PO SCH (13:16)
[2023-02-21] MEDS: MEGESTROL 40 MG TAB PO SCH (19:50)
[2023-02-21] MEDS: MAGNESIUM OXIDE 400 MG TAB PO SCH (19:51)
[2023-02-21] MEDS: ENSURE ENLIVE 237 ML CAN PO SCH (19:51)
[2023-02-21] MEDS: DOCUSATE NA/SENNA CONC 1 TAB PO PRN (19:52)
[2023-02-21] MEDS: MELATONIN 5 MG TABLET PO PRN (19:53)
--- NOTE | 2023-02-22 01:58 | PN ---
Date of Progress Note: 02/21/2023 Jysj-Ap-Jqse Progress Note Visit Time Of Service: 1:35 p.m. Subjective: Ms. Garcia is resting in bed. She is doing better today. No new complaints. Her co nfusion is improving. She denies any weakness in arms and legs. Review of Systems: No significant fevers, chills, myalgias, arthralgias, rash, headache, weight change. No psychiatric issues. Physical Examination: Vital Signs: Blood pressure 121/59, pulse 92, respiratory rate of 17, temperature 97.8, and oxygen s aturation 98%. General: Ms. Garcia is resting in bed. HEENT: She is normocephalic and atraumatic. Sclerae anicteric. Oropharynx moist. Neck: Supple. Chest: Clear. Heart: Regular. Extremities: She has diffuse weakness in the upper and lower extremities without focal findings. Laboratory Studies: White blood cell count 8.3, hemoglobin 11, hematocrit 30.8, platelets 364. Sodi um 140, potassium 3.9, chloride 111, carbon dioxide 23, BUN 38, creatinine 0.81, glucose 103, calcium 8.5, magnesium 1.9, albumin 2.5. Prealbumin 30.2. Urinalysis shows 250 esterases, 21 to 50 red blo od cells, bacteria 20 to 50, amorphous crystals 3+, trace protein, 2+ blood, pH of 8, extreme turbidi ty. Her urine cultures are pending. X-rays/imaging: No new x-rays or imaging. Medications: 1.Tylenol 500 mg every 6 hours as needed. 2.Eliquis 2.5 mg twice daily. 3.Vitamin D 91406 units once weekly. 4.Zetia 10 mg daily. 5.Lactinex one tablet daily. 6.Synthroid 0.375 mg daily. 7.Magnesium oxide 400 mg twice daily. 8.Megace 40 mg twice daily. 9.Melatonin 10 mg at bedtime. 10.Lopressor 50 mg daily. 11.Ensure Enlive 237 mL twice daily. 12.Protonix 40 mg twice daily. 13.Senokot-S 2 at bedtime. 14.Topiramate 25 mg daily. Current Functional Status: Today, Ms. Garcia walked 50 feet with maximum assistance. She also wa s able to go up and down 5 steps with maximum assistance. She mobilized wheelchair 40 feet with maxi mum assistance. Scooting in bed was done with maximum assistance twice. Sit to stand transfers with maximum assistance. Similarly car transfer done with maximum assistance. With occupational therapy , bathing with maximum assistance. Upper body dressing, minimum assistance. Lower body dressing was dependent. Qgj-we-pjqmq was minimum assistance with the occupational therapists. With speech thera py, she did score 9 out of 15 on the BIMS and 10 out of 30 on the SLUMS test indicative of cognitive communicative deficits including orientation, short-term memory, working memory, organization of skil ls and auditory comprehension skills. Progress Towards Rehabilitation Goals: Ms. Garcia is so far making slow progress towards her goal s of becoming modified independent with upper body dressing, transferring, toileting, showering, and performing all activities of daily living with independence. She also has some difficulty with her c ognitive functioning. Her daughter was in the room and said at one point, she was driving independen Document Agilityy and going to parties and was functioning at a normal level of cognitive functioning. She current ly does have significant challenges there and is working hard to improve that. Assessment: Ms. Garcia is a 77-year-old patient admitted to the inpatient rehabilitation unit wit h metabolic encephalopathy, likely an acute on chronic process. She has hyponatremia, improving. De crease physical functioning, hypertension, pleural effusion, trigeminal neuralgia. Plan: 1.Continue physical, occupational, and speech therapy for 3.5 hours, 5 of 7 days. 2.Topiramate for her trigeminal neuralgia. 3.Protonix for GE reflux. 4.Lopressor for hypertension and rate control. 5.Magnesium oxide for muscle spasms. 6.Synthroid for hypothyroidism. 7.Vitamin D for low vitamin D levels. 8.Eliquis 2.5 mg twice daily for DVT prophylaxis. 9.Tylenol 500 mg every 6 hours as needed for pain. Comorbidities That Continue To Impact Rehabilitation Process: She has trigeminal neuralgia for which she was taking Tegretol that likely resulted in hyponatremia and worsening cognitive functioning. S he is now on topiramate, which itself could potentially cause some cognitive issues, but her neurolog ist symptoms are managed at this point. She will be observed for any worsening cognitive issues and may switch from topiramate to gabapentin. She also has a poor appetite at this point and Tyrell is o n board, this was to stimulate the appetite. DESHAWN/SYD Voice ID: [id number] Report ID: [id number]
[2023-02-22] MEDS: PANTOPRAZOLE 40MG TABLET PO SCH ×2 (06:06→17:36)
[2023-02-22] MEDS: LEVOTHYROXINE SOD 0.075 MG TAB PO SCH (06:06)
[2023-02-22] MEDS: MEGESTROL 40 MG TAB PO SCH ×2 (07:29→20:23)
[2023-02-22] MEDS: APIXABAN 2.5 MG TABLET PO SCH ×2 (07:29→20:23)
[2023-02-22] MEDS: METOPROLOL TAR 50 MG TAB PO SCH (07:29)
[2023-02-22] MEDS: EZETIMIBE 10 MG TAB PO SCH (07:33)
[2023-02-22] MEDS: CRANBERRY FRUIT EXTRACT 200 MG CAP PO SCH ×2 (07:33→20:23)
[2023-02-22] MEDS: LACTOBACILLUS/ACIDOPHILUS TAB PO SCH (07:35)
[2023-02-22] MEDS: ACETAMINOPHEN 500 MG TAB PO PRN ×2 (08:11→14:11)
[2023-02-22] MEDS: ENSURE ENLIVE 237 ML CAN PO SCH ×2 (08:12→20:23)
[2023-02-22] MEDS: MAGNESIUM OXIDE 400 MG TAB PO SCH ×2 (08:12→20:23)
[2023-02-22] MEDS: TOPIRAMATE 100 MG TAB PO SCH ×2 (08:14→20:22)
[2023-02-22] MEDS ORDERED: TRAMADOL HCL 50 MG TAB PO PRN (10:27)
[2023-02-22] MEDS ORDERED: NA CHLORIDE 0.9% 1,000 ML IV SCH (14:00)
[2023-02-22] MEDS: TOPIRAMATE 25 MG TAB PO SCH (14:12)
[2023-02-22] MEDS: GABAPENTIN 100 MG CAP PO SCH ×2 (14:14→20:23)
[2023-02-22] MEDS: DULOXETINE 20 MG CAP PO SCH (14:14)
[2023-02-22] MEDS: CYANOCOBALAMIN 1,000 MCG TAB PO SCH (14:15)
[2023-02-22] MEDS: MELATONIN 5 MG TABLET PO PRN (20:23)
--- NOTE | 2023-02-22 22:40 | PN ---
Date of Progress Note: 02/22/2023 [id number]-[id number] Progress Note Time Of Service: 1:25 p.m. Subjective: Ms. Garcia is resting in bed, daughter at bedside. She was somewhat sleepy today, bu t was able to sleep well last night. She did have some mild muscle spasms, but those are improving. Cognitive functioning, she is more interactive and awake, and follows commands appropriately. Review of Systems: No fevers, chills, nausea, or vomiting. No myalgias or arthralgias. No psychiatric issues. Physical Examination: Vital Signs: Blood pressure 124/59, pulse is 93, respiratory rate 16, temperature 98, oxygen saturat ion 100%. General: Ms. Garcia is lying in bed. She is in no significant distress. HEENT: She appears normocephalic, atraumatic. Sclerae anicteric. Oropharynx moist. Neck: Supple. Chest: Clear. Heart: Regular. Extremities: No significant edema or cyanosis in extremities, just diffuse weakness that is symmetri c. Laboratory Studies: No new laboratory studies since yesterday. X-rays/imaging: No new x-rays or imaging. Medications: Have been reviewed and remain unchanged. Current Functional Status: Today, she ambulated 50 feet and 100 feet with moderate assistance. She mobilized in a wheelchair 50 feet with moderate to maximum assistance. Bed mobility including turnin g in bed was with moderate assistance. She did supine to sit transfer with moderate to maximum jose tance, sit to stand transfers with moderate assistance. With occupational therapy, she required maxi mum assistance for ADLs. She had decreased endurance. She did a bedside swallow evaluation with spe ech therapy with recommendations of mechanical soft diet, ground meat, and thin liquids with 90 degre e upright while eating, alternate solids and liquids. Remain upright after meals. Progress Towards Rehabilitation Goals: Ms. Garcia is making fair overall progress with her abilit y to transfer from bed to chair to toilet to ambulate 250 feet with modified independence. She was f ully independent on the 04 of February and today is, of course , and the goal is of performing all of her cognitive functioning independently. She is making fair progress with that. Assessment: Ms. Garcia is a 77-year-old patient admitted to the rehabilitation unit with metaboli c encephalopathy with toxic encephalopathy. She has hyponatremia, decreased physical functioning, hy pertension, pleural effusion, trigeminal neuralgia. Plan: 1.Continue physical, occupational, and speech therapy for 3.5 hours, 5 of 7 days. 2.She has comorbid conditions that are managed by topiramate, Protonix, Lopressor, magnesium, Synthr oid, vitamin D, Eliquis, and Tylenol. Those are continuing. Comorbidities That Continue To Impact Rehabilitation: Currently the trigeminal neuralgia symptoms lemus ve not cleared up despite stopping Tegretol or carbamazepine. She had hyponatremia, likely related t o that. If symptoms do return, we will consider gabapentin instead of topiramate. Note, her appetit e has improved slightly with Megace for appetite stimulation. LB/MODL Voice ID: [id number] Report ID: [id number]
[2023-02-23 05:27] LABS: Specific Gravity 1.016 (1.005-1.030); Urine Bacteria >50 /HPF (<20); Urine Bilirubin NEGATIVE (Negative); Urine Blood Trace (Negative); Urine Clarity Extremely Turbid (Clear); Urine Color Light-Orange (Yellow); Urine Glucose NEGATIVE (Negative); Urine Protein 1+ (Negative); Urine Urobilinogen Normal (Normal); Urine WBC Clump Occasional /HPF (None Seen)
[2023-02-23] MEDS: LEVOTHYROXINE SOD 0.075 MG TAB PO SCH (06:28)
[2023-02-23] MEDS: MEGESTROL 40 MG TAB PO SCH ×2 (06:28→19:22)
[2023-02-23] MEDS: PANTOPRAZOLE 40MG TABLET PO SCH ×2 (06:29→16:05)
[2023-02-23] MEDS: METOPROLOL TAR 50 MG TAB PO SCH (06:29)
[2023-02-23] MEDS: APIXABAN 2.5 MG TABLET PO SCH ×2 (07:16→19:22)
[2023-02-23] MEDS: MAGNESIUM OXIDE 400 MG TAB PO SCH ×2 (07:17→19:22)
[2023-02-23] MEDS: LACTOBACILLUS/ACIDOPHILUS TAB PO SCH (07:17)
[2023-02-23] MEDS: DULOXETINE 20 MG CAP PO SCH (07:17)
[2023-02-23] MEDS: CYANOCOBALAMIN 1,000 MCG TAB PO SCH (07:18)
[2023-02-23] MEDS: ACETAMINOPHEN 500 MG TAB PO PRN ×2 (07:18→12:58)
[2023-02-23] MEDS: CRANBERRY FRUIT EXTRACT 200 MG CAP PO SCH ×2 (07:18→19:22)
[2023-02-23] MEDS: EZETIMIBE 10 MG TAB PO SCH (07:19)
[2023-02-23] MEDS: GABAPENTIN 100 MG CAP PO SCH ×2 (07:20→19:22)
[2023-02-23] MEDS: LIDOCAINE 4% PATCH TOP SCH (09:03)
[2023-02-23] MEDS: TOPIRAMATE 100 MG TAB PO SCH (09:04)
[2023-02-23] MEDS: ENSURE ENLIVE 237 ML CAN PO SCH ×2 (09:04→19:36)
[2023-02-23] MEDS ORDERED: NA CHLORIDE 0.9% 1,000 ML IV SCH (14:00)
[2023-02-23] MEDS: TOPIRAMATE 25 MG TAB PO SCH ×2 (14:19→19:22)
[2023-02-23] MEDS: JUVEN PACKET PO SCH (19:36)
--- NOTE | 2023-02-23 22:23 | PN ---
Date of Progress Note: 02/23/2023 Time Of Service: 1:35 p.m. Subjective: Ms. Garcia is resting in bed. at bedside. She reports having a good workup today and is somewhat tired at the end of a morning session. She has no new complaints except mild m uscle spasms, which have improved and some difficulty of clear thought, which is again improving. Review of Systems: No fevers, chills, nausea, vomiting. No significant myalgias or arthralgias. No psychiatric issues such as depression or anxiety that are active. Physical Examination: Vital Signs: Blood pressure 129/62, pulse 82, respiratory rate 17, temperature 97.9, oxygen saturati on 99%. General: Ms. Garcia is resting in bed. She is in no acute distress. HEENT: She is normocephalic, atraumatic. Sclerae anicteric. She has no focal deficits. Laboratory Studies: No new laboratory studies. X-ray/imaging: No new x-rays or imaging. Medications: Have been reviewed and remained unchanged. Current Functional Status: Today, completed gait training with moderate assistance with a rolling wa lker. However, she was able to complete 335 feet with that rolling walker and she propelled a wheelc hair 150 feet with standby assistance. Her yac-mt-oelem transfers done with moderate assistance, sit to supine with moderate assistance, [id number] movements also with moderate assistance. With occu pational therapy toileting, minimum assistance; grooming, supervision. [id number]-wu-[id number] was minimum assi st with the occupational therapies. She did tolerate 3.5 hours out of bed activity today. With ino , she recalled 1 of 3 unrelated items after 5 minutes on first attempt, but 3 of 3 after 5 minutes on a second attempt. Progress Towards Rehabilitation Goals: Ms. Garcia is making good progress overall with her abilit y to transfer, to mobilize by a walker and by wheelchair. Transfers are improving and her cognitive functioning, is also improving. Assessment: Ms. Garcia is a 77-year-old patient in the rehabilitation unit with metabolic and tox ic encephalopathy that is resolving well. She has hyponatremia secondary to Tegretol, which is used to treat trigeminal neuralgia. She has been on a higher dose of topiramate, which could not clear co gnitive functioning. That has been decreased to 25 mg twice daily from 125 mg in 24 hours. Plan: She will continue with physical, occupational, and speech therapy for 3.5 hours, 5 of 7 days. Again, Topamax decreased to 25 mg twice daily. She will continue Eliquis, Synthroid, vitamin D, Tyl enol, magnesium, Protonix, Lopressor. Comorbidities That Continue To Impact The Rehabilitation: Currently, the cognitive issues from topir amate should improve as the dosage has been decreased. She is making good progress and she has meir r appetite with an appetite stimulant, Megace. LB/MODL Voice ID: [id number] Report ID: [id number]
[2023-02-24 04:23] LABS: Absolute Lymphocytes (CBC) 1.3 K/uL (0.7-4.9); Hematocrit 25.6 % (36.0-45.0); Lymphocytes % 19.5 % (15.3-44.8); MCV 92.6 fL (80-100); MPV 7.2 fL (7.6-11.3); Platelets 266 thou/uL (152-406); RBC Red Blood Cell Count 2.77 M/uL (3.86-4.86)
[2023-02-24 04:41] LABS: Albumin 2.1 g/dL (3.4-5.0); Magnesium 2.1 mg/dL (1.6-2.4); Potassium 3.6 mEq/L (3.5-5.1); Thyroid Stimulating Hormone 2.6 uIU/mL (0.358-3.740)
[2023-02-24] MEDS: PANTOPRAZOLE 40MG TABLET PO SCH ×3 (06:41→17:00)
[2023-02-24] MEDS: LEVOTHYROXINE SOD 0.075 MG TAB PO SCH (06:41)
[2023-02-24] MEDS: EZETIMIBE 10 MG TAB PO SCH (07:18)
[2023-02-24] MEDS: METOPROLOL TAR 50 MG TAB PO SCH (07:18)
[2023-02-24] MEDS: MEGESTROL 40 MG TAB PO SCH ×2 (07:18→19:57)
[2023-02-24] MEDS: APIXABAN 2.5 MG TABLET PO SCH ×2 (07:18→19:57)
[2023-02-24] MEDS: CYANOCOBALAMIN 1,000 MCG TAB PO SCH (07:18)
[2023-02-24] MEDS: TOPIRAMATE 25 MG TAB PO SCH ×2 (07:18→19:57)
[2023-02-24] MEDS: GABAPENTIN 100 MG CAP PO SCH ×2 (07:19→19:57)
[2023-02-24] MEDS: DULOXETINE 20 MG CAP PO SCH (07:19)
[2023-02-24] MEDS: CRANBERRY FRUIT EXTRACT 200 MG CAP PO SCH ×2 (07:19→19:57)
[2023-02-24] MEDS: MAGNESIUM OXIDE 400 MG TAB PO SCH ×2 (07:25→19:57)
[2023-02-24] MEDS: ENSURE ENLIVE 237 ML CAN PO SCH ×2 (07:27→19:58)
[2023-02-24] MEDS: LIDOCAINE 4% PATCH TOP SCH (07:27)
[2023-02-24] MEDS: JUVEN PACKET PO SCH ×2 (07:28→19:58)
[2023-02-24] MEDS: DRISDOL (VITAMIN D=ERGOCALCIFEROL) 50000 UNIT CAP PO SCH (07:30)
[2023-02-24] MEDS: LACTOBACILLUS/ACIDOPHILUS TAB PO SCH (07:31)
[2023-02-24] MEDS: ACETAMINOPHEN 500 MG TAB PO PRN ×2 (08:55→19:57)
[2023-02-24] MEDS: levoFLOXacin 500 MG TAB PO SCH (15:19)
[2023-02-24] MEDS: MELATONIN 5 MG TABLET PO PRN (19:58)
--- NOTE | 2023-02-24 20:03 | PN ---
Date of Progress Note: 02/24/2023 Face-Face Progress Note. Time Of Service: 1:15 p.m. Subjective: Ms. Garcia is resting in bed in between therapy sessions. She reports feeling somewh at tired after having a good session of exercise this morning. She did not have any new complaints. Review of Systems: No significant myalgias, arthralgias, rash, headache, weight change. Her confusion is improving. Physical Examination: Vital Signs: Blood pressure 120/56, pulse 88, respiratory rate 16, temperature 97, oxygen saturation 96%. General: Ms. Garcia again is resting in bed. HEENT: She is normocephalic, atraumatic. Sclerae anicteric. Oropharynx is moist. Neck: Supple. Chest: Clear. Heart: Regular. Extremities: No edema, cyanosis, or clubbing. She has no focal neurological deficits. Laboratory Studies: White blood cell count 6.8, hemoglobin 9.1, platelets 266. Sodium 137, potassiu m 3.6, chloride 112, carbon dioxide 20, BUN 50, creatinine 0.62, glucose 96, calcium 8.0, magnesium 2 .1, albumin 2.1, prealbumin is 19. TSH 2.6. She did have a repeat urinalysis on the . It showe d, it was extremely turbid with a trace of blood, occasional clumps of white blood cells, greater keegan n 50 white blood cells, also greater than 50 bacteria. Her cultures did grow initially on the , Enterococcus faecalis. She had a straight cath repeated on the with greater than 100,000 colony -forming units with 4+ alpha streptococci. As a result, the patient actually did say, she is somewha t symptomatic and the staff did note there was kind of a foul smell in the urine. She was started on Levaquin, which the Enterococcus faecalis is sensitive to, 5 mg daily for a minimum of 5 days. Additional Medications: Eliquis 2.5 mg twice daily, vitamin B12 1000 mcg daily, Tylenol Extra Streng th 500 mg every 6 hours as needed, duloxetine 20 mg daily, vitamin D 50,000 units weekly, Zetia 10 mg daily, gabapentin 100 mg twice daily. She has a Marvin packet twice daily, Lactinex 1 tablet daily, and the Levaquin as noted 500 mg daily started today to complete on 25th. She has Synthroid 0.375 mg daily. She has 2 lidocaine patches , also on magnesium 400 mg twice daily, Megace 40 mg t wice daily, melatonin 10 mg at bedtime, Lopressor 50 mg daily, Ensure Enlive 237 mL twice daily, Prot lakia 40 mg daily, and topiramate 25 mg twice daily. Current Functional Status: Today, she ambulated 100 feet and another 150 feet with contact guard ass istance using a rolling walker. Emphasis was placed on upright posture. She did have decreased issa nce and stride length. With her occupational therapy, she was bathing, did require minimum assistanc e to wash 9 of 10 body parts using an assistive device. Upper body dressing, set up assistance, lowe r body dressing was at moderate assistance. [id number] transfer minimum assistance, wheelchair tra nsfer at minimum assistance. With her speech therapy, she demonstrated use of communicative board to state temporal orientation information with minimum assistance. Verbal rehearsal was used to recall 2 of 3 unrelated words after 5 minutes increments. Working memory was used to sequence 3 units of i nformation with 80% accuracy and moderate assistance. Progress Towards Rehabilitation Goals: Ms. Garcia is making good progress towards her goals of mo bilization and transfer where she can be 250 feet with modified independence also to perform activiti es of daily living with modified independence and perform her cognitive functioning with modified ind ependence. Assessment: Ms. Garcia is a 77-year-old patient in the rehabilitation unit with metabolic encepha lopathy with hyponatremia while taking Tegretol for trigeminal neuralgia. She is on Topamax 25 mg tw ice daily. She is doing well. She has comorbid malnutrition, constipation, poor appetite, hypothyro idism, urinary tract infection. She has poor energy and depression. Plan: 1.She will have physical, occupational, and speech therapy for 3.5 hours, 5 of 7 days. 2.We will continue with the Levaquin for urinary tract infection. 3.Vitamin D for low vitamin D levels. 4.Duloxetine for depression. 5.Synthroid for hypothyroidism. 6.Megace for poor appetite. 7.Topiramate for trigeminal neuralgia and Protonix for gastroesophageal reflux. Comorbidities That Continue To Impact Rehabilitation: She has Topamax on board, which is now on lowe r dose. However, the medication could impact cognitive functioning and since she is hospitalized for metabolic encephalopathy, may consider stopping Topamax. However, currently she is improving cognit ively and will keep the medication on board. DESHAWN/SYD Voice ID: [id number] Report ID: [id number]
[2023-02-25] MEDS: LEVOTHYROXINE SOD 0.075 MG TAB PO SCH (05:24)
[2023-02-25] MEDS: LIDOCAINE 4% PATCH TOP SCH (07:07)
[2023-02-25] MEDS: LACTOBACILLUS/ACIDOPHILUS TAB PO SCH (07:07)
[2023-02-25] MEDS: levoFLOXacin 500 MG TAB PO SCH (07:08)
[2023-02-25] MEDS: MEGESTROL 40 MG TAB PO SCH ×2 (07:08→19:50)
[2023-02-25] MEDS: DULOXETINE 20 MG CAP PO SCH (07:08)
[2023-02-25] MEDS: APIXABAN 2.5 MG TABLET PO SCH ×2 (07:08→19:53)
[2023-02-25] MEDS: MAGNESIUM OXIDE 400 MG TAB PO SCH ×2 (07:08→19:51)
[2023-02-25] MEDS: CRANBERRY FRUIT EXTRACT 200 MG CAP PO SCH ×2 (07:08→19:53)
[2023-02-25] MEDS: PANTOPRAZOLE 40MG TABLET PO SCH ×2 (07:08→16:56)
[2023-02-25] MEDS: EZETIMIBE 10 MG TAB PO SCH (07:09)
[2023-02-25] MEDS: GABAPENTIN 100 MG CAP PO SCH ×2 (07:09→19:50)
[2023-02-25] MEDS: CYANOCOBALAMIN 1,000 MCG TAB PO SCH (07:09)
[2023-02-25] MEDS: TOPIRAMATE 25 MG TAB PO SCH ×2 (07:09→19:52)
[2023-02-25] MEDS: ENSURE ENLIVE 237 ML CAN PO SCH ×2 (07:09→19:53)
[2023-02-25] MEDS: ACETAMINOPHEN 500 MG TAB PO PRN (07:13)
[2023-02-25] MEDS: METOPROLOL TAR 50 MG TAB PO SCH (09:39)
[2023-02-25] MEDS: JUVEN PACKET PO SCH ×2 (09:40→19:53)
--- NOTE | 2023-02-25 13:34 | P.RH.PN ---
Estimated Length of Stay: 17 Expected Discharge Date: 02/27/23 Discharge Disposition Plan: Home Family Support: Yes [facility] Goal: Mobility, Transfers, Self Care Vital Signs: Last Vital Signs Temp 97.6 F 02/25/23 08:00 Pulse 83 02/25/23 09:39 Resp 16 02/25/23 08:00 BP 126/59 L 02/25/23 09:39 Pulse Ox 99 02/25/23 08:00 Laboratory: Laboratory Last Values WBC 6.80 thou/uL (4.3-10.9) 02/24/23 03:25 RBC 2.77 M/uL (3.86-4.86) L 02/24/23 03:25 Hgb 9.1 g/dL (12.0-15.0) L 02/24/23 03:25 Hct 25.6 % (36.0-45.0) L 02/24/23 03:25 MCV 92.6 fL (80-100) 02/24/23 03:25 MCH 32.7 pg (27.0-35.0) 02/24/23 03:25 MCHC 35.3 g/dL (32.0-36.0) 02/24/23 03:25 RDW 13.4 % (12.1-15.2) 02/24/23 03:25 Plt Count 266 thou/uL (152-406) 02/24/23 03:25 MPV 7.2 fL (7.6-11.3) L 02/24/23 03:25 Neutrophils % 66.6 % (41.7-73.7) 02/24/23 03:25 Lymphocytes % 19.5 % (15.3-44.8) 02/24/23 03:25 Monocytes % 10.6 % (3.3-12.3) 02/24/23 03:25 Eosinophils % 2.2 % (0-4.4) 02/24/23 03:25 Basophils % 1.1 % (0-1.3) 02/24/23 03:25 Absolute Neutrophils 4.6 K/uL (1.8-8.0) 02/24/23 03:25 Absolute Lymphocytes 1.3 K/uL (0.7-4.9) 02/24/23 03:25 Absolute Monocytes 0.7 K/uL (0.1-1.3) 02/24/23 03:25 Absolute Eosinophils 0.2 K/uL (0-0.5) 02/24/23 03:25 Absolute Basophils 0.1 K/uL (0-0.5) 02/24/23 03:25 Sodium 137 mEq/L (136-145) 02/24/23 03:25 Potassium 3.6 mEq/L (3.5-5.1) 02/24/23 03:25 Chloride 112 mEq/L (98-107) H 02/24/23 03:25 Carbon Dioxide 20 mEq/L (21-32) L 02/24/23 03:25 Anion Gap 8.6 mEq/L (5.0-15.0) 02/24/23 03:25 BUN 50 mg/dL (7-18) H 02/24/23 03:25 Creatinine 0.62 mg/dL (0.55-1.02) 02/24/23 03:25 Est GFR (CKD-EPI) 92 ml/min (=/>90) 02/24/23 03:25 Glucose 96 mg/dL (74-106) 02/24/23 03:25 Calcium 8.0 mg/dL (8.5-10.1) L 02/24/23 03:25 Magnesium 2.1 mg/dL (1.6-2.4) 02/24/23 03:25 Albumin 2.1 g/dL (3.4-5.0) L 02/24/23 03:25 Prealbumin 19.0 mg/dL (20-40) L 02/24/23 03:25 TSH 2.600 uIU/mL (0.358-3.740) 02/24/23 03:25 Urine Color Light-orange (Yellow) 02/23/23 04:40 Urine Clarity Extremely turbid (Clear) H 02/23/23 04:40 Urine pH 8.0 (5.0-7.0) H 02/23/23 04:40 Ur Specific [place] 1.016 (1.005-1.030) 02/23/23 04:40 Glucose (UA)(Auto) Negative (Negative) 02/23/23 04:40 Urine Ketones Negative (Negative) 02/23/23 04:40 Urine Blood Trace (Negative) H 02/23/23 04:40 Urine Nitrite Negative (Negative) 02/23/23 04:40 Urine Bilirubin Negative (Negative) 02/23/23 04:40 Urine Urobilinogen Normal (Normal) 02/23/23 04:40 Ur Leukocyte Esterase 250 Amanda/uL (Negative) H 02/23/23 04:40 Urine RBC 11-20 /HPF (None Seen) H 02/23/23 04:40 Urine WBC >50 /HPF (<5) H 02/23/23 04:40 Urine WBC Clumps Occasional /HPF (None Seen) H 02/23/23 04:40 Ur Squamous Epith Cells <5 /HPF (None Seen) 02/23/23 04:40 U Non-Squamous Epi Cells <5 /HPF (None Seen) 02/23/23 04:40 Amorphous Crystals Trace /HPF (None Seen) 02/23/23 04:40 Urine Bacteria >50 /HPF (<20) H 02/23/23 04:40 Urine Culture Reflexed Reflexed 02/23/23 04:40 Urine Total Protein 1+ (Negative) H 02/23/23 04:40 Weight: 130 lb Wound Present: Yes Closed Surgical Incision Present: No Negative Pressure Wound Therapy Present: No Physician Update: Making good progress overall. Improved cognition. Labs reviewed and are stable. BIMS 9, SLUMS 10, poor short term memory. She had 2L of NS which helps. Met 4/4 short term goals. RW 400' with supervision, up and down 5 steps. Can sit up in a chair 4 hours. Summary: Patient's care plan and [facility]sterman goals have been reviewed and revised as necessary. Please see the Rehabilitation Signature page for all necessary sig natures.
[2023-02-25] MEDS ORDERED: NA CHLORIDE 0.9% 1,000 ML IV SCH (16:00)
[2023-02-26] MEDS: LEVOTHYROXINE SOD 0.075 MG TAB PO SCH (05:20)
[2023-02-26] MEDS: PANTOPRAZOLE 40MG TABLET PO SCH ×2 (06:40→15:42)
[2023-02-26] MEDS: GABAPENTIN 100 MG CAP PO SCH ×2 (07:26→19:30)
[2023-02-26] MEDS: CRANBERRY FRUIT EXTRACT 200 MG CAP PO SCH ×2 (07:26→19:30)
[2023-02-26] MEDS: EZETIMIBE 10 MG TAB PO SCH (07:27)
[2023-02-26] MEDS: TOPIRAMATE 25 MG TAB PO SCH ×2 (07:27→19:30)
[2023-02-26] MEDS: CYANOCOBALAMIN 1,000 MCG TAB PO SCH (07:29)
[2023-02-26] MEDS: DULOXETINE 20 MG CAP PO SCH (07:29)
[2023-02-26] MEDS: APIXABAN 2.5 MG TABLET PO SCH ×2 (07:29→19:30)
[2023-02-26] MEDS: MEGESTROL 40 MG TAB PO SCH ×2 (07:29→19:30)
[2023-02-26] MEDS: LACTOBACILLUS/ACIDOPHILUS TAB PO SCH (07:29)
[2023-02-26] MEDS: METOPROLOL TAR 50 MG TAB PO SCH (07:30)
[2023-02-26] MEDS: ENSURE ENLIVE 237 ML CAN PO SCH ×2 (07:30→19:31)
[2023-02-26] MEDS: MAGNESIUM OXIDE 400 MG TAB PO SCH ×2 (07:31→19:31)
[2023-02-26] MEDS: JUVEN PACKET PO SCH ×2 (07:31→19:31)
[2023-02-26] MEDS: ACETAMINOPHEN 500 MG TAB PO PRN (07:32)
[2023-02-26] MEDS: LIDOCAINE 4% PATCH TOP SCH (08:27)
[2023-02-26] MEDS: levoFLOXacin 500 MG TAB PO SCH (08:28)
[2023-02-26] MEDS: MELATONIN 5 MG TABLET PO PRN (20:28)
[2023-02-27] MEDS: LEVOTHYROXINE SOD 0.075 MG TAB PO SCH (06:55)
[2023-02-27] MEDS: PANTOPRAZOLE 40MG TABLET PO SCH ×2 (06:55→16:10)
[2023-02-27 07:24] LABS: Absolute Lymphocytes (CBC) 1.5 K/uL (0.7-4.9); Hematocrit 26.2 % (36.0-45.0); Lymphocytes % 32.4 % (15.3-44.8); MCV 92.2 fL (80-100); MPV 7.3 fL (7.6-11.3); Platelets 251 thou/uL (152-406); RBC Red Blood Cell Count 2.84 M/uL (3.86-4.86)
[2023-02-27 07:38] LABS: Potassium 3.6 mEq/L (3.5-5.1)
[2023-02-27] MEDS: LIDOCAINE 4% PATCH TOP SCH (07:46)
[2023-02-27] MEDS: CYANOCOBALAMIN 1,000 MCG TAB PO SCH (07:47)
[2023-02-27] MEDS: LACTOBACILLUS/ACIDOPHILUS TAB PO SCH (07:47)
[2023-02-27] MEDS: DULOXETINE 20 MG CAP PO SCH (07:47)
[2023-02-27] MEDS: GABAPENTIN 100 MG CAP PO SCH ×2 (07:47→19:20)
[2023-02-27] MEDS: EZETIMIBE 10 MG TAB PO SCH (07:47)
[2023-02-27] MEDS: APIXABAN 2.5 MG TABLET PO SCH ×2 (07:47→19:21)
[2023-02-27] MEDS: MEGESTROL 40 MG TAB PO SCH ×2 (07:47→19:20)
[2023-02-27] MEDS: CRANBERRY FRUIT EXTRACT 200 MG CAP PO SCH ×2 (07:47→19:20)
[2023-02-27] MEDS: levoFLOXacin 500 MG TAB PO SCH (07:48)
[2023-02-27] MEDS: METOPROLOL TAR 50 MG TAB PO SCH (07:48)
[2023-02-27] MEDS: TOPIRAMATE 25 MG TAB PO SCH ×2 (07:48→19:20)
[2023-02-27] MEDS: MAGNESIUM OXIDE 400 MG TAB PO SCH ×2 (07:48→19:20)
[2023-02-27] MEDS: JUVEN PACKET PO SCH ×2 (07:49→19:23)
[2023-02-27] MEDS: ENSURE ENLIVE 237 ML CAN PO SCH ×2 (07:49→19:22)
[2023-02-27] MEDS: ACETAMINOPHEN 500 MG TAB PO PRN (08:44)
[2023-02-27] MEDS: MELATONIN 5 MG TABLET PO PRN (19:20)
[2023-02-27] MEDS ORDERED: TRAZODONE 50 MG TABLET PO PRN (22:14)
[2023-02-27] MEDS: TRAZODONE 50 MG TABLET PO PRN (22:57)
[2023-02-28] MEDS: LEVOTHYROXINE SOD 0.075 MG TAB PO SCH (05:13)
[2023-02-28] MEDS: PANTOPRAZOLE 40MG TABLET PO SCH ×2 (07:40→16:38)
[2023-02-28] MEDS: FE SULF/FA/VIT B COMP & C TAB PO SCH (07:41)
[2023-02-28] MEDS: CYANOCOBALAMIN 1,000 MCG TAB PO SCH (07:41)
[2023-02-28] MEDS: METOPROLOL TAR 50 MG TAB PO SCH (07:41)
[2023-02-28] MEDS: FERROUS SULFATE 325 MG TAB PO SCH (07:41)
[2023-02-28] MEDS: APIXABAN 2.5 MG TABLET PO SCH ×2 (07:41→19:16)
[2023-02-28] MEDS: MEGESTROL 40 MG TAB PO SCH ×2 (07:41→19:16)
[2023-02-28] MEDS: EZETIMIBE 10 MG TAB PO SCH (07:41)
[2023-02-28] MEDS: TOPIRAMATE 25 MG TAB PO SCH ×2 (07:42→19:16)
[2023-02-28] MEDS: GABAPENTIN 100 MG CAP PO SCH ×2 (07:42→19:16)
[2023-02-28] MEDS: CRANBERRY FRUIT EXTRACT 200 MG CAP PO SCH ×2 (07:42→19:16)
[2023-02-28] MEDS: DULOXETINE 20 MG CAP PO SCH (07:42)
[2023-02-28] MEDS: LIDOCAINE 4% PATCH TOP SCH (07:46)
[2023-02-28] MEDS: LACTOBACILLUS/ACIDOPHILUS TAB PO SCH (07:46)
[2023-02-28] MEDS: ENSURE ENLIVE 237 ML CAN PO SCH ×2 (08:45→19:17)
[2023-02-28] MEDS: JUVEN PACKET PO SCH ×2 (08:45→19:17)
[2023-02-28] MEDS: MAGNESIUM OXIDE 400 MG TAB PO SCH ×2 (09:31→19:16)
[2023-02-28] MEDS: levoFLOXacin 500 MG TAB PO SCH (09:31)
[2023-02-28] MEDS: MELATONIN 5 MG TABLET PO PRN (19:16)
--- NOTE | 2023-02-28 20:57 | PN ---
Date of Progress Note: 02/28/2023 Qprd-bq-Ylgo Progress Note. Time Of Service: 1:06 p.m. Subjective: Ms. Garcia is resting in bed, at bedside. She is doing well. Feels much bet ter today about her exercise and has no new complaints. Review of Systems: Her confusion is much less. She has no fevers, chills, nausea, vomiting, myalgias, or arthralgias. No significant changes otherwise. Physical Examination: Vital Signs: Blood pressure 138/65, pulse of 65, respiratory rate 15, temperature 97.6, oxygen satur ation 100%. General: Ms. Garcia is resting in bed. She is in no acute distress. HEENT: She is normocephalic, atraumatic. Sclerae anicteric. Oropharynx is moist. Neck: Supple. Chest: Clear. Heart: Regular. Neuro: She is intact in terms of her awareness of herself for location and where and what is happeni ng. She responds appropriately to all interactions, both verbal and nonverbal. Laboratory Studies: White blood cell count 4.5, hemoglobin 9.3, platelets 251. Sodium 140, potassiu m 3.6, chloride 112, carbon dioxide 22, BUN 41, creatinine 0.69, glucose 93, calcium 8.6. X-ray/imaging: No new x-rays or imaging. Medications: Medications have been reviewed and are unchanged. Current Functional Status: Today, she brought her rolling walker from home. She had it adjusted pro perly for height. The patient's family were educated and she completed gait training with a rolling walker for 150 feet with contact guard assistance and another 100 feet with a Rollator with contact g uard assistance. She was somewhat unsteady on the feet. Again, she did more ambulation covering 200 feet and another 100 feet with standby assistance using a rolling walker. She ascended and descende d 13 steps with standby assistance and bilateral hand rails. In terms of speech therapy, she recalle d temporal orientation information with minimum assistance. She had 3 units of information, was reca ll with 90% accuracy and minimum assistance. With occupational therapy, supervision for bed mobility for [id number] and for [id number], standby assistance. Progress Towards Rehabilitation Goals: Ms. Garcia is making excellent progress towards her goals of becoming independent with upper and lower body dressing, transferring, toileting, ambulating out 2 50 feet with modified independence, up and down 15 steps with modified independence and performing co gnitive functioning independently. Assessment: Ms. Garcia is a 77-year-old patient in the rehabilitation unit with metabolic and tox ic encephalopathy, which are resolving very well. She has hyponatremia that is resolving, malnutriti on, constipation, poor appetite, hypothyroidism, urinary tract infection, and depression. Plan: 1.Continue physical, occupational, and speech therapy for 3.5 hours, 5 of 7 days. 2.Her multiple comorbid conditions are addressed by continuing with medications including Synthroid for hypothyroidism, duloxetine for depression, vitamin D for low vitamin D level, Megace for poor meghana etite. She has topiramate for trigeminal neuralgia and Protonix for GE reflux. Comorbidities That Continue To Impact Her Rehabilitation: Her trigeminal neuralgia at this point is not active despite stopping the Tegretol, which was the likely cause of hyponatremia that led to metabolic encephalopathy. She is on Topamax and is doing pretty well with that. LB/MODL Voice ID: [id number] Report ID: [id number]
[2023-03-01] MEDS: DOCUSATE NA/SENNA CONC 1 TAB PO PRN ×2 (05:03→19:27)
[2023-03-01] MEDS: LEVOTHYROXINE SOD 0.075 MG TAB PO SCH (05:03)
[2023-03-01] MEDS: PANTOPRAZOLE 40MG TABLET PO SCH ×2 (07:34→16:32)
[2023-03-01] MEDS: CRANBERRY FRUIT EXTRACT 200 MG CAP PO SCH ×2 (07:35→19:27)
[2023-03-01] MEDS: LACTOBACILLUS/ACIDOPHILUS TAB PO SCH (07:35)
[2023-03-01] MEDS: MEGESTROL 40 MG TAB PO SCH ×2 (07:35→19:27)
[2023-03-01] MEDS: CYANOCOBALAMIN 1,000 MCG TAB PO SCH (07:35)
[2023-03-01] MEDS: FE SULF/FA/VIT B COMP & C TAB PO SCH (07:35)
[2023-03-01] MEDS: DULOXETINE 20 MG CAP PO SCH (07:35)
[2023-03-01] MEDS: GABAPENTIN 100 MG CAP PO SCH ×2 (07:35→19:27)
[2023-03-01] MEDS: FERROUS SULFATE 325 MG TAB PO SCH (07:35)
[2023-03-01] MEDS: EZETIMIBE 10 MG TAB PO SCH (07:35)
[2023-03-01] MEDS: TOPIRAMATE 25 MG TAB PO SCH ×2 (07:36→19:27)
[2023-03-01] MEDS: MAGNESIUM OXIDE 400 MG TAB PO SCH ×2 (07:36→19:27)
[2023-03-01] MEDS: ENSURE ENLIVE 237 ML CAN PO SCH ×2 (07:36→19:28)
[2023-03-01] MEDS: APIXABAN 2.5 MG TABLET PO SCH ×2 (07:36→19:27)
[2023-03-01] MEDS: METOPROLOL TAR 50 MG TAB PO SCH (07:36)
[2023-03-01] MEDS: JUVEN PACKET PO SCH ×2 (08:00→19:28)
[2023-03-01] MEDS: LIDOCAINE 4% PATCH TOP SCH (09:11)
[2023-03-01] MEDS: MELATONIN 5 MG TABLET PO PRN (19:27)
--- NOTE | 2023-03-01 22:28 | PN ---
Date of Progress Note: 03/01/2023 Time Of Service: 1:35 p.m. Subjective: Ms. Garcia is resting well. Her is in the room. She has no new complaints. She is doing well. Mind is clear. Participating very well in all therapy. Review of Systems: No fevers, chills, nausea, vomiting, myalgias, or arthralgias. No episodes of confusion or disorient ation. Physical Examination: Vital Signs: Blood pressure 125/60, pulse of 71, respiratory rate 16, temperature 97.2, oxygen satur ation 99%. General: Ms. Garcia is resting well. She is in no significant distress. Neurologic: She has no focal neurological deficits. Mild diffuse weakness, which is improving. She is alert and oriented to situation, place, and person. Follows commands appropriately. Laboratory Studies: No new laboratory studies. X-ray/imaging: No new x-rays. Medications: Her medications have been reviewed and remained unchanged. Current Functional Status: Today, she required supervision for toilet hygiene, bathing, lower and up per body dressing. With her speech therapy, she was able to do temporal orientation skills independe ntly. She did require minimal assistance for recalling 4/4 unrelated items after 5 minutes. With he r physical therapy, she ambulated 350 feet once, 115 feet twice with contact guard assistance and a r olling walker. She was able to go up and down 15 steps using bilateral handrails independently. Progress Towards Rehabilitation Goals: Ms. Garcia is making excellent progress towards her goals of becoming independent with upper and lower body dressing, transferring, toileting, showering, ambul ating 250 feet with modified independence, up and down 20 steps with modified independence and perfor lizzette cognitive functioning independently. Assessment: Ms. Garcia is a 77-year-old patient with metabolic and toxic encephalopathy, which is resolving well. Her comorbid conditions are hypothyroidism, urinary tract infection, depression, ma lnutrition, constipation, and poor appetite, which are all improving. Plan: 1.Continue physical, occupational, and speech therapy for 3.5 hours, 5 of 7 days. 2.She will continue with all her medications including Megace for appetite stimulation, topiramate f or trigeminal neuralgia, Protonix for GE reflux, vitamin D for low vitamin D, duloxetine for depressi on, Synthroid for hypothyroidism. Comorbidities That Continue To Impact Her Rehabilitation: She has multiple comorbidities, but they d o not negatively impact her rehabilitation. She is doing very well. DESHAWN/SYD Voice ID: [id number] Report ID: [id number]
[2023-03-02] MEDS: LEVOTHYROXINE SOD 0.075 MG TAB PO SCH (05:25)
[2023-03-02] MEDS: PANTOPRAZOLE 40MG TABLET PO SCH ×2 (07:26→16:37)
[2023-03-02] MEDS: ACETAMINOPHEN 500 MG TAB PO PRN (07:28)
[2023-03-02] MEDS: LIDOCAINE 4% PATCH TOP SCH (07:39)
[2023-03-02] MEDS: MEGESTROL 40 MG TAB PO SCH ×2 (07:40→20:15)
[2023-03-02] MEDS: MAGNESIUM OXIDE 400 MG TAB PO SCH ×2 (07:40→20:16)
[2023-03-02] MEDS: FERROUS SULFATE 325 MG TAB PO SCH (07:40)
[2023-03-02] MEDS: LACTOBACILLUS/ACIDOPHILUS TAB PO SCH (07:41)
[2023-03-02] MEDS: DULOXETINE 20 MG CAP PO SCH (07:41)
[2023-03-02] MEDS: APIXABAN 2.5 MG TABLET PO SCH ×2 (07:41→20:15)
[2023-03-02] MEDS: CRANBERRY FRUIT EXTRACT 200 MG CAP PO SCH ×2 (07:41→20:15)
[2023-03-02] MEDS: TOPIRAMATE 25 MG TAB PO SCH ×2 (07:42→20:15)
[2023-03-02] MEDS: FE SULF/FA/VIT B COMP & C TAB PO SCH (07:42)
[2023-03-02] MEDS: CYANOCOBALAMIN 1,000 MCG TAB PO SCH (07:42)
[2023-03-02] MEDS: GABAPENTIN 100 MG CAP PO SCH ×2 (07:42→20:15)
[2023-03-02] MEDS: EZETIMIBE 10 MG TAB PO SCH (07:43)
[2023-03-02] MEDS: JUVEN PACKET PO SCH ×2 (08:00→20:16)
[2023-03-02] MEDS: ENSURE ENLIVE 237 ML CAN PO SCH ×2 (08:00→20:00)
[2023-03-02] MEDS: METOPROLOL TAR 50 MG TAB PO SCH (09:52)
[2023-03-02] MEDS: TRAZODONE 50 MG TABLET PO PRN (20:15)
[2023-03-03 04:26] LABS: Absolute Lymphocytes (CBC) 1.7 K/uL (0.7-4.9); Lymphocytes % 37.7 % (15.3-44.8); MPV 7.4 fL (7.6-11.3); Platelets 302 thou/uL (152-406); RBC Red Blood Cell Count 2.71 M/uL (3.86-4.86)
[2023-03-03 04:43] LABS: Albumin 2.2 g/dL (3.4-5.0); Magnesium 2.2 mg/dL (1.6-2.4); Potassium 3.5 mEq/L (3.5-5.1); Prealbumin 16.2 mg/dL (20-40)
[2023-03-03] MEDS: LEVOTHYROXINE SOD 0.075 MG TAB PO SCH (06:25)
[2023-03-03] MEDS: PANTOPRAZOLE 40MG TABLET PO SCH ×2 (07:54→17:07)
[2023-03-03] MEDS: JUVEN PACKET PO SCH ×2 (08:00→20:00)
[2023-03-03] MEDS: ENSURE ENLIVE 237 ML CAN PO SCH ×2 (08:00→20:00)
[2023-03-03] MEDS: LACTOBACILLUS/ACIDOPHILUS TAB PO SCH (08:25)
[2023-03-03] MEDS: DRISDOL (VITAMIN D=ERGOCALCIFEROL) 50000 UNIT CAP PO SCH (08:25)
[2023-03-03] MEDS: FE SULF/FA/VIT B COMP & C TAB PO SCH (08:25)
[2023-03-03] MEDS: CRANBERRY FRUIT EXTRACT 200 MG CAP PO SCH ×2 (08:25→20:13)
[2023-03-03] MEDS: EZETIMIBE 10 MG TAB PO SCH (08:25)
[2023-03-03] MEDS: FERROUS SULFATE 325 MG TAB PO SCH (08:25)
[2023-03-03] MEDS: MEGESTROL 40 MG TAB PO SCH ×2 (08:25→20:13)
[2023-03-03] MEDS: MAGNESIUM OXIDE 400 MG TAB PO SCH ×2 (08:26→20:00)
[2023-03-03] MEDS: DULOXETINE 20 MG CAP PO SCH (08:26)
[2023-03-03] MEDS: CYANOCOBALAMIN 1,000 MCG TAB PO SCH (08:26)
[2023-03-03] MEDS: GABAPENTIN 100 MG CAP PO SCH ×2 (08:26→20:13)
[2023-03-03] MEDS: TOPIRAMATE 25 MG TAB PO SCH ×2 (08:26→20:13)
[2023-03-03] MEDS: APIXABAN 2.5 MG TABLET PO SCH ×2 (08:28→20:13)
[2023-03-03] MEDS: METOPROLOL TAR 50 MG TAB PO SCH (11:33)
[2023-03-03] MEDS: ACETAMINOPHEN 500 MG TAB PO PRN ×2 (11:34→17:06)
[2023-03-03] MEDS: LIDOCAINE 4% PATCH TOP SCH (11:35)
[2023-03-03] MEDS: MELATONIN 5 MG TABLET PO PRN (20:13)
--- NOTE | 2023-03-03 21:29 | PN ---
Date of Progress Note: 03/03/2023 Time: 1:30 p.m. Subjective: Ms. Garcia is resting in the room. Her is at bedside. She is doing very wel l. Very happy with her therapy and progress towards coming back to complete normalcy. Review of Systems: No fevers, chills, nausea, vomiting, myalgias, arthralgias. No rash, headache, weight change. No co nfusion. Physical Examination: Vital Signs: Blood pressure 105/51, pulse 77, respiratory rate 17, temperature 98.4, oxygen saturati on 98%. General: Ms. Garcia is resting well. She has no focal deficits. Lungs: Clear to auscultation. Heart: Regular. Abdomen: Soft. Extremities: Show no edema or cyanosis. Laboratory Studies: White blood cell count 4.6, hemoglobin 8.9, platelets 302. Sodium 141, potassiu m 3.5, chloride 113, carbon dioxide 24, BUN 40, creatinine 0.8. Prealbumin 16.2, albumin 2.2. TSH 2 .6. X-ray/imaging: No new x-rays or imaging. Medications: Her medications have been reviewed and remained unchanged. Current Functional Status: With physical therapy, she was able to self propel wheelchair 150 feet in dependently. She completed a car transfers stimulated independently. Did it 3 times. She completed 2 trials of picking up objects from the floor, did both of those independently while using a rolling walker. She ambulated 350 feet, another 110 feet with standby assistance using a rolling walker. S he ascended and descended 15 steps independently. With speech therapy, she was provided with a phone valentin cuing strategies and was able to name 6/6 unrelated pictures after a 5-minute delay. Progress Towards Rehabilitation Goals: Ms. Garcia is making excellent progress towards her goals of becoming independent with her cognitive function, her ability to mobilize in a wheelchair, go up a nd down 15 steps, and to mobilize over 250 feet independently. Her comorbidities are well managed an d are stable. Assessment: Ms. Garcia is a 77-year-old patient with resolved toxic metabolic encephalopathy. Sh e has hypothyroidism urinary tract infection, depression, malnutrition, constipation, poor appetite, and all of those are well managed. Plan: 1.Continue with physical, occupational, and speech therapies for 3.5 hours a day, 5/7 days. 2.All of her comorbidities are managed by continuing list of medications, which she is on stated and are unchanged. Comorbids That Continue To Impact Rehabilitation: Her comorbid conditions do not negatively impact h er rehabilitation. She is doing well. She will be ready for discharge this weekend. DESHAWN/SYD Voice ID: [id number] Report ID: [id number]
[2023-03-04] MEDS: ACETAMINOPHEN 500 MG TAB PO PRN (07:46)
[2023-03-04] MEDS: ENSURE ENLIVE 237 ML CAN PO SCH ×2 (08:00→20:00)
[2023-03-04] MEDS: LACTOBACILLUS/ACIDOPHILUS TAB PO SCH (08:00)
[2023-03-04] MEDS: CYANOCOBALAMIN 1,000 MCG TAB PO SCH (08:00)
[2023-03-04] MEDS: MAGNESIUM OXIDE 400 MG TAB PO SCH ×2 (08:00→20:34)
[2023-03-04] MEDS: JUVEN PACKET PO SCH ×2 (08:00→20:00)
[2023-03-04] MEDS: LIDOCAINE 4% PATCH TOP SCH (08:54)
[2023-03-04] MEDS: LEVOTHYROXINE SOD 0.075 MG TAB PO SCH (08:54)
[2023-03-04] MEDS: PANTOPRAZOLE 40MG TABLET PO SCH ×2 (08:54→17:27)
[2023-03-04] MEDS: DULOXETINE 20 MG CAP PO SCH (08:55)
[2023-03-04] MEDS: CRANBERRY FRUIT EXTRACT 200 MG CAP PO SCH ×2 (08:55→20:34)
[2023-03-04] MEDS: METOPROLOL TAR 50 MG TAB PO SCH (08:56)
[2023-03-04] MEDS: APIXABAN 2.5 MG TABLET PO SCH ×2 (08:56→20:33)
[2023-03-04] MEDS: FERROUS SULFATE 325 MG TAB PO SCH (08:56)
[2023-03-04] MEDS: FE SULF/FA/VIT B COMP & C TAB PO SCH (08:56)
[2023-03-04] MEDS: TOPIRAMATE 25 MG TAB PO SCH ×2 (08:57→20:34)
[2023-03-04] MEDS: GABAPENTIN 100 MG CAP PO SCH ×2 (08:57→20:33)
[2023-03-04] MEDS: EZETIMIBE 10 MG TAB PO SCH (08:57)
[2023-03-04] MEDS: MEGESTROL 40 MG TAB PO SCH ×2 (08:57→20:33)
--- NOTE | 2023-03-04 13:34 | P.RH.PN ---
Estimated Length of Stay: 17 Expected Discharge Date: 03/08/23 Discharge Disposition Plan: Home Family Support: Yes [facility] Goal: Mobility, Transfers, Self Care Vital Signs: Last Vital Signs Temp 96.9 F 03/04/23 07:16 Pulse 76 03/04/23 07:16 Resp 17 03/04/23 07:16 BP 114/55 L 03/04/23 07:16 Pulse Ox 98 03/04/23 07:16 Laboratory: Laboratory Last Values WBC 4.60 thou/uL (4.3-10.9) 03/03/23 03:05 RBC 2.71 M/uL (3.86-4.86) L 03/03/23 03:05 Hgb 8.9 g/dL (12.0-15.0) L 03/03/23 03:05 Hct 25.0 % (36.0-45.0) L 03/03/23 03:05 MCV 92.0 fL (80-100) 03/03/23 03:05 MCH 32.6 pg (27.0-35.0) 03/03/23 03:05 MCHC 35.4 g/dL (32.0-36.0) 03/03/23 03:05 RDW 13.4 % (12.1-15.2) 03/03/23 03:05 Plt Count 302 thou/uL (152-406) 03/03/23 03:05 MPV 7.4 fL (7.6-11.3) L 03/03/23 03:05 Neutrophils % 41.5 % (41.7-73.7) L 03/03/23 03:05 Lymphocytes % 37.7 % (15.3-44.8) 03/03/23 03:05 Monocytes % 14.1 % (3.3-12.3) H 03/03/23 03:05 Eosinophils % 6.0 % (0-4.4) H 03/03/23 03:05 Basophils % 0.7 % (0-1.3) 03/03/23 03:05 Absolute Neutrophils 1.9 K/uL (1.8-8.0) 03/03/23 03:05 Absolute Lymphocytes 1.7 K/uL (0.7-4.9) 03/03/23 03:05 Absolute Monocytes 0.7 K/uL (0.1-1.3) 03/03/23 03:05 Absolute Eosinophils 0.3 K/uL (0-0.5) 03/03/23 03:05 Absolute Basophils 0.0 K/uL (0-0.5) 03/03/23 03:05 Sodium 141 mEq/L (136-145) 03/03/23 03:05 Potassium 3.5 mEq/L (3.5-5.1) 03/03/23 03:05 Chloride 113 mEq/L (98-107) H 03/03/23 03:05 Carbon Dioxide 24 mEq/L (21-32) 03/03/23 03:05 Anion Gap 7.5 mEq/L (5.0-15.0) 03/03/23 03:05 BUN 40 mg/dL (7-18) H 03/03/23 03:05 Creatinine 0.80 mg/dL (0.55-1.02) 03/03/23 03:05 Est GFR (CKD-EPI) 76 ml/min (=/>90) L 03/03/23 03:05 Glucose 90 mg/dL (74-106) 03/03/23 03:05 Calcium 8.5 mg/dL (8.5-10.1) 03/03/23 03:05 Magnesium 2.2 mg/dL (1.6-2.4) 03/03/23 03:05 Albumin 2.2 g/dL (3.4-5.0) L 03/03/23 03:05 Prealbumin 16.2 mg/dL (20-40) L 03/03/23 03:05 TSH 2.600 uIU/mL (0.358-3.740) 02/24/23 03:25 Urine Color Light-orange (Yellow) 02/23/23 04:40 Urine Clarity Extremely turbid (Clear) H 02/23/23 04:40 Urine pH 8.0 (5.0-7.0) H 02/23/23 04:40 Ur Specific [place] 1.016 (1.005-1.030) 02/23/23 04:40 Glucose (UA)(Auto) Negative (Negative) 02/23/23 04:40 Urine Ketones Negative (Negative) 02/23/23 04:40 Urine Blood Trace (Negative) H 02/23/23 04:40 Urine Nitrite Negative (Negative) 02/23/23 04:40 Urine Bilirubin Negative (Negative) 02/23/23 04:40 Urine Urobilinogen Normal (Normal) 02/23/23 04:40 Ur Leukocyte Esterase 250 Amanda/uL (Negative) H 02/23/23 04:40 Urine RBC 11-20 /HPF (None Seen) H 02/23/23 04:40 Urine WBC >50 /HPF (<5) H 02/23/23 04:40 Urine WBC Clumps Occasional /HPF (None Seen) H 02/23/23 04:40 Ur Squamous Epith Cells <5 /HPF (None Seen) 02/23/23 04:40 U Non-Squamous Epi Cells <5 /HPF (None Seen) 02/23/23 04:40 Amorphous Crystals Trace /HPF (None Seen) 02/23/23 04:40 Urine Bacteria >50 /HPF (<20) H 02/23/23 04:40 Urine Culture Reflexed Reflexed 02/23/23 04:40 Urine Total Protein 1+ (Negative) H 02/23/23 04:40 Weight: 130 lb Wound Present: Yes Closed Surgical Incision Present: No Negative Pressure Wound Therapy Present: No Physician Update: Labs were reviewed and are stable. Mild malnutrition and anemia. Very good progress with all therapy. BIMS 15 and SLUMS 24. Met all physical therapy goals. Walking 1000' and 20 steps with SBA to independence. Does all ADLs independently. Summary: Patient's care plan and senior living goals have been reviewed and revised as necessary. Please see the Rehabilitation Signature page for all necessary signatures.
[2023-03-05] MEDS: LEVOTHYROXINE SOD 0.075 MG TAB PO SCH (06:19)
[2023-03-05] MEDS: PANTOPRAZOLE 40MG TABLET PO SCH (07:16)
[2023-03-05] MEDS: TOPIRAMATE 25 MG TAB PO SCH (07:16)
[2023-03-05] MEDS: METOPROLOL TAR 50 MG TAB PO SCH (07:16)
[2023-03-05] MEDS: MEGESTROL 40 MG TAB PO SCH (07:17)
[2023-03-05] MEDS: LACTOBACILLUS/ACIDOPHILUS TAB PO SCH (07:17)
[2023-03-05] MEDS: APIXABAN 2.5 MG TABLET PO SCH (07:17)
[2023-03-05] MEDS: FERROUS SULFATE 325 MG TAB PO SCH (07:17)
[2023-03-05] MEDS: MAGNESIUM OXIDE 400 MG TAB PO SCH (07:17)
[2023-03-05] MEDS: LIDOCAINE 4% PATCH TOP SCH (07:17)
[2023-03-05] MEDS: GABAPENTIN 100 MG CAP PO SCH (07:17)
[2023-03-05] MEDS: EZETIMIBE 10 MG TAB PO SCH (07:17)
[2023-03-05 07:18] VITALS: BP 110/50
[2023-03-05] MEDS: CRANBERRY FRUIT EXTRACT 200 MG CAP PO SCH (07:18)
[2023-03-05] MEDS: DULOXETINE 20 MG CAP PO SCH (07:18)
[2023-03-05] MEDS: FE SULF/FA/VIT B COMP & C TAB PO SCH (07:18)
[2023-03-05] MEDS: CYANOCOBALAMIN 1,000 MCG TAB PO SCH (07:18)
[2023-03-05] MEDS: ENSURE ENLIVE 237 ML CAN PO SCH (08:00)
[2023-03-05] MEDS: JUVEN PACKET PO SCH (08:00)
[2023-03-05 09:25] VITALS: TEMP 97.6
== END 2023-03-05 11:55 | disposition home or self-care (01) | DRG 91 ==
LOC: 5TH 11:55
PROVIDERS: ADMIT Psychiatry & Neurology Neurology with Special Qualifications in Child Neurology; ATTEND Psychiatry & Neurology Neurology with Special Qualifications in Child Neurology
DX: G92.8 Other toxic encephalopathy (principal); G93.41 Metabolic encephalopathy; E46 Unspecified protein-calorie malnutrition; E87.1 Hypo-osmolality and hyponatremia; J90 Pleural effusion, not elsewhere classified; N39.0 Urinary tract infection, site not specified; U09.9 Post COVID-19 condition, unspecified; I10 Essential (primary) hypertension; E78.5 Hyperlipidemia, unspecified; R53.81 Other malaise; G50.0 Trigeminal neuralgia; K21.9 Gastro-esophageal reflux disease without esophagitis; M62.838 Other muscle spasm; E03.9 Hypothyroidism, unspecified; K59.00 Constipation, unspecified; F32.A Depression, unspecified; Z68.21 Body mass index [BMI] 21.0-21.9, adult
CPT/HCPCS: 36415; 80048; 81001; 82040; 83735; 84134; 84443; 84550; 85025; 87077; 87086; 87088; 87186; 92523; 92610; 97110; 97116; 97129; 97163; 97165; 97530; 97542; J2001; J7030